=== PATIENT | female | born 1955 | race Caucasian/White ===

== ENCOUNTER 2020-07-07 02:45 | Inpatient (IN) | payer OTHER ==
--- OUTSIDE RECORDS SUMMARY | 2020-07-07 02:46 | XMS REPORT | Continuity of Care Document ---
:[address] [facility] t Address [address] [place] [address] Care Team Providers Name Role Phone Laly Ordaz PTA Attending Clinician Unavailable Problems This patient has no known problems. Allergies, Adverse Reactions, Alerts This patient has no known allergies or adverse reactions. Medications This patient has no known medications. Procedures This patient has no known procedures. Encounters Start End Encounter Admission Attending Care Care Encounter Source Date/Time Date/Time Type Type Clinicians Facility Department ID 2019-09-15 2019-09-25 Ancillary Orlin [facility] [id number] 08:39:47 09:11:43 Visit Sindhu Garay [id number] Leidy [id number] Nahid [id number] [facility] [address] Results This patient has no known results.
[2020-07-07 04:06] LABS: Absolute Lymphocytes (CBC) 1.4 K/uL (0.7-4.9); Basophils % 1.1 % (0-1.3); Hematocrit 30.2 % (36.0-45.0); Lymphocytes % 26.6 % (15.3-44.8); MPV 7.3 fL (7.6-11.3)
[2020-07-07 04:11] LABS: Protime INR 1.14
[2020-07-07 04:29] LABS: ALT/SGPT 12 U/L (12-78); AST/SGOT 15 U/L (15-37); Albumin 3.3 g/dL (3.4-5.0); Alkaline Phosphatase 111 U/L (45-117); BUN Blood Urea Nitrogen 23 mg/dL (7-18); Bicarbonate 28 mmol/L (21-32); Bilirubin Direct < 0.1 mg/dL (0-0.2); Bilirubin Total 0.3 mg/dL (0.2-1.0); Glucose Level 85 mg/dL (74-106); Lipase 197 U/L (73-393); Magnesium 1.5 mg/dL (1.8-2.4); NT PRO-BNP 185 pg/mL (<125); Potassium 3.7 mmol/L (3.5-5.1); Protein, Total 7.5 g/dL (6.4-8.2); Sodium Level 138 mmol/L (136-145); Troponin (Emerg Dept Use Only) < 0.02 ng/mL (0.0-0.045)
[2020-07-07] MEDS ORDERED: MAGNESIUM SULFATE 1 gm IVPB 1 GM/100 ML BAG IV ONE (05:16)
[2020-07-07] MEDS ORDERED: NA CHLORIDE 0.9% 1,000 ML ONE (05:16)
--- NOTE | 2020-07-07 05:30 | EDPHYS ---
Physician Documentation [facility] Name: Nilam Rivero Age: 65 yrs Sex: Female : 1955 Arrival Date: 07/07/2020 Time: 02:47 Bed 28 Private MD: KENDALL Physician Weston Rick HPI: 07/07 03:10 This 65 yrs old Female presents to ER via EMS with complaints of General luis Weakness. 03:10 The patient's rash thought to be caused by Dermatitis. luis 03:11 The rash is located on the buttocks. The rash can be described as erythematous, stage 3 luis left buttock, 3x 3 cm. Onset: The symptoms/episode began/occurred 2 week(s) ago. Associated signs and symptoms: Pertinent positives: burning sensation. Severity of symptoms: At their worst the symptoms were mild moderate in the emergency department the symptoms are unchanged. Treatment given at home: home health. The patient has experienced similar episodes in the past, several times. Historical: - Allergies: 03:03 PENICILLINS; rr5 - Home Meds: 03:03 levothyroxine oral [Active]; rr5 - PMHx: 03:03 Hypertension; lymph edema bilateral legs; Hypothyroidism; GERD; rr5 - PSHx: 03:03 None; rr5 - Immunization history:: Adult Immunizations up to date. - Social history:: Smoking status: unknown Patient/guardian denies using alcohol, street drugs. - Family history:: not pertinent. ROS: 03:11 Constitutional: Negative for fever, chills, and weight loss, Eyes: Negative for injury, luis pain, redness, and discharge, ENT: Negative for injury, pain, and discharge, Neck: Negative for injury, pain, and swelling, Cardiovascular: Negative for chest pain, palpitations, and edema, Respiratory: Negative for shortness of breath, cough, wheezing, and pleuritic chest pain, Abdomen/GI: Negative for abdominal pain, nausea, vomiting, diarrhea, and constipation, Back: Negative for injury and pain, : Negative for injury, bleeding, discharge, and swelling, Neuro: Negative for headache, weakness, numbness, tingling, and seizure, Psych: Negative for depression, anxiety, suicide ideation, homicidal ideation, and hallucinations, Allergy/Immunology: Negative for hives, rash, and allergies, Endocrine: Negative for neck swelling, polydipsia, polyuria, polyphagia, and marked weight changes, Hematologic/Lymphatic: Negative for swollen nodes, abnormal bleeding, and unusual bruising. 03:11 MS/extremity: Positive for pain, swelling, tenderness, of the buttocks. 03:11 Skin: Positive for left buttock breakdown, dressed. Exam: 03:11 Constitutional: This is a well developed, well nourished patient who is awake, alert, luis and in no acute distress. Head/Face: Normocephalic, atraumatic. Eyes: Pupils equal round and reactive to light, extra-ocular motions intact. Lids and lashes normal. Conjunctiva and sclera are non-icteric and not injected. Cornea within normal limits. Periorbital areas with no swelling, redness, or edema. ENT: Nares patent. No nasal discharge, no septal abnormalities noted. Tympanic membranes are normal and external auditory canals are clear. Oropharynx with no redness, swelling, or masses, exudates, or evidence of obstruction, uvula midline. Mucous membranes moist. Neck: Trachea midline, no thyromegaly or masses palpated, and no cervical lymphadenopathy. Supple, full range of motion without nuchal rigidity, or vertebral point tenderness. No Meningismus. Chest/axilla: Normal chest wall appearance and motion. Nontender with no deformity. No lesions are appreciated. Cardiovascular: Regular rate and rhythm with a normal S1 and S2. No gallops, murmurs, or rubs. Normal PMI, no JVD. No pulse deficits. Respiratory: Lungs have equal breath sounds bilaterally, clear to auscultation and percussion. No rales, rhonchi or wheezes noted. No increased work of breathing, no retractions or nasal flaring. Abdomen/GI: Soft, non-tender, with normal bowel sounds. No distension or tympany. No guarding or rebound. No evidence of tenderness throughout. Back: No spinal tenderness. No costovertebral tenderness. Full range of motion. Female : Normal external genitalia. Neuro: Awake and alert, GCS 15, oriented to person, place, time, and situation. Cranial nerves II-XII grossly intact. Motor strength 5/5 in all extremities. Sensory grossly intact. Cerebellar exam normal. Normal gait. Psych: Awake, alert, with orientation to person, place and time. Behavior, mood, and affect are within normal limits. 03:11 Skin: cellulitis, that is mild, confluent, induration, that is mild is noted, located on the right leg and left leg, Other bilateral lymphedema. 04:22 ECG was reviewed by the Attending Physician. [facility] Vital Signs: 02:55 BP 114 / 49; Pulse 79; Resp 19; Temp 98.2; Pulse Ox 100% ; Weight 82.55 kg; Height 5 rr5 ft. 2 in. (157.48 cm); Pain 5/10; 04:07 BP 120 / 63; Pulse 98; Resp 16; Pulse Ox 93% on R/A; jb4 05:00 BP 103 / 57; Pulse 71; Resp 16; Pulse Ox 97% on R/A; jb4 06:30 BP 111 / 48; Pulse 72; Resp 16; Pulse Ox 100% on R/A; jb4 02:55 Body Mass Index 33.29 (82.55 kg, 157.48 cm) rr5 MDM: 02:55 Patient medically screened. [facility] 03:14 Differential diagnosis: impetigo. Data reviewed: vital signs, nurses notes, lab test [facility] result(s), EKG, radiologic studies, plain films. Data interpreted: archery instructor: rate is 79 beats/min, rhythm is regular, Pulse oximetry: on room air is 100 %. Test interpretation: by ED physician or midlevel provider: ECG, plain radiologic studies. Counseling: I had a detailed discussion with the patient and/or guardian regarding: the historical points, exam findings, and any diagnostic results supporting the discharge/admit diagnosis, lab results, radiology results, the need for further work-up and treatment in the hospital. 07/07 02:59 Order name: Basic Metabolic Panel; Complete Time: 04:50 [facility] 07/07 02:59 Order name: CBC with Diff; Complete Time: 04:50 [facility] 07/07 02:59 Order name: LFT's; Complete Time: 04:50 [facility] 07/07 02:59 Order name: Magnesium; Complete Time: 04:50 [facility] 07/07 02:59 Order name: NT PRO-BNP; Complete Time: 04:50 [facility] 07/07 02:59 Order name: PT-INR; Complete Time: 04:20 [facility] 07/07 02:59 Order name: Troponin (emerg Dept Use Only); Complete Time: 04:50 [facility] 07/07 02:59 Order name: Urine Culture [facility] 07/07 02:59 Order name: Blood Culture Adult (2) [facility] 07/07 02:59 Order name: Lactate; Complete Time: 04:50 [facility] 07/07 03:58 Order name: Lipase; Complete Time: 04:50 [facility] 07/07 03:59 Order name: Sedimentation Rate, [place]; Complete Time: 04:50 [facility] 07/07 02:59 Order name: XRAY Chest (1 view) [facility] 07/07 05:06 Order name: Urine Dipstick--Ancillary (enter results); Complete Time: 05:51 k[facility] 07/07 06:54 Order name: CBC with Automated Diff [facility] 07/07 06:54 Order name: CBC with Automated Diff [facility] 07/07 06:54 Order name: Comprehensive Metabolic Panel [facility] 07/07 06:54 Order name: Comprehensive Metabolic Panel [facility] 07/07 06:54 Order name: Creatine Phosphokinase [facility] 07/07 06:54 Order name: Creatine Phosphokinase [facility] 07/07 06:54 Order name: Creatine Phosphokinase [facility] 07/07 06:54 Order name: Creatine Phosphokinase [facility] 07/07 06:54 Order name: Lipid Profile [facility] 07/07 06:54 Order name: Lipid Profile [facility] 07/07 06:54 Order name: Troponin I [facility] 07/07 06:54 Order name: Troponin I [facility] 07/07 02:59 Order name: EKG; Complete Time: 03:01 [facility] 07/07 02:59 Order name: Cardiac monitoring; Complete Time: 03:51 [facility] 07/07 02:59 Order name: EKG - Nurse/Tech; Complete Time: 03:51 [facility] 07/07 02:59 Order name: IV Saline Lock; Complete Time: 03:51 [facility] 07/07 02:59 Order name: Labs collected and sent; Complete Time: 03:51 [facility] 07/07 02:59 Order name: O2 Per Protocol; Complete Time: 03:51 [facility] 07/07 02:59 Order name: O2 Sat Monitoring; Complete Time: 03:51 [facility] 07/07 02:59 Order name: Urine Dipstick-Ancillary (obtain specimen); Complete Time: 05:17 [facility] 07/07 06:54 Order name: CONS Pharmacy Consult [facility] 07/07 06:54 Order name: Social Service Consult [facility] 07/07 06:54 Order name: NPO EDMS 07/07 06:54 Order name: Regular EDMS EC:22 Rate is 77 beats/min. Rhythm is regular. QRS [place] is Normal. CA interval is normal. QRS luis interval is normal. QT interval is normal. No Q waves. T waves are Normal. No ST changes noted. Clinical impression: NSR w/ Non-specific ST/T Changes and No evidence of ischemia. Interpreted by me. Reviewed by me. Administered Medications: 05:13 Drug: NS 0.9% 1000 ml Route: IV; Rate: 125 ml/hr; Site: left antecubital; 4 06:51 Follow up: Response: No adverse reaction; IV Status: Infusion continued upon admission; [facility] IV Intake: 200ml 05:13 Drug: Magnesium Sulfate 1 grams Route: IVPB; Infused Over: 1 hrs; Site: left [facility] antecubital; 06:13 Follow up: Response: No adverse reaction; IV Status: Completed infusion; IV Intake: jb4 100ml 06:39 Drug: Rocephin 1 grams Route: IV; Rate: per protocol; Site: left antecubital; [facility] 06:42 Follow up: Response: No adverse reaction; IV Status: Completed infusion; IV Intake: [id number] Disposition: 07/07/20 05:56 Hospitalization ordered by Radha Stark for Inpatient Admission. Preliminary diagnosis are Weakness, Lymphedema, not elsewhere classified, Urinary tract infection, site not specified, Anemia, unspecified. - Bed requested for Telemetry/MedSurg (Inpatient). - Status is Inpatient Admission. aj1 - Condition is Stable. - Problem is new. - Symptoms have improved. Signatures: Dispatcher [employer] EDMS Olga Horne Angela RN RN aj1 Weston Rick MD MD cha Williams, Irene, RN RN William Cantrell, MEDICAL ACCOUNTS RECEIVABLE SPECIALIST-C MEDICAL ACCOUNTS RECEIVABLE SPECIALIST-Brenda1 Alex Stovall RN RN jb4 Irvin Campos RN RN ja1 Steve Tejada, RN RN rr5 Corrections: (The following items were deleted from the chart) 03:58 03:01 LIPASE+C.LAB.BRZ ordered. EDMS EDMS 03:58 03:01 WESTERGREN SEDRATE+H.LAB.BRZ ordered. EDMS EDMS 05:18 03:16 Melgar ordered. luis jb4 05:46 05:29 Hospitalization Ordered by Radha Stark MD for Inpatient Admission. Preliminary luis diagnosis is Weakness; Pressure ulcer of buttock; Urinary tract infection, site not specified; Obesity, unspecified; Lymphedema, not elsewhere classified. Bed requested for Telemetry/MedSurg (Inpatient). Status is Inpatient Admission. Condition is Stable. Problem is new. Symptoms have improved. luis 06:00 05:56 Hospitalization Ordered by Radha Stark MD for Inpatient Admission. Preliminary luis diagnosis is Weakness; Lymphedema, not elsewhere classified; Urinary tract infection, site not specified. Bed requested for Telemetry/MedSurg (Inpatient). Status is Inpatient Admission. Condition is Stable. Problem is new. Symptoms have improved. luis 08:14 06:00 07/07/2020 05:56 Hospitalization Ordered by Radha Stark MD for Inpatient iw Admission. Preliminary diagnosis is Weakness; Lymphedema, not elsewhere classified; Urinary tract infection, site not specified; Anemia, unspecified. Bed requested for Telemetry/MedSurg (Inpatient). Status is Inpatient Admission. Condition is Stable. Problem is new. Symptoms have improved. luis 11:35 08:14 07/07/2020 05:56 Hospitalization Ordered by Radha Stark MD for Inpatient bd Admission. Preliminary diagnosis is Weakness; Lymphedema, not elsewhere classified; Urinary tract infection, site not specified; Anemia, unspecified. Bed requested for [facility] ER HOLD. Status is Inpatient Admission. Condition is Stable. Problem is new. Symptoms have improved. iw 12:50 11:35 07/07/2020 05:56 Hospitalization Ordered by Radha Stark MD for Inpatient bd Admission. Preliminary diagnosis is Weakness; Lymphedema, not elsewhere classified; Urinary tract infection, site not specified; Anemia, unspecified. Bed requested for Telemetry/MedSurg (Inpatient). Status is Inpatient Admission. Condition is Stable. Problem is new. Symptoms have improved. bd 13:43 12:50 07/07/2020 05:56 Hospitalization Ordered by Radha Stark MD for Inpatient ja1 Admission. Preliminary diagnosis is Weakness; Lymphedema, not elsewhere classified; Urinary tract infection, site not specified; Anemia, unspecified. Bed requested for [facility] ER HOLD. Status is Inpatient Admission. Condition is Stable. Problem is new. Symptoms have improved. bd 14:28 13:43 07/07/2020 05:56 Hospitalization Ordered by Radha Stark MD for Inpatient aj1 Admission. Preliminary diagnosis is Weakness; Lymphedema, not elsewhere classified; Urinary tract infection, site not specified; Anemia, unspecified. Bed requested for Telemetry/MedSurg (Inpatient). Status is Inpatient Admission. Condition is Stable. Problem is new. Symptoms have improved. ja1
--- NOTE | 2020-07-07 05:30 | ER ---
Nurse's Notes [facility] Name: Nilam Rivero Age: 65 yrs Sex: Female : 1955 Arrival Date: 07/07/2020 Time: 02:47 Bed 28 Private MD: Diagnosis: Weakness;Lymphedema, not elsewhere classified;Urinary tract infection, site not specified;Anemia, unspecified Presentation: 07/07 02:55 Chief complaint: EMS states: patient complaint that her her lymph edema and wound rr5 (pressure sore) on her back is getting worst. 02:55 Coronavirus screen: Client denies travel out of the [place] in the last 14 days. At this rr5 time, the client does not indicate any symptoms associated with coronavirus-19. Ebola Screen: Patient negative for fever greater than or equal to 101.5 degrees Fahrenheit, and additional compatible Ebola Virus Disease symptoms Patient denies exposure to infectious person. Patient denies travel to an Ebola-affected area in the 21 days before illness onset. Initial Sepsis Screen: Does the patient meet any 2 criteria? No. Patient's initial sepsis screen is negative. Does the patient have a suspected source of infection? No. Patient's initial sepsis screen is negative. Risk Assessment: Do you want to hurt yourself or someone else? Patient reports no desire to harm self or others. Note EMS stated orthostatic hypotension positive, patient leaving on her own for the past couple of weeks she called us 75x for the past 60 days asking for assistance. Onset of symptoms was July 07, 2020. 02:55 Method Of Arrival: EMS: [facility] rr5 02:55 Acuity: ESME 3 rr5 Triage Assessment: 03:00 General: Appears in no apparent distress. uncomfortable, Behavior is calm, cooperative, rr5 appropriate for age. 03:00 Pain: Complains of pain in buttocks Pain currently is 5 out of 10 on a pain scale. rr5 Quality of pain is described as aching. Neuro: Level of Consciousness is awake, alert, obeys commands, Oriented to person, place, time. Cardiovascular: Capillary refill < 3 seconds Patient's skin is warm and dry. Edema pitting to bilateral legs. Respiratory: Airway is patent Respiratory effort is even, unlabored, Respiratory pattern is regular, symmetrical. Derm: Skin is pink, warm \T\ dry. Decubitus located on bilateral sacrum hip(s) left trochanteric area, sacral and bilateral buttocks. Musculoskeletal:. Historical: - Allergies: 03:03 PENICILLINS; rr5 - Home Meds: 03:03 levothyroxine oral [Active]; rr5 - PMHx: 03:03 Hypertension; lymph edema bilateral legs; Hypothyroidism; GERD; rr5 - PSHx: 03:03 None; rr5 - Immunization history:: Adult Immunizations up to date. - Social history:: Smoking status: unknown Patient/guardian denies using alcohol, street drugs. - Family history:: not pertinent. Screenin:00 Abuse screen: Denies threats or abuse. Nutritional screening: No deficits noted. jb4 Tuberculosis screening: No symptoms or risk factors identified. Fall Risk Fall in past 12 months (25 points). IV access (20 points). Ambulatory Aid- Crutches/Cane/Walker (15 pts). Gait- Impaired (20 pts.). Total Smith Fall Scale indicates High Risk Score (45 or more points). Fall prevention measures have been instituted. Side Rails Up X 2 Placed Close to Nursing Station Frequent Obs/Assessments Occuring Family Present and informed to notify staff if the need to leave the bedside As available patient and family educated on Fall Prevention Program and Strategies. Assessment: 03:00 General: Appears in no apparent distress. comfortable, Behavior is calm, cooperative, jb4 appropriate for age. Pain: Denies pain. Neuro: Level of Consciousness is awake, alert, Oriented to person, place, time, situation. Cardiovascular: Patient's skin is warm and dry. Respiratory: Airway is patent Respiratory effort is even, unlabored, Respiratory pattern is regular, symmetrical. GI: No signs and/or symptoms were reported involving the gastrointestinal system. : No signs and/or symptoms were reported regarding the genitourinary system. EENT: No signs and/or symptoms were reported regarding the EENT system. Derm: Skin is pink, warm \T\ dry. Decubitus located on Pt has multiple stage 2 bed sores to the buttocks and left posterior thigh. Musculoskeletal: Circulation, motion, and sensation intact. Range of motion: intact in all extremities. 03:16 Reassessment: a case has been started, confirmation number [id number]. 04:00 Reassessment: Patient appears in no apparent distress at this time. Patient and/or jb4 family updated on plan of care and expected duration. Pain level reassessed. Patient is alert, oriented x 3, equal unlabored respirations, skin warm/dry/pink. 04:40 Reassessment: PT assisted to standing positions , used the walker to ambulate to the [facility] restroom and back to bed. Pt ambulated with an unsteady shuffling gate. Is unable to fully lift her feet., is unable to fully sit on the toilet, is unable to clean herself, unable to fully redress herself without assistance. 05:00 Reassessment: Patient appears in no apparent distress at this time. Patient and/or jb4 family updated on plan of care and expected duration. Pain level reassessed. Patient is alert, oriented x 3, equal unlabored respirations, skin warm/dry/pink. 05:30 Reassessment: per William WEIGHT REDUCING TECHNICIAN, pt refusing an admission for social work administrator consult. pt sg states that she has home health that comes 4 times a week, physical therapy is also visiting for treatment, pt states she has resources that she is utilizing, she just requires assistance at night for help into bed and changing her brief. 05:43 Reassessment: Patient appears in no apparent distress at this time. Patient and/or jb4 family updated on plan of care and expected duration. Pain level reassessed. Patient is alert, oriented x 3, equal unlabored respirations, skin warm/dry/pink. ER physician at the bedside. 06:45 Reassessment: Patient appears in no apparent distress at this time. Patient and/or jb4 family updated on plan of care and expected duration. Pain level reassessed. Patient is alert, oriented x 3, equal unlabored respirations, skin warm/dry/pink. Dr. Warner at the bedside. Vital Signs: 02:55 BP 114 / 49; Pulse 79; Resp 19; Temp 98.2; Pulse Ox 100% ; Weight 82.55 kg; Height 5 rr5 ft. 2 in. (157.48 cm); Pain 5/10; 04:07 BP 120 / 63; Pulse 98; Resp 16; Pulse Ox 93% on R/A; jb4 05:00 BP 103 / 57; Pulse 71; Resp 16; Pulse Ox 97% on R/A; jb4 06:30 BP 111 / 48; Pulse 72; Resp 16; Pulse Ox 100% on R/A; jb4 02:55 Body Mass Index 33.29 (82.55 kg, 157.48 cm) rr5 ED Course: 02:47 Patient arrived in ED. cl3 02:55 Weston Rick MD is Attending Physician. luis 03:02 Triage completed. rr5 03:03 Arm band placed on right wrist. rr5 03:26 Alex Stovall, RN is Primary Nurse. jb4 03:27 XRAY Chest (1 view) In Process Unspecified. EDMS 03:45 Inserted saline lock: 24 gauge in left antecubital area, using aseptic technique. Blood ds4 collected. 05:27 Radha Stark MD is Hospitalizing Provider. luis 05:54 Radha Stark MD is Hospitalizing Provider. luis Administered Medications: 05:13 Drug: NS 0.9% 1000 ml Route: IV; Rate: 125 ml/hr; Site: left antecubital; jb4 06:51 Follow up: Response: No adverse reaction; IV Status: Infusion continued upon admission; jb4 IV Intake: 200ml 05:13 Drug: Magnesium Sulfate 1 grams Route: IVPB; Infused Over: 1 hrs; Site: left jb4 antecubital; 06:13 Follow up: Response: No adverse reaction; IV Status: Completed infusion; IV Intake: jb4 100ml 06:39 Drug: Rocephin 1 grams Route: IV; Rate: per protocol; Site: left antecubital; jb4 06:42 Follow up: Response: No adverse reaction; IV Status: Completed infusion; IV Intake: [id number] Intake: 06:13 IV: 100ml; Total: 100ml. jb4 06:42 IV: 10ml; Total: 110ml. jb4 06:51 IV: 200ml; Total: 310ml. jb4 Outcome: 05:29 Decision to Hospitalize by Provider. luis 05:56 Decision to Hospitalize by Provider. luis 14:28 Patient left the ED. aj1 Signatures: Dispatcher [employer] EDHI Puja Beltran RN RN aj1 Frantz Duque RN RN sg Anderson, Corey, MD MD luis Adams Sosa ds4 Alex Stovall RN RN jb4 Steve Tejada RN RN rr5 Amy Holcomb cl3 Corrections: (The following items were deleted from the chart) 07:15 03:00 Derm: Skin is intact, Skin is pink, warm \T\ dry. jb4 jb4
[2020-07-07 05:48] LABS: Urine Blood NEGATIVE (NEG); Urine Glucose NEGATIVE (NEG); Urine Protein NEGATIVE (NEG); Urine Specific Gravity 1.015 (1.005-1.030); Urine pH 7.5 (5.0-7.0)
[2020-07-07] MEDS ORDERED: CEFTRIAXONE/SWI 1gm 1 GM/10 ML SYR ONE (06:43)
[2020-07-07] MEDS ORDERED: ONDANSETRON 4 MG/2 ML VIAL IV PRN (06:49)
--- NOTE | 2020-07-07 07:13 | RAD REPORT ---
EXAM DESCRIPTION: RAD - Chest Single View - 07/07/2020 3:27 am CLINICAL HISTORY: COUGH COMPARISON: None TECHNIQUE: AP portable chest image was obtained 07/07/2020 3:27 am . FINDINGS: Lung volumes are low but clear of focal mass or consolidation. Skin fold artifacts are pre sent on the left side of the chest. Interstitial pattern is not outside of range normal. Heart and va sculature are normal. No measurable pleural effusion and no pneumothorax. Advanced bilateral shoulder joint degenerative change present. No acute bone finding. No acute aortic findings suspected. IMPRESSION: No acute cardiopulmonary process.
[2020-07-07 08:10] LABS: Creatine Phosphokinase 88 U/L (26-192); Troponin I < 0.02 ng/mL (0.0-0.045)
[2020-07-07] MEDS: MEDIHONEY 44 ML TOPICAL TUBE TOP SCH (20:15)
[2020-07-07] MEDS ORDERED: MEDIHONEY 44 ML TOPICAL TUBE TOP SCH (20:15)
[2020-07-08] MEDS: NA CHLORIDE 0.9% 1,000 ML IV SCH ×2 (00:40→13:28)
[2020-07-08 04:05] LABS: Absolute Lymphocytes (CBC) 1.8 K/uL (0.7-4.9); Basophils % 1.1 % (0-1.3); Hematocrit 24.6 % (36.0-45.0); Lymphocytes % 38.6 % (15.3-44.8); MPV 7.4 fL (7.6-11.3)
[2020-07-08 04:25] LABS: Albumin 2.4 g/dL (3.4-5.0); Bilirubin Total 0.3 mg/dL (0.2-1.0); Potassium 3.9 mmol/L (3.5-5.1); Protein, Total 5.9 g/dL (6.4-8.2)
--- NOTE | 2020-07-08 06:07 | EKG ---
Test Date: 2020-07-07 Test Time: 03:40:45 Motion Picture Critic: AUNG MEASUREMENT RESULTS: Intervals: Rate: 77 VT: 126 QRSD: 86 QT: 420 QTc: 475 Hume: P: 61 VT: 126 QRS: 5 T: 12 INTERPRETIVE STATEMENTS: Normal sinus rhythm Nonspecific ST abnormality Abnormal ECG No previous ECG available for comparison Electronically Signed On 07-08-20 06:03:20 COMPOUNDING SCALER by Anthony Rios
--- NOTE | 2020-07-08 06:55 | P.HP ---
Certification for Inpatient Patient admitted to: Observation With expected LOS: <2 Midnights Patient will require the following post-hospital care: None Practitioner: I am a practitioner with admitting privileges, knowledge of patient current condition, hospital course, and medical plan of care. Services: Services provided to patient in accordance with Admission requirements found in Title 42 Section 412.3 of the Code of Federal Regulations Patient History Date of Service: 07/07/20 Reason for admission: Generalized weakness & difficulty mobilizing w/sacral pressure ulcers History of Present Illness: Patient is a 65-year-old female came to the hospital with generalized weakness. She had been laying in bed for quite a while and she is called the EMS 70 times over the last 60 days. They went over to her house and apparently the house is filthy, and she is really not able to care for herself. She does have caregivers assigned to her but they are not with her 12/03. She has a hard time even lifting her leg know when it falls off the bed. Once of the like this happen she calls EMS to help her. She is unable really care for herself at home . She is a danger to herself only she has 247 care. She also has developed sacral decubitus ulcers. These are stage II. Will get wound healing to see the patient as well. Patient has significant lymphedema and this is being treated. But I believe that is 1 of the reason she is unable to lift her leg because of the significant swelling and weight. She does appear very deconditioned. She will be admitted to the hospital for observation and social media project manager consultation Allergies Penicillins Allergy (Verified 07/07/20 07:56) Rash Home Medications: Cholecalciferol (Vitamin D3) [Vitamin D 1000 Iu Tab] 2,000 unit PO DAILY 07/07/20 Irbesartan 300 mg PO DAILY 07/07/20 Levothyroxine [Synthroid] 88 mcg PO [id number] 07/07/20 Pantoprazole [Protonix Tab] 40 mg PO DAILY 07/07/20 Pravastatin Sodium [Pravachol] 40 mg PO DAILY 07/07/20 hydroCHLOROthiazide [Hydrochlorothiazide] 25 mg PO DAILY 07/07/20 - Past Medical/Surgical History Has patient received pneumonia vaccine in the past: Yes Diabetic: No -: hypothyroid -: cholesterol -: lymphemdema -: htn -: hx lumbar fracture Past Surgical History: Patient denies surgical history - Family History Father Family History: Reviewed- Non-Contributory - Social History Smoking Status: Unknown if ever smoked Alcohol use: No CD- Drugs: No Review of Systems 10-point ROS is otherwise unremarkable Physical Examination - Vital Signs Temperature: 99.3 F Blood Pressure: 115/55 Pulse: 72 Respirations: 18 Pulse Ox (%): 99 - Physical Exam General: Alert, In no apparent distress, Oriented x3 HEENT: Atraumatic, PERRLA, Mucous membr. moist/pink, EOMI, Sclerae nonicteric Neck: Supple, 2+ carotid pulse no bruit, No LAD, Without JVD or thyroid abnormality Respiratory: Clear to auscultation bilaterally, Normal air movement Cardiovascular: Regular rate/rhythm, Normal S1 S2, No murmurs Gastrointestinal: Normal bowel sounds, Soft and benign, Non-distended, No tenderness Musculoskeletal: No clubbing, No tenderness, Swelling Integumentary: Pressure ulcer (4D from pressure ulcers from the sacrum to the left flank/buttock region) Neurological: Normal speech, Sensation intact, Cranial nerves 3-12 intact, N ormal affect, Abnormal gait, Abnormal strength, Abnormal tone Lymphatics: No axilla or inguinal lymphadenopathy Assessment & Plan - Problems (Diagnosis) (1) Generalized weakness Current Visit: Yes Status: Acute (2) Debility Current Visit: Yes Status: Acute (3) Pressure injury of sacral region, stage 2 Current Visit: Yes Status: Acute (4) Lymphedema Current Visit: Yes Status: Acute (5) Unsatisfactory living conditions Current Visit: Yes Status: Acute (6) Hypertension Current Visit: Yes Status: Acute Qualifiers: Hypertension type: essential hypertension Qualified Code(s): I10 - Essential (primary) hypertension - Plan 1. Continue with IV antibiotic 2. Continue with local wound care 3. Wound care consultation 4. Gentle IV hydration 5. Monitor CBC 6. Strict blood sugar monitoring 7. Pain control 8. Physical therapy evaluation 9. GI and DVT prophylaxis Discharge Plan: Intermediate Plan to discharge in: 24 Hours - Advance Directives Does patient have a Living Will: No Does patient have a Durable POA for Healthcare: No - Code Status/Comfort Care Code Status Assessed: Yes Code Status: Full Code Critical Care: No Time Spent Managing PTS Care (In Minutes): 45
[2020-07-08] MEDS: PANTOPRAZOLE 40MG TABLET PO SCH (08:36)
[2020-07-08] MEDS: ATORVASTATIN 10 MG TAB PO SCH (08:36)
[2020-07-08] MEDS: VITAMIN D 1000 UNIT TAB PO SCH (08:37)
[2020-07-08] MEDS: IRBESARTAN 150 MG TAB PO SCH (08:37)
[2020-07-08] MEDS: hydroCHLOROthiazide 25 MG TAB PO SCH (08:37)
[2020-07-08] MEDS: MEDIHONEY 44 ML TOPICAL TUBE TOP SCH (11:08)
[2020-07-08] MEDS: ACETAMINOPHEN 500 MG TAB PO PRN (15:20)
[2020-07-08] MEDS: JUVEN PACKET PO SCH (19:47)
[2020-07-09] MEDS: CEFTRIAXONE/SWI 1gm 1 GM/10 ML SYR IV SCH ×3 (03:54→20:03)
[2020-07-09] MEDS: LEVOTHYROXINE SOD 0.088 MG TAB PO SCH (05:33)
[2020-07-09] MEDS: IRBESARTAN 150 MG TAB PO SCH (08:50)
[2020-07-09] MEDS: VITAMIN D 1000 UNIT TAB PO SCH (08:50)
[2020-07-09] MEDS: PANTOPRAZOLE 40MG TABLET PO SCH (08:51)
[2020-07-09] MEDS: ATORVASTATIN 10 MG TAB PO SCH (08:51)
[2020-07-09] MEDS: JUVEN PACKET PO SCH ×2 (08:51→20:04)
[2020-07-09] MEDS: hydroCHLOROthiazide 25 MG TAB PO SCH (08:51)
[2020-07-09] MEDS ORDERED: CEFTRIAXONE 1 GM/NS 50 ML 1 GM/50 ML BAG IV SCH (09:00)
[2020-07-09] MEDS: MEDIHONEY 44 ML TOPICAL TUBE TOP SCH (10:00)
[2020-07-09] MEDS: ACETAMINOPHEN 500 MG TAB PO PRN (10:42)
--- NOTE | 2020-07-09 15:04 | P.PN ---
Subjective Date of Service: 07/09/20 Patient continues to do well with no new complaints. She has the sacral wounds which are improving. She did have a positive urinary tract infection although the urine analysis was not overly impressive. Hopefully, she will be able to get to senior care so she can do therapy & build her strength up to where she can lift her legs up on her own at home and where she is able to become more mobile to where she does not develop pressure ulcers. Review of Systems 10-point ROS is otherwise unremarkable Physical Examination - Vital Signs Temperature: 99.1 F Blood Pressure: 123/56 Pulse: 64 Respirations: 16 Pulse Ox (%): 99 - Physical Exam General: Alert, In no apparent distress, Oriented x3 Respiratory: Diminished Cardiovascular: Regular rate/rhythm, Normal S1 S2, Systolic murmur Gastrointestinal: Normal bowel sounds, Soft and benign, Non-distended, No tenderness Musculoskeletal: No clubbing, No swelling, No tenderness Neurological: Sensation intact, Cranial nerves 3-12 intact, Abnormal gait, Abnormal strength Lymphatics: No axilla or inguinal lymphadenopathy - Studies Medications List Reviewed: Yes Assessment & Plan - Problems (Diagnosis) (1) Generalized weakness Current Visit: Yes Status: Acute (2) Debility Current Visit: Yes Status: Acute (3) Pressure injury of sacral region, stage 2 Current Visit: Yes Status: Acute (4) Lymphedema Current Visit: Yes Status: Acute (5) Unsatisfactory living conditions Current Visit: Yes Status: Acute (6) Hypertension Current Visit: Yes Status: Acute Qualifiers: Hypertension type: essential hypertension Qualified Code(s): I10 - Essential (primary) hypertension - Plan 1. Continue with IV antibiotic for urinary tract infection 2. Continue with local wound care 3. Wound care consultation appreciated 4. Hep-Lock IV 5. Labs remained stable 6. Strict blood sugar monitoring 7. Pain control 8. Physical therapy evaluation appreciated 9. Patient is unable to care for herself at home. She has called the EMS greater than 70 times over the last 60 days. She needs assistance with the most minimal things including lifting her leg up. She is not safe to go home and care for herself any longer. She will need to either get significantly strong her or to have family at home which she does not have the ability to do at this time. Anticipate transfer to a senior care facility placement when accepted. Discharge Plan: [facility] Plan to discharge in: 24 Hours - Advance Directives Does patient have a Living Will: No Does patient have a Durable POA for Healthcare: No - Code Status/Comfort Care Code Status: Full Code Critical Care: No Time Spent Managing PTS Care (In Minutes): 35
--- NOTE | 2020-07-09 15:06 | P.PN ---
Subjective Date of Service: 07/08/20 Patient continues to do well with no new complaints. She is improving. Review of Systems 10-point ROS is otherwise unremarkable Physical Examination - Vital Signs Temperature: 99.1 F Blood Pressure: 123/56 Pulse: 64 Respirations: 16 Pulse Ox (%): 99 - Physical Exam General: Alert, In no apparent distress, Oriented x3 Respiratory: Clear to auscultation bilaterally, Normal air movement Cardiovascular: Regular rate/rhythm, Normal S1 S2, No murmurs Gastrointestinal: Normal bowel sounds, Soft and benign, Non-distended, No tenderness Musculoskeletal: No clubbing, No swelling, No tenderness Neurological: Sensation intact, Cranial nerves 3-12 intact - Studies Medications List Reviewed: Yes Assessment & Plan - Problems (Diagnosis) (1) Generalized weakness Current Visit: Yes Status: Acute (2) Debility Current Visit: Yes Status: Acute (3) Pressure injury of sacral region, stage 2 Current Visit: Yes Status: Acute (4) Lymphedema Current Visit: Yes Status: Acute (5) Unsatisfactory living conditions Current Visit: Yes Status: Acute (6) Hypertension Current Visit: Yes Status: Acute Qualifiers: Hypertension type: essential hypertension Qualified Code(s): I10 - Essential (primary) hypertension - Plan 1. Continue antibiotics at this time 2. Continue with local wound care 3. Wound care consultation appreciated 4. Continue gentle hydration 5. Labs remained stable 6. Strict blood sugar monitoring 7. Pain control as needed 8. Physical therapy consultation pending 9. Patient is unable to care for herself at home. She has called the EMS greater than 70 times over the last 60 days. She needs assistance with the most minimal things including lifting her leg up. She is not safe to go home and care for herself any longer. She will need to either get significantly stronger or to have family at home which she does not have the ability to do at this time. Anticipate transfer to a alf facility placement when accepted. Discharge Plan: [facility] Plan to discharge in: 48 Hours - Advance Directives Does patient have a Living Will: No Does patient have a Durable POA for Healthcare: No - Code Status/Comfort Care Code Status: Full Code Critical Care: No Time Spent Managing PTS Care (In Minutes): 35
[2020-07-09] MEDS: SMZ./TMP. 800/160 MG TABLET PO SCH (20:03)
[2020-07-10] MEDS: LEVOTHYROXINE SOD 0.088 MG TAB PO SCH (05:41)
[2020-07-10] MEDS: ACETAMINOPHEN 500 MG TAB PO PRN ×3 (08:29→22:04)
[2020-07-10] MEDS: SMZ./TMP. 800/160 MG TABLET PO SCH ×2 (08:30→22:04)
[2020-07-10] MEDS: CEFTRIAXONE/SWI 1gm 1 GM/10 ML SYR IV SCH ×2 (08:30→22:05)
[2020-07-10] MEDS: IRBESARTAN 150 MG TAB PO SCH (08:30)
[2020-07-10] MEDS: PANTOPRAZOLE 40MG TABLET PO SCH (08:31)
[2020-07-10] MEDS: ATORVASTATIN 10 MG TAB PO SCH (08:31)
[2020-07-10] MEDS: hydroCHLOROthiazide 25 MG TAB PO SCH (08:31)
[2020-07-10] MEDS: VITAMIN D 1000 UNIT TAB PO SCH (08:32)
[2020-07-10] MEDS: JUVEN PACKET PO SCH ×2 (08:32→22:03)
[2020-07-10] MEDS: MEDIHONEY 44 ML TOPICAL TUBE TOP SCH (08:33)
[2020-07-10 12:41] LABS: Absolute Lymphocytes (CBC) 0.2 K/uL (0.7-4.9); Basophils % 0.4 % (0-1.3); Hematocrit 26.6 % (36.0-45.0); Lymphocytes % 4.8 % (15.3-44.8); MPV 7.7 fL (7.6-11.3); RBC Red Blood Cell Count 3.23 M/uL (3.86-4.86)
[2020-07-10] MEDS: CETIRIZINE HCL 5 MG TABLET PO SCH (12:41)
[2020-07-10 13:02] LABS: Albumin 2.5 g/dL (3.4-5.0); Bilirubin Total 0.3 mg/dL (0.2-1.0); Magnesium 1.5 mg/dL (1.8-2.4); Phosphorus 3.7 mg/dL (2.5-4.9); Potassium 3.8 mmol/L (3.5-5.1); Protein, Total 6.2 g/dL (6.4-8.2)
[2020-07-10] MEDS: SIMETHICONE 125 MG TAB PO SCH ×2 (13:03→17:06)
[2020-07-11] MEDS: ACETAMINOPHEN 500 MG TAB PO PRN ×3 (05:24→23:39)
[2020-07-11] MEDS: LEVOTHYROXINE SOD 0.088 MG TAB PO SCH (05:24)
[2020-07-11] MEDS: SIMETHICONE 125 MG TAB PO SCH ×2 (05:24)
[2020-07-11 08:51] VITALS: BMI 33.3
[2020-07-11] MEDS: ATORVASTATIN 10 MG TAB PO SCH (08:51)
[2020-07-11] MEDS: hydroCHLOROthiazide 25 MG TAB PO SCH (08:52)
[2020-07-11] MEDS: PANTOPRAZOLE 40MG TABLET PO SCH (08:52)
[2020-07-11] MEDS: VITAMIN D 1000 UNIT TAB PO SCH (08:52)
[2020-07-11] MEDS: CETIRIZINE HCL 5 MG TABLET PO SCH (08:52)
[2020-07-11] MEDS: IRBESARTAN 150 MG TAB PO SCH (08:52)
[2020-07-11] MEDS: SMZ./TMP. 800/160 MG TABLET PO SCH (08:52)
[2020-07-11] MEDS: JUVEN PACKET PO SCH ×2 (08:53→21:00)
[2020-07-11] MEDS: CEFTRIAXONE/SWI 1gm 1 GM/10 ML SYR IV SCH ×2 (08:53→21:05)
[2020-07-11] MEDS: MEDIHONEY 44 ML TOPICAL TUBE TOP SCH (09:09)
--- NOTE | 2020-07-11 10:36 | P.PN ---
Subjective Date of Service: 07/10/20 Patient had a fever of 101 today. She is feeling weaker today. Blood pressure is on the lower side as well. Will review her culture results and possibly need to broaden her antibiotic coverage as she remains having fevers on ceftriaxone. May need to have cultures of wound on the sacral region as well. May need to look for other sources of fever. Patient will probably meet inpatient requirements. Review of Systems 10-point ROS is otherwise unremarkable Physical Examination - Vital Signs Temperature: 100.0 F Blood Pressure: 107/48 Pulse: 88 Respirations: 16 Pulse Ox (%): 97 - Physical Exam General: Alert, In no apparent distress, Oriented x3 Respiratory: Clear to auscultation bilaterally, Normal air movement Cardiovascular: Regular rate/rhythm, Normal S1 S2, No murmurs Gastrointestinal: Normal bowel sounds, Soft and benign, Non-distended, No tenderness Musculoskeletal: No clubbing, No swelling, No tenderness Neurological: Normal strength at 5/5 x4 extr, Sensation intact, Cranial nerves 3-12 intact - Studies Microbiology Data (last 24 hrs): 07/07/20 05:05 Clean Catch Urine [place] Count - Final >100,000 CFU/ML. 07/07/20 05:05 Clean Catch Urine - Final Escherichia Coli Enterococcus Faecalis Medications List Reviewed: Yes Assessment & Plan - Problems (Diagnosis) (1) UTI (urinary tract infection) Current Visit: Yes Status: Acute (2) Fever Current Visit: Yes Status: Acute (3) Generalized weakness Current Visit: Yes Status: Acute (4) Debility Current Visit: Yes Status: Acute (5) Pressure injury of sacral region, stage 2 Current Visit: Yes Status: Acute (6) Lymphedema Current Visit: Yes Status: Acute (7) Unsatisfactory living conditions Current Visit: Yes Status: Acute (8) Hypertension Current Visit: Yes Status: Acute Qualifiers: Hypertension type: essential hypertension Qualified Code(s): I10 - Essential (primary) hypertension - Plan 1. Continue antibiotics at this time; patient on Rocephin and may need to change the antibiotic coverage if she continues to have fever 2. Continue with local wound care; wound cultures as well; blood cultures negative at this time 3. Wound care consultation appreciated 4. Continue gentle hydration 5. Labs remained stable; repeat labs in a.m. 6. Strict blood sugar monitoring 7. Pain control as needed 8. Physical therapy consultation pending 9. [facility] awaiting placement. Patient is unable to care for herself at home. She has called the EMS greater than 70 times over the last 60 days. She needs assistance with the most minimal things including lifting her leg up. She is not safe to go home and care for herself any longer. She will need to either get significantly stronger or to have family at home which she does not have the ability to do at this time. Anticipate transfer to a care home facility placement when accepted. Discharge Plan: [facility] Plan to discharge in: 48 Hours - Advance Directives Does patient have a Living Will: No Does patient have a Durable POA for Healthcare: No - Code Status/Comfort Care Code Status: Full Code Critical Care: No Time Spent Managing PTS Care (In Minutes): 35
[2020-07-11] MEDS: SIMETHICONE 125 MG TAB PO PRN ×2 (11:03→18:05)
[2020-07-11 11:38] LABS: Absolute Lymphocytes (CBC) 0.2 K/uL (0.7-4.9); Basophils % 0.2 % (0-1.3); Hematocrit 29.1 % (36.0-45.0); Lymphocytes % 2.6 % (15.3-44.8); MPV 7.7 fL (7.6-11.3); RBC Red Blood Cell Count 3.56 M/uL (3.86-4.86)
[2020-07-11] MEDS: NA CHLORIDE 0.9% 1,000 ML IV SCH ×2 (11:43→23:18)
[2020-07-11 12:21] LABS: Albumin 2.6 g/dL (3.4-5.0); Bilirubin Total 0.2 mg/dL (0.2-1.0); Folic Acid, (Folate) 14.6 ng/mL (3.1-17.5); Potassium 4.1 mmol/L (3.5-5.1); Protein, Total 6.6 g/dL (6.4-8.2)
[2020-07-11] MEDS ORDERED: ACETAMINOPHEN 500 MG TAB PO ONE (16:07)
[2020-07-11] MEDS ORDERED: CYANOCOBALAMIN 1000MCG/ML INJ IM ONE (16:12)
--- NOTE | 2020-07-11 16:20 | P.PN ---
Subjective Date of Service: 07/11/20 Patient continues to have a fever of 102. Patient denies any new complaint. She continues to have weakness. Review of Systems 10-point ROS is otherwise unremarkable Physical Examination - Vital Signs Temperature: 100.0 F Blood Pressure: 107/48 Pulse: 88 Respirations: 16 Pulse Ox (%): 97 - Physical Exam General: Alert, In no apparent distress, Oriented x3 Respiratory: Clear to auscultation bilaterally, Normal air movement Cardiovascular: Regular rate/rhythm, Normal S1 S2, No murmurs Gastrointestinal: Normal bowel sounds, Soft and benign, Non-distended, No tenderness Musculoskeletal: No clubbing, No swelling, No tenderness Neurological: Sensation intact, Cranial nerves 3-12 intact - Studies Microbiology Data (last 24 hrs): 07/07/20 05:05 Clean Catch Urine [place] Count - Final >100,000 CFU/ML. 07/07/20 05:05 Clean Catch Urine - Final Escherichia Coli Enterococcus Faecalis Medications List Reviewed: Yes Assessment & Plan - Problems (Diagnosis) (1) UTI (urinary tract infection) Current Visit: Yes Status: Acute (2) Fever Current Visit: Yes Status: Acute (3) Generalized weakness Current Visit: Yes Status: Acute (4) Debility Current Visit: Yes Status: Acute (5) Pressure injury of sacral region, stage 2 Current Visit: Yes Status: Acute (6) Lymphedema Current Visit: Yes Status: Acute (7) Unsatisfactory living conditions Current Visit: Yes Status: Acute (8) Hypertension Current Visit: Yes Status: Acute Qualifiers: Hypertension type: essential hypertension Qualified Code(s): I10 - Essential (primary) hypertension - Plan 1. Add vancomycin to regimen. Blood cultures repeated with a temperature of a 103 2. Continue with local wound care; wound cultures and blood cultures pending; Infectious Disease Consult 3. Wound care consultation appreciated 4. Continue gentle hydration 5. Iron level & B12 levels are low and we will supplement 6. Strict blood sugar monitoring 7. Pain control as needed 8. Physical therapy consultation appreciated 9. [facility] [employer] [facility] awaiting placement. Patient is unable to care for herself at home. She has called the EMS greater than 70 times over the last 60 days. She needs assistance with the most minimal things including lifting her leg up. She is not safe to go home and care for herself any longer. She will need to either get significantly stronger or to have family at home which she does not have the ability to do at this time. Anticipate transfer to a intermediate facility placement when accepted. Discharge Plan: Home Plan to discharge in: Greater than 2 days - Advance Directives Does patient have a Living Will: No Does patient have a Durable POA for Healthcare: No - Code Status/Comfort Care Code Status: Full Code Critical Care: No Time Spent Managing PTS Care (In Minutes): 35
[2020-07-11] MEDS: ENSURE HIGH PROTEIN 237 ML CAN PO SCH (16:28)
[2020-07-11] MEDS ORDERED: VANCOMYCIN 1.25 GM in NA CHLORIDE 0.9% 250 ML IVPB SCH (17:00)
[2020-07-11] MEDS ORDERED: VANCOMYCIN/NS 1 gm 1 GM/250 ML BAG IVPB ONE (17:30)
[2020-07-11] MEDS ORDERED: VANCOMYCIN 1 GM/VIAL ONE (17:41)
[2020-07-11] MEDS ORDERED: NA CHLORIDE 0.9% 250 ML ONE (17:42)
[2020-07-12] MEDS: LEVOTHYROXINE SOD 0.088 MG TAB PO SCH (05:39)
[2020-07-12] MEDS: SIMETHICONE 125 MG TAB PO PRN ×3 (05:41→18:07)
[2020-07-12 06:16] LABS: Absolute Lymphocytes (CBC) 0.3 K/uL (0.7-4.9); Basophils % 0.3 % (0-1.3); Hematocrit 26.7 % (36.0-45.0); Lymphocytes % 4.3 % (15.3-44.8); MPV 8.2 fL (7.6-11.3); RBC Red Blood Cell Count 3.25 M/uL (3.86-4.86)
[2020-07-12 06:31] LABS: Magnesium 1.5 mg/dL (1.8-2.4); Phosphorus 3.7 mg/dL (2.5-4.9); Potassium 3.8 mmol/L (3.5-5.1)
[2020-07-12] MEDS: ENSURE HIGH PROTEIN 237 ML CAN PO SCH ×3 (07:30→16:07)
[2020-07-12] MEDS: MEDIHONEY 44 ML TOPICAL TUBE TOP SCH (09:00)
[2020-07-12] MEDS ORDERED: levoFLOXacin 500 MG TAB PO SCH (09:00)
[2020-07-12] MEDS: VITAMIN D 1000 UNIT TAB PO SCH (09:58)
[2020-07-12] MEDS: IRBESARTAN 150 MG TAB PO SCH (09:58)
[2020-07-12] MEDS: ALPRAZOLAM 0.25 MG TABLET PO PRN (09:58)
[2020-07-12] MEDS: CETIRIZINE HCL 5 MG TABLET PO SCH (09:58)
[2020-07-12] MEDS: JUVEN PACKET PO SCH ×2 (09:59→21:31)
[2020-07-12] MEDS: PANTOPRAZOLE 40MG TABLET PO SCH (09:59)
[2020-07-12] MEDS: SOD FERRIC GLUC COMPLX/SUCROSE 125 MG in NA CHLORIDE 0.9% 100 ML IV SCH (09:59)
[2020-07-12] MEDS: ATORVASTATIN 10 MG TAB PO SCH (09:59)
[2020-07-12] MEDS: levoFLOXacin 250 MG TAB PO SCH (09:59)
[2020-07-12] MEDS: NA CHLORIDE 0.9% 1,000 ML IV SCH ×3 (10:00→21:58)
--- NOTE | 2020-07-12 13:16 | P.PN ---
Subjective Date of Service: 07/12/20 Chief Complaint: Generalized weakness & difficulty mobilizing w/sacral pressure ulcers Subjective: Other (Patient still feeling weak. But improved. No nausea vomiting.) Physical Examination - Vital Signs Temperature: 98.8 F Blood Pressure: 102/48 Pulse: 79 Respirations: 15 Pulse Ox (%): 95 - Physical Exam General: Alert, In no apparent distress, Oriented x3, Cooperative HEENT: Atraumatic Neck: Supple Respiratory: Clear to auscultation bilaterally, Normal air movement Cardiovascular: Normal pulses, Regular rate/rhythm Gastrointestinal: Normal bowel sounds, No tenderness, No masses, No rebound, No guarding Integumentary: No erythema, No warmth, No cyanosis Neurological: Normal speech, Normal tone, Normal affect - Studies Microbiology Data (last 24 hrs): 07/07/20 03:30 Blood - Blood Aerobic Blood Culture - Final No growth in 5 days. 07/07/20 03:30 Blood - Blood Anaerobic Blood Culture - Final No growth in 5 days. 07/07/20 03:45 Blood - Blood Aerobic Blood Culture - Final No growth in 5 days. 07/07/20 03:45 Blood - Blood Anaerobic Blood Culture - Final No growth in 5 days. Medications List Reviewed: Yes Assessment & Plan Discharge Plan: Home (with Home health) Plan to discharge in: 48 Hours Physician Review Additional Text: Impression: Generalized weakness with debility secondary to UTI, urine culture positive for E coli and Enterococcus Acute on chronic renal disease stage III Hypertension Stage II pressure ulcer to the sacrum B12 deficiency Bilateral advanced shoulder joint degeneration Plan: Generalized weakness with debility secondary to UTI, urine culture positive for E coli and Enterococcus: IV antibiotics adjusted. Discontinue vancomycin due to renal function at this time. Blood cultures negative. Will change IV antibiotic therapy to Levaquin to cover for bacteria. Will consult infectious disease for further recommendation. 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 Patient not able to get skilled placement. Only option would be home with home health and provider services. Continue physical therapy. Continue IV fluids at this time. Discontinue Avapro due to renal function. Will consult nephrology for further recommendation. Check renal ultrasound. Anticipate improvement over the next several days. Acute on chronic renal disease stage III: Etiology unknown. May be related to vancomycin. This has been discontinued. Will also recommend to discontinue Avapro. Will check renal ultrasound. Will consult nephrology for further recommendation. Hypertension: Blood pressure low at this time. Discontinue Avapro. Will monitor this closely. Continue IV fluids. Stage II pressure ulcer to the sacrum: Continue wound care. Infectious disease consulted. B12 deficiency: Continue with supplementation. Bilateral advanced shoulder joint degeneration: Will provide medication, physical therapy to assess and evaluate. Time Spent Managing Pts Care (In Minutes): 55
--- NOTE | 2020-07-12 13:39 | CON ---
History Of Present Illness: This is a 65-year-old female, coming in for generalized weakness. The p atient has been lying in bed for the last couple of months. Denies any headache, nausea, vomiting, c hest pain, abdominal pain, constipation, or diarrhea. The patient has stage III sacral coccyx wounds , also has lymphedema to both lower extremities with right leg with venous stasis ulcer. The patient denies any other problems at this time. Past Medical History: Includes hypothyroidism, hypercholesterolemia, sacral coccyx wound, congestive heart failure. As per HPI. Social History: Nonsmoker, nondrinker. Lives at home. Family History: Noncontributory. Medications: Vitamin D, levothyroxine, Protonix, atorvastatin, hydrochlorothiazide, Pravachol. Allergies: PENICILLIN CAUSES A RASH. Review of Systems: A 10-point review was performed. Physical Examination: General: This is a 65-year-old female, lying in bed, not in any acute cardiopulmonary distress. Vital Signs: Temperature 98.8, pulse 79, respirations 15, blood pressure 102/48. HEENT: Unremarkable. Neck: Supple. Lungs: Clear to auscultation. Heart: S1, S2. Regular. Abdomen: Soft, nontender. Bowel sounds present. Extremities: 2+ edema. Legs wrapped in [place]ich[place] wrap pressure dressing. Sacral coccyx area with 5 x 14 x 0.4 cm, has 80% granulation and 20% slough to the wound site. Main wound is located in the coccyx area and then has multiple satellite wounds to the buttocks because of the patient's habit of lying i n bed. Laboratory Data: Shows WBC of 6.3, hemoglobin 8.8, platelets are 134. Chemistry shows sodium 140, p otassium 3.8, chloride 110, bicarb 23, creatinine 1.5, glucose is 77, albumin is 2.6. Chest x-ray sh ows lung volumes are low, but clear of any consolidation. Assessment And Plan: A 65-year-old female coming in with generalized weakness, has multiple wounds b ecause of lying in her bed for more than 2 months. The largest wound is in the sacral coccyx region and there are multiple satellite wounds on both buttocks making the measurement 5 x 14 x 0.4 with 20% necrotic tissue and slough was also present. We will recommend to apply Medihoney, offload the woun ds by wedge pillow. Lower extremity lymphedema and right leg with venous stasis ulcer to keep leg wr apped with Jericho wrap and keep them elevated. Continue current antibiotic treatment with Levaquin, tot al course of 10 days. Continue to monitor for signs of infection. The patient has Escherichia coli in her urine, more than 100,000, sensitive to Levaquin. Also, has moderate-protein calorie malnouris hment. We will follow the patient closely. Thank you Dr. Connolly for consult. NF/MODL Voice ID: [id number] Report ID: [id number]
[2020-07-12] MEDS: ENOXAPARIN 30 MG/0.3 ML SQ SCH (16:06)
[2020-07-12] MEDS ORDERED: SOD FERRIC GLUC COMPLX/SUCROSE 250 MG in NA CHLORIDE 0.9% 250 ML IV ONE (16:13)
--- NOTE | 2020-07-12 16:29 | P.CNS ---
Date of Consult: 07/12/20 Reason for Consult: MAGNUS Requesting Physician: Jose Connolly Chief Complaint: Generalized weakness & difficulty mobilizing w/sacral pressure ulcers History of Present Illness: 65 y o female pt with hx of lymphedema, HTN, admitted for management of fever and deemed septic. She was worked up and found to have UTI and infected decubitus ulcers. She was started on empiric antibiotics which include vancomycin. Her kidney function worsened over the last 2 days warranting nephrology consultation. she denied any issues with previous kidney issues or use of NSAIDs on chronic basis. No family hx of kidney disease reported. Presently, she does not have any issues with burning micturition, reduced urine output of n/v, chills, rigor, abd pain. She did report back discomfort. Allergies Penicillins Allergy (Verified 07/07/20 07:56) Rash Home medications list reviewed: Yes Home Medications: Cholecalciferol (Vitamin D3) [Vitamin D 1000 Iu Tab] 2,000 unit PO DAILY 07/07/20 Irbesartan 300 mg PO DAILY 07/07/20 Levothyroxine [Synthroid] 88 mcg PO [id number] 07/07/20 Pantoprazole [Protonix Tab] 40 mg PO DAILY 07/07/20 Pravastatin Sodium [Pravachol] 40 mg PO DAILY 07/07/20 hydroCHLOROthiazide [Hydrochlorothiazide] 25 mg PO DAILY 07/07/20 - Past Medical/Surgical History Diabetic: No -: hypothyroid -: cholesterol -: lymphemdema -: htn -: hx lumbar fracture - Family History Father Family History: Reviewed- Non-Contributory - Social History Smoking Status: Never smoker Alcohol use: No CD- Drugs: No Review of Systems General: Weakness Musculoskeletal: Back Pain Physical Examination Temp Pulse Resp BP Pulse Ox 98.7 F 75 16 78/42 L 99 07/12/20 16:00 07/12/20 16:00 07/12/20 16:00 07/12/20 16:00 07/12/20 16:00 General: Alert, Oriented x3 HEENT: Atraumatic, Normocephalic, PERRLA Neck: Supple Respiratory: Clear to auscultation bilaterally Cardiovascular: Regular rate/rhythm, Normal S1 S2 Gastrointestinal: Normal bowel sounds, No tenderness Musculoskeletal: Other (leg wraps in place.) Neurological: Cranial nerves 3-12 intact Rectal: Normal Conclusions/Impression: MAGNUS-Presently her creatinine marliynn to 1.5 from 1.0 making her meet criteria for MAGNUS. Etiology of MAGNUS can be deemed multifactorial. She did have low blood pressure episode and there is concerns for hypotension causing ischemic ATN. She also has UTI and is deemed septic. with exposure to vancomycin, we think there is a component of toxic tubular injury from vanc exposure. we have stopped vancomycin and have started IV hydration. we will monitor kidney function trend and avoid nephrotoxins. we will dose meds for eGFR for now. UTI-On empiric antibiotics. we will review labs for adjustments as needed. On Levaquin for now. Sepsis-Deemed due to decubitus ulcers and UTI. Management as above. IV hydration on board. Hx of Hypertension-Now hypotensive. we will monitor vitals closely. Antihypertensive meds discontinued. Decubitus ulcers. We will continue present management. Critical Care: No
[2020-07-12] MEDS: ACETAMINOPHEN 500 MG TAB PO PRN ×2 (18:06→22:07)
--- NOTE | 2020-07-12 19:17 | RAD REPORT ---
EXAM DESCRIPTION: US - Renal Ultrasound-Complete - 07/12/2020 6:52 pm CLINICAL HISTORY: MAGNUS COMPARISON: No comparisons FINDINGS: The right kidney measures approximately 10.7 x 4.93.7 cm. The left kidney measures approx imately 9.7 x 4.2 x 3.9 cm. Renal cortical thickness and echogenicity are normal. No hydronephrosis o r suspicious renal mass. No bladder wall thickening or mass. No intraluminal stone or mass. IMPRESSION: No hydronephrosis or suspicious renal mass. No other significant findings.
[2020-07-13] MEDS: NA CHLORIDE 0.9% 1,000 ML IV SCH ×3 (04:00→18:44)
[2020-07-13] MEDS: LEVOTHYROXINE SOD 0.088 MG TAB PO SCH (05:43)
[2020-07-13 05:59] LABS: Absolute Lymphocytes (CBC) 0.8 K/uL (0.7-4.9); Basophils % 0.4 % (0-1.3); Hematocrit 24.2 % (36.0-45.0); Lymphocytes % 16.1 % (15.3-44.8); MPV 8.6 fL (7.6-11.3); RBC Red Blood Cell Count 2.95 M/uL (3.86-4.86)
[2020-07-13 06:08] LABS: Magnesium 1.5 mg/dL (1.8-2.4); Potassium 3.7 mmol/L (3.5-5.1); Thyroid Stimulating Hormone 2.11 uIU/mL (0.360-3.740)
[2020-07-13] MEDS ORDERED: Magnesium Sulfate 2gm IVPB 2 G/50 ML BAG IV ONE (06:17)
--- NOTE | 2020-07-13 08:27 | P.PN ---
Subjective Date of Service: 07/13/20 Chief Complaint: Generalized weakness & difficulty mobilizing w/sacral pressure ulcers Subjective: No new changes, Improving Physical Examination - Vital Signs Temperature: 98.2 F Blood Pressure: 116/50 Pulse: 63 Respirations: 18 Pulse Ox (%): 99 - Physical Exam General: Alert, Oriented x3 HEENT: Atraumatic, Normocephalic, PERRLA Respiratory: Clear to auscultation bilaterally Cardiovascular: Regular rate/rhythm, Normal S1 S2 Gastrointestinal: Normal bowel sounds Neurological: Normal speech, Cranial nerves 3-12 intact - Studies Microbiology Data (last 24 hrs): 07/07/20 03:30 Blood - Blood Aerobic Blood Culture - Final No growth in 5 days. 07/07/20 03:30 Blood - Blood Anaerobic Blood Culture - Final No growth in 5 days. 07/07/20 03:45 Blood - Blood Aerobic Blood Culture - Final No growth in 5 days. 07/07/20 03:45 Blood - Blood Anaerobic Blood Culture - Final No growth in 5 days. Medications List Reviewed: Yes Assessment And Plan - Plan MAGNUS-resolving. creatinine is now 1.12. we will continue routine care and monitoring. renal US is normal as per echogenicity and size. Nephrotoxins to be avoided. Hypomagnesemia- magnesium is low at 1.5. Had recieved 2g IV dose this am. we will monitor. Sepsis-resolving. we will continue to monitor parameters. Decubitus ulcer-we will continue routine care. UTI-Urine culture grew E coli and enterococcus. we will continue present antibiotic regimen as per antibiogram. Hypotension-Improved with IV fluid administration. we will continue to monitor. Antihypertensive meds to be discontinued for now. Hypothyroidism-On levothyroxine. Physician Review Additional Text: Impression: Generalized weakness with debility secondary to UTI, urine culture positive for E coli and Enterococcus Acute on chronic renal disease stage III Hypertension Stage II pressure ulcer to the sacrum B12 deficiency Bilateral advanced shoulder joint degeneration Plan: Generalized weakness with debility secondary to UTI, urine culture positive for E coli and Enterococcus: IV antibiotics adjusted. Discontinue vancomycin due to renal function at this time. Blood cultures negative. Will change IV antibiotic therapy to Levaquin to cover for bacteria. Will consult infectious disease for further recommendation. Spoke with social sciences department chair. Patient not able to get skilled placement. Only option would be home with home health and provider services. Continue physical therapy. Continue IV fluids at this time. Discontinue Avapro due to renal function. Will consult nephrology for further recommendation. Check renal ultrasound. Anticipate improvement over the next several days. Acute on chronic renal disease stage III: Etiology unknown. May be related to vancomycin. This has been discontinued. Will also recommend to discontinue Avapro. Will check renal ultrasound. Will consult nephrology for further recommendation. Hypertension: Blood pressure low at this time. Discontinue Avapro. Will monitor this closely. Continue IV fluids. Stage II pressure ulcer to the sacrum: Continue wound care. Infectious disease consulted. B12 deficiency: Continue with supplementation. Bilateral advanced shoulder joint degeneration: Will provide medication, physical therapy to assess and evaluate.
[2020-07-13] MEDS: PANTOPRAZOLE 40MG TABLET PO SCH (08:32)
[2020-07-13] MEDS: ATORVASTATIN 10 MG TAB PO SCH (08:33)
[2020-07-13] MEDS: levoFLOXacin 250 MG TAB PO SCH (08:33)
[2020-07-13] MEDS: CETIRIZINE HCL 5 MG TABLET PO SCH (08:33)
[2020-07-13] MEDS: VITAMIN D 1000 UNIT TAB PO SCH (08:33)
[2020-07-13] MEDS: CYANOCOBALAMIN 1,000 MCG TAB PO SCH (08:33)
[2020-07-13] MEDS: ENSURE HIGH PROTEIN 237 ML CAN PO SCH ×3 (08:34→16:30)
[2020-07-13] MEDS: JUVEN PACKET PO SCH ×2 (08:35→22:03)
[2020-07-13 10:00] VITALS: O2SAT 100
[2020-07-13 10:05] LABS: Blood Morphology Comment NOT SEEN (NOT SEEN); Platelet Estimate ADEQ; White Blood Cell Scan OK (OK)
[2020-07-13] MEDS: SOD FERRIC GLUC COMPLX/SUCROSE 125 MG in NA CHLORIDE 0.9% 100 ML IV SCH (10:07)
[2020-07-13] MEDS: SIMETHICONE 125 MG TAB PO PRN ×2 (10:07→18:46)
[2020-07-13] MEDS: ALPRAZOLAM 0.25 MG TABLET PO PRN (10:07)
[2020-07-13] MEDS: MEDIHONEY 44 ML TOPICAL TUBE TOP SCH (11:25)
--- NOTE | 2020-07-13 13:32 | P.PN ---
Subjective Date of Service: 07/13/20 Chief Complaint: Generalized weakness & difficulty mobilizing w/sacral pressure ulcers Subjective: Improving Physical Examination - Vital Signs Temperature: 98.3 F Blood Pressure: 106/48 Pulse: 60 Respirations: 18 Pulse Ox (%): 100 - Physical Exam General: Alert, In no apparent distress, Oriented x3, Cooperative HEENT: Atraumatic Neck: Supple Respiratory: Clear to auscultation bilaterally, Normal air movement Cardiovascular: Normal pulses, Regular rate/rhythm Gastrointestinal: Normal bowel sounds, Soft and benign, Non-distended, No masses, No guarding Musculoskeletal: Other (Patient still reports some weakness.) Neurological: Normal speech, Normal strength at 5/5 x4 extr, Normal tone, Normal affect - Studies Medications List Reviewed: Yes Assessment & Plan Discharge Plan: Home Plan to discharge in: 48 Hours Physician Review Additional Text: Impression: Generalized weakness with debility secondary to UTI, urine culture positive for E coli and Enterococcus Acute on chronic renal disease stage III Hypertension Stage II pressure ulcer to the sacrum B12 deficiency Bilateral advanced shoulder joint degeneration Hypothyroidism Plan: Generalized weakness with debility secondary to UTI, urine culture positive for E coli and Enterococcus: IV antibiotics adjusted. Will continue with Infectious Disease recommendations of Levaquin for total of 10 days. Wound care to continue with applying Medi Honey, offload wounds by wedge pillow. Physical therapy to continue to work with patient. Once patient is ambulating well then will consider going home. Options include home health at discharge. Medications adjusted. Anticipate improvement over the next 24-48 hr. . Acute on chronic renal disease stage III: This has improved. Off vancomycin and Avapro. Continue with IV fluids.. Hypertension: Discontinue Avapro. Will monitor this closely. Continue IV fluids. Stage II pressure ulcer to the sacrum: Continue wound care. Continue with Infectious Disease recommendations B12 deficiency: Continue with supplementation. Bilateral advanced shoulder joint degeneration: Will provide medication, physical therapy to assess and evaluate. Hypothyroidism: Continue with medication Time Spent Managing Pts Care (In Minutes): 55
[2020-07-13] MEDS: ENOXAPARIN 30 MG/0.3 ML SQ SCH (17:04)
--- NOTE | 2020-07-13 18:07 | PN ---
Subjective: The patient is lying in bed. Denies any headache, nausea, vomiting, chest pain, abdomin al pain, constipation, or diarrhea. Objective: Vital Signs: Temperature 98.3, pulse 60, respirations 18, blood pressure 106/68. Lungs: Basal crackles. Heart: S1, S2. Regular. Abdomen: Soft, nontender. Bowel sounds present. Extremities: Trace edema. Laboratory Data: Shows WBC 5000, hemoglobin 8, platelets are 147. Chemistry shows sodium 142, potas sium 3.7, chloride 114, bicarb 21, BUN 27, creatinine 1.1, glucose is 81, albumin is 2.6. Urine show ed the patient has E coli and Enterococcus faecalis. Assessment And Plan: Sacral stage IV wound, urinary tract infection. Continue empiric antibiotic an d [facility] Offloading of the wound and low air loss mattress will be recommended. NF/MODL Voice ID: [id number] Report ID: [id number]
[2020-07-14] MEDS: NA CHLORIDE 0.9% 1,000 ML IV SCH ×2 (04:59)
[2020-07-14 06:03] LABS: Basophils % 0.8 % (0-1.3); Hematocrit 25.7 % (36.0-45.0); Lymphocytes % 25.4 % (15.3-44.8); MPV 8.9 fL (7.6-11.3); RBC Red Blood Cell Count 3.15 M/uL (3.86-4.86)
[2020-07-14 06:18] LABS: Magnesium 1.8 mg/dL (1.8-2.4)
[2020-07-14] MEDS: LEVOTHYROXINE SOD 0.088 MG TAB PO SCH (06:26)
[2020-07-14] MEDS: SIMETHICONE 125 MG TAB PO PRN ×2 (06:28→17:27)
[2020-07-14] MEDS ORDERED: MAGNESIUM SULFATE 1 gm IVPB 1 GM/100 ML BAG IV ONE (06:32)
[2020-07-14 07:12] LABS: Blood Morphology Comment NOT SEEN (NOT SEEN); Platelet Estimate ADEQ; Platelets, Giant FEW; White Blood Cell Scan OK (OK)
[2020-07-14] MEDS: ENSURE HIGH PROTEIN 237 ML CAN PO SCH ×3 (07:30→16:30)
--- NOTE | 2020-07-14 08:14 | P.PN ---
Subjective Date of Service: 07/14/20 Chief Complaint: Generalized weakness & difficulty mobilizing w/sacral pressure ulcers Subjective: No new changes, Improving Review of Systems 10-point ROS is otherwise unremarkable Physical Examination - Vital Signs Temperature: 98.2 F Blood Pressure: 116/56 Pulse: 73 Respirations: 16 Pulse Ox (%): 100 - Physical Exam General: Alert, Oriented x3 HEENT: Atraumatic, Normocephalic, PERRLA Neck: Supple Respiratory: Clear to auscultation bilaterally Cardiovascular: Regular rate/rhythm, Normal S1 S2 Gastrointestinal: Normal bowel sounds Musculoskeletal: No tenderness Neurological: Normal speech, Cranial nerves 3-12 intact - Studies Medications List Reviewed: Yes Assessment And Plan - Plan [id number]. creatinine is now much improved at 0.89. we will continue routine care and monitoring. Nephrotoxins to be avoided. we will dose meds for eGFR. Hypomagnesemia- magnesium is now much improved at 2.3 after repletion. we will monitor. Sepsis-resolving. we will continue to monitor parameters. Decubitus ulcer-we will continue routine care. UTI-Urine culture grew E coli and enterococcus. we will continue present antibiotic regimen as per antibiogram. Hypotension-Improved BP reads. we will continue to monitor. Hypothyroidism-On levothyroxine.
--- NOTE | 2020-07-14 08:55 | ECHO ---
HEIGHT: 5 ft 0 in WEIGHT: 170 lb 12.8 oz DATE OF STUDY: 07/13/[address]: Jose Connolly DO 2-DIMENSIONAL: YES M.MODE: YES DOPPLER: YES COLOR FLOW: YES TDS: PORTABLE: DEFINITY: BUBBLE STUDY: DIAGNOSIS: FEVER CARDIAC HISTORY: CATHERIZATION: NO SURGERY: NO PROSTHETIC VALVE: NO PACEMAKER: NO MEASUREMENTS (cm) DIASTOLIC (NORMALS) SYSTOLIC (NORMALS) IVSd 1.0 (0.6-1.2) LA Diam 2.8 (1.9-4.0) LVEF 57% LVIDd 3.5 (3.5-5.7) LVIDs 2.5 (2.0-3.5) %FS 29% LVPWd 0.9 (0.6-1.2) Ao Diam 2.6 (2.0-3.7) 2 DIMENSIONAL ASSESSMENT: RIGHT ATRIUM: NORMAL LEFT ATRIUM: NORMAL RIGHT VENTRICLE: NORMAL LEFT VENTRICLE: NORMAL TRICUSPID VALVE: NORMAL MITRAL VALVE: NORMAL PULMONIC VALVE: NORMAL AORTIC VALVE: NORMAL PERICARDIAL EFFUSION: NONE AORTIC ROOT: NORMAL LEFT VENTRICULAR WALL MOTION: NORMAL DOPPLER/COLOR FLOW: MILD TRICUSPID REGURGITATION. COMMENTS: NORMAL LEFT VENTRICULAR SIZE AND FUCNTION. MILD TRICUSPID REGURGITATION. NO VEGETATION. NO EFFUSION. TECHNOLOGIST: LATASHA WATT
[2020-07-14] MEDS: JUVEN PACKET PO SCH ×2 (09:00→21:00)
[2020-07-14] MEDS: MEDIHONEY 44 ML TOPICAL TUBE TOP SCH (09:00)
--- NOTE | 2020-07-14 09:07 | P.PN ---
Subjective Date of Service: 07/14/20 Chief Complaint: Generalized weakness & difficulty mobilizing w/sacral pressure ulcers Subjective: Other (Patient improved. Patient still working with physical therapy.) Physical Examination - Vital Signs Temperature: 98.2 F Blood Pressure: 116/56 Pulse: 73 Respirations: 16 Pulse Ox (%): 100 - Physical Exam General: Alert, In no apparent distress, Oriented x3, Cooperative HEENT: Atraumatic Neck: Supple Respiratory: Clear to auscultation bilaterally, Normal air movement Cardiovascular: Normal pulses, Regular rate/rhythm Gastrointestinal: Normal bowel sounds, No tenderness, No masses, No rebound, No guarding Neurological: Normal speech, Normal strength at 5/5 x4 extr, Normal tone, Normal affect, Other (Patient very sensitive to the lower extremities with movement. No significant edema noted.) - Studies Medications List Reviewed: Yes Assessment & Plan Discharge Plan: Home Plan to discharge in: 24 Hours Physician Review Additional Text: Impression: Generalized weakness with debility secondary to UTI, urine culture positive for E coli and Enterococcus Acute on chronic renal disease stage III Hypertension Stage II pressure ulcer to the sacrum B12 deficiency Bilateral advanced shoulder joint degeneration Hypothyroidism Plan: Generalized weakness with debility secondary to UTI, urine culture positive for E coli and Enterococcus: Patient now on Levaquin oral. Patient will continue with a total of 10 days as recommended by infectious disease. Continue with current wound care-Medi Honey, offload wounds by wedge pillow. Patient to continue to work with physical therapy. Patient desires hospital bed. Will discuss with social work coordinator. Insurance is not able to provide skilled placemen t. Only option is home health with therapy. We will make this arrangement. Will discontinue IV fluids. Encourage oral intake. Anticipate improvement over the next 24-48 hr once patient is safe to go home. Will discuss further with physical therapy to help with this process. Acute on chronic renal disease stage III: This has improved. Off vancomycin and Avapro. Encourage oral intake. Discontinue IV fluids. Hypertension: Blood pressure stable off medication. Will monitor this closely. Will consider adding medication if blood pressure elevated. Stage II pressure ulcer to the sacrum: Continue wound care. Continue with Infectious Disease recommendations B12 deficiency: Continue with supplementation. Bilateral advanced shoulder joint degeneration: Will provide medication, physical therapy to assess and evaluate. Hypothyroidism: Continue with medication Time Spent Managing Pts Care (In Minutes): 55
[2020-07-14] MEDS: CETIRIZINE HCL 5 MG TABLET PO SCH (09:30)
[2020-07-14] MEDS: VITAMIN D 1000 UNIT TAB PO SCH (09:30)
[2020-07-14] MEDS: PANTOPRAZOLE 40MG TABLET PO SCH (09:31)
[2020-07-14] MEDS: CYANOCOBALAMIN 1,000 MCG TAB PO SCH (09:31)
[2020-07-14] MEDS: ATORVASTATIN 10 MG TAB PO SCH (09:31)
[2020-07-14] MEDS: levoFLOXacin 250 MG TAB PO SCH (09:31)
[2020-07-14] MEDS: SOD FERRIC GLUC COMPLX/SUCROSE 125 MG in NA CHLORIDE 0.9% 100 ML IV SCH (09:37)
--- NOTE | 2020-07-14 13:22 | PN ---
Subjective: The patient is lying in bed. No new complaints. Objective: Vital Signs: Temperature 98, pulse 73, respirations 16, blood pressure 116/56. Lungs: Basal crackles. Heart: S1, S2. Regular. Abdomen: Soft, nontender. Bowel sounds present. Extremities: Trace edema. Laboratory Data: WBC 7.9, hemoglobin 8.4, platelets are 140. Chemistry shows sodium 145, potassium 4, chloride 117, bicarb 20, BUN 23, creatinine 0.8, glucose is 77. Urine culture; E coli and Enteroc occus faecalis. Assessment And Plan: 1.Sacral wound stage IV and it was stage III, healing with Medihoney. Continue current treatment. 2.Escherichia coli urine tract infection. The patient to continue current treatment with Levaquin. We will follow the patient as needed. NF/MODL Voice ID: [id number] Report ID: [id number]
[2020-07-14] MEDS: ENOXAPARIN 30 MG/0.3 ML SQ SCH (17:24)
[2020-07-15] MEDS: LEVOTHYROXINE SOD 0.088 MG TAB PO SCH (05:33)
[2020-07-15 05:35] LABS: Absolute Lymphocytes (CBC) 2.7 K/uL (0.7-4.9); Basophils % 0.4 % (0-1.3); Hematocrit 25.2 % (36.0-45.0); Lymphocytes % 48.2 % (15.3-44.8); MPV 8.5 fL (7.6-11.3); RBC Red Blood Cell Count 3.11 M/uL (3.86-4.86)
[2020-07-15 05:40] LABS: Magnesium 1.7 mg/dL (1.8-2.4); Potassium 4.1 mmol/L (3.5-5.1)
[2020-07-15] MEDS ORDERED: Magnesium Sulfate 2gm IVPB 2 G/50 ML BAG IV ONE (06:43)
[2020-07-15] MEDS: ENSURE HIGH PROTEIN 237 ML CAN PO SCH ×2 (07:30→11:30)
--- NOTE | 2020-07-15 07:55 | P.DS ---
Admission Date: 07/11/20 Discharge Date: 07/15/20 Primary Care Provider: YONG Law Disposition: [place] [facility]/HOME HEALTH CARE Discharge Condition: GOOD Reason for Admission: Generalized weakness & difficulty mobilizing w/sacral pressure ulcers Consultations: Nephrology-Dr. Gillis Infectious disease-Dr. Rolon Procedures: Renal US: FINDINGS: The right kidney measures approximately 10.7 x 4.93.7 cm. The left kidney measures approximately 9.7 x 4.2 x 3.9 cm. Renal cortical thickness and echogenicity are normal. No hydronephrosis or suspicious renal mass. No bladder wall thickening or mass. No intraluminal stone or mass. IMPRESSION: No hydronephrosis or suspicious renal mass. No other significant findings. ECHO: EF 57% LEFT VENTRICULAR WALL MOTION: NORMAL DOPPLER/COLOR FLOW: MILD TRICUSPID REGURGITATION. COMMENTS: NORMAL LEFT VENTRICULAR SIZE AND FUNCTION. MILD TRICUSPID REGURGITATION. NO VEGETATION. NO EFFUSION. Medical Problem List: Generalized weakness with debility secondary to UTI, urine culture positive for E coli and Enterococcus Acute on chronic renal disease stage III Hypertension Stage II pressure ulcer to the sacrum Iron and B12 B12 deficiency anemia Bilateral advanced shoulder joint degeneration Hypothyroidism Hypomagnesia GERD Arthritis to the lower extremities Brief History of Present Illness: 65-year-old female with history of hypertension, hypothyroidism, and severe arthritis. Patient presented with generalized weakness. Patient had been blaming bed for quite some time without difficulty moving. EMS was called. Patient was not able to take care of herself. Patient however has some caregivers and home health. The patient was found to have sacral decubitus ulcers an UTI. Acute renal injury also noted. Patient was admitted for further evaluation and treatment. Hospital Course: Patient presented with generalized weakness with debility secondary to UTI, stage 3 sacral ulcer, and acute renal injury. Patient was evaluated for sep sis. Sepsis ruled out. Blood cultures negative. Wound cultures obtained showing Pseudomonas. Urine culture identified showed E coli and Enterococcus. The patient received IV fluids. Infectious disease and nephrology were consulted. Medications were adjusted during the course of her stay. Patient was taken off vancomycin, Avapro, and hydrochlorothiazide. Renal function now back to baseline. Renal ultrasound unremarkable. Blood pressure stable off medication at this time. No need for medication. Patient did not have any benefit to go to a skilled facility. Other consideration would be for the patient to go to long-term care. The patient did not desire this. Patient has home health, physical therapy and caregiver services. At discharge, patient will continue with Levaquin 500 mg daily for 7 days to cover for UTI and sacral wound. Patient will also continue with Barak 1 packet twice daily and Ensure one can twice daily for nutrition. The patient will need to continue with wound care applying Medihoney. This will be done with the help of her caregiver and home health. Prior to discharge home health and physical therapy to be continued. Social work also help to see if the patient can get increase hr for caregiver services. Patient also desired hospital bed. Order placed. This will need to be followed up by her PCP to help get this. Recommend follow up with PCP within 1 week to follow up her care. Recommend to recheck urine culture after that time to monitor resolution. PCP will need to follow up on the wound. Recommend frequent moving in the bed to prevent further sacral wound erosion. As mentioned above patient presented with acute renal injury. Medications were adjusted and discontinued. During the course of her stay patient did not require any vancomycin. This was discontinued. Renal ultrasound unremarkable. Nephrology was consulted to further evaluate. Patient received IV fluids with improvement. Her blood pressure medication-Avapro and hydrochlorothiazide were discontinued. At discharge blood pressure stable without need for blood pressure medication. At discharge renal function back to baseline. Recommend to recheck lab-BMP in 1-2 weeks to monitor her progress. Recommend no further use of nonsteroidal anti-inflammatories future medications may need to be renally dose. Patient may follow up with Nephrology in 2-4 weeks to monitor her progress. As mentioned above patient with history of hypertension. Blood pressure medications-Avapro and hydrochlorothiazide were discontinued due to acute renal injury. Blood pressure stable off medication at this time. Recommend to monitor blood pressure daily. Recommend to maintain blood pressure less than 130/80. If her blood pressure increases and remains elevated greater than 140/90 then consideration of starting new medication may be required. Patient may need to be started on low-dose lisinopril if this is required. This can be further addressed by her PCP. Patient found to have iron and B12 deficiency. Patient received IV iron along with B12 supplementation. At discharge she will continue with iron 325 mg 1 pill twice daily and vitamin B12 supplementation daily. Recommend to recheck CBC, B12 and iron level within 2-4 weeks to monitor progress. Patient with hypothyroidism. At discharge she will continue with her medication-levothyroxine 88 mcg daily. Patient with history of GERD. At discharge she may continue with Protonix 40 mg daily. Patient with history of hyperlipidemia. She may continue with her current medication pravastatin 40 mg daily. Patient had low magnesium level. Patient may continue with magnesium oxide 400 mg daily. Recommend to recheck magnesium level in the next 1-2 weeks to monitor progress. This can be discontinued over time. Patient with bilateral advanced shoulder joint degenerative changes. Patient also has arthritis to the lower extremities. Fall precautions in place. Patient would benefit to continue with home health and physical therapy at discharge. Patient with also with caregiver services. As mentioned above patient in process of getting a hospital bed this will need to followed up by her PCP and insurance. Vital Signs/Physical Exam: Temp Pulse Resp BP Pulse Ox 97.6 F 58 16 126/57 L 98 07/15/20 04:00 07/15/20 04:00 07/15/20 04:00 07/15/20 04:00 07/15/20 04:00 General: Alert, In no apparent distress, Oriented x3, Cooperative HEENT: Atraumatic Neck: Supple Respiratory: Clear to auscultation bilaterally, Normal air movement Cardiovascular: Normal pulses, Regular rate/rhythm Gastrointestinal: Normal bowel sounds, No tenderness, No masses, No rebound, No guarding Integumentary: Other (Not able to visualize sacral wound.) Neurological: Normal speech, Normal strength at 5/5 x4 extr, Normal tone, Normal affect Laboratory Data at Discharge: WBC 5.5 K/uL (4.3-10.9) D 07/15/20 05:11 Hgb 8.5 g/dL (12.0-15.0) L 07/15/20 05:11 Hct 25.2 % (36.0-45.0) L 07/15/20 05:11 Plt Count 192 K/uL (152-406) D 07/15/20 05:11 PT 13.4 SECONDS (9.5-12.5) H 07/07/20 03:45 INR 1.14 07/07/20 03:45 Sodium 144 mmol/L (136-145) 07/15/20 05:11 Potassium 4.1 mmol/L (3.5-5.1) 07/15/20 05:11 BUN 18 mg/dL (7-18) 07/15/20 05:11 Creatinine 0.70 mg/dL (0.55-1.3) 07/15/20 05:11 Glucose 75 mg/dL (74-106) 07/15/20 05:11 Phosphorus 3.7 mg/dL (2.5-4.9) 07/12/20 06:00 Magnesium 1.7 mg/dL (1.8-2.4) L 07/15/20 05:11 Total Bilirubin 0.2 mg/dL (0.2-1.0) 07/11/20 11:24 AST 12 U/L (15-37) L 07/11/20 11:24 ALT 9 U/L (12-78) L 07/11/20 11:24 Alkaline Phosphatase 95 U/L (45-117) 07/11/20 11:24 Troponin I < 0.02 ng/mL (0.0-0.045) 07/07/20 07:42 Triglycerides 63 mg/dL (<150) 07/08/20 03:47 Cholesterol 128 mg/dL (<200) 07/08/20 03:47 HDL Cholesterol 46 mg/dL (40-60) 07/08/20 03:47 Cholesterol/HDL Ratio 2.78 07/08/20 03:47 Lipase 197 U/L (73-393) 07/07/20 03:45 Home Medications: Cholecalciferol (Vitamin D3) [Vitamin D 1000 Iu Tab*] 2,000 unit PO DAILY 07/07/20 Levothyroxine [Synthroid*] 88 mcg PO [id number] 07/07/20 Pantoprazole [Protonix Tab*] 40 mg PO DAILY 07/07/20 Pravastatin Sodium [Pravachol] 40 mg PO DAILY 07/07/20 Cyanocobalamin [Vitamin B-12*] 1,000 mcg PO DAILY #90 tab 07/15/20 Ensure High Protein 237 ml PO BID #60 can 07/15/20 Ferrous Sulfate [Iron] 325 mg PO BID #60 tablet 07/15/20 Barak [Barak*] 1 pkt PO BID #60 powd.pack 07/15/20 Levofloxacin [Levaquin] 500 mg PO DAILY #7 tablet 07/15/20 Magnesium Oxide [Mag 0X Tab] 400 mg PO DAILY #30 tab 07/15/20 Medihoney [Medihoney Woundcare Gel*] 1 appl TOP DAILY #1 tube 07/15/20 New Medications: Ensure High Protein 237 ml PO BID #60 can Ferrous Sulfate [Iron] 325 mg PO BID #60 tablet Barak [Barak*] 1 pkt PO BID #60 powd.pack Levofloxacin [Levaquin] 500 mg PO DAILY #7 tablet Magnesium Oxide [Mag 0X Tab] 400 mg PO DAILY #30 tab Medihoney [Medihoney Woundcare Gel*] 1 appl TOP DAILY #1 tube Cyanocobalamin [Vitamin B-12*] 1,000 mcg PO DAILY #90 tab Patient Discharge Instructions: 1. Recommend follow up with PCP in 1 week to follow up this hospitalization. 2. Patient presented with generalized weakness with debility secondary to UTI, stage 3 sacral ulcer, and acute renal injury. Patient was evaluated for sepsis. Sepsis ruled out. Blood cultures negative. Wound cultures obtained showing Pseudomonas. Urine culture identified showed E coli and Enterococcus. The patient received IV fluids. Infectious disease and nephrology were consulted. Medications were adjusted during the course of her stay. Patient was taken off vancomycin, Avapro, and hydrochlorothiazide. Renal function now back to baseline. Renal ultrasound unremarkable. Blood pressure stable off medication at this time. No need for medication. Patient did not have any benefit to go to a skilled facility. Other consideration would be for the patient to go to long-term care. The patient did not desire this. Patient has home health, physical therapy and caregiver services. At discharge, patient will continue with Levaquin 500 mg daily for 7 days to cover for UTI and sacral wound. Patient will also continue with Barak 1 packet twice daily and Ensure one can twice daily for nutrition. The patient will need to continue with wound care applying Medihoney. This will be done with the help of her caregiver and home health. Prior to discharge home health and physical therapy to be continued. Social work also help to see if the patient can get increase hr for caregiver services. Patient also desired hospital bed. Order placed. This will need to be followed up by her PCP to help get this. Recommend follow up with PCP within 1 week to follow up her care. Recommend to recheck urine culture after that time to monitor resolution. PCP will need to follow up on the wound. Recommend frequent moving in the bed to prevent further sacral wound erosion. 3. As mentioned above patient presented with acute renal injury. Medications were adjusted and discontinued. During the course of her stay patient did not require any vancomycin. This was discontinued. Renal ultrasound unremarkable. Nephrology was consulted to further evaluate. Patient received IV fluids with improvement. Her blood pressure medication-Avapro and hydrochlorothiazide were discontinued. At discharge blood pressure stable without need for blood pressure medication. At discharge renal function back to baseline. Recommend to recheck lab-BMP in 1-2 weeks to monitor her progress. Recommend no further use of nonsteroidal anti-inflammatories future medications may need to be renally dose. Patient may follow up with Nephrology in 2-4 weeks to monitor her progress. 4. As mentioned above patient with history of hypertension. Blood pressure medications-Avapro and hydrochlorothiazide were discontinued due to acute renal injury. Blood pressure stable off medication at this time. Recommend to monitor blood pressure daily. Recommend to maintain blood pressure less than 130/80. If her blood pressure increases and remains elevated greater than 140/90 then consideration of starting new medication may be required. Patient may need to be started on low-dose lisinopril if this is required. This can be further addressed by her PCP. 5. Patient found to have iron and B12 deficiency. Patient received IV iron along with B12 supplementation. At discharge she will continue with iron 325 mg 1 pill twice daily and vitamin B12 supplementation daily. Recommend to recheck CBC, B12 and iron level within 2-4 weeks to monitor progress. 6. Patient with hypothyroidism. At discharge she will continue with her medication- levothyroxine 88 mcg daily. 7. Patient with history of GERD. At discharge she may continue with Protonix 40 mg daily. 8. Patient with history of hyperlipidemia. She may continue with her current medication pravastatin 40 mg daily. 9. Patient had low magnesium level. Patient may continue with magnesium oxide 400 mg daily. Recommend to recheck magnesium level in the next 1-2 weeks to monitor progress. This can be discontinued over time. 10. Patient with bilateral advanced shoulder joint degenerative changes. Patient also has arthritis to the lower extremities. Fall precautions in place. Patient would benefit to continue with home health and physical therapy at discharge. Patient with also with caregiver services. As mentioned above patient in process of getting a hospital bed this will need to followed up by her PCP and insurance. Diet: AHA Activity: Fall precautions Followup: NONE,NONE [Primary Care Provider] - Time spent managing pt's care (in minutes): 55
[2020-07-15 08:37] VITALS: BP 113/54
[2020-07-15] MEDS: MEDIHONEY 44 ML TOPICAL TUBE TOP SCH (09:00)
[2020-07-15] MEDS ORDERED: levoFLOXacin 500 MG TAB PO SCH (09:00)
[2020-07-15] MEDS: PANTOPRAZOLE 40MG TABLET PO SCH (09:00)
[2020-07-15] MEDS: SOD FERRIC GLUC COMPLX/SUCROSE 125 MG in NA CHLORIDE 0.9% 100 ML IV SCH (09:00)
[2020-07-15] MEDS: JUVEN PACKET PO SCH (09:00)
[2020-07-15] MEDS: VITAMIN D 1000 UNIT TAB PO SCH (09:22)
[2020-07-15] MEDS: ALPRAZOLAM 0.25 MG TABLET PO PRN (09:23)
[2020-07-15] MEDS: ATORVASTATIN 10 MG TAB PO SCH (09:23)
[2020-07-15] MEDS: CETIRIZINE HCL 5 MG TABLET PO SCH (09:23)
[2020-07-15] MEDS: CYANOCOBALAMIN 1,000 MCG TAB PO SCH (09:23)
[2020-07-15 12:06] VITALS: TEMP 97.4
--- NOTE | 2020-07-15 15:33 | P.PN ---
Subjective Date of Service: 07/15/20 Primary Care Provider: YONG Law Chief Complaint: Generalized weakness & difficulty mobilizing w/sacral pressure ulcers Subjective: No C/O voiced Physical Examination - Vital Signs Temperature: 97.4 F Blood Pressure: 113/54 Pulse: 58 Respirations: 16 Pulse Ox (%): 100 - Physical Exam General: Alert, In no apparent distress, Oriented x3 HEENT: Atraumatic, Normocephalic, PERRLA Neck: Supple, 2+ carotid pulse no bruit Respiratory: Clear to auscultation bilaterally, Normal air movement Cardiovascular: No edema, Normal pulses, Regular rate/rhythm Gastrointestinal: Normal bowel sounds, Soft and benign, Non-distended Musculoskeletal: Clubbing, Swelling (dsg over b/l LE) Neurological: Normal speech, Normal strength at 5/5 x4 extr - Studies Laboratory Last Values WBC 4.7 K/uL (4.3-10.9) 07/10/20 11:43 RBC 3.23 M/uL (3.86-4.86) L 07/10/20 11:43 Hgb 8.7 g/dL (12.0-15.0) L 07/10/20 11:43 Hct 26.6 % (36.0-45.0) L 07/10/20 11:43 MCV 82.2 fL (80-100) 07/10/20 11:43 MCH 27.0 pg (27.0-35.0) 07/10/20 11:43 MCHC 32.9 g/dL (32.0-36.0) 07/10/20 11:43 RDW 14.2 % (12.1-15.2) 07/10/20 11:43 Plt Count 241 K/uL (152-406) 07/10/20 11:43 MPV 7.7 fL (7.6-11.3) 07/10/20 11:43 Neutrophils % 82.0 % (41.7-73.7) H 07/10/20 11:43 Lymphocytes % 4.8 % (15.3-44.8) L 07/10/20 11:43 Monocytes % 4.2 % (3.3-12.3) 07/10/20 11:43 Eosinophils % 8.6 % (0-4.4) H 07/10/20 11:43 Basophils % 0.4 % (0-1.3) 07/10/20 11:43 Absolute Neutrophils 3.8 K/uL (1.8-8.0) 07/10/20 11:43 Absolute Lymphocytes 0.2 K/uL (0.7-4.9) L 07/10/20 11:43 Absolute Monocytes 0.2 K/uL (0.1-1.3) 07/10/20 11:43 Absolute Eosinophils 0.4 K/uL (0-0.5) 07/10/20 11:43 Absolute Basophils 0.0 K/uL (0-0.5) 07/10/20 11:43 ESR Westergren 50 mm/HR (0-30) H 07/07/20 03:45 PT 13.4 SECONDS (9.5-12.5) H 07/07/20 03:45 INR 1.14 07/07/20 03:45 Sodium 141 mmol/L (136-145) 07/10/20 11:43 Potassium 3.8 mmol/L (3.5-5.1) 07/10/20 11:43 Chloride 110 mmol/L (98-107) H 07/10/20 11:43 Carbon Dioxide 25 mmol/L (21-32) 07/10/20 11:43 BUN 12 mg/dL (7-18) 07/10/20 11:43 Creatinine 0.89 mg/dL (0.55-1.3) 07/10/20 11:43 Estimated GFR 63 mL/min (=/>90) L 07/10/20 11:43 Glucose 80 mg/dL (74-106) 07/10/20 11:43 Lactic Acid 0.9 mmol/L (0.4-2.0) 07/11/20 06:11 Calcium 8.3 mg/dL (8.5-10.1) L 07/10/20 11:43 Phosphorus 3.7 mg/dL (2.5-4.9) 07/10/20 11:43 Magnesium 1.5 mg/dL (1.8-2.4) L 07/10/20 11:43 Total Bilirubin 0.3 mg/dL (0.2-1.0) 07/10/20 11:43 Direct Bilirubin < 0.1 mg/dL (0-0.2) 07/07/20 03:45 AST 9 U/L (15-37) L 07/10/20 11:43 ALT 7 U/L (12-78) L 07/10/20 11:43 Alkaline Phosphatase 88 U/L (45-117) 07/10/20 11:43 Creatine Kinase 60 U/L (26-192) 07/08/20 03:47 Rapid Troponin I < 0.02 ng/mL (0.0-0.045) 07/07/20 03:45 Troponin I < 0.02 ng/mL (0.0-0.045) 07/07/20 07:42 NT-Pro-B Natriuret Pep 185 pg/mL (<125) H 07/07/20 03:45 Serum Total Protein 6.2 g/dL (6.4-8.2) L 07/10/20 11:43 Albumin 2.5 g/dL (3.4-5.0) L 07/10/20 11:43 Globulin 3.7 g/dL (2.3-3.5) H 07/10/20 11:43 Albumin/Globulin Ratio 0.7 (1.1-1.8) L 07/10/20 11:43 Triglycerides 63 mg/dL (<150) 07/08/20 03:47 Cholesterol 128 mg/dL (<200) 07/08/20 03:47 LDL Cholesterol, Calc 69 (<130) 07/08/20 03:47 HDL Cholesterol 46 mg/dL (40-60) 07/08/20 03:47 Cholesterol/HDL Ratio 2.78 07/08/20 03:47 Lipase 197 U/L (73-393) 07/07/20 03:45 Procalcitonin 0.15 ng/mL (<0.50) 07/11/20 06:11 Urine pH 7.5 (5.0-7.0) H 07/07/20 05:06 Ur Specific Henderson 1.015 (1.005-1.030) 07/07/20 05:06 Glucose (UA)(Auto) Negative (NEG) 07/07/20 05:06 Urine Ketones Negative (NEG) 07/07/20 05:06 Urine Blood Negative (NEG) 07/07/20 05:06 Urine Nitrite Negative (NEG) 07/07/20 05:06 Ur Leukocyte Esterase 1+ (NEG) H 07/07/20 05:06 Urine Total Protein Negative (NEG) 07/07/20 05:06 Medications List Reviewed: Yes Assessment And Plan Physician Review Additional Text: Impression: Generalized weakness with debility secondary to UTI, urine culture positive for E coli and Enterococcus Acute on chronic renal disease stage III Hypertension Stage II pressure ulcer to the sacrum B12 deficiency Bilateral advanced shoulder joint degeneration Hypothyroidism Plan: # ARF -creatinine improved - still fluid overload - need to reduce fluid intake advised - may need restart diuretics - follow dc planning -will arrnage for tele -follow up with Dr Gillis next week Generalized weakness with debility secondary to UTI, urine culture positive for E coli and Enterococcus: Patient now on Levaquin oral. Patient will continue with a total of 10 days as recommended by infectious disease. Continue with current wound care-Medi Honey, offload wounds by wedge pillow. Patient to continue to work with physical therapy. Patient desires hospital bed. Will discuss with social service liaison. Insurance is not able to provide skilled placement. Only option is home health with therapy. We will make this arrangement. Will discontinue IV fluids. Encourage oral intake. Anticipate i mprovement over the next 24-48 hr once patient is safe to go home. Will discuss further with physical therapy to help with this process. Acute on chronic renal disease stage III: This has improved. Off vancomycin and Avapro. Encourage oral intake. Discontinue IV fluids. Hypertension: Blood pressure stable off medication. Will monitor this closely. Will consider adding medication if blood pressure elevated. Stage II pressure ulcer to the sacrum: Continue wound care. Continue with Infectious Disease recommendations B12 deficiency: Continue with supplementation. Bilateral advanced shoulder joint degeneration: Will provide medication, physical therapy to assess and evaluate. Hypothyroidism: Continue with medication
== END 2020-07-15 15:57 | disposition home health service (06) | DRG 592 ==
LOC: ER 02:45 → INTOOBSV 06:49 → ERHOLD 06:49 → OBSVTOIN 06:49 → 4TH 14:32 → OBSVTOIN 07-11 10:36 → 2ND 07-12 09:40
PROVIDERS: ADMIT Hospitalist; ATTEND Family Medicine
DX: L89.153 Pressure ulcer of sacral region, stage 3 (principal); N17.0 Acute kidney failure with tubular necrosis; N39.0 Urinary tract infection, site not specified; L97.819 Non-pressure chronic ulcer of other part of right lower leg with unspecified severity; E44.0 Moderate protein-calorie malnutrition; I12.9 Hypertensive chronic kidney disease with stage 1 through stage 4 chronic kidney disease, or unspecified chronic kidney disease; N18.30 Chronic kidney disease, stage 3 unspecified; K21.9 Gastro-esophageal reflux disease without esophagitis; E86.0 Dehydration; E03.9 Hypothyroidism, unspecified; E83.42 Hypomagnesemia; I89.0 Lymphedema, not elsewhere classified; N28.9 Disorder of kidney and ureter, unspecified; D51.9 Vitamin B12 deficiency anemia, unspecified; M19.09 Primary osteoarthritis, other specified site; D50.9 Iron deficiency anemia, unspecified; B96.20 Unspecified Escherichia coli [E. coli] as the cause of diseases classified elsewhere; B95.2 Enterococcus as the cause of diseases classified elsewhere; B96.5 Pseudomonas (aeruginosa) (mallei) (pseudomallei) as the cause of diseases classified elsewhere; M19.012 Primary osteoarthritis, left shoulder; M19.011 Primary osteoarthritis, right shoulder; I83.018 Varicose veins of right lower extremity with ulcer other part of lower leg; Z79.899 Other long term (current) drug therapy; Z68.33 Body mass index [BMI] 33.0-33.9, adult; Z79.890 Hormone replacement therapy; Z88.0 Allergy status to penicillin; Z20.828 Contact with and (suspected) exposure to other viral communicable diseases
CPT/HCPCS: 36415; 71045; 76770; 80048; 80053; 80061; 80076; 81003; 82550; 82607; 82746; 83540; 83605; 83690; 83735; 83880; 84100; 84145; 84439; 84443; 84484; 85025; 85044; 85610; 85652; 87040; 87070; 87075; 87077; 87086; 87088; 87186; 87205; 93005; 93306; 96361; 96365; 96375; 97110; 97116; 97161; 97530; 99251; 99284; G0378; J0696; J1650; J2916; J3370; J3420; J3475; J7030; J7050; U0002

== ENCOUNTER 2020-07-17 01:27 | Observation (INO) | payer OTHER ==
--- OUTSIDE RECORDS SUMMARY | 2020-07-17 01:30 | XMS REPORT | Continuity of Care Document ---
:1955 Author Organization Formerly [facility] t Address [address] [place] [address] Care Team Providers Name Role Phone Laly [...] Clinicians Facility Department ID 2019-09-15 2019-09-25 Ancillary ROSS Ordaz [id number] 08:39:47 09:11:43 Visit Sindhu Garay [id number] Leidy [id number] Nahid [phone] nal [address] Building Results This patient has no known results.
[2020-07-17 02:10] LABS: Basophils % 0.7 % (0-1.3); Hematocrit 27.5 % (36.0-45.0); Lymphocytes % 20.3 % (15.3-44.8); MPV 8.4 fL (7.6-11.3); RBC Red Blood Cell Count 3.34 M/uL (3.86-4.86)
[2020-07-17] MEDS ORDERED: NA CHLORIDE 0.9% 500 ML ONE (02:11)
[2020-07-17] MEDS ORDERED: NA CHLORIDE 0.9% 1,000 ML ONE (02:11)
[2020-07-17] MEDS ORDERED: FAMOTIDINE 20 MG/2 ML VIAL IV ONE (02:11)
[2020-07-17 02:14] LABS: Protime INR 1.45
[2020-07-17 02:32] LABS: ALT/SGPT 22 U/L (12-78); AST/SGOT 18 U/L (15-37); Albumin 2.9 g/dL (3.4-5.0); Alkaline Phosphatase 101 U/L (45-117); BUN Blood Urea Nitrogen 24 mg/dL (7-18); Bicarbonate 21 mmol/L (21-32); Bilirubin Direct 0.1 mg/dL (0-0.2); Bilirubin Total 0.4 mg/dL (0.2-1.0); Glucose Level 86 mg/dL (74-106); Lipase 112 U/L (73-393); Magnesium 1.6 mg/dL (1.8-2.4); NT PRO-BNP 491 pg/mL (<125); Protein, Total 6.8 g/dL (6.4-8.2); Sodium Level 139 mmol/L (136-145); Troponin (Emerg Dept Use Only) < 0.02 ng/mL (0.0-0.045)
--- NOTE | 2020-07-17 02:32 | EDPHYS ---
Physician Documentation [facility] Name: Nilam Rivero Age: 65 yrs Sex: Female : 1955 Arrival Date: 07/17/2020 Time: : Bed CT Private MD: [place] HPI: 07/17 01:42 This 65 yrs old Female presents to ER via Unassigned with complaints of near luis syncope, falling . Historical: - Allergies: 01:51 PENICILLINS; ll2 - Home Meds: 01:51 levothyroxine oral [Active]; ll2 - PMHx: 01:51 GERD; Hypothyroidism; Hypertension; lymph edema bilateral legs; ll2 - Immunization history:: Adult Immunizations up to date. - Family history:: not pertinent. - Social history:: Smoking status: unknown. ROS: 01:43 Constitutional: Negative for fever, chills, and weight loss, Eyes: Negative for injury, luis pain, redness, and discharge, ENT: Negative for injury, pain, and discharge, Neck: Negative for injury, pain, and swelling, Cardiovascular: Negative for chest pain, palpitations, and edema, Abdomen/GI: Negative for abdominal pain, nausea, vomiting, diarrhea, and constipation, Back: Negative for injury and pain, : Negative for injury, bleeding, discharge, and swelling, Skin: Negative for injury, rash, and discoloration, Psych: Negative for depression, anxiety, suicide ideation, homicidal ideation, and hallucinations, Allergy/Immunology: Negative for hives, rash, and allergies, Endocrine: Negative for neck swelling, polydipsia, polyuria, polyphagia, and marked weight changes, Hematologic/Lymphatic: Negative for swollen nodes, abnormal bleeding, and unusual bruising. 01:43 Respiratory: Positive for shortness of breath. 01:43 MS/extremity: Positive for decreased range of motion, pain, swelling, of the right leg and left leg. 01:43 Skin: Positive for ulceration, of the buttocks. Exam: 01:43 Constitutional: This is a well developed, well nourished patient who is awake, alert, luis and in no acute distress. Head/Face: Normocephalic, atraumatic. Eyes: Pupils equal round and reactive to light, extra-ocular motions intact. Lids and lashes normal. Conjunctiva and sclera are non-icteric and not injected. Cornea within normal limits. Periorbital areas with no swelling, redness, or edema. ENT: Nares patent. No nasal discharge, no septal abnormalities noted. Tympanic membranes are normal and external auditory canals are clear. Oropharynx with no redness, swelling, or masses, exudates, or evidence of obstruction, uvula midline. Mucous membranes moist. Neck: Trachea midline, no thyromegaly or masses palpated, and no cervical lymphadenopathy. Supple, full range of motion without nuchal rigidity, or vertebral point tenderness. No Meningismus. Chest/axilla: Normal chest wall appearance and motion. Nontender with no deformity. No lesions are appreciated. Cardiovascular: Regular rate and rhythm with a normal S1 and S2. No gallops, murmurs, or rubs. Normal PMI, no JVD. No pulse deficits. Respiratory: Lungs have equal breath sounds bilaterally, clear to auscultation and percussion. No rales, rhonchi or wheezes noted. No increased work of breathing, no retractions or nasal flaring. Abdomen/GI: Soft, non-tender, with normal bowel sounds. No distension or tympany. No guarding or rebound. No evidence of tenderness throughout. Back: No spinal tenderness. No costovertebral tenderness. Full range of motion. Female : Normal external genitalia. Skin: Warm, dry with normal turgor. Normal color with no rashes, no lesions, and no evidence of cellulitis. Neuro: Awake and alert, GCS 15, oriented to person, place, time, and situation. Cranial nerves II-XII grossly intact. Motor strength 5/5 in all extremities. Sensory grossly intact. Cerebellar exam normal. Normal gait. Psych: Awake, alert, with orientation to person, place and time. Behavior, mood, and affect are within normal limits. 01:43 Musculoskeletal/extremity: Extremities: noted in the right leg and left leg: decreased ROM, swelling, ROM: limited active range of motion, limited passive range of motion, Circulation is intact in all extremities. Sensation intact. Compartment Syndrome exam of affected extremity: is normal. DVT Exam: no pain, no tenderness, negative Homans' sign noted on exam, no appreciated bluish discoloration, no erythema, no increased warmth, swelling. Vital Signs: 01:37 Pulse 85; Resp 16; Pulse Ox 100% on R/A; ll2 02:37 BP 113 / 76; Pulse 77; Resp 18; Temp 98; Pulse Ox 100% on R/A; ll2 03:03 Weight 82.55 kg; sg MDM: 01:31 Patient medically screened. [facility] 01:46 Differential Diagnosis sepsis. Differential Diagnosis: cardiac arrhythmia, GI bleed, luis sepsis, vasovagal episode, cardiac arrhythmia, CVA, generalized weakness, GI bleed, hypovolemia, idiopathic dizziness, near-syncope, sepsis, syncope, vertigo. Data reviewed: vital signs, nurses notes, lab test result(s), EKG, radiologic studies, CT scan, plain films. Data interpreted: telemetry monitor: rate is 80 beats/min, rhythm is regular, Pulse oximetry: on room air is 96 %. Test interpretation: by ED physician or midlevel provider: ECG, plain radiologic studies. Counseling: I had a detailed discussion with the patient and/or guardian regarding: the historical points, exam findings, and any diagnostic results supporting the discharge/admit diagnosis, lab results, radiology results, the need for further work-up and treatment in the hospital. 07/17 01:39 Order name: Basic Metabolic Panel; Complete Time: 03:01 [facility] 07/17 01:39 Order name: CBC with Diff; Complete Time: 02:26 [facility] 07/17 01:39 Order name: LFT's; Complete Time: 03:01 [facility] 07/17 01:39 Order name: Magnesium; Complete Time: 03:01 [facility] 07/17 01:39 Order name: NT PRO-BNP; Complete Time: 03:01 [facility] 07/17 01:39 Order name: PT-INR; Complete Time: 02:26 [facility] 07/17 01:39 Order name: Troponin (emerg Dept Use Only); Complete Time: 03:01 [facility] 07/17 01:39 Order name: XRAY Chest (1 view) [facility] 07/17 01:39 Order name: Lipase; Complete Time: 03:01 [facility] 07/17 01:41 Order name: Urine Culture [facility] 07/17 01:43 Order name: CT Head Brain wo Cont [facility] 07/17 01:43 Order name: D-Dimer; Complete Time: 02:47 [facility] 07/17 01:48 Order name: Type And Screen [facility] 07/17 01:48 Order name: Lactate; Complete Time: 03:06 [facility] 07/17 01:39 Order name: EKG; Complete Time: 01:39 [facility] 07/17 01:39 Order name: Cardiac monitoring; Complete Time: 04:20 [facility] 07/17 01:39 Order name: EKG - Nurse/Tech; Complete Time: 04:20 [facility] 07/17 01:39 Order name: IV Saline Lock; Complete Time: 04:20 [facility] 07/17 01:39 Order name: Labs collected and sent; Complete Time: 04: [facility] 07/17 01:39 Order name: O2 Per Protocol; Complete Time: 04: [facility] 07/17 01:39 Order name: O2 Sat Monitoring; Complete Time: 04:20 [facility] 07/17 03:03 Order name: CT Chest For PE Angio luis Administered Medications: 01:39 CANCELLED (Duplicate Order): NS 0.45 % 1000 ml IV at 125 ml/hr continuous luis 02:34 Drug: Pepcid 20 mg Route: IVP; Site: left antecubital; ll2 02:34 Drug: NS 0.9% 500 ml Route: IV; Rate: bolus; Site: left antecubital; ll2 03:10 Drug: NS 0.9% 1000 ml Route: IV; Rate: 125 ml/hr; Site: left antecubital; ll2 03:34 Drug: Lovenox 1 mg/kg Route: Sub-Q; Site: abdomen; ll2 04:17 Follow up: Response: No adverse reaction ll2 03:35 Drug: Magnesium Sulfate 1 grams Route: IVPB; Infused Over: 1 hrs; Site: left ll2 antecubital; 03:36 Drug: fentaNYL (PF) 50 mcg Route: IVP; Site: left antecubital; ll2 04:17 Follow up: Response: No adverse reaction; Pain is decreased; RASS: Alert and Calm (0) ll2 Disposition: 07/17/20 02:47 Hospitalization ordered by Steve Lomas for Inpatient Admission. Preliminary diagnosis are Weakness, Hypotension, Anemia, unspecified, Lymphedema, not elsewhere classified, Repeated falls, Hypomagnesemia. - Bed requested for Telemetry/MedSurg (Inpatient). - Status is Inpatient Admission. ll2 - Condition is Fair. - Problem is new. - Symptoms have improved. Signatures: Dispatcher [employer] EDMichelle Corral RN RN mw Anderson, Corey, MD MD cha Linscombe, Mar, RN RN ll2 Corrections: (The following items were deleted from the chart) 01:39 01:39 NS 0.45 % 1000 ml IV at 125 ml/hr continuous ordered. [facility] 02:46 02:31 07/17/2020 02:31 Discharged to Home. Impression: Weakness; Repeated falls; luis Lymphedema, not elsewhere classified; Pressure ulcer of buttock - stage 3; Anemia, unspecified. Condition is Fair. Forms are Medication Reconciliation Form, Thank You Letter, Antibiotic Education, Prescription Opioid Use. Follow up: Steve Lomas; When: 2 - 3 days; Reason: Recheck today's complaints, Continuance of care, Re-evaluation by your physician. Problem is new. Symptoms have improved. [facility] 03:03 02:47 Hospitalization Ordered by Steve Lomas MD for Inpatient Admission. Preliminary [facility] diagnosis is Weakness; Hypotension; Anemia, unspecified; Lymphedema, not elsewhere classified; Repeated falls. Bed requested for Telemetry/MedSurg (Inpatient). Status is Inpatient Admission. Condition is Fair. Problem is new. Symptoms have improved. [facility] 04:37 03:03 07/17/2020 02:47 Hospitalization Ordered by Steve Lomas MD for Inpatient mw Admission. Preliminary diagnosis is Weakness; Hypotension; Anemia, unspecified; Lymphedema, not elsewhere classified; Repeated falls; Hypomagnesemia. Bed requested for Telemetry/MedSurg (Inpatient). Status is Inpatient Admission. Condition is Fair. Problem is new. Symptoms have improved. [facility] 05:21 04:37 07/17/2020 02:47 Hospitalization Ordered by Steve Lomas MD for Inpatient ll2 Admission. Preliminary diagnosis is Weakness; Hypotension; Anemia, unspecified; Lymphedema, not elsewhere classified; Repeated falls; Hypomagnesemia. Bed requested for Telemetry/MedSurg (Inpatient). Status is Inpatient Admission. Condition is Fair. Problem is new. Symptoms have improved.
--- NOTE | 2020-07-17 02:32 | ER ---
Nurse's Notes [facility] Name: Nilam Rivero Age: 65 yrs Sex: Female : 1955 Arrival Date: 07/17/2020 Time: : Bed CT Private MD: Diagnosis: Weakness;Hypotension;Anemia, unspecified;Lymphedema, not elsewhere classified;Repeated falls;Hypomagnesemia Presentation: 07/17 01:37 Chief complaint: EMS states: 65 yr old female toned out for dizziness on standing, was ll2 released yesterday, ulcer to sacral area observed, and lymphedema to legs bilaterally. 20 g to rt hand, 22 to lt forearm, ems states hr got to the 150's upon positional changes. Coronavirus screen: Client denies travel out of the [place] in the last 14 days. At this time, the client does not indicate any symptoms associated with coronavirus-19. Ebola Screen: Patient negative for fever greater than or equal to 101.5 degrees Fahrenheit, and additional compatible Ebola Virus Disease symptoms. Initial Sepsis Screen: Does the patient meet any 2 criteria? No. Patient's initial sepsis screen is negative. Does the patient have a suspected source of infection? No. Patient's initial sepsis screen is negative. Risk Assessment: Do you want to hurt yourself or someone else? Patient reports no desire to harm self or others. Onset of symptoms is unknown. 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 Triage Assessment: 05:21 Pain: Complains of pain in buttocks and left leg and right leg. ll2 Historical: - Allergies: 01:51 PENICILLINS; ll2 - Home Meds: 01:51 levothyroxine oral [Active]; ll2 - PMHx: 01:51 GERD; Hypothyroidism; Hypertension; lymph edema bilateral legs; ll2 - Immunization history:: Adult Immunizations up to date. - Family history:: not pertinent. - Social history:: Smoking status: unknown. Screenin:50 Abuse screen: Denies threats or abuse. Nutritional screening: No deficits noted. ll2 Tuberculosis screening: No symptoms or risk factors identified. 05:21 Fall Risk IV access (20 points). ll2 Assessment: 01:48 General: Appears in no apparent distress. Behavior is calm, cooperative, appropriate ll2 for age. Neuro: Level of Consciousness is awake, alert, obeys commands, Oriented to person, place, time, situation. Cardiovascular: Patient's skin is warm and dry. Respiratory: Airway is patent Respiratory effort is even, unlabored, Respiratory pattern is regular, symmetrical. GI: No signs and/or symptoms were reported involving the gastrointestinal system. : No signs and/or symptoms were reported regarding the genitourinary system. EENT: No signs and/or symptoms were reported regarding the EENT system. Derm: Wound noted buttocks and left leg and right leg. 02:35 Reassessment: Patient and/or family updated on plan of care and expected duration. Pain ll2 level reassessed. Patient is alert, oriented x 3, equal unlabored respirations, skin warm/dry/pink. 03:11 Reassessment: Patient and/or family updated on plan of care and expected duration. Pain ll2 level reassessed. Patient is alert, oriented x 3, equal unlabored respirations, skin warm/dry/pink. HOSPITALIST TO BEDSIDE DISCUSSING ADMISSION. 04:14 Reassessment: Patient and/or family updated on plan of care and expected duration. Pain ll2 level reassessed. Patient is alert, oriented x 3, equal unlabored respirations, skin warm/dry/pink. pt back from ct scan and reconnected to IV pump. lights dimmed and attempting to rest. 05:19 Reassessment: Patient and/or family updated on plan of care and expected duration. Pain ll2 level reassessed. Patient is alert, oriented x 3, equal unlabored respirations, skin warm/dry/pink. IV to LT forearm infiltrated, unable to collect remaining labs. report called to DEXTER freitas. Vital Signs: 01:37 Pulse 85; Resp 16; Pulse Ox 100% on R/A; ll2 02:37 BP 113 / 76; Pulse 77; Resp 18; Temp 98; Pulse Ox 100% on R/A; ll2 03:03 Weight 82.55 kg; sg ED Course: 01:28 Patient arrived in ED. sg 01:31 Weston Rick MD is Attending Physician. luis 01:37 Mar Quintero RN is Primary Nurse. ll2 01:48 Triage completed. ll2 01:52 Patient has correct armband on for positive identification. monitor worker on. Pulse ll2 ox on. NIBP on. 01:52 Arm band placed on right wrist. ll2 01:59 XRAY Chest (1 view) In Process Unspecified. EDMS 02:26 CT Head Brain wo Cont In Process Unspecified. EDMS 02:28 Steve Lomas MD is Referral Physician. luis 02:46 Steve Lomas MD is Hospitalizing Provider. luis 03:36 No provider procedures requiring assistance completed. ll2 05:20 Report given to DEXTER Freitas. ll2 05:21 Patient admitted, IV remains in place. ll2 Administered Medications: 01:39 CANCELLED (Duplicate Order): NS 0.45 % 1000 ml IV at 125 ml/hr continuous luis 02:34 Drug: Pepcid 20 mg Route: IVP; Site: left antecubital; ll2 02:34 Drug: NS 0.9% 500 ml Route: IV; Rate: bolus; Site: left antecubital; ll2 03:10 Drug: NS 0.9% 1000 ml Route: IV; Rate: 125 ml/hr; Site: left antecubital; ll2 03:34 Drug: Lovenox 1 mg/kg Route: Sub-Q; Site: abdomen; ll2 04:17 Follow up: Response: No adverse reaction ll2 03:35 Drug: Magnesium Sulfate 1 grams Route: IVPB; Infused Over: 1 hrs; Site: left ll2 antecubital; 03:36 Drug: fentaNYL (PF) 50 mcg Route: IVP; Site: left antecubital; ll2 04:17 Follow up: Response: No adverse reaction; Pain is decreased; RASS: Alert and Calm (0) ll2 Outcome: 02:31 Discharge ordered by . luis 02:47 Decision to Hospitalize by Provider. luis 05:20 Admitted to Med/surg accompanied by tech, via stretcher, Report called to DEXTER Freitas ll2 05:20 Condition: stable 05:20 Instructed on the need for admit. 05:21 Patient left the ED. ll2 Signatures: Dispatcher [employer] EDMS Duque, Frantz, RN Weston Mercado MD MD cha Linscombe, Lacie, DEXTER RN ll2
[2020-07-17] MEDS ORDERED: ENOXAPARIN 80 MG/0.8 ML SQ ONE (03:30)
[2020-07-17] MEDS ORDERED: MAGNESIUM SULFATE 1 gm IVPB 1 GM/100 ML BAG IV ONE (03:35)
[2020-07-17] MEDS ORDERED: FENTANYL CITR 100 MCG/2 ML ONE (03:39)
--- NOTE | 2020-07-17 04:09 | P.HP ---
Certification for Inpatient Patient admitted to: Observation With expected LOS: <2 Midnights <Kendall Diaz - Last Filed: 07/17/20 03:58> Patient History Date of Service: 07/17/20 Reason for admission: Hypotension, weakness History of Present Illness: This is a 65 y/o F that was recently discharged from hospital with sacral ulcers and urinary tract infection. Stated that she started to become more imbalanced over the past 24 hours. Finally called EMS today when she felt like she was going to pass out. Patient stated that she normally cannot get around well regardless due to muscle atrophy, weakness, lymphedema. EMS on scene found patient to by hypotensive in the 80s systolic with orthostatic changes. Stated that her heart rate had elevated upon standing from the 80s to the 140s. Patient brought to ED at that time for further evaluation. Patient found to have BUN of 24, Hemoglobin of 9.0, and magnesium of 1.6. Patient hydrated in ED which normalized BP. Patient feeling better at this time. No other acute findings found on labs, ekg, or imaging. Medicine consulted for admission at that point. Home medications list reviewed: Yes - Past Medical/Surgical History Diabetic: No -: hypothyroid -: cholesterol -: lymphemdema -: htn -: hx lumbar fracture - Family History Family History: Reviewed- Non-Contributory - Social History Smoking Status: Never smoker Smoking therapy provided: No Alcohol use: No CD- Drugs: No Place of Residence: Home <Kendall Diaz - Last Filed: 07/17/20 03:58> Date of Service: 07/17/20 - Past Medical/Surgical History Past Surgical History: Unable to obtain - Family History Father -: Other (see notes) Notes: Glaucoma Mother -: Heart disease <Steve Lomas - Last Filed: 07/17/20 15:55> Allergies Penicillins Allergy (Verified 07/07/20 07:56) Rash Home Medications: Cholecalciferol (Vitamin D3) [Vitamin D 1000 Iu Tab*] 2,000 unit PO DAILY 07/07/20 Levothyroxine [Synthroid*] 88 mcg PO [id number] 07/07/20 Pantoprazole [Protonix Tab*] 40 mg PO DAILY 07/07/20 Pravastatin Sodium [Pravachol] 40 mg PO DAILY 07/07/20 Cyanocobalamin [Vitamin B-12*] 1,000 mcg PO DAILY #90 tab 07/15/20 Ensure High Protein 237 ml PO BID #60 can 07/15/20 Ferrous Sulfate [Iron] 325 mg PO BID #60 tablet 07/15/20 Barak [Barak*] 1 pkt PO BID #60 powd.pack 07/15/20 Levofloxacin [Levaquin] 500 mg PO DAILY #7 tablet 07/15/20 Magnesium Oxide [Mag 0X Tab] 400 mg PO DAILY #30 tab 07/15/20 Medihoney [Medihoney Woundcare Gel*] 1 appl TOP DAILY #1 tube 07/15/20 Review of Systems General: Weakness Eyes: Unremarkable ENT: Unremarkable Respiratory: Unremarkable Cardiovascular: Unremarkable Gastrointestinal: Unremarkable Genitourinary: Unremarkable Musculoskeletal: As per HPI Integumentary: Unremarkable Neurological: As per HPI <Kendall Diaz - Last Filed: 07/17/20 03:58> Physical Examination - Vital Signs Temperature: 98 F Blood Pressure: 113/76 Pulse: 85 Respirations: 16 Pulse Ox (%): 100 (RA) - Physical Exam General: Alert, In no apparent distress, Oriented x3, Cooperative HEENT: PERRLA, Other (mucous membrane dry ), EOMI Neck: Supple, JVD not distended, No Thyromegaly Respiratory: Clear to auscultation bilaterally, Normal air movement Cardiovascular: Normal pulses, Regular rate/rhythm, Normal S1 S2, No gallops, No rubs, No murmurs, Edema Capillary refill: <2 Seconds Gastrointestinal: Normal bowel sounds, Soft and benign, Non-distended, No ascites, No tenderness, No masses, No rebound, No guarding Musculoskeletal: No clubbing, No contractures, No erythema, No tenderness, No warmth Integumentary: Pressure ulcer (right buttock ) Neurological: Normal speech, Sensation intact, Cranial nerves 3-12 intact, Normal affect, Abnormal strength (4/5 lower extremities bilaterally) Lymphatics: No axilla or inguinal lymphadenopathy - Studies Laboratory Data (last 24 hrs) 07/17/20 01:45: PT 17.0 H, INR 1.45 07/17/20 01:45: WBC 9.6 D, Hgb 9.0 L, Hct 27.5 L, Plt Count 312 D 07/17/20 01:45: Sodium 139, Potassium 4.0, BUN 24 H, Creatinine 1.18, Glucose 86, Magnesium 1.6 L D, Total Bilirubin 0.4, AST 18, ALT 22, Alkaline Phosphatase 101, Lipase 112 <Kendall Diaz - Last Filed: 07/17/20 03:58> - Studies Laboratory Data (last 24 hrs) 07/17/20 01:45: PT 17.0 H, INR 1.45 07/17/20 01:45: WBC 9.6 D, Hgb 9.0 L, Hct 27.5 L, Plt Count 312 D 07/17/20 01:45: Sodium 139, Potassium 4.0, BUN 24 H, Creatinine 1.18, Glucose 86, Magnesium 1.6 L D, Total Bilirubin 0.4, AST 18, ALT 22, Alkaline Phosphatase 101, Lipase 112 <Steve Lomas - Last Filed: 07/17/20 15:55> Assessment and Plan - Problems (Diagnosis) (1) Hypotension Current Visit: Yes Status: Acute Qualifiers: Hypotension type: orthostatic hypotension Qualified Code(s): I95.1 - Orthostatic hypotension (2) Generalized weakness Current Visit: No Status: Acute (3) Lymphedema Current Visit: No Status: Chronic (4) Unsatisfactory living conditions Current Visit: No Status: Chronic - Plan 1. Will continue to hydrate patient while in hospital 2. Monitor BP for improvement of hypotension 3. Journalism Instructor Consult for poor living conditions and increased imobility. Unable to do ADL's 4. Labs daily for assessment of renal function and electrolytes 5. Replace magnesium as necessary Discharge Plan: Home Plan to discharge in: 24 Hours - Advance Directives Does patient have a Living Will: No Does patient have a Durable POA for Healthcare: No - Code Status/Comfort Care Code Status Assessed: No Critical Care: No Time Spent Managing Pts Care (In Minutes): 70 <Kendall Diaz - Last Filed: 07/17/20 03:58> - Plan Plan of care discussed with Kendall Diaz, and I agree with the management plan as noted above. <Steve Lomas - Last Filed: 07/17/20 15:55>
[2020-07-17] MEDS ORDERED: ONDANSETRON 4 MG/2 ML VIAL IV PRN (05:48)
[2020-07-17] MEDS ORDERED: MORPHINE 2 MG/ML SYR IV PRN (05:48)
[2020-07-17] MEDS ORDERED: ACETAMINOPHEN 500 MG TAB PO PRN (05:48)
[2020-07-17] MEDS: NA CHLORIDE 0.9% 1,000 ML IV SCH ×2 (06:34→17:08)
[2020-07-17 06:36] VITALS: BMI 33.2
[2020-07-17] MEDS: Levofloxacin 750mg IV 750 MG/150 ML BAG IV SCH (07:28)
--- NOTE | 2020-07-17 12:27 | RAD REPORT ---
EXAM DESCRIPTION: RAD - Chest Single View - 07/17/2020 1:59 am CLINICAL HISTORY: COUGH Chest pain. COMPARISON: Chest Single View dated 07/07/2020; Chest For Pe Angio dated 07/17/2020 FINDINGS: Portable technique limits examination quality. Mild interstitial prominence bilaterally with a small right pleural effusion. Findings may be related to interstitial edema or infection. The heart is upper limit of normal in size. Prominent degenerati ve changes in both shoulders.
--- NOTE | 2020-07-17 16:01 | P.PN ---
Subjective Date of Service: 07/17/20 Chief Complaint: Hypotension, weakness Subjective: No new changes (Patient reports feeling okay, no pain, no dizziness, no lightheadedness. She denies any fevers/chills. Overall without complaints) Review of Systems 10-point ROS is otherwise unremarkable Physical Examination - Vital Signs Temperature: 97.5 F Blood Pressure: 122/59 Pulse: 79 Respirations: 20 Pulse Ox (%): 96 - Physical Exam General: Alert, In no apparent distress HEENT: Sclerae nonicteric Respiratory: Clear to auscultation bilaterally Cardiovascular: Edema (Bilateral lower extremity lymphedema, wrapped with [place] bandages) Gastrointestinal: Soft and benign, No tenderness Integumentary: Pressure ulcer (Stage II, bilateral sacral, and just above the gluteal cleft) Neurological: Normal speech, Normal affect - Studies Laboratory Data (last 24 hrs) 07/17/20 01:45: PT 17.0 H, INR 1.45 07/17/20 01:45: WBC 9.6 D, Hgb 9.0 L, Hct 27.5 L, Plt Count 312 D 07/17/20 01:45: Sodium 139, Potassium 4.0, BUN 24 H, Creatinine 1.18, Glucose 86, Magnesium 1.6 L D, Total Bilirubin 0.4, AST 18, ALT 22, Alkaline Phosphatase 101, Lipase 112 Assessment & Plan Physician Review Additional Text: Hyportension Generalized weakness with debility Currently undergoing treatment for recent UTI, urine culture positive for E coli and Enterococcus Acute on chronic renal disease stage III Hypertension Stage II pressure ulcers to the sacrum B12 deficiency Hypothyroidism Plan: Hypotension Generalized weakness with debility Recent UTI, urine culture positive for E coli and Enterococcus: -continue IV Levaquin, was recently discharged with 1 week remaining. She does report getting her antibiotic and taking at home -unable to obtain straight cath UA, patient unable to open hips -patient does not appear septic -will need to discuss disposition with transition social worker, review EMR shows there is difficulty during last hospitalization. Notes state that insurance is not able to provide skilled placement. -PT/OT consulted Acute on chronic renal disease stage III: Seems to be at baseline, Hypertension: With hypotension, monitor closely Stage II pressure ulcers to the sacrum: Continue wound care. Was evaluated by infectious disease during recent hospitalization last week B12 deficiency: Continue with supplementation. Hypothyroidism: Continue with home medication Dipso: patient may not be safe to go home alone, even with home health, she may require more supervision / assistance she states she will discuss with her daughter, open to idea of SNF, would not want LTAC at this time since it is "too far away" Time Spent Managing Pts Care (In Minutes): 45
[2020-07-17] MEDS: JUVEN PACKET PO SCH (20:04)
[2020-07-17] MEDS: ENSURE HIGH PROTEIN 237 ML CAN PO SCH (20:04)
[2020-07-17] MEDS: FERROUS SULFATE 325 MG TAB PO SCH (20:04)
[2020-07-18] MEDS: LEVOTHYROXINE SOD 0.088 MG TAB PO SCH (06:19)
[2020-07-18] MEDS: PANTOPRAZOLE 40MG TABLET PO SCH (06:19)
[2020-07-18] MEDS: NA CHLORIDE 0.9% 1,000 ML IV SCH (06:22)
[2020-07-18 06:27] LABS: Absolute Lymphocytes (CBC) 2.1 K/uL (0.7-4.9); Basophils % 0.9 % (0-1.3); Hematocrit 24.5 % (36.0-45.0); Lymphocytes % 29.3 % (15.3-44.8); MPV 8.2 fL (7.6-11.3); RBC Red Blood Cell Count 2.99 M/uL (3.86-4.86)
[2020-07-18 06:39] LABS: Magnesium 1.8 mg/dL (1.8-2.4); Potassium 3.8 mmol/L (3.5-5.1)
[2020-07-18] MEDS: MAGNESIUM OXIDE 400 MG TAB PO SCH (09:00)
[2020-07-18] MEDS ORDERED: MAGNESIUM SULFATE 1 gm IVPB 1 GM/100 ML BAG IV ONE (09:00)
[2020-07-18] MEDS: Levofloxacin 750mg IV 750 MG/150 ML BAG IV SCH (09:43)
[2020-07-18] MEDS: ENSURE HIGH PROTEIN 237 ML CAN PO SCH ×2 (09:47→21:31)
[2020-07-18] MEDS: JUVEN PACKET PO SCH ×2 (09:50→21:31)
[2020-07-18] MEDS: FERROUS SULFATE 325 MG TAB PO SCH ×2 (09:52→21:31)
[2020-07-18] MEDS: VITAMIN D 1000 UNIT TAB PO SCH (09:53)
[2020-07-18] MEDS: ATORVASTATIN 10 MG TAB PO SCH (09:53)
[2020-07-18] MEDS: CYANOCOBALAMIN 1,000 MCG TAB PO SCH (09:54)
[2020-07-18] MEDS: MEDIHONEY 44 ML TOPICAL TUBE TOP SCH (09:54)
--- NOTE | 2020-07-18 11:31 | P.PN ---
Subjective Date of Service: 07/18/20 Chief Complaint: Hypotension, weakness Subjective: Improving (Patient reports feeling better, but does report feeling tired today. Denies any bleeding, or any history of bleeding. Overnight patient was asymptomatic sinus bradycardia in the 40s.) Review of Systems 10-point ROS is otherwise unremarkable Physical Examination - Vital Signs Temperature: 98.2 F Blood Pressure: 122/56 Pulse: 64 Respirations: 18 Pulse Ox (%): 98 - Physical Exam General: Alert, In no apparent distress, Oriented x3 HEENT: Sclerae nonicteric Respiratory: Clear to auscultation bilaterally Cardiovascular: Regular rate/rhythm (HR:55-60s) Gastrointestinal: Soft and benign, No tenderness Integumentary: Pressure ulcer (3 stage II sacral ulcers), Other (b/l chronic lymphedema, wrapped in NENA bandages) Neurological: Normal speech, Normal affect Assessment & Plan Physician Review Additional Text: Hyportension Generalized weakness with debility Currently undergoing treatment for recent UTI, urine culture positive for E coli and Enterococcus Sinus bradycardia Acute on chronic renal disease stage III Anemia of chronic disease Hypertension Stage II pressure ulcers to the sacrum B12 deficiency Hypothyroidism Plan: Hypotension Generalized weakness with debility Recent UTI, urine culture positive for E coli and Enterococcus: -blood pressure better, discontinued IV fluids this morning, switch IV Levaquin to p.o. -unable to obtain straight cath UA, patient unable to open hips -patient does not appear septic -discussed with case management regarding disposition. Review EMR shows there is difficulty during last hospitalization. Notes state that insurance is not able to provide skilled placement. -PT/OT consulted -patient reports she may be amenable to going to SNF if nearby, but noncommittal at this time, states she needs to speak with manager social and her daughter. Sinus bradycardia -asymptomatic, while sleeping to her 40s. While she is awake she is in mid 50s to 60s -levaquin could be contributing, however review of EMR reveals patient is typically in 50-60s - similar during prior hospitalization last week Anemia of chronic disease -baseline seems to be 8-9 per EMR review -hgb down to 7.9 this morning, likely dilutional from amount of fluids patient received for her hypotension -no evidence of bleeding, no dark or bright red bloody stools -IVF dc'd, will recheck later today to ensure stability Acute on chronic renal disease stage III: Seems to be at baseline Hypertension: With hypotension, improving Stage II pressure ulcers to the sacrum: Continue wound care. Was evaluated by infectious disease during recent hospitalization last week B12 deficiency: Continue with supplementation. Hypothyroidism: Continue with home medication Dipso: patient may not be safe to go home alone, even with home health, she may require more supervision / assistance; essentially failed trial of discharge to home she states she needs to discuss with SW & daughter still. open to the idea of SNF, if nearby Time Spent Managing Pts Care (In Minutes): 30
[2020-07-18 12:33] LABS: Hematocrit 25.4 % (36.0-45.0)
[2020-07-19 06:06] LABS: Absolute Lymphocytes (CBC) 2.2 K/uL (0.7-4.9); Basophils % 0.9 % (0-1.3); Hematocrit 23.6 % (36.0-45.0); Lymphocytes % 26.3 % (15.3-44.8); MPV 8.2 fL (7.6-11.3); RBC Red Blood Cell Count 2.88 M/uL (3.86-4.86)
[2020-07-19 06:17] LABS: BUN Blood Urea Nitrogen 15 mg/dL (7-18); Bicarbonate 23 mmol/L (21-32); Glucose Level 79 mg/dL (74-106); Potassium 3.7 mmol/L (3.5-5.1); Sodium Level 146 mmol/L (136-145)
[2020-07-19] MEDS: PANTOPRAZOLE 40MG TABLET PO SCH (06:20)
[2020-07-19] MEDS: LEVOTHYROXINE SOD 0.088 MG TAB PO SCH (06:20)
[2020-07-19] MEDS: ENSURE HIGH PROTEIN 237 ML CAN PO SCH ×2 (08:44→21:59)
[2020-07-19] MEDS: MAGNESIUM OXIDE 400 MG TAB PO SCH (08:45)
[2020-07-19] MEDS: ATORVASTATIN 10 MG TAB PO SCH (08:45)
[2020-07-19] MEDS: JUVEN PACKET PO SCH ×2 (08:45→21:59)
[2020-07-19] MEDS: VITAMIN D 1000 UNIT TAB PO SCH (08:45)
[2020-07-19] MEDS: FERROUS SULFATE 325 MG TAB PO SCH ×2 (08:45→21:57)
[2020-07-19] MEDS: CYANOCOBALAMIN 1,000 MCG TAB PO SCH (08:45)
[2020-07-19] MEDS: levoFLOXacin 750 MG TAB PO SCH (08:45)
[2020-07-19] MEDS: MEDIHONEY 44 ML TOPICAL TUBE TOP SCH (08:46)
--- NOTE | 2020-07-19 11:08 | RAD REPORT ---
EXAM DESCRIPTION: Chest For Pe Angio CLINICAL HISTORY: DYSPNEA COMPARISON: None Available. TECHNIQUE: CTA of the chest obtained following the uncomplicated intravenous administration of iodin ated contrast. 3-D/MIP reformatted images of the chest available for evaluation. Respiratory motion a rtifact. FINDINGS: Chest: Pulmonary arteries: Contrast bolus is adequate.No filling defects identified in the pulmonary arterie s to suggest pulmonary embolus. Suboptimal evaluation of the segmental and subsegmental pulmonary art erial branches due to respiratory motion artifact. Thyroid: No abnormalities of the visualized thyroid. Great Vessels: Great vessels have normal anatomic configuration. Thoracic Aorta: No abnormalities of the thoracic aorta identified. Heart: No cardiomegaly, significant pericardial effusion, or coronary artery atherosclerosis Lymph Nodes: No enlarged mediastinal lymph nodes identified. Esophagus: No abnormalities of the esophagus identified. Other: No additional findings. Lungs: Mild right basilar compressive atelectasis. Pleura: Trace right pleural effusion. Trachea/Airways: No abnormalities of the visualized trachea or airways. Bones: Endplate spondylosis and facet arthropathy of the visualized spine. Upper Abdomen: No acute abnormality identified in the visualized portions of the upper abdomen. IMPRESSION: 1. No pulmonary embolism identified. Suboptimal evaluation of the segmental and subsegme ntal pulmonary arterial branches due to respiratory motion artifact. 2. Trace right pleural effusion with bibasilar compressive atelectasis. This exam was performed according to our departmental dose-optimization program, which includes autom ated exposure control, adjustment of the mA and/or kV according to patient size and/or use of iterati ve reconstruction technique. Electronically signed by: Vipul Horne 07/17/2020 4:43 AM SITE SURVEYOR Due to temporary technical issues with the PACS/Fluency reporting system, reports are being signed by the in house radiologist without review as a courtesy to ensure prompt reporting. The interpreting r adiologist is fully responsible for the content of the report.
--- NOTE | 2020-07-19 11:10 | RAD REPORT ---
EXAM DESCRIPTION: Head Brain Wo Cont CLINICAL HISTORY: 65 years Female DIZZINESS COMPARISON: None Technique: Contiguous axial images of the brain were obtained without the administration of intrave nous contrast.This exam was performed according to our departmental dose-optimization program which i ncludes use of Automated Exposure Control, adjustment of the mA and/or kV according to patient size a nd/or use of iterative reconstruction technique. DLP: 858 mGy*cm FINDINGS: Brain: No acute intracranial hemorrhage. No extra-axial collection. No mass effect or darby iation. Mild prominence of the sulci and cisterns. Confluent periventricular and subcortical white matter hypodensity is noted. Ventricles: Within normal limits in size. Globes and orbits: No acute abnormality. Bones: No acute osseous finding Paranasal sinuses: Paranasal sinuses are clear. Mastoid air cells: Well pneumatized. Soft tissues: Within normal limits IMPRESSION: No acute intracranial hemorrhage, hydrocephalus or herniation. Cerebral volume loss and chronic small vessel ischemic changes. Consider MRI brain for further evalua tion. Electronically signed by: Margarito Casillas DO 07/17/2020 2:37 AM REFRIGERATION SYSTEM INSTALLER Due to temporary technical issues with the PACS/Fluency reporting system, reports are being signed by the in house radiologist without review as a courtesy to ensure prompt reporting. The interpreting r adiologist is fully responsible for the content of the report.
--- NOTE | 2020-07-19 12:13 | P.PN ---
Subjective Date of Service: 07/19/20 Chief Complaint: Hypotension, weakness Subjective: No new changes (feeling ok, still reports some general fatigue, no fevers/chills, no SOB/chest pain, no abdominal pain) Review of Systems 10-point ROS is otherwise unremarkable Physical Examination - Vital Signs Temperature: 99 F Blood Pressure: 119/53 Pulse: 57 Respirations: 15 Pulse Ox (%): 100 - Physical Exam General: Alert, In no apparent distress, Oriented x3 HEENT: Sclerae nonicteric Respiratory: Clear to auscultation bilaterally Cardiovascular: Regular rate/rhythm Gastrointestinal: Soft and benign, No tenderness Integumentary: No erythema, Other (b/l extremity chronic lymphedema, wrapped with NENA bandages) Neurological: Normal speech, Normal affect Assessment & Plan Physician Review Additional Text: Hyportension Generalized weakness with debility Currently undergoing treatment for recent UTI, urine culture positive for E coli and Enterococcus Sinus bradycardia Acute on chronic renal disease stage III Anemia of chronic disease Hypertension Stage II pressure ulcers to the sacrum Iron & B12 deficiency Hypothyroidism Plan: Hypotension Generalized weakness with debility Recent UTI, urine culture positive for E coli and Enterococcus: -blood pressure better, stable off IVF x 24hrs, levaquin switched to PO - 1st PO dose today -unable to obtain straight cath UA, patient unable to open hips -reviewed at [facility] - pt has benefits for longterm half-way care, but no acute SNF benefits -pt still unsure of what she wants to do, wanting to discuss further with SW -will discuss further with SW and daughter, patient is not safe to go home, she has proven that she can not go home safely -PT/OT consulted Sinus bradycardia -asymptomatic, while sleeping to her 40s. While she is awake she is in mid 50s to 60s -levaquin could be contributing, however review of EMR reveals patient is typically in 50-60s - similar during prior hospitalization last week -stable Anemia of chronic disease, iron deficiency -baseline seems to be 8-9 per EMR review -Hgb stable, likely dilutional from IVF given for hypotension -no evidence of bleeding, no dark or bright red bloody stools -iron level low on prior hospitalization last week and started on iron replcaement, continue Stage II pressure ulcers to the sacrum: -wound care consulted; Continue wound care. Was evaluated by infectious disease during recent hospitalization last week Acute on chronic renal disease stage III: Seems to be at baseline h/o Hypertension: With hypotension, improving B12 deficiency: Continue with supplementation. Hypothyroidism: Continue with home medication Dipso: patient is not be safe to go home alone, even with home health, she requires more supervision / assistance; essentially failed trial of discharge to home wants further discussion with SW today Time Spent Managing Pts Care (In Minutes): 40
[2020-07-20 04:35] LABS: Hematocrit 24.3 % (36.0-45.0); RBC Red Blood Cell Count 2.98 M/uL (3.86-4.86)
[2020-07-20] MEDS: LEVOTHYROXINE SOD 0.088 MG TAB PO SCH (05:18)
[2020-07-20] MEDS: PANTOPRAZOLE 40MG TABLET PO SCH (05:18)
[2020-07-20] MEDS: levoFLOXacin 750 MG TAB PO SCH (09:00)
[2020-07-20] MEDS: MAGNESIUM OXIDE 400 MG TAB PO SCH (09:05)
[2020-07-20] MEDS: VITAMIN D 1000 UNIT TAB PO SCH (09:05)
[2020-07-20] MEDS: ATORVASTATIN 10 MG TAB PO SCH (09:05)
[2020-07-20] MEDS: FERROUS SULFATE 325 MG TAB PO SCH ×2 (09:07→20:08)
[2020-07-20] MEDS: CYANOCOBALAMIN 1,000 MCG TAB PO SCH (09:08)
[2020-07-20] MEDS: MEDIHONEY 44 ML TOPICAL TUBE TOP SCH (09:09)
[2020-07-20] MEDS: ENSURE HIGH PROTEIN 237 ML CAN PO SCH ×2 (09:10→20:09)
[2020-07-20] MEDS: JUVEN PACKET PO SCH ×2 (09:10→20:09)
--- NOTE | 2020-07-20 11:25 | P.PN ---
Subjective Date of Service: 07/20/20 Chief Complaint: Hypotension, weakness No major changes from yesterday. Patient is eating well. She is participating in physical therapy. She stated she has not been up and ambulating yet. Physical Examination - Vital Signs Temperature: 98.3 F Blood Pressure: 113/66 Pulse: 55 Respirations: 15 Pulse Ox (%): 98 - Physical Exam General: Alert, In no apparent distress HEENT: Mucous membr. moist/pink Neck: JVD not distended Respiratory: Clear to auscultation bilaterally, Normal air movement Cardiovascular: Regular rate/rhythm, Normal S1 S2 Gastrointestinal: Normal bowel sounds, Soft and benign, No tenderness Musculoskeletal: No tenderness, Other (Bilateral lower extremity lymphedema) Integumentary: No breakdown Neurological: Other (Nonfocal) Assessment And Plan - Current Problems (Diagnosis) (1) Sinus bradycardia Current Visit: Yes Status: Acute (2) Anemia in chronic kidney disease Current Visit: Yes Status: Acute (3) Hypothyroidism Current Visit: Yes Status: Acute (4) Hypotension Current Visit: Yes Status: Acute Qualifiers: Hypotension type: orthostatic hypotension Qualified Code(s): I95.1 - O rthostatic hypotension (5) Debility Current Visit: No Status: Acute (6) Generalized weakness Current Visit: No Status: Acute (7) Pressure injury of sacral region, stage 2 Current Visit: No Status: Acute (8) UTI (urinary tract infection) Current Visit: No Status: Acute (9) Lymphedema Current Visit: No Status: Chronic - Plan Urine culture growing less than 10,000 colonies. Continue oral Levaquin for possible UTI. Continue IV fluid for dehydration. Hypotension has resolved. It is likely secondary to dehydration. Local wound care. Social service assisting with disposition. Patient is planned for long-term care placement. Physician Review Additional Text: Hyportension Generalized weakness with debility Currently undergoing treatment for recent UTI, urine culture positive for E coli and Enterococcus Sinus bradycardia Acute on chronic renal disease stage III Anemia of chronic disease Hypertension Stage II pressure ulcers to the sacrum Iron & B12 deficiency Hypothyroidism Plan: Hypotension Generalized weakness with debility Recent UTI, urine culture positive for E coli and Enterococcus: -blood pressure better, stable off IVF x 24hrs, levaquin switched to PO - 1st PO dose today -unable to obtain straight cath UA, patient unable to open hips -reviewed at [facility] - pt has benefits for [facility] long term care, but no acute SNF benefits -pt still unsure of what she wants to do, wanting to discuss further with SW -will discuss further with SW and daughter, patient is not safe to go home, she has proven that she can not go home safely -PT/OT consulted Sinus bradycardia -asymptomatic, while sleeping to her 40s. While she is awake she is in mid 50s to 60s -levaquin could be contributing, however review of EMR reveals patient is typically in 50-60s - similar during prior hospitalization last week -stable Anemia of chronic disease, iron deficiency -baseline seems to be 8-9 per EMR review -Hgb stable, likely dilutional from IVF given for hypotension -no evidence of bleeding, no dark or bright red bloody stools -iron level low on prior hospitalization last week and started on iron replcaement, continue Stage II pressure ulcers to the sacrum: -wound care consulted; Continue wound care. Was evaluated by infectious disease during recent hospitalization last week Acute on chronic renal disease stage III: Seems to be at baseline h/o Hypertension: With hypotension, improving B12 deficiency: Continue with supplementation. Hypothyroidism: Continue with home medication Dipso: patient is not be safe to go home alone, even with home health, she requires more supervision / assistance; essentially failed trial of discharge to home wants further discussion with SW today
[2020-07-21 04:16] LABS: Hematocrit 25.4 % (36.0-45.0); Lymphocytes % 31.8 % (15.3-44.8); MPV 7.9 fL (7.6-11.3)
[2020-07-21 04:38] LABS: Potassium 3.8 mmol/L (3.5-5.1)
[2020-07-21] MEDS: PANTOPRAZOLE 40MG TABLET PO SCH (05:43)
[2020-07-21] MEDS: LEVOTHYROXINE SOD 0.088 MG TAB PO SCH (05:43)
[2020-07-21] MEDS: FERROUS SULFATE 325 MG TAB PO SCH ×2 (09:09→22:13)
[2020-07-21] MEDS: VITAMIN D 1000 UNIT TAB PO SCH (09:09)
[2020-07-21] MEDS: ATORVASTATIN 10 MG TAB PO SCH (09:10)
[2020-07-21] MEDS: levoFLOXacin 750 MG TAB PO SCH (09:10)
[2020-07-21] MEDS: MAGNESIUM OXIDE 400 MG TAB PO SCH (09:10)
[2020-07-21] MEDS: CYANOCOBALAMIN 1,000 MCG TAB PO SCH (09:10)
[2020-07-21] MEDS: MEDIHONEY 44 ML TOPICAL TUBE TOP SCH (09:12)
[2020-07-21] MEDS: ENSURE HIGH PROTEIN 237 ML CAN PO SCH ×2 (09:12→22:13)
[2020-07-21] MEDS: JUVEN PACKET PO SCH ×2 (09:12→22:13)
--- NOTE | 2020-07-21 11:31 | P.PN ---
Subjective Date of Service: 07/21/20 Chief Complaint: Hypotension, weakness No new complain. Patient is eating well. She is participating in physical therapy. She is waiting for placement in a long-term care. Physical Examination - Vital Signs Temperature: 98.4 F Blood Pressure: 116/56 Pulse: 60 Respirations: 18 Pulse Ox (%): 96 - Physical Exam General: Alert, In no apparent distress Neck: Supple Respiratory: Clear to auscultation bilaterally, Normal air movement Cardiovascular: Regular rate/rhythm, Normal S1 S2 Gastrointestinal: Soft and benign, No tenderness Musculoskeletal: Other (Bilateral lower extremity lymphedema) Neurological: Other (Nonfocal) Assessment And Plan - Current Problems (Diagnosis) (1) Sinus bradycardia Current Visit: Yes Status: Acute (2) Anemia in chronic kidney disease Current Visit: Yes Status: Acute (3) Hypothyroidism Current Visit: Yes Status: Acute (4) Hypotension Current Visit: Yes Status: Acute Qualifiers: Hypotension type: orthostatic hypotension Qualified Code(s): I95.1 - Orthostatic hypotension (5) Debility Current Visit: No Status: Acute (6) Generalized weakness Current Visit: No Status: Acute (7) Pressure injury of sacral region, stage 2 Current Visit: No Status: Acute (8) UTI (urinary tract infection) Current Visit: No Status: Acute (9) Lymphedema Current Visit: No Status: Chronic (10) Anemia Current Visit: Yes Status: Acute - Plan Urine culture growing less than 10,000 colonies-mixed growth. She should complete oral Levaquin treatment for UTI today. Patient is eating well. Off IV fluid. Local wound care. Transfuse p.r.n. for hemoglobin less than 7. Social service assisting with disposition. Patient is planned for long-term care placement. Physician Review Additional Text: Hyportension Generalized weakness with debility
[2020-07-22] MEDS: LEVOTHYROXINE SOD 0.088 MG TAB PO SCH (06:00)
[2020-07-22] MEDS: PANTOPRAZOLE 40MG TABLET PO SCH (06:00)
[2020-07-22] MEDS: MAGNESIUM OXIDE 400 MG TAB PO SCH (09:00)
[2020-07-22] MEDS: VITAMIN D 1000 UNIT TAB PO SCH (11:22)
[2020-07-22] MEDS: FERROUS SULFATE 325 MG TAB PO SCH ×2 (11:23→20:02)
[2020-07-22] MEDS: ATORVASTATIN 10 MG TAB PO SCH (11:23)
[2020-07-22] MEDS: levoFLOXacin 750 MG TAB PO SCH (11:23)
[2020-07-22] MEDS: CYANOCOBALAMIN 1,000 MCG TAB PO SCH (11:23)
[2020-07-22] MEDS: JUVEN PACKET PO SCH ×2 (11:24→20:02)
[2020-07-22] MEDS: ENSURE HIGH PROTEIN 237 ML CAN PO SCH ×2 (11:25→20:02)
[2020-07-22] MEDS: MEDIHONEY 44 ML TOPICAL TUBE TOP SCH (11:25)
--- NOTE | 2020-07-22 16:55 | P.PN ---
Subjective Date of Service: 07/22/20 Chief Complaint: Hypotension, weakness No new complain. She is waiting for placement in a long-term care. Physical Examination - Vital Signs Temperature: 97.8 F Blood Pressure: 110/51 Pulse: 54 Respirations: 18 Pulse Ox (%): 96 - Physical Exam General: Alert, In no apparent distress Respiratory: Clear to auscultation bilaterally, Normal air movement Cardiovascular: Regular rate/rhythm, Normal S1 S2 Gastrointestinal: Soft and benign, No tenderness Integumentary: No rashes Assessment And Plan - Current Problems (Diagnosis) (1) Sinus bradycardia Current Visit: Yes Status: Acute (2) Anemia in chronic kidney disease Current Visit: Yes Status: Acute (3) Hypothyroidism Current Visit: Yes Status: Acute (4) Hypotension Current Visit: Yes Status: Acute Qualifiers: Hypotension type: orthostatic hypotension Qualified Code(s): I95.1 - Orthostatic hypotension (5) Debility Current Visit: No Status: Acute (6) Generalized weakness Current Visit: No Status: Acute (7) Pressure injury of sacral region, stage 2 Current Visit: No Status: Acute (8) UTI (urinary tract infection) Current Visit: No Status: Acute (9) Lymphedema Current Visit: No Status: Chronic (10) Anemia Current Visit: Yes Status: Acute - Plan Urine culture growing less than 10,000 colonies-mixed growth. Patient completed Levaquin therapy for UTI Patient is eating well. Local wound care. Transfuse p.r.n. for hemoglobin less than 7. Patient is planned for long-term care placement. Waiting for insurance approval.
[2020-07-23] MEDS: PANTOPRAZOLE 40MG TABLET PO SCH (05:49)
[2020-07-23] MEDS: LEVOTHYROXINE SOD 0.088 MG TAB PO SCH (05:49)
--- NOTE | 2020-07-23 08:08 | P.DS ---
Admission Date: 07/17/20 Discharge Date: 07/23/20 Disposition: TRANSFER TO [facility] Discharge Condition: FAIR Reason for Admission: Hypotension, weakness - Problems (1) Sinus bradycardia Current Visit: Yes Status: Acute (2) Anemia in chronic kidney disease Current Visit: Yes Status: Acute (3) Hypothyroidism Current Visit: Yes Status: Acute (4) Hypotension Current Visit: Yes Status: Acute Qualifiers: Hypotension type: orthostatic hypotension Qualified Code(s): I95.1 - Orthostatic hypotension (5) Debility Current Visit: No Status: Acute (6) Generalized weakness Current Visit: No Status: Acute (7) Pressure injury of sacral region, stage 2 Current Visit: No Status: Acute (8) UTI (urinary tract infection) Current Visit: No Status: Acute (9) Lymphedema Current Visit: No Status: Chronic (10) Anemia Current Visit: Yes Status: Acute (11) Sacral decubitus ulcer, stage III Current Visit: Yes Status: Acute Brief History of Present Illness: 65-year-old woman with a history of sacral ulcers, debility, impaired mobility was brought to the emergency department with a reported generalized weakness. Patient noted to be hypotensive with tachycardia at home. She was normotensive in the emergency department. Patient is very much decreased mobility. She was hospitalized for further monitoring. Hospital Course: Patient admitted to the medical floor and treated with IV fluids for possible dehydration. Her urine culture grew less than 10,000 colonies, with 1+ yeast reported. Patient was treated with Levaquin for a few days. Yeast is likely colonization. Patient was seen and evaluated by physical therapy. She was able to participate in physical therapy. She has anemia with a hemoglobin around 8. Her vitals have been stable, patient is deemed clinically stable for discharge. She has been accepted to continue rehab at SNF. Vital Signs/Physical Exam: Temp Pulse Resp BP Pulse Ox 99.1 F 67 18 116/55 L 97 07/23/20 04:00 07/23/20 04:00 07/23/20 04:00 07/23/20 04:00 07/23/20 04:00 General: Alert, In no apparent distress Respiratory: Clear to auscultation bilaterally, Normal air movement Cardiovascular: Regular rate/rhythm, Normal S1 S2 Gastrointestinal: Normal bowel sounds, Soft and benign, No tenderness Musculoskeletal: No tenderness, Other (Bilateral lower extremity lymphedema) Integumentary: No rashes Neurological: Other (Nonfocal) Laboratory Data at Discharge: WBC 6.3 K/uL (4.3-10.9) 07/21/20 04:04 Hgb 8.3 g/dL (12.0-15.0) L 07/21/20 04:04 Hct 25.4 % (36.0-45.0) L 07/21/20 04:04 Plt Count 266 K/uL (152-406) 07/21/20 04:04 PT 17.0 SECONDS (9.5-12.5) H 07/17/20 01:45 INR 1.45 07/17/20 01:45 Sodium 145 mmol/L (136-145) 07/21/20 04:04 Potassium 3.8 mmol/L (3.5-5.1) 07/21/20 04:04 BUN 14 mg/dL (7-18) 07/21/20 04:04 Creatinine 0.69 mg/dL (0.55-1.3) 07/21/20 04:04 Glucose 88 mg/dL (74-106) 07/21/20 04:04 Magnesium 2.0 mg/dL (1.8-2.4) 07/19/20 05:32 Total Bilirubin 0.4 mg/dL (0.2-1.0) 07/17/20 01:45 AST 18 U/L (15-37) 07/17/20 01:45 ALT 22 U/L (12-78) 07/17/20 01:45 Alkaline Phosphatase 101 U/L (45-117) 07/17/20 01:45 Lipase 112 U/L (73-393) 07/17/20 01:45 Home Medications: Cholecalciferol (Vitamin D3) [Vitamin D 1000 Iu Tab*] 2,000 unit PO DAILY 07/07/20 Levothyroxine [Synthroid*] 88 mcg PO [id number] 07/07/20 Pantoprazole [Protonix Tab*] 40 mg PO DAILY 07/07/20 Pravastatin Sodium [Pravachol] 40 mg PO DAILY 07/07/20 Cyanocobalamin [Vitamin B-12*] 1,000 mcg PO DAILY #90 tab 07/15/20 Ensure High Protein 237 ml PO BID #60 can 07/15/20 Ferrous Sulfate [Iron] 325 mg PO BID #60 tablet 07/15/20 Barak [Barak*] 1 pkt PO BID #60 powd.pack 07/15/20 Magnesium Oxide [Mag 0X*] 400 mg PO DAILY #30 tab 07/15/20 Medihoney [Medihoney Woundcare Gel*] 1 appl TOP DAILY #1 tube 07/15/20 Diet: Regular Activity: Ad renetta Followup: NONE,NONE [Primary Care Provider] - 1 Week
[2020-07-23] MEDS: levoFLOXacin 750 MG TAB PO SCH (08:48)
[2020-07-23] MEDS: MAGNESIUM OXIDE 400 MG TAB PO SCH (08:48)
[2020-07-23] MEDS: VITAMIN D 1000 UNIT TAB PO SCH (08:48)
[2020-07-23] MEDS: FERROUS SULFATE 325 MG TAB PO SCH (08:48)
[2020-07-23] MEDS: ATORVASTATIN 10 MG TAB PO SCH (08:49)
[2020-07-23] MEDS: JUVEN PACKET PO SCH (08:49)
[2020-07-23] MEDS: ENSURE HIGH PROTEIN 237 ML CAN PO SCH (08:49)
[2020-07-23] MEDS: MEDIHONEY 44 ML TOPICAL TUBE TOP SCH (08:50)
[2020-07-23] MEDS: CYANOCOBALAMIN 1,000 MCG TAB PO SCH (08:50)
[2020-07-23 08:54] VITALS: BP 131/61; TEMP 97.3
[2020-07-23 09:44] VITALS: O2SAT 96
== END 2020-07-23 11:10 ==
LOC: ER 01:27 → ERHOLD 03:45 → 2ND 05:18
PROVIDERS: ADMIT Hospitalist; ATTEND Internal Medicine
DX: R00.1 Bradycardia, unspecified (principal); N17.9 Acute kidney failure, unspecified; I12.9 Hypertensive chronic kidney disease with stage 1 through stage 4 chronic kidney disease, or unspecified chronic kidney disease; N18.30 Chronic kidney disease, stage 3 unspecified; D63.1 Anemia in chronic kidney disease; E03.9 Hypothyroidism, unspecified; I95.1 Orthostatic hypotension; R53.1 Weakness; L89.153 Pressure ulcer of sacral region, stage 3; N39.0 Urinary tract infection, site not specified; I89.0 Lymphedema, not elsewhere classified; E53.8 Deficiency of other specified B group vitamins; B96.20 Unspecified Escherichia coli [E. coli] as the cause of diseases classified elsewhere; B95.2 Enterococcus as the cause of diseases classified elsewhere; D50.9 Iron deficiency anemia, unspecified
CPT/HCPCS: 87088; 85025 ×4; 87086; 80048 ×4; 36415 ×4; 86900; 83735 ×3; 86850; 85610; 86901; 85379; 80076; 83605; 85018; 85014; 85027; 84484; 83690; 83880; 70450; 71275; 71045; 99251; 97110 ×7; 97112; 97161; 96375; 96372; 96374; 99285; Q9967; J3010; J3475 ×2; G0378 ×9; J7040; J7030 ×4

== ENCOUNTER 2021-08-11 08:36 | Inpatient (IN) | payer OTHER ==
[2021-08-11] MEDS ORDERED: ACETAMINOPHEN 500 MG TAB ONE (09:01)
[2021-08-11] MEDS ORDERED: NA CHLORIDE 0.9% 1,000 ML ONE (09:01)
[2021-08-11] MEDS ORDERED: IBUPROFEN 200 MG TAB PO ONE (09:03)
[2021-08-11 09:22] LABS: Absolute Lymphocytes (CBC) 0.3 K/uL (0.7-4.9); Basophils % 0.1 % (0-1.3); Hematocrit 30.2 % (36.0-45.0); Lymphocytes % 2.3 % (15.3-44.8); MPV 6.7 fL (7.6-11.3); RBC Red Blood Cell Count 3.38 M/uL (3.86-4.86)
[2021-08-11 09:32] LABS: Protime INR 1.48
[2021-08-11] MEDS ORDERED: levoFLOXacin 750 MG TAB ONE (09:35)
[2021-08-11 09:47] LABS: ALT/SGPT 38 U/L (12-78); AST/SGOT 27 U/L (15-37); Albumin 2.4 g/dL (3.4-5.0); Alkaline Phosphatase 95 U/L (45-117); Amylase 15 U/L (25-115); BUN Blood Urea Nitrogen 34 mg/dL (7-18); Bicarbonate 24 mmol/L (21-32); Bilirubin Direct 0.1 mg/dL (0-0.2); Bilirubin Total 0.4 mg/dL (0.2-1.0); CKMB Creatine Kinase MB 1.4 ng/mL (1.0-3.6); Creatine Phosphokinase 201 U/L (26-192); Glucose Level 106 mg/dL (74-106); Lipase 45 U/L (73-393); Potassium 4.5 mmol/L (3.5-5.1); Protein, Total 6.6 g/dL (6.4-8.2); Sodium Level 139 mmol/L (136-145); Troponin (Emerg Dept Use Only) < 0.02 ng/mL (0.0-0.045)
--- NOTE | 2021-08-11 09:47 | RAD REPORT ---
EXAM DESCRIPTION: RAD - Chest Single View - 08/11/2021 9:35 am CLINICAL HISTORY: FEVER COMPARISON: Chest Single View dated 07/17/2020; Chest Single View dated 07/07/2020 FINDINGS: Lines: None. Lungs: Low lung volumes, particularly on the right. Opacification present at the right lung base. Pleural: No significant pleural effusions or pneumothorax. Cardiac: The heart size is within normal limits. Bones: No acute fractures. Other: IMPRESSION: Low lung volumes. Increased opacification of the right lung base probably atelectasis bu t underlying pneumonia cannot be excluded.
[2021-08-11] MEDS ORDERED: VANCOMYCIN 1 GM in NA CHLORIDE 0.9% 250 ML IVPB ONE (10:00)
[2021-08-11 10:14] LABS: Blood Morphology Comment NOT SEEN (NOT SEEN); Platelet Estimate ADEQ
--- NOTE | 2021-08-11 10:29 | RAD REPORT ---
EXAM DESCRIPTION: US - Extrem Venous W Compress Elijah - 08/11/2021 10:08 am CLINICAL HISTORY: Apparent cellulitis to the left leg;Pain;Swelling COMPARISON: Extrem Venous W Compress Elijah dated 03/06/2019 FINDINGS: Color, grayscale, and spectral analysis was performed. Incomplete compressibility of the right popliteal vein is noted. The remaining veins within the right lower extremity including the common femoral vein, greater saphenous vein, femoral vein, posterior t ibial vein are patent. IMPRESSION: Positive for deep venous thrombosis in the right popliteal vein.
--- NOTE | 2021-08-11 10:47 | ER ---
Nurse's Notes [facility] Name: Nilam Rivero Age: 66 yrs Sex: Female : 1955 Arrival Date: 08/11/2021 Time: 08:40 Bed 16 Private MD: Diagnosis: Cellulitis of left lower limb;Deep venous thrombosis right popliteal vein Presentation: 08/11 08:44 Chief complaint: EMS states: fever- 105F give tylenol 1g PO at 0730, EMS temp 103, eo2 dx'ed with cellulitis of LLE 1 week ago, on abx. Coronavirus screen: Vaccine status: Patient reports receiving the 2nd dose of the covid vaccine. Client denies travel out of the [place] in the last 14 days. Ebola Screen: Patient denies exposure to infectious person. Patient denies travel to an Ebola-affected area in the 21 days before illness onset. Initial Sepsis Screen: Does the patient meet any 2 criteria? Temp <36.0*C (96.8*F)) or > 38.3*C (100.9*F). HR > 90 bpm. Yes Does the patient have a suspected source of infection? Yes: Other: Cellulitis LLE If YES to both, name of provider notified: Phillip Pollock MD. Risk Assessment: Do you want to hurt yourself or someone else? Patient reports no desire to harm self or others. Onset of symptoms was July 2021. 08:44 Method Of Arrival: EMS: [facility] eo2 08:44 Acuity: ESME 2 eo2 Triage Assessment: 08:49 General: Appears in no apparent distress. obese, Behavior is calm, cooperative. eo2 Historical: - Allergies: 08:49 PENICILLINS; eo2 - Home Meds: 08:49 levothyroxine oral [Active]; eo2 - PMHx: 08:49 GERD; Hypertension; Hypothyroidism; lymph edema bilateral legs; eo2 - Immunization history:: Adult Immunizations up to date, Client reports receiving the 2nd dose of the Covid vaccine. - Social history:: Smoking status: unknown. Screenin:51 Abuse screen: Denies threats or abuse. Nutritional screening: pt reports decreased eo2 appetite. Tuberculosis screening: No symptoms or risk factors identified. Fall Risk None identified. Assessment: 08:51 General: Appears in no apparent distress. comfortable. Pain: Complains of pain in Pt eo2 reports pain to b/l hands. Neuro: Level of Consciousness is awake, alert, obeys commands, Oriented to person, place, time, situation, Denies dizziness, headache. Cardiovascular: Heart tones S1 S2 Patient's skin is warm and dry. Chest pain is denied. Respiratory: Reports Airway is patent Breath sounds are clear bilaterally. Derm: Skin is red, LLE red and hot to touch Skin temperature is hot. Musculoskeletal: Swelling present in b/l LE. Vital Signs: 08:44 BP 138 / 106; Pulse 106; Resp 17; Temp 103.3; Pulse Ox 95% on R/A; Weight 89.81 kg; eo2 Height 5 ft. 0 in. (152.40 cm); Pain 9/10; 08:45 BP 91 / 41; Pulse 104; Resp 19; Pulse Ox 95% ; eo2 09:10 BP 108 / 71; Pulse 101; Resp 17; Pulse Ox 99% ; eo2 09:30 BP 96 / 62; Pulse 96; Resp 18; Pulse Ox 99% ; eo2 09:45 BP 112 / 87; Pulse 92; Resp 16; Pulse Ox 100% ; eo2 10:00 BP 126 / 63; Pulse 97; Resp 14; Pulse Ox 99% ; eo2 10:15 BP 120 / 99; Pulse 94; Resp 17; Pulse Ox 100% ; Pain 8/10; eo2 10:25 Temp 100.6; eo2 10:30 BP 109 / 59; Pulse 96; Resp 17; Temp 100.6; Pulse Ox 99% ; eo2 10:45 BP 95 / 81; Pulse 91; Resp 14; Pulse Ox 95% ; eo2 11:00 BP 91 / 41; Pulse 88; Resp 14; Pulse Ox 98% ; eo2 11:15 BP 105 / 51; Pulse 86; Resp 15; Pulse Ox 98% ; eo2 11:30 BP 95 / 64; Pulse 83; Resp 15; Temp 100.1; Pulse Ox 98% ; Pain 7/10; eo2 12:15 BP 100 / 69; Pulse 76; Resp 14; Pulse Ox 98% ; Pain 7/10; eo2 08:44 Body Mass Index 38.67 (89.81 kg, 152.40 cm) eo2 ED Course: 08:40 Patient arrived in ED. eb 08:40 Phillip Pollock MD is Attending Physician. kdr 08:44 Fariha Gilbert, DEXTER is Primary Nurse. eo2 08:49 Triage completed. eo2 08:51 Patient has correct armband on for positive identification. Bed in low position. Call eo2 light in reach. Side rails up X 1. 08:51 No provider procedures requiring assistance completed. eo2 09:00 Initial lab(s) drawn, by me, sent to lab. Inserted saline lock: 22 gauge in left kj1 antecubital area, using aseptic technique. Blood collected. 09:00 First set of blood cultures drawn. kj1 09:13 COVID-19 SARS RT PCR (Document "Date of Onset" if Symptomatic) Sent. kj1 09:14 Blood Culture Adult (2) Sent. kj1 09:14 Inserted saline lock: 20 gauge in right hand, using aseptic technique. eo2 09:23 IV discontinued, left AC access d/c'ed due to infiltration. eo2 09:27 Inserted saline lock: 20 gauge in right hand, using aseptic technique. kv1 09:30 Missed attempt(s): 20 gauge in left antecubital area. kv1 09:34 Chest Single View XRAY In Process Unspecified. EDMS 10:08 US Extremity Venous W Compression Elijah In Process Unspecified. EDMS 10:10 PT BLOOD SUGAR 97 \\T\\ 1010 RN NOTIFIED. kj1 10:20 Inserted saline lock: 20 gauge in left wrist, using aseptic technique. eo2 10:45 Jose Connolly DO is Hospitalizing Provider. kdr 12:15 Report given to DEXTER Conde. eo2 12:29 Arm band placed on. eo2 12:29 Patient admitted, IV remains in place. eo2 Administered Medications: 09:15 Drug: NS 0.9% (30 ml/kg) 1000 ml {Note: per Dr. Pollock, admin 1000ml NS only at this eo2 time.} Route: IV; Rate: bolus; Site: right hand; 10:15 Follow up: Response: No adverse reaction; IV Status: Completed infusion; IV Intake: eo2 1000ml 09:15 Drug: Motrin (ibuprofen) 800 mg Route: PO; eo2 10:25 Follow up: Temp 100.6 eo2 09:19 Not Given (Physician Discretion; diss): Tylenol 1000 mg PO once eo2 09:38 Drug: LevaQUIN (levofloxacin) 750 mg Route: PO; eo2 10:30 Follow up: Response: No adverse reaction eo2 10:25 Drug: vancoMYCIN 1 grams Route: IVPB; Infused Over: 2 hrs; Site: right hand; eo2 12:00 Follow up: Response: No adverse reaction; IV Status: Completed infusion; IV Intake: eo2 250ml 11:38 Drug: Eliquis 5 mg Route: PO; eo2 12:08 Follow up: Response: No adverse reaction eo2 Intake: 10:15 IV: 1000ml; Total: 1000ml. eo2 12:00 IV: 250ml; Total: 1250ml. eo2 Outcome: 10:47 Decision to Hospitalize by Provider. kdr 12:28 Admitted to Med/surg accompanied by tech, via stretcher, room 204, with chart. eo2 12:28 Condition: stable 12:28 Instructed on the need for admit. 12:30 Patient left the ED. eo2 Signatures: Dispatcher [employer] EDMS Phillip Pollock MD MD kdr Botello, Elizabeth eb Jackson, Kandis kj1 Wero Delgado Eunice, RN RN eo2 Corrections: (The following items were deleted from the chart) 09:25 09:15 NS 0.9% (30 ml/kg) 30 ml/kg IV at bolus in right hand eo2 eo2 09:25 09:15 NS 0.9% (30 ml/kg) 30 ml/kg IV at bolus in right hand eo2 eo2
--- NOTE | 2021-08-11 10:47 | EDPHYS ---
Physician Documentation [facility] Name: Nilam Rivero Age: 66 yrs Sex: Female : 1955 Arrival Date: 08/11/2021 Time: 08:40 Bed 16 Private MD: ED Physician Phillip Pollock HPI: 08/11 09:50 This 66 yrs old Unknown Female presents to ER via EMS with complaints of Left lower kdr extremity swelling and redness. 09:52 EMS was called to [facility] to bring the patient to the ED. For the past week she has kdr been on antibiotics for possible cellulitis to her left lower extremity. Over that period of time the cellulitis seems to worsened. She is now red from her toes to her mid thigh on the left leg. Both lower extremities have lymphedema and are more or less equally swollen and edematous. Patient had a temperature of 105 at the long term was given 1 g of Tylenol at 07 30 this morning EMS noted the temperature to be 103. On arrival in the ED, her temperature is 103.3 rest of her vital signs are normal. She was slightly tachycardic for the EKG but her resting state is a pulse of 96 respirations 18 with 99% saturation on room air patient is nontoxic-appearing and not in any acute distress. She appears mildly fatigued. 09:52 Patient has been treated for cellulitis of the left lower extremity and was febrile kdr today after being on antibiotics for about a week. Onset: The symptoms/episode began/occurred gradually, 1 week(s) ago. Severity of symptoms: At their worst the symptoms were mild moderate in the emergency department the symptoms are unchanged. The patient has not experienced similar symptoms in the past. The patient has not recently seen a physician. Historical: - Allergies: 08:49 PENICILLINS; eo2 - Home Meds: 08:49 levothyroxine oral [Active]; eo2 - PMHx: 08:49 GERD; Hypertension; Hypothyroidism; lymph edema bilateral legs; eo2 - Immunization history:: Adult Immunizations up to date, Client reports receiving the 2nd dose of the Covid vaccine. - Social history:: Smoking status: unknown. ROS: 09:52 Constitutional: Negative for fever, chills, and weight loss, Eyes: Negative for injury, kdr pain, redness, and discharge, Neck: Negative for injury, pain, and swelling, Cardiovascular: Negative for chest pain, palpitations, and edema, Respiratory: Negative for shortness of breath, cough, wheezing, and pleuritic chest pain, Abdomen/GI: Negative for abdominal pain, nausea, vomiting, diarrhea, and constipation, Back: Negative for injury and pain, : Negative for injury, bleeding, discharge, and swelling, MS/Extremity: Negative for injury and deformity, Neuro: Negative for headache, weakness, numbness, tingling, and seizure activity. Psych: Negative for depression, anxiety, suicide ideation, homicidal ideation, and hallucinations, Allergy/Immunology: Negative for hives, rash, and allergies, Endocrine: Negative for neck swelling, polydipsia, polyuria, polyphagia, and marked weight changes, Hematologic/Lymphatic: Negative for swollen nodes, abnormal bleeding, and unusual bruising. 09:52 Skin: Positive for cellulitis, erythema, of the posterior aspect of left knee, medial aspect of left thigh, medial aspect of left knee, medial aspect of left calf, left medial ankle, medial aspect of left foot, left quadriceps, left knee, left kaur, anterior aspect of left ankle and dorsum of left foot, diffusely. Exam: 09:48 ECG was reviewed by the Attending Physician. kdr 09:52 Constitutional: This is a well developed, well nourished patient who is awake, alert, kdr and in no acute distress. Due to the patient's body habitus, she is unable to sit up or roll to any great extent. She does not appear to be toxic though she has general malaise Head/Face: Normocephalic, atraumatic. Eyes: Pupils equal round and reactive to light, extra-ocular motions intact. Lids and lashes normal. Conjunctiva and sclera are non-icteric and not injected. Cornea within normal limits. Periorbital areas with no swelling, redness, or edema. Neck: Trachea midline, no thyromegaly or masses palpated, and no cervical lymphadenopathy. Supple, full range of motion without nuchal rigidity, or vertebral point tenderness. No Meningismus. Chest/axilla: Normal chest wall appearance and motion. Nontender with no deformity. No lesions are appreciated. Cardiovascular: Regular rate and rhythm with a normal S1 and S2. No gallops, murmurs, or rubs. Normal PMI, no JVD. No pulse deficits. Respiratory: Lungs have equal breath sounds bilaterally, clear to auscultation and percussion. No rales, rhonchi or wheezes noted. No increased work of breathing, no retractions or nasal flaring. Abdomen/GI: Soft, non-tender, with normal bowel sounds. No distension or tympany. No guarding or rebound. No evidence of tenderness throughout. Back: No spinal tenderness. No costovertebral tenderness. Full range of motion. MS/ Extremity: Pulses equal, no cyanosis. Neurovascular intact. Full, normal range of motion. Neuro: Awake and alert, GCS 15, oriented to person, place, time, and situation. Cranial nerves II-XII grossly intact. Motor strength 5/5 in all extremities. Sensory grossly intact. Cerebellar exam normal. Normal gait. Psych: Awake, alert, with orientation to person, place and time. Behavior, mood, and affect are within normal limits. 09:52 Skin: Appearance: Color: erythematous, rola, Temperature: warm, Moisture: dry, petechiae, not noted, ecchymosis, not noted, flushing, not noted, diaphoresis is not appreciated, swelling, noted on the left leg. Vital Signs: 08:44 BP 138 / 106; Pulse 106; Resp 17; Temp 103.3; Pulse Ox 95% on R/A; Weight 89.81 kg; eo2 Height 5 ft. 0 in. (152.40 cm); Pain 9/10; 08:45 BP 91 / 41; Pulse 104; Resp 19; Pulse Ox 95% ; eo2 09:10 BP 108 / 71; Pulse 101; Resp 17; Pulse Ox 99% ; eo2 09:30 BP 96 / 62; Pulse 96; Resp 18; Pulse Ox 99% ; eo2 09:45 BP 112 / 87; Pulse 92; Resp 16; Pulse Ox 100% ; eo2 10:00 BP 126 / 63; Pulse 97; Resp 14; Pulse Ox 99% ; eo2 10:15 BP 120 / 99; Pulse 94; Resp 17; Pulse Ox 100% ; Pain 8/10; eo2 10:25 Temp 100.6; eo2 10:30 BP 109 / 59; Pulse 96; Resp 17; Temp 100.6; Pulse Ox 99% ; eo2 10:45 BP 95 / 81; Pulse 91; Resp 14; Pulse Ox 95% ; eo2 11:00 BP 91 / 41; Pulse 88; Resp 14; Pulse Ox 98% ; eo2 11:15 BP 105 / 51; Pulse 86; Resp 15; Pulse Ox 98% ; eo2 11:30 BP 95 / 64; Pulse 83; Resp 15; Temp 100.1; Pulse Ox 98% ; Pain 7/10; eo2 12:15 BP 100 / 69; Pulse 76; Resp 14; Pulse Ox 98% ; Pain 7/10; eo2 08:44 Body Mass Index 38.67 (89.81 kg, 152.40 cm) eo2 MDM: 09:52 Data reviewed: vital signs, nurses notes, lab test result(s), radiologic studies. kdr Counseling: I had a detailed discussion with the patient and/or guardian regarding: the historical points, exam findings, and any diagnostic results supporting the discharge/admit diagnosis, lab results, radiology results, the need for outpatient follow up. 10:45 ED course: Patient responded well to the fluid bolus given. Vital signs have kdr normalized. Patient was not given the full sepsis fluid bolus due to concern for congestive heart failure. 10:47 Patient medically screened. kdr 08/11 08:41 Order name: Amylase, Serum; Complete Time: 10:37 kdr 08/11 08:41 Order name: Basic Metabolic Panel; Complete Time: 10:37 kdr 08/11 08:41 Order name: Blood Culture Adult (2) kdr 08/11 08:41 Order name: CBC with Diff; Complete Time: 10:37 kdr 12 08:41 Order name: CPK; Complete Time: 10:37 kdr 08/11 08:41 Order name: Ckmb; Complete Time: 10:37 kdr 08/11 08:41 Order name: LFT's; Complete Time: 10:37 kdr 08/11 08:41 Order name: Lactate; Complete Time: 10:37 kdr 08/11 08:41 Order name: Lipase; Complete Time: 10:37 kdr 08/11 08:41 Order name: Procalcitonin; Complete Time: 10:37 kdr 08/11 08:41 Order name: Protime (+inr); Complete Time: 10:37 kdr 12 08:41 Order name: Ptt, Activated; Complete Time: 10:37 kdr 08/11 08:41 Order name: Troponin (emerg Dept Use Only); Complete Time: 10:37 kdr 08/11 08:41 Order name: Urine Microscopic Only kdr 08/11 08:41 Order name: Chest Single View XRAY; Complete Time: 10:37 kdr 08/11 08:41 Order name: Accucheck; Complete Time: 10:30 kdr 08/11 08:41 Order name: Cardiac monitoring; Complete Time: 09:13 kdr 08/11 08:41 Order name: EKG - Nurse/Tech; Complete Time: 09:14 kdr 08/11 08:41 Order name: IV Saline Lock - Large Bore; Complete Time: 09:14 kdr 08/11 08:41 Order name: Labs collected and sent; Complete Time: 09:14 kdr 08/11 09:01 Order name: US Extremity Venous W Compression Elijah; Complete Time: 10:37 kdr 08/11 09:10 Order name: COVID-19 SARS RT PCR (Document "Date of Onset" if Symptomatic); Complete eb Time: 10:37 08/11 10:14 Order name: Manual Differential; Complete Time: 10:37 EDMS 08/11 10:30 Order name: Glucose, Ancillary Testing; Complete Time: 10:37 EDMS 08/11 08:41 Order name: O2 Per Protocol; Complete Time: 09:20 kdr 08/11 08:41 Order name: O2 Sat Monitoring; Complete Time: 09:20 kdr 08/11 09:03 Order name: Misc. Order: Begin sepsis bolus with only 1 L and then reevaluate ; kdr Complete Time: 11:43 EC:48 Rate is 105 beats/min. Rhythm is regular, Sinus tachycardia with No ectopy. QRS Umpire is kdr Normal. MA interval is normal. QRS interval is normal. QT interval is normal. Clinical impression: NSR w/ Non-specific ST/T Changes and Sinus tachycardia. Administered Medications: 09:15 Drug: NS 0.9% (30 ml/kg) 1000 ml {Note: per Dr. Pollock, admin 1000ml NS only at this eo2 time.} Route: IV; Rate: bolus; Site: right hand; 10:15 Follow up: Response: No adverse reaction; IV Status: Completed infusion; IV Intake: eo2 1000ml 09:15 Drug: Motrin (ibuprofen) 800 mg Route: PO; eo2 10:25 Follow up: Temp 100.6 eo2 09:19 Not Given (Physician Discretion; diss): Tylenol 1000 mg PO once eo2 09:38 Drug: LevaQUIN (levofloxacin) 750 mg Route: PO; eo2 10:30 Follow up: Response: No adverse reaction eo2 10:25 Drug: vancoMYCIN 1 grams Route: IVPB; Infused Over: 2 hrs; Site: right hand; eo2 12:00 Follow up: Response: No adverse reaction; IV Status: Completed infusion; IV Intake: eo2 250ml 11:38 Drug: Eliquis 5 mg Route: PO; eo2 12:08 Follow up: Response: No adverse reaction eo2 Disposition Summary: 08/11/21 10:47 Hospitalization Ordered Hospitalization Status: Inpatient Admission kdr Provider: Jose Connolly Location: Telemetry/[facility]Sur (Inpatient) kdr Condition: Fair kdr Problem: new kdr Symptoms: have improved kdr Bed/Room Type: Standard kdr Room Assignment: 204(08/11/21 11:51) eb Diagnosis - Cellulitis of left lower limb kdr - Deep venous thrombosis right popliteal vein kdr Forms: - Medication Reconciliation Form kdr - SBAR form kdr Signatures: Dispatcher [employer] EDMS Phillip Pollock MD MD kdr Erika Rosado Eunice, RN RN eo2 Corrections: (The following items were deleted from the chart) 11:51 10:47 kdr eb
[2021-08-11] MEDS ORDERED: APIXABAN 5 MG TABLET ONE (11:33)
--- NOTE | 2021-08-11 12:04 | P.HP ---
Certification for Inpatient Patient admitted to: Inpatient With expected LOS: >2 Midnights Patient will require the following post-hospital care: Other (back to detention) Practitioner: I am a practitioner with admitting privileges, knowledge of patient current condition, hospital course, and medical plan of care. Services: Services provided to patient in accordance with Admission requirements found in Title 42 Section 412.3 of the Code of Federal Regulations Patient History Date of Service: 08/11/21 Primary Care Provider: Dr. Kelly Reason for admission: Failed outpatient treatment for cellulitis History of Present Illness: 66-year-old female with history of chronic renal disease stage III, hypothyroidism, hypertension, depression with anxiety, anemia of chronic disease. Patient presented with worsening lower extremity erythema. Patient had cellulitis to the lower extremity. She was given Bactrim at the detention. Patient continued to have some chills. No improvement noted. She denied any chest pain, shortness of breath, nausea or vomiting. Patient came to the ER for further evaluation. In the ER patient was evaluated. White count 13.7, hemoglobin 10. Platelet count 168. Sodium 139, potassium 4.5. BUN 34, creatinine 3.4 with a GFR of 20. Glucose 106. Procalcitonin elevated at 0.39. Venous Doppler shows right popliteal vein DVT. Chest x-ray unremarkable. Patient was started on IV vancomycin in the ER. Patient admitted for treatment. Allergies Penicillins Allergy (Verified 07/07/20 07:56) Rash Home medications list reviewed: Yes Home Medications: Cholecalciferol (Vitamin D3) [Vitamin D 1000 Iu Tab*] 2,000 unit PO DAILY 07/07/20 Levothyroxine [Synthroid*] 88 mcg PO [id number] 07/07/20 Pantoprazole [Protonix Tab*] 40 mg PO DAILY 07/07/20 Pravastatin Sodium [Pravachol] 40 mg PO DAILY 07/07/20 Cyanocobalamin [Vitamin B-12*] 1,000 mcg PO DAILY #90 tab 07/15/20 Ensure High Protein 237 ml PO BID #60 can 07/15/20 Ferrous Sulfate [Iron] 325 mg PO BID #60 tablet 07/15/20 Barak [Barak*] 1 pkt PO BID #60 powd.pack 07/15/20 Magnesium Oxide [Mag 0X*] 400 mg PO DAILY #30 tab 07/15/20 Medihoney [Medihoney Woundcare Gel*] 1 appl TOP DAILY #1 tube 07/15/20 - Past Medical/Surgical History Diabetic: No -: Hypothyroidism -: Hyperlipidemia -: Chronic lymphedema -: Hypertension -: Anemia chronic disease -: Depression with anxiety -: Obesity Past Surgical History: Reviewed- Non-Contributory Psychosocial/ Personal History: Patient lives at [facility] - Family History Family History: Reviewed- Non-Contributory - Family History Father -: Other (see notes) Notes: Glaucoma Mother -: Heart disease - Social History Smoking Status: Never smoker Alcohol use: No CD- Drugs: No Caffeine use: Yes Place of Residence: Shelter Review of Systems General: As per HPI Eyes: Unremarkable ENT: Unremarkable Respiratory: Unremarkable Cardiovascular: Unremarkable Genitourinary: Unremarkable Musculoskeletal: Pedal edema, As per HPI Integumentary: As per HPI Neurological: Unremarkable Lymphatics: Unremarkable Physical Examination - Studies Laboratory Data (last 24 hrs) 08/11/21 09:03: PT 17.1 H, INR 1.48, APTT 21.9 L 08/11/21 09:03: WBC 13.70 H D, Hgb 10.3 L, Hct 30.2 L, Plt Count 168 08/11/21 09:03: Sodium 139, Potassium 4.5, BUN 34 H, Creatinine 2.46 H, Glucose 106, Total Bilirubin 0.4, AST 27, ALT 38, Alkaline Phosphatase 95, Amylase 15 L, Lipase 45 L Assessment and Plan - Plan COVID: Negative Venous Doppler: COMPARISON: Extrem Venous W Compress Elijah dated 03/06/2019 FINDINGS: Color, grayscale, and spectral analysis was performed. Incomplete compressibility of the right popliteal vein is noted. The remaining veins within the right lower extremity including the common femoral vein, greater saphenous vein, femoral vein, posterior tibial vein are patent. IMPRESSION: Positive for deep venous thrombosis in the right popliteal vein. Chest x-ray: COMPARISON: Chest Single View dated 07/17/2020; Chest Single View dated 07/07/2020 FINDINGS: Lines: None. Lungs: Low lung volumes, particularly on the right. Opacification present at the right lung base. Pleural: No significant pleural effusions or pneumothorax. Cardiac: The heart size is within normal limits. Bones: No acute fractures. IMPRESSION: Low lung volumes. Increased opacification of the right lung base probably atelectasis but underlying pneumonia cannot be excluded. Physical Exam: GENERAL: Patient alert, cooperative. No significant respiratory distress. VITAL SIGNS: Reviewed HEENT: Head is normocephalic and atraumatic. Extraocular muscles are intact. Pupils are equal, round, and reactive to light and accommodation. Nares appeared normal. Mouth is well hydrated and without lesions. Mucous membranes are moist. NECK: Supple. No carotid bruits. No lymphadenopathy or thyromegaly. LUNGS: Clear to auscultation. No crackles or wheezes are heard. HEART: Regular rate and rhythm, no appreciable gallops, rubs, murmurs or extra heart sounds ABDOMEN: Soft, nontender, and nondistended. Positive bowel sounds. No hepatosplenomegaly was noted. Patient morbidly obese. EXTREMITIES: Chronic lymphedema to the lower extremity. NEUROLOGIC: The patient is oriented to person, place and time. Strength and sensation are grossly intact. Face is symmetric. SKIN: Erythema to the lower extremities bilateral up to the mid thigh. Patient appears to have chronic lymphedema as well. Impression: Bilateral lower extremity cellulitis, failed outpatient therapy Acute on chronic renal disease stage IV likely injury related to medicationBactrim New right popliteal vein DVT Hypertension Hypothyroidism GERD Chronic iron deficiency anemia Depression with anxiety Chronic lymphedema Obesity Plan: Bilateral lower extremity cellulitis, failed outpatient therapy: Patient will be admitted for further evaluation and treatment. Patient was receiving Bactrim at the detention. This will be discontinued due to her acute on chronic renal injury. We will continue with IV vancomycin and Levaquin. Pharmacy to monitor and adjust medication. Patient appears dehydrated. Will start low-dose IV fluids. Patient with chronic lymphedema will need to monitor this closely. Patient may require some Lasix. Will consult nephrology to further evaluate. Patient also with new DVT. Will start with Lovenox at 1 mg/kg daily as recommended by pharmacy due to her acute on chronic renal disease. Will transition to oral medication at discharge. Will hold losartan. Discontinue Bactrim. Once the patient is ambulating better will consider physical therapy. Patient will return back to the detention at discharge. Likely discharge in 3 to 5 days. Acute on chronic renal disease stage IV likely injury related to medicationBactrim: Nephrology consulted. Will start IV fluids. Will monitor urine output closely. Discontinue Bactrim. Hold ARB inhibitor. Continue monitor renal function. Will check renal ultrasound. New right popliteal vein DVT: We will start Lovenox at 1 mg/kg subcu daily as recommended by pharmacy due to her chronic renal disease. Will transition to oral medication at discharge. Will check echocardiogram. Hypertension: Blood pressure stable at this time. Discontinue ARB inhibitor at this time. Consider other medication if required. Hypothyroidism: We will check TSH and free T4. Continue levothyroxine 88 mcg d aily. GERD: Continue Protonix 40 mg daily. Chronic iron deficiency anemia: Continue iron supplementation twice daily. Maintain hemoglobin above 7.0. Will monitor hemoglobin while on anticoagulation therapy. Depression with anxiety: Continue with her Depakote ER 250 mg 1 pill twice daily. Patient also takes buspirone 15 mg twice daily. Hyperlipidemia: Continue statin medication Chronic lymphedema: We will monitor patient on IV fluids. Consider diuretic therapy if required. Obesity: Will address lifestyle modification education. Code Status: Full Code DVT prophylaxis: Lovenox Advanced Care Planning-30 minutes: Return back to the detention at discharge Discharge Plan: Shelter Plan to discharge in: Greater than 2 days - Advance Directives Does patient have a Living Will: No Does patient have a Durable POA for Healthcare: No - Code Status/Comfort Care Code Status Assessed: Yes (Patient is full code) Time Spent Managing Pts Care (In Minutes): 55
[2021-08-11] MEDS ORDERED: ONDANSETRON 4 MG/2 ML VIAL IV PRN (12:53)
[2021-08-11] MEDS ORDERED: ACETAMINOPHEN 500 MG TAB PO PRN (12:53)
[2021-08-11] MEDS ORDERED: NACHLORIDE 0.45% 1,000 ML IV SCH (13:00)
[2021-08-11] MEDS: VANCOMYCIN 1.5 GM in NA CHLORIDE 0.9% 500 ML IVPB SCH (15:40)
[2021-08-11] MEDS: NA CHLORIDE 0.9% 1,000 ML IV SCH (15:40)
[2021-08-11] MEDS: ENOXAPARIN 100 MG/ML SYR SQ SCH (15:40)
[2021-08-11 15:53] VITALS: BMI 38.7
--- NOTE | 2021-08-11 17:01 | RAD REPORT ---
EXAM DESCRIPTION: US - Renal Ultrasound-Complete - 08/11/2021 4:11 pm CLINICAL HISTORY: Acute and chronic renal insufficiency COMPARISON: 2019 FINDINGS: The right kidney measures 10 cm with a normal echotexture. The left kidney measures 10 cm with a normal echotexture. Hydronephrosis is not seen. No gross abnormality of bladder IMPRESSION: Unremarkable renal ultrasound.
[2021-08-11] MEDS: DIVALPROEX ER 250 MG TAB PO SCH (21:47)
[2021-08-11] MEDS: ATORVASTATIN 10 MG TAB PO SCH (21:47)
[2021-08-11] MEDS: FERROUS SULFATE 325 MG TAB PO SCH (21:47)
[2021-08-11] MEDS: BUSPIRONE HCL 15 MG TABLET PO SCH (22:14)
[2021-08-11] MEDS: TRAMADOL HCL 50 MG TAB PO PRN (22:14)
--- NOTE | 2021-08-11 22:31 | CON ---
Date of Consultation: 08/11/2021 Reason For Consult: Acute renal failure. History Of Present Illness: Ms. Rivero is a 66-year-old white female with past medical history sign ificant for stage 3 CKD, hypothyroidism, hypertension, depression, anxiety, and anemia of chronic dis ease with chronic lower extremity edema, presented with worsening lower extremity erythema. The amy ent has cellulitis to the lower extremity. She was given Bactrim at the [facility]. She continued to have chills and no improvement was noted. She denied any chest pain, shortness of breath, nausea , or vomiting. She came into the ER for further evaluation and she was found to have a creatinine of 3.4, which is worsening from her previous normal creatinine. She was also noted to have elevated pr ocalcitonin and venous Doppler showed right popliteal vein DVT. She has been started on IV vancomyci n and anticoagulation and admitted for further evaluation. Nephrology is being consulted for further evaluation of acute on chronic kidney disease. Past Medical History: Significant for history of hypothyroidism; hypertension; hyperlipidemia; chron ic lymphedema of lower extremities, has been following up at [facility]; anemia of chronic disease; depress ion; anxiety; and morbid obesity. Past Surgical History: Noncontributory. Social History: She lives at [facility] and has no history of smoking or alcohol use r eported. Family History: Noncontributory. Review of Systems: Positive for some swelling in the lower extremities, but denies any other complaints other than chill s. All other review of systems are negative. Physical Examination: Vital Signs: Showing temperature of 98, pulse rate of 82, respiratory rate of 19, and blood pressure 113/66. General: She is a morbidly obese female, in no acute distress. HEENT: Shows atraumatic head. Lungs: Auscultation of the lungs revealed bilateral equal air entry. Heart: Auscultation of heart revealed regular rate and rhythm. Abdomen: Soft and nontender. Extremities: Bilateral lower extremities with erythema noted all the way up to the thighs, worse on the right lower extremity compared to the left lower extremity with chronic lymphedema noted in bilat eral lower extremities, which is a nonpitting edema. Laboratory Data: Showing creatinine of 2.46, which is significantly worse from her baseline normal c reatinine. BUN of 34. CPK of 201. Procalcitonin was 0.39. CBC showed 13.7 WBC count, hemoglobin o f 10.3, hematocrit of 30.2, and platelet count of 168. Renal ultrasound was essentially unremarkable and the Doppler of the right lower extremity showed a popliteal vein thrombosis on the right side. Medications: Current medications have been reviewed in detail. Impression: 1.Acute on chronic renal insufficiency, currently secondary to possibly from Bactrim use versus acut e tubular necrosis. The patient seems to be having stable volume status, except for some chronic low er extremity lymphedema. We will go ahead and get her started on gentle IV hydration with normal eloise ine at 50 cc an hour and monitor closely. 2.Lower extremity cellulitis. The patient has been started on vancomycin. We will continue the esther e and follow up clinically. 3.Right lower extremity popliteal vein deep vein thrombosis. The patient has been started on antico agulation with Eliquis. 4.History of chronic depression and anxiety. The patient's home medications have been restarted. Plan: Overall, the patient's renal function is much worse than baseline, likely secondary to Bactrim use versus ATN. Avoid further hypotension and nephrotoxins. We will start her on gentle IV hydrati on. Continue treatment with vancomycin for lower extremity cellulitis and monitor blood cultures closely. Avoid hypotension, nephrotoxins, and will follow up elizabeth mcgee. VV/MODL Voice ID: [id number] Report ID: [id number]
--- NOTE | 2021-08-12 05:54 | P.PN ---
Subjective Date of Service: 08/12/21 Primary Care Provider: Dr. Kelly Chief Complaint: Failed outpatient treatment for cellulitis Subjective: Improving, Doing well Physical Examination - Vital Signs Temperature: 98.5 F Blood Pressure: 125/55 Pulse: 80 Respirations: 17 Pulse Ox (%): 95 - Studies Laboratory Data (last 24 hrs) 08/11/21 09:03: PT 17.1 H, INR 1.48, APTT 21.9 L 08/11/21 09:03: WBC 13.70 H D, Hgb 10.3 L, Hct 30.2 L, Plt Count 168 08/11/21 09:03: Sodium 139, Potassium 4.5, BUN 34 H, Creatinine 2.46 H, Glucose 106, Total Bilirubin 0.4, AST 27, ALT 38, Alkaline Phosphatase 95, Amylase 15 L, Lipase 45 L Assessment & Plan Discharge Plan: Home Plan to discharge in: 48 Hours Physician Review Additional Text: COVID: Negative Venous Doppler: COMPARISON: Extrem Venous W Compress Elijah dated 03/06/2019 FINDINGS: Color, grayscale, and spectral analysis was performed. Incomplete compressibility of the right popliteal vein is noted. The remaining veins within the right lower extremity including the common femoral vein, greater saphenous vein, femoral vein, posterior tibial vein are patent. IMPRESSION: Positive for deep venous thrombosis in the right popliteal vein. Chest x-ray: COMPARISON: Chest Single View dated 07/17/2020; Chest Single View dated 07/07/2020 FINDINGS: Lines: None. Lungs: Low lung volumes, particularly on the right. Opacification present at the right lung base. Pleural: No significant pleural effusions or pneumothorax. Cardiac: The heart size is within normal limits. Bones: No acute fractures. IMPRESSION: Low lung volumes. Increased opacification of the right lung base probably atelectasis but underlying pneumonia cannot be excluded. Renal US: COMPARISON: 2019 FINDINGS: The right kidney measures 10 cm with a normal echotexture. The left kidney measures 10 cm with a normal echotexture. Hydronephrosis is not seen. No gross abnormality of bladder IMPRESSION: Unremarkable renal ultrasound. Physical Exam: GENERAL: Patient alert, cooperative. No significant respiratory distress. VITAL SIGNS: Reviewed HEENT: Head is normocephalic and atraumatic. Extraocular muscles are intact. Pupils are equal, round, and reactive to light and accommodation. Nares appeared normal. Mouth is well hydrated and without lesions. Mucous membranes are moist. NECK: Supple. No carotid bruits. No lymphadenopathy or thyromegaly. LUNGS: Clear to auscultation. No crackles or wheezes are heard. HEART: Regular rate and rhythm, no appreciable gallops, rubs, murmurs or extra heart sounds ABDOMEN: Soft, nontender, and nondistended. Positive bowel sounds. No hepatos plenomegaly was noted. Patient morbidly obese. EXTREMITIES: Chronic lymphedema to the lower extremity. NEUROLOGIC: The patient is oriented to person, place and time. Strength and sensation are grossly intact. Face is symmetric. SKIN: Erythema to the lower extremities bilateral up to the mid thigh. Patient appears to have chronic lymphedema as well. Impression: Bilateral lower extremity cellulitis, failed outpatient therapy Acute on chronic renal disease stage IV likely injury related to medicationBactrim New right popliteal vein DVT Hypertension Hypothyroidism GERD Chronic iron deficiency anemia Depression with anxiety Chronic lymphedema Obesity Plan: Bilateral lower extremity cellulitis, failed outpatient therapy: Continues to improve. Erythema improved. Continue with IV vancomycin and Levaquin. Pharmacy to monitor and adjust medication. Continue with IV fluids. Hold IV fluids if with good oral intake. Case discussed with nephrology as well. Continue Lovenox at 1 mg/kg daily as recommended by pharmacy due to her acute on chronic renal disease for the DVT. This can be transitioned to Eliquis at discharge. Continue to hold losartan. Anticipate discharge in the next 48 hours. Acute on chronic renal disease stage IV likely injury related to medicationBactrim: Nephrology consulted. Continue IV fluids. Will monitor urine output closely. Discontinue Bactrim. Hold ARB inhibitor. Continue monitor renal function. Renal ultrasound unremarkable New right popliteal vein DVT: Continue Lovenox at 1 mg/kg subcu daily as recommended by pharmacy due to her chronic renal disease. Will transition to oral medication at discharge. Will check echocardiogram. Hypertension: Blood pressure stable at this time. Discontinue ARB inhibitor at this time. Consider other medication if required. Hypothyroidism: Continue levothyroxine 88 mcg daily. GERD: Continue Protonix 40 mg daily. Chronic iron deficiency anemia: Continue iron supplementation twice daily. Maintain hemoglobin above 7.0. Will monitor hemoglobin while on anticoagulation therapy. Depression with anxiety: Continue with her Depakote ER 250 mg 1 pill twice daily . Patient also takes buspirone 15 mg twice daily. Hyperlipidemia: Continue statin medication Chronic lymphedema: We will monitor patient on IV fluids. Consider diuretic therapy if required. Obesity: Will address lifestyle modification education. Code Status: Full Code DVT prophylaxis: Madelinex Advanced Care Planning-30 minutes: Return back to the [facility] at discharge Time Spent Managing Pts Care (In Minutes): 55
[2021-08-12 06:10] LABS: Absolute Lymphocytes (CBC) 0.4 K/uL (0.7-4.9); Basophils % 0.3 % (0-1.3); Hematocrit 28.9 % (36.0-45.0); Lymphocytes % 4.4 % (15.3-44.8); MPV 6.8 fL (7.6-11.3); RBC Red Blood Cell Count 3.17 M/uL (3.86-4.86)
[2021-08-12 06:11] LABS: Protime INR 1.62
[2021-08-12 06:31] LABS: Magnesium 2.4 mg/dL (1.8-2.4); Potassium 4.9 mmol/L (3.5-5.1); Thyroid Stimulating Hormone 2.08 uIU/mL (0.360-3.740)
[2021-08-12] MEDS: TRAMADOL HCL 50 MG TAB PO PRN ×3 (06:40→20:32)
[2021-08-12] MEDS: LEVOTHYROXINE SOD 0.088 MG TAB PO SCH (06:41)
[2021-08-12] MEDS: PANTOPRAZOLE 40MG TABLET PO SCH (06:41)
[2021-08-12] MEDS: DOCUSATE NA 100 MG CAP PO SCH (09:00)
[2021-08-12] MEDS: NA CHLORIDE 0.9% 1,000 ML IV SCH (09:25)
[2021-08-12] MEDS: CYANOCOBALAMIN 1,000 MCG TAB PO SCH (09:26)
[2021-08-12] MEDS: ENOXAPARIN 100 MG/ML SYR SQ SCH (09:26)
[2021-08-12] MEDS: FERROUS SULFATE 325 MG TAB PO SCH ×2 (09:26→20:32)
[2021-08-12] MEDS: BUSPIRONE HCL 15 MG TABLET PO SCH ×2 (09:26→20:32)
[2021-08-12] MEDS ORDERED: NACHLORIDE 0.45% 1,000 ML IV SCH (12:00)
[2021-08-12] MEDS ORDERED: VANCOMYCIN 1 GM in NA CHLORIDE 0.9% 250 ML IVPB SCH (12:00)
--- NOTE | 2021-08-12 12:25 | PN ---
Date of Progress Note: 08/12/2021 Subjective: The patient was seen and examined at bedside. She is doing much better. She is complai marie of some pain in her arms and unable to make a fist. Her leg swelling and erythema are improving . Objective: Vital Signs: Temperature of 98.5, pulse rate of 80, respiratory rate of 17, and blood pr essure 125/55. General: She is a morbidly obese female, in no acute distress. HEENT: Atraumatic head. Lungs: Clear to auscultation. Abdomen: Soft, nontender, obese. Extremities: Showed lower extremity lymphedema with erythema which is improving bilaterally. Laboratory Data: At this time is showing creatinine improving to 1.99, BUN of 36, sodium of 141, and potassium of 4.9. CBC showing improving WBC count. Hemoglobin, hematocrit, and platelet count are stable. Impression: 1.Acute renal failure, likely related to Bactrim use versus acute tubular necrosis, currently with i mproving renal function. 2.Lower extremity cellulitis. The patient remains on vancomycin for the cellulitis. Continue to mo nitor levels closely. She is also on Levaquin every 48 hours. 3.Hypotension, improving. We will change IV fluids to half NS at 50 cc an hour and monitor closely. 4.Morbid obesity. Monitor. 5.Bilateral lower extremity lymphedema. She can resume wraps when the cellulitis is improving. Plan: Overall, the patient is doing better at this time. Continue IV fluids, but change it to half NS and monitor blood pressures closely. Follow up on labs. Avoid further hypotension, nephrotoxins. Plan was discussed with Dr. Connolly in d etail. VV/MODL Voice ID: [id number] Report ID: [id number]
[2021-08-12] MEDS: DIVALPROEX ER 250 MG TAB PO SCH (20:31)
[2021-08-12] MEDS: ATORVASTATIN 10 MG TAB PO SCH (20:33)
--- NOTE | 2021-08-13 05:45 | P.PN ---
Subjective Date of Service: 08/13/21 Primary Care Provider: Dr. Kelly Chief Complaint: Failed outpatient treatment for cellulitis Subjective: Improving, Other (Lower extremity erythema improved. Patient reports rash to the hands and left arm. Patient received Moderna COVID vaccine to the left arm) Physical Examination - Vital Signs Temperature: 97 F Blood Pressure: 125/61 Pulse: 72 Respirations: 16 Pulse Ox (%): 94 Assessment & Plan Discharge Plan: Home Plan to discharge in: 24 Hours Physician Review Additional Text: COVID: Negative Venous Doppler: COMPARISON: Extrem Venous W Compress Elijah dated 03/06/2019 FINDINGS: Color, grayscale, and spectral analysis was performed. Incomplete compressibility of the right popliteal vein is noted. The remaining v eins within the right lower extremity including the common femoral vein, greater saphenous vein, femoral vein, posterior tibial vein are patent. IMPRESSION: Positive for deep venous thrombosis in the right popliteal vein. Chest x-ray: COMPARISON: Chest Single View dated 07/17/2020; Chest Single View dated 07/07/2020 FINDINGS: Lines: None. Lungs: Low lung volumes, particularly on the right. Opacification present at the right lung base. Pleural: No significant pleural effusions or pneumothorax. Cardiac: The heart size is within normal limits. Bones: No acute fractures. IMPRESSION: Low lung volumes. Increased opacification of the right lung base probably atelectasis but underlying pneumonia cannot be excluded. Renal US: COMPARISON: 2019 FINDINGS: The right kidney measures 10 cm with a normal echotexture. The left kidney measures 10 cm with a normal echotexture. Hydronephrosis is not seen. No gross abnormality of bladder IMPRESSION: Unremarkable renal ultrasound. Physical Exam: GENERAL: Patient alert, cooperative. No significant respiratory distress. VITAL SIGNS: Reviewed HEENT: Head is normocephalic and atraumatic. Extraocular muscles are intact. Pupils are equal, round, and reactive to light and accommodation. Nares appeared normal. Mouth is well hydrated and without lesions. Mucous membranes are moist. NECK: Supple. No carotid bruits. No lymphadenopathy or thyromegaly. LUNGS: Clear to auscultation. No crackles or wheezes are heard. HEART: Regular rate and rhythm, no appreciable gallops, rubs, murmurs or extra heart sounds ABDOMEN: Soft, nontender, and nondistended. Positive bowel sounds. No hepatosplenomegaly was noted. Patient morbidly obese. EXTREMITIES: Chronic lymphedema to the lower extremity. NEUROLOGIC: The patient is oriented to person, place and time. Strength and sensation are grossly intact. Face is symmetric. SKIN: Edema to the lower extremities improved. Mild rash to the hands. Rash noted to the left arm at the site of her recent Covid vaccine. Impression: Bilateral lower extremity cellulitis, failed outpatient therapy Acute on chronic renal disease stage IV likely injury related to medicationBactrim New right popliteal vein DVT Hypertension Hypothyroidism GERD Chronic iron deficiency anemia Depression with anxiety Chronic lymphedema Obesity Plan: Bilateral lower extremity cellulitis, failed outpatient therapy: Continues to improve. Erythema to the lower extremities improved. Continue with IV vancomycin and Levaquin. If taking good oral intake will discontinue IV fluids. Will transition Lovenox to Eliquis at this time. Anticipate likely discharge in the next 1 to 2 days. Acute on chronic renal disease stage IV likely injury related to medicationBactrim: Nephrology consulted. Renal function improved. Continue IV fluids. Discontinue IV fluids if taking good oral intake. Continue to hold ARB inhibitor. Patient recently on Bactrim. This has been discontinued. Continue monitor renal function. Renal ultrasound unremarkable New right popliteal vein DVT: Overall stable. Will discontinue Lovenox and change to Eliquis. Continue Eliquis 10 mg 1 pill twice daily for 7 days then 5 mg twice daily thereafter. Patient will likely need treatment for 3 to 6 months. Will check echocardiogram. Dermatitis likely related to recent Covid vaccine: Will start prednisone 10 mg 1 pill twice daily and taper. Hypertension: Blood pressure stable at this time off medication. Discontinue ARB inhibitor at this time. Consider other medication if required. Hypothyroidism: Continue levothyroxine 88 mcg daily. GERD: Continue Protonix 40 mg daily. Chronic iron deficiency anemia: Continue iron supplementation twice daily. Maintain hemoglobin above 7.0. Will monitor hemoglobin while on anticoagulation therapy. Depression with anxiety: Continue with her Depakote ER 250 mg 1 pill twice daily. Patient also takes buspirone 15 mg twice daily. Hyperlipidemia: Continue statin medication Chronic lymphedema: Discontinue IV fluids once taking good oral intake. Obesity: Will address lifestyle modification education. Code Status: Full Code DVT prophylaxis: Lovenox Advanced Care Planning-30 minutes: Return back to the [facility] at discharge Time Spent Managing Pts Care (In Minutes): 55
[2021-08-13 06:06] LABS: Protime INR 1.29
[2021-08-13 06:14] LABS: Absolute Lymphocytes (CBC) 1.1 K/uL (0.7-4.9); Basophils % 0.2 % (0-1.3); Hematocrit 29.1 % (36.0-45.0); Lymphocytes % 17.5 % (15.3-44.8); MPV 6.5 fL (7.6-11.3)
[2021-08-13 06:17] LABS: Magnesium 2.4 mg/dL (1.8-2.4); Potassium 4.5 mmol/L (3.5-5.1)
[2021-08-13] MEDS: LEVOTHYROXINE SOD 0.088 MG TAB PO SCH (06:24)
[2021-08-13] MEDS: CETIRIZINE HCL 5 MG TABLET PO SCH (07:52)
[2021-08-13] MEDS: APIXABAN 5 MG TABLET PO SCH ×2 (07:53→20:46)
[2021-08-13] MEDS: BUSPIRONE HCL 15 MG TABLET PO SCH ×2 (07:53→20:46)
[2021-08-13] MEDS: PANTOPRAZOLE 40MG TABLET PO SCH (07:53)
[2021-08-13] MEDS: VITAMIN D 1000 UNIT TAB PO SCH (07:53)
[2021-08-13] MEDS: TRAMADOL HCL 50 MG TAB PO PRN (07:53)
[2021-08-13] MEDS: FERROUS SULFATE 325 MG TAB PO SCH ×2 (07:54→20:46)
[2021-08-13] MEDS: DOCUSATE NA 100 MG CAP PO SCH (07:54)
[2021-08-13] MEDS: CYANOCOBALAMIN 1,000 MCG TAB PO SCH (07:54)
[2021-08-13] MEDS: predniSONE 10 MG TAB PO SCH ×2 (07:54→20:47)
[2021-08-13] MEDS ORDERED: Levofloxacin 250mg IV 250 MG/50 ML BAG IV ONE (09:00)
[2021-08-13] MEDS ORDERED: Levofloxacin 250mg IV 250 MG/50 ML BAG IV SCH (09:00)
[2021-08-13 10:04] LABS: Blood Morphology Comment NOT SEEN (NOT SEEN); Platelet Estimate ADEQ
[2021-08-13] MEDS: VANCOMYCIN 1.5 GM in NA CHLORIDE 0.9% 500 ML IVPB SCH (15:07)
[2021-08-13] MEDS: ATORVASTATIN 10 MG TAB PO SCH (20:46)
[2021-08-13] MEDS: DIVALPROEX ER 250 MG TAB PO SCH (20:53)
--- NOTE | 2021-08-14 05:47 | P.PN ---
Subjective Date of Service: 08/14/21 Primary Care Provider: Dr. Kelly Chief Complaint: Failed outpatient treatment for cellulitis Subjective: Doing well Physical Examination - Vital Signs Temperature: 97.1 F Blood Pressure: 168/75 Pulse: 75 Respirations: 16 Pulse Ox (%): 97 Assessment & Plan Discharge Plan: Detention Plan to discharge in: 24 Hours Physician Review Additional Text: COVID: Negative Venous Doppler: COMPARISON: Extrem Venous W Compress Elijah dated 03/06/2019 FINDINGS: Color, grayscale, and spectral analysis was performed. Incomplete compressibility of the right popliteal vein is noted. The remaining veins within the right lower extremity including the common femoral vein, greater saphenous vein, femoral vein, posterior tibial vein are patent. IMPRESSION: Positive for deep venous thrombosis in the right popliteal vein. Chest x-ray: COMPARISON: Chest Single View dated 07/17/2020; Chest Single View dated 06/20 FINDINGS: Lines: None. Lungs: Low lung volumes, particularly on the right. Opacification present at the right lung base. Pleural: No significant pleural effusions or pneumothorax. Cardiac: The heart size is within normal limits. Bones: No acute fractures. IMPRESSION: Low lung volumes. Increased opacification of the right lung base probably atelectasis but underlying pneumonia cannot be excluded. Renal US: COMPARISON: 2019 FINDINGS: The right kidney measures 10 cm with a normal echotexture. The left kidney measures 10 cm with a normal echotexture. Hydronephrosis is not seen. No gross abnormality of bladder IMPRESSION: Unremarkable renal ultrasound. Physical Exam: GENERAL: Patient alert, cooperative. No significant respiratory distress. VITAL SIGNS: Reviewed HEENT: Head is normocephalic and atraumatic. Extraocular muscles are intact. Pupils are equal, round, and reactive to light and accommodation. Nares appeared normal. Mouth is well hydrated and without lesions. Mucous membranes are moist. NECK: Supple. No carotid bruits. No lymphadenopathy or thyromegaly. LUNGS: Clear to auscultation. No crackles or wheezes are heard. HEART: Regular rate and rhythm, no appreciable gallops, rubs, murmurs or extra heart sounds ABDOMEN: Soft, nontender, and nondistended. Positive bowel sounds. No hepatosplenomegaly was noted. Patient morbidly obese. EXTREMITIES: Chronic lymphedema to the lower extremity. NEUROLOGIC: The patient is oriented to person, place and time. Strength and sensation are grossly intact. Face is symmetric. SKIN: No edema noted. Rash to the hands almost resolved. Post Covid vaccine rash to the left arm. No significant erythema to the lower extremity. Impression: Bilateral lower extremity cellulitis, failed outpatient therapy Acute on chronic renal disease stage IV likely injury related to medicationBactrim New right popliteal vein DVT Hypertension Hypothyroidism GERD Chronic iron deficiency anemia Depression with anxiety Chronic lymphedema Obesity Plan: Bilateral lower extremity cellulitis, failed outpatient therapy: Patient has done well. We will plan for discharge back to the long term today. We will continue with Levaquin 500 mg daily for 5 more days. Acute on chronic renal disease stage IV likely injury related to medicationBactrim: Patient doing well. Patient back to baseline. Recommend no further use of nonsteroidal anti-inflammatories. Recommend no further use of Bactrim. Future medications will need to be renally dosed. Renal ultrasound unremarkable New right popliteal vein DVT: Continue Eliquis 10 mg 1 pill twice daily for 6 da ys then 5 mg twice daily thereafter. Patient will likely need treatment for 3 to 6 months. Dermatitis likely related to recent Covid vaccine: Overall improved. Continue prednisone taper. Prednisone 10 mg 1 pill twice daily and taper. Hypertension: Blood pressure elevated. Restart losartan 50 mg daily. Hypothyroidism: Continue levothyroxine 88 mcg daily. GERD: Continue Protonix 40 mg daily. Chronic iron deficiency anemia: Continue iron supplementation twice daily. Maintain hemoglobin above 7.0. Depression with anxiety: Continue with her Depakote ER 250 mg 1 pill twice daily. Patient also takes buspirone 15 mg twice daily. Hyperlipidemia: Continue statin medication Chronic lymphedema: Overall stable. Patient will continue with compression stockings at the long term. Obesity: Will address lifestyle modification education. Code Status: Full Code DVT prophylaxis: Lovenox Advanced Care Planning-30 minutes: Return back to the long term at discharge Time Spent Managing Pts Care (In Minutes): 55
[2021-08-14] MEDS: PANTOPRAZOLE 40MG TABLET PO SCH (05:56)
[2021-08-14] MEDS: LEVOTHYROXINE SOD 0.088 MG TAB PO SCH (05:56)
[2021-08-14 06:14] LABS: Absolute Lymphocytes (CBC) 0.8 K/uL (0.7-4.9); Basophils % 0.6 % (0-1.3); Hematocrit 30.9 % (36.0-45.0); Lymphocytes % 13.2 % (15.3-44.8); MPV 6.2 fL (7.6-11.3); RBC Red Blood Cell Count 3.39 M/uL (3.86-4.86)
[2021-08-14 06:18] LABS: Protime INR 1.58
[2021-08-14 06:32] LABS: Magnesium 2.4 mg/dL (1.8-2.4); Potassium 4.9 mmol/L (3.5-5.1)
--- NOTE | 2021-08-14 07:23 | P.DS ---
Admission Date: 08/11/21 Discharge Date: 08/14/21 Primary Care Provider: Dr. Kelly Disposition: TRANSFER TO CARE HOME Discharge Condition: GOOD Reason for Admission: Failed outpatient treatment for cellulitis Consultations: Nephrology-Dr. Borrero Procedures: COVID: Negative Venous Doppler: COMPARISON: Extrem Venous W Compress Elijah dated 03/06/2019 FINDINGS: Color, grayscale, and spectral analysis was performed. Incomplete compressibility of the right popliteal vein is noted. The remaining veins within the right lower extremity including the common femoral vein, greater saphenous vein, femoral vein, posterior tibial vein are patent. IMPRESSION: Positive for deep venous thrombosis in the right popliteal vein. Chest x-ray: COMPARISON: Chest Single View dated 07/17/2020; Chest Single View dated 07/07/2020 FINDINGS: Lines: None. Lungs: Low lung volumes, particularly on the right. Opacification present at the right lung base. Pleural: No significant pleural effusions or pneumothorax. Cardiac: The heart size is within normal limits. Bones: No acute fractures. IMPRESSION: Low lung volumes. Increased opacification of the right lung base probably atelectasis but underlying pneumonia cannot be excluded. Renal US: COMPARISON: 2019 FINDINGS: The right kidney measures 10 cm with a normal echotexture. The left kidney measures 10 cm with a normal echotexture. Hydronephrosis is not seen. No gross abnormality of bladder IMPRESSION: Unremarkable renal ultrasound. Medical Problem List: Bilateral lower extremity cellulitis, failed outpatient therapy Acute on chronic renal disease stage IV likely injury related to medicationBactrim New right popliteal vein DVT Hypertension Hypothyroidism GERD Chronic iron deficiency anemia Depression with anxiety Chronic lymphedema Obesity Brief History of Present Illness: 66-year-old female with history of chronic renal disease stage III, hypothyroidism, hypertension, depression with anxiety, anemia of chronic disease. Patient presented with worsening lower extremity erythema. Patient had cellulitis to the lower extremity. She was given Bactrim at the shelter. Patient continued to have some chills. No improvement noted. She denied any chest pain, shortness of breath, nausea or vomiting. Patient came to the ER for further evaluation. In the ER patient was evaluated. White count 13.7, hemoglobin 10. Platelet count 168. Sodium 139, potassium 4.5. BUN 34, creatinine 3.4 with a GFR of 20. Glucose 106. Procalcitonin elevated at 0.39. Venous Doppler shows right popliteal vein DVT. Chest x-ray unremarkable. Patient was started on IV vancomycin in the ER. Patient admitted for treatment. Hospital Course: Patient presented with bilateral lower extremity cellulitis. Patient had failed outpatient therapy. Patient previously on Bactrim. Valuation patient had acute on chronic renal disease stage IV likely related to medication and cellulitis. Patient also found to have new right popliteal vein DVT. The patient was admitted and received IV antibiotic therapy with improvement. Patient was also started on anticoagulation therapy. Patient received IV fluids with improvement in renal function. At discharge cellulitis appears resolved. Blood cultures negative. For her cellulitis the patient will continue with Levaquin 500 mg daily for 4 more days. Patient may continue to elevate legs when sitting or lying. Patient may continue with compression stockings at the shelter. Recommend follow-up by shelter physician within 1 week to follow-up her care. As mentioned above patient presented with acute on chronic renal disease stage IV. This was likely related to her cellulitis compromised by recent medicationBactrim. Bactrim was discontinued. Patient received IV fluids with improvement. Patient appears to be at baseline. Nephrology was consulted. Renal ultrasound unremarkable. At discharge recommend to monitor her medications closely. Recommend no further use of nonsteroidal anti- inflammatories. Patient previously also on meloxicam. Will discontinue this medication at discharge. Future medications will need to be renally dosed. Recommend to recheck labBMP in 1 week to monitor progress. Patient may follow- up with nephrology as an outpatient to further monitor. Patient found to have new right popliteal vein DVT as mentioned above. Patient was started on Eliquis. At discharge the patient will continue with Eliquis 10 mg twice daily for 6 days then transition to 5 mg twice daily. Patient will likely require treatment for 3 to 6 months. This can be followed up as an outpatient. Patient also reported dermatitis likely related to recent Covid vaccine. Post Covid vaccine dermatitis noted to the left arm. This improved with prednisone. At discharge patient will continue with prednisone 10 mg 1 pill twice daily for 7 days then 1 pill once daily for 7 days. Patient may also continue with her medication including Zyrtec 10 mg daily and Pepcid 20 mg daily. This can be followed up as an outpatient. Patient with hypertension. Overall stable. At discharge patient will continue with her medication losartan 50 mg daily. Recommend to maintain blood pressure less than 150/80. Further adjustment can be done by her PCP. Patient with hypothyroidism. Overall stable. At discharge patient will continue with levothyroxine 88 mcg daily. Patient with GERD. Medications were adjusted. Patient no longer needs to be on Protonix 40 mg daily as the patient will continue with Pepcid 20 mg daily. Patient with chronic iron deficiency anemia along with B12 deficiency. At discharge she will continue with her medication iron 325 mg 1 pill twice daily and vitamin B12 daily. Patient with depression with anxiety. At discharge the patient will continue with her medication including Depakote ER 250 mg 1 pill twice daily, buspirone 15 mg 1 pill twice daily and lorazepam 0.5 mg 1 pill twice daily as needed for anxiety. Further adjustment can be done by her PCP. Patient with hyperlipidemia. At discharge we will continue with pravastatin 40 mg daily. Patient with chronic lymphedema. As mentioned above patient may continue with compression stockings at the shelter. Continue with the 1500 cc/day fluid restriction. No need for diuretic therapy at discharge. Patient with chronic seasonal allergies. Patient will continue with Zyrtec 10 mg daily. Patient with chronic pain. Medications have been adjusted. Recommend to discontinue meloxicam since she will be on anticoagulation therapy and due to her chronic renal disease. Patient may continue with gabapentin 100 mg 3 times a day. Consider changing this to as needed. Higher doses can cause edema. This can be monitored by her PCP. Patient also takes tramadol 50 mg 1 pill twice daily as needed for pain. Recommend no further use of nonsteroidal anti- inflammatories. Patient will continue with her other medications including vitamin C, magnesium oxide daily, and vitamin D. Vital Signs/Physical Exam: Temp Pulse Resp BP Pulse Ox 97.1 F 75 16 168/75 H 97 08/14/21 07:15 08/14/21 07:15 08/14/21 07:15 08/14/21 07:15 08/14/21 07:15 General: Alert, In no apparent distress, Oriented x3, Cooperative HEENT: Atraumatic Neck: Supple Respiratory: Clear to auscultation bilaterally, Normal air movement Cardiovascular: Normal pulses, Regular rate/rhythm Gastrointestinal: Normal bowel sounds, No ascites Musculoskeletal: No tenderness, No warmth Integumentary: Other (Chronic lymphedema to the lower extremity. Post Covid vaccine rash to the left arm. No significant erythema to the lower extremities. No warmth.) Neurological: Normal speech, Normal strength at 5/5 x4 extr, Normal tone Laboratory Data at Discharge: WBC 6.20 K/uL (4.3-10.9) 08/14/21 05:55 Hgb 10.4 g/dL (12.0-15.0) L 08/14/21 05:55 Hct 30.9 % (36.0-45.0) L 08/14/21 05:55 Plt Count 205 K/uL (152-406) 08/14/21 05:55 PT 18.2 SECONDS (9.5-12.5) H 08/14/21 05:55 INR 1.58 08/14/21 05:55 APTT 21.9 SECONDS (24.3-36.9) L 08/11/21 09:03 Sodium 139 mmol/L (136-145) 08/14/21 05:55 Potassium 4.9 mmol/L (3.5-5.1) 08/14/21 05:55 BUN 24 mg/dL (7-18) H 08/14/21 05:55 Creatinine 1.00 mg/dL (0.55-1.3) 08/14/21 05:55 Glucose 125 mg/dL (74-106) H 08/14/21 05:55 Magnesium 2.4 mg/dL (1.8-2.4) 08/14/21 05:55 Total Bilirubin 0.4 mg/dL (0.2-1.0) 08/11/21 09:03 AST 27 U/L (15-37) 08/11/21 09:03 ALT 38 U/L (12-78) 08/11/21 09:03 Alkaline Phosphatase 95 U/L (45-117) 08/11/21 09:03 Amylase 15 U/L (25-115) L 08/11/21 09:03 Lipase 45 U/L (73-393) L 08/11/21 09:03 Home Medications: Acetaminophen [Acetaminophen Extra Strength] 2 tab PO Q8H PRN 08/11/21 Ascorbic Acid 1 tab PO DAILY 08/11/21 Buspirone HCl 1 tab PO BID 08/11/21 Cetirizine HCl 1 tab PO DAILY 08/11/21 Cholecalciferol (Vitamin D3) [Vitamin D3] 1 cap PO DAILY 08/11/21 Cyanocobalamin [Vitamin B-12*] 1 tab PO DAILY 08/11/21 Divalproex Sodium [Depakote ER] 1 tab PO BID 08/11/21 Famotidine [Pepcid] 1 tab PO DAILY 08/11/21 Ferrous Sulfate 1 tab PO BID 08/11/21 Gabapentin 1 cap PO TID 08/11/21 LORazepam [Lorazepam] 1 tab PO BID PRN 08/11/21 Levothyroxine Sodium 1 tab PO DAILY 08/11/21 Losartan Potassium 1 tab PO DAILY 08/11/21 Mag Hydrox/Al Hydrox/Simeth [Maalox Maximum Strength Susp] 30 ml PO Q6HP PRN 08/11/21 Magnesium Oxide 1 tab PO DAILY 08/11/21 Pravastatin Sodium 1 tab PO BEDTIME 08/11/21 Simethicone 1 cap PO Q8H 08/11/21 traMADol HCL [Ultram*] 1 tab PO Q12HP PRN 08/11/21 Apixaban [Eliquis] 5 mg PO SEECOM #72 tablet 08/14/21 Levofloxacin [Levaquin] 500 mg PO DAILY #4 tablet 08/14/21 predniSONE [Deltasone*] 10 mg PO SEECOM #21 tab 08/14/21 New Medications: predniSONE [Deltasone*] 10 mg PO SEECOM #21 tab Apixaban [Eliquis] 5 mg PO SEECOM #72 tablet Levofloxacin [Levaquin] 500 mg PO DAILY #4 tablet Physician Discharge Instructions: Patient presented with bilateral lower extremity cellulitis. Patient had failed outpatient therapy. Patient previously on Bactrim. Valuation patient had acute on chronic renal disease stage IV likely related to medication and cellulitis. Patient also found to have new right popliteal vein DVT. The patient was admitted and received IV antibiotic therapy with improvement. Patient was also started on anticoagulation therapy. Patient received IV fluids with improvement in renal function. At discharge cellulitis appears resolved. Blood cultures negative. For her cellulitis the patient will continue with Levaquin 500 mg daily for 4 more days. Patient may continue to elevate legs when sitting or lying. Patient may continue with compression stockings at the shelter. Recommend follow-up by shelter physician within 1 week to follow-up her care. As mentioned above patient presented with acute on chronic renal disease stage IV. This was likely related to her cellulitis compromised by recent medicationBactrim. Bactrim was discontinued. Patient received IV fluids with improvement. Patient appears to be at baseline. Nephrology was consulted. Renal ultrasound unremarkable. At discharge recommend to monitor her medications closely. Recommend no further use of nonsteroidal anti- inflammatories. Patient previously also on meloxicam. Will discontinue this m edication at discharge. Future medications will need to be renally dosed. Recommend to recheck labBMP in 1 week to monitor progress. Patient may follow- up with nephrology as an outpatient to further monitor. Patient found to have new right popliteal vein DVT as mentioned above. Patient was started on Eliquis. At discharge the patient will continue with Eliquis 10 mg twice daily for 6 days then transition to 5 mg twice daily. Patient will likely require treatment for 3 to 6 months. This can be followed up as an outpatient. Patient also reported dermatitis likely related to recent Covid vaccine. Post Covid vaccine dermatitis noted to the left arm. This improved with prednisone. At discharge patient will continue with prednisone 10 mg 1 pill twice daily for 7 days then 1 pill once daily for 7 days. Patient may also continue with her medication including Zyrtec 10 mg daily and Pepcid 20 mg daily. This can be followed up as an outpatient. Patient with hypertension. Overall stable. At discharge patient will continue with her medication losartan 50 mg daily. Recommend to maintain blood pressure less than 150/80. Further adjustment can be done by her PCP. Patient with hypothyroidism. Overall stable. At discharge patient will continue with levothyroxine 88 mcg daily. Patient with GERD. Medications were adjusted. Patient no longer needs to be on Protonix 40 mg daily as the patient will continue with Pepcid 20 mg daily. Patient with chronic iron deficiency anemia along with B12 deficiency. At discharge she will continue with her medication iron 325 mg 1 pill twice daily and vitamin B12 daily. Patient with depression with anxiety. At discharge the patient will continue with her medication including Depakote ER 250 mg 1 pill twice daily, buspirone 15 mg 1 pill twice daily and lorazepam 0.5 mg 1 pill twice daily as needed for anxiety. Further adjustment can be done by her PCP. Patient with hyperlipidemia. At discharge we will continue with pravastatin 40 mg daily. Patient with chronic lymphedema. As mentioned above patient may continue with compression stockings at the shelter. Continue with the 1500 cc/day fluid restriction. No need for diuretic therapy at discharge. Patient with chronic seasonal allergies. Patient will continue with Zyrtec 10 mg daily. Patient with chronic pain. Medications have been adjusted. Recommend to discontinue meloxicam since she will be on anticoagulation therapy and due to her chronic renal disease. Patient may continue with gabapentin 100 mg 3 times a day. Consider changing this to as needed. Higher doses can cause edema. This can be monitored by her PCP. Patient also takes tramadol 50 mg 1 pill twice daily as needed for pain. Recommend no further use of nonsteroidal anti-inflammatories. Patient will continue with her other medications including vitamin C, magnesium oxide daily, and vitamin D. Diet: AHA Activity: Fall precautions Followup: Unknown,U [Primary Care Provider] - Time spent managing pt's care (in minutes): 55
[2021-08-14] MEDS ORDERED: LOSARTAN POTASSIUM 50 MG TABLET PO SCH (09:00)
[2021-08-14 09:24] VITALS: O2SAT 98
[2021-08-14] MEDS: predniSONE 10 MG TAB PO SCH (09:55)
[2021-08-14] MEDS: CYANOCOBALAMIN 1,000 MCG TAB PO SCH (09:55)
[2021-08-14] MEDS: DOCUSATE NA 100 MG CAP PO SCH (09:55)
[2021-08-14] MEDS: CETIRIZINE HCL 5 MG TABLET PO SCH (09:55)
[2021-08-14] MEDS: FERROUS SULFATE 325 MG TAB PO SCH (09:55)
[2021-08-14] MEDS: VITAMIN D 1000 UNIT TAB PO SCH (09:55)
[2021-08-14] MEDS: BUSPIRONE HCL 15 MG TABLET PO SCH (09:55)
[2021-08-14] MEDS: APIXABAN 5 MG TABLET PO SCH (09:55)
[2021-08-14 14:42] VITALS: BP 153/64; TEMP 97.5
[2021-08-14] MEDS: TRAMADOL HCL 50 MG TAB PO PRN (15:37)
[2021-08-15] MEDS ORDERED: VANCOMYCIN 1.5 GM in NA CHLORIDE 0.9% 500 ML IVPB SCH (03:00)
--- NOTE | 2021-08-15 08:31 | ECHO ---
HEIGHT: 5 ft 0 in WEIGHT: 198 lb 0 oz DATE OF STUDY: 08/11/[address]: Jose Connolly DO 2-DIMENSIONAL: YES M.MODE: YES DOPPLER: YES COLOR FLOW: YES TDS: NO PORTABLE: NO DEFINITY: NO BUBBLE STUDY: NO DIAGNOSIS: NEW RIGHT DVT CARDIAC HISTORY: CATHERIZATION: NO SURGERY: NO PROSTHETIC VALVE: NO PACEMAKER: NO MEASUREMENTS (cm) DIASTOLIC (NORMALS) SYSTOLIC (NORMALS) IVSd 1.1 (0.6-1.2) LA Diam 3.1 (1.9-4.0) LVEF 68% LVIDd 3.8 (3.5-5.7) LVIDs 2.4 (2.0-3.5) %FS 37% LVPWd 1.2 (0.6-1.2) Ao Diam 1.9 (2.0-3.7) 2 DIMENSIONAL ASSESSMENT: RIGHT ATRIUM: NORMAL LEFT ATRIUM: NORMAL RIGHT VENTRICLE: NORMAL LEFT VENTRICLE: NORMAL TRICUSPID VALVE: MITRAL VALVE: NORMAL PULMONIC VALVE: NORMAL AORTIC VALVE: NORMAL PERICARDIAL EFFUSION: NONE AORTIC ROOT: NORMAL LEFT VENTRICULAR WALL MOTION: NORMAL DOPPLER/COLOR FLOW: MILD TRICUSPID REGURGITATION. COMMENTS: NORMAL LEFT VENTRICULAR EJECTION FRACTION 60-65%. NORMAL WALL MOTION. MILD TRICUSPID REGURGITATION. TECHNOLOGIST: Norberto RODRÍGUEZ
[2021-08-15] MEDS ORDERED: Levofloxacin500mg IV 500 MG/100 ML BAG IV SCH (09:00)
== END 2021-08-14 16:22 | DRG 603 ==
LOC: ER 08:36 → ERHOLD 11:42 → 2ND 12:26
PROVIDERS: ADMIT Family Medicine; ATTEND Family Medicine
DX: L03.116 Cellulitis of left lower limb (principal); I82.431 Acute embolism and thrombosis of right popliteal vein; N18.4 Chronic kidney disease, stage 4 (severe); N17.9 Acute kidney failure, unspecified; L03.115 Cellulitis of right lower limb; I12.9 Hypertensive chronic kidney disease with stage 1 through stage 4 chronic kidney disease, or unspecified chronic kidney disease; K21.9 Gastro-esophageal reflux disease without esophagitis; E78.5 Hyperlipidemia, unspecified; L27.0 Generalized skin eruption due to drugs and medicaments taken internally; T50.B95A Adverse effect of other viral vaccines, initial encounter; E03.9 Hypothyroidism, unspecified; T36.8X5A Adverse effect of other systemic antibiotics, initial encounter; D50.9 Iron deficiency anemia, unspecified; F41.8 Other specified anxiety disorders; I89.0 Lymphedema, not elsewhere classified; E86.0 Dehydration; I95.9 Hypotension, unspecified; E66.01 Morbid (severe) obesity due to excess calories; J30.2 Other seasonal allergic rhinitis; G89.29 Other chronic pain; Z68.38 Body mass index [BMI] 38.0-38.9, adult; Z79.01 Long term (current) use of anticoagulants; Z88.0 Allergy status to penicillin; Z79.899 Other long term (current) drug therapy; Z79.890 Hormone replacement therapy; Z79.52 Long term (current) use of systemic steroids; Z20.822 Contact with and (suspected) exposure to COVID-19
CPT/HCPCS: 36415; 71045; 76770; 80048; 80076; 80202; 82150; 82550; 82553; 82947; 83605; 83690; 83735; 84145; 84439; 84443; 84484; 85025; 85610; 85730; 87040; 93005; 93306; 93970; 96365; 96366; 96367; 99285; J1650; J2405; J3370; J7030; J7040; J7050; J7512; U0003

== ENCOUNTER 2021-09-27 10:14 | Inpatient (IN) | payer OTHER ==
--- OUTSIDE RECORDS SUMMARY | 2021-09-27 10:39 | XMS REPORT | Continuity of Care Document ---
:1955 Author Organization [facility] t Address [address] [place] [address] Care Team Providers Name Role Phone Rony Debra Primary Care Physician Marlyn MILLER Attending Clinician Unavailable Laly Ordaz PTA Attending Clinician Unavailable Marlyn Miller MD Attending Clinician Taiwo Foote PT Attending Clinician Unavailable Doctor Unassigned, Name Attending Clinician Unavailable Payers Payer Name Policy Type Policy Number Effective Date Expiration Date Christa wild MEDICARE PART A [id number] 2007 \T\ B 00:00:00 Problems This patient has no known problems. Allergies, Adverse Reactions, Alerts Allergy Allergy Status Severity Reaction(s) Onset Inactive Treating Comm ents Source Name Type Date Date Clinician NO KNOWN Drug Active Univers ALLERGIE Class [facility] Social History Social Habit Start Date Stop Date Quantity Comments Source Exposure to Not sure [facility] SARS-CoV-2 (event) Medica l Branch Sex Assigned At [birth year] [facility] 00:00:00 00:00:00 [facility] Smoking Status Start Date Stop Date Source Unknown if ever smoked [facility] Medications This patient has no known medications. Procedures Procedure Date / Time Performed Performing Clinician [facility] e REFERRAL- 2021-05-27 05:01:00 Doctor Unassigned, No Univer [facility] REQUEST/RESPONSE Name [facility] Encounters Start End Encounter Admission Attending Care Care Encounter Source Date/Time Date/Time Type Type Clinicians Facility Department ID 2021-08-19 2021-08-19 [facility] [id number] Univers 08:40:00 08:40:00 [id number] [facility] 2021-08-16 2021-08-16 Outpatient [facility] [id number] Univers 08:40:00 08:40:00 [id number] [facility] 2021-08-09 2021-08-09 Outpatient R JASON, [facility] [id number] Univers 08:40:00 08:40:00 SHERIDAN [facility] 2021-08-09 2021-08-09 Outpatient R [facility] [id number] Univers 08:40:00 08:40:00 [id number] [facility] 2021-08-05 2021-08-05 [facility] [id number] Univers 08:40:00 08:40:00 [id number] [facility] 2021-08-02 2021-08-02 [facility] [id number] Univers 08:40:00 08:40:00 [id number] [facility] 2021-07-29 2021-07-29 [facility] [id number] Univers 08:40:00 08:40:00 [id number] [facility] 2021-07-26 2021-07-26 [facility] [id number] Univers 08:40:00 08:40:00 [id number] [facility] 2021-07-22 2021-07-22 [facility]patient [facility] [id number] Univers 08:40:00 08:40:00 [id number] [facility] 2021-07-19 2021-07-19 Outpatient [facility] [id number] Univers 08:40:00 08:40:00 [id number] [facility] 2021-07-12 2021-07-12 [facility] [id number] Univers 08:40:00 08:40:00 [id number] [facility] 2021-07-08 2021-07-08 Outpatient [facility] [id number] Univers 08:40:00 08:40:00 [id number] [facility] 2021-07-05 2021-07-05 Outpatient R [facility] [id number] Univers 10:00:00 10:00:00 [id number] ity [facility] 2021-07-01 2021-07-01 Outpatient R JASON [facility] [id number] Univers 10:00:00 10:55:43 SHERIDAN [facility] 2021-07-01 2021-07-01 Ancillary Sindhu Ordaz Laly [facility] 1.2.840 .114 [id number] Univers 09:54:55 10:55:43 Visit Sheridan Miller [place] [id number] [id number] [phone] [place] [address] [facility] 2021-07-01 2021-07-01 Outpatient R [facility] [id number] Univers 10:00:00 10:00:00 [id number] [facility] 2021-06-28 2021-06-28 Ancillary Meseret Ordazjaden Ruffin [facility] 1.2.840 .114 [id number] Univers 10:17:51 13:29:57 Visit Sehridan Miller [place] [id number] [id number] [id number] [place] [address] [facility] 2021-06-28 2021-06-28 Outpatient R [facility] [id number] Univers 10:20:00 10:20:00 [id number] [facility] 2021-06-24 2021-06-24 Ancillary Sindhu Ordaz Laly [facility] 1.2.840 .114 [id number] Univers 08:45:37 09:45:37 Visit Sheridan Miller [place] [id number] [id number] [phone] [place] [address] [facility] 2021-06-24 2021-06-24 [facility]patient [facility] [id number] Univers 08:40:00 08:40:00 [id number] ity [facility] 2021-06-21 2021-06-21 Ancillary Meseret Ordazjaden Ruffin [facility] 1.2.840 .114 [id number] Univers 08:45:51 09:45:51 Visit Sheridan Miller ISAACPAIGE [id number] [id number] [phone] [place] [address] [facility] 2021-06-21 2021-06-21 [facility]patient [facility] [id number] Univers 08:40:00 08:40:00 [id number] ity [facility] 2021-06-17 2021-06-17 Ancillary Sindhu Ordaz [facility] 1.2.840 .114 [id number] Univers 08:58:32 09:58:32 Visit Sheridan Miller ISAACPAIGE [id number] [facility] [id number] [phone] [place] [address] [facility] 2021-06-17 2021-06-17 [facility] [id number] Univers 08:40:00 08:40:00 SHERIDAN ity [facility] 2021-06-17 2021-06-17 [facility]patient [facility] [id number] Univers 08:40:00 08:40:00 [id number] ity [facility] 2021-06-14 2021-06-14 Ancillary Sindhu Ordaz [facility] 1.2.840 .114 [id number] Univers 08:38:30 09:38:30 Visit Sheridan Miller [place] [id number] [id number] [phone] [place] [address] [facility] 2021-06-14 2021-06-14 [facility]patient [facility] [id number] Univers 08:40:00 08:40:00 [id number] ity [facility] 2021-06-10 2021-06-10 Ancillary Sindhu Ordaz [facility] 1.2.840 .114 [id number] Univers 08:43:45 09:43:45 Visit Sheridan Miller [place] [id number] [id number] [phone] Me dical nal [address] [facility] 2021-06-10 2021-06-10 [facility] [id number] Univers 08:40:00 08:40:00 [id number] [facility] 2021-06-07 2021-06-07 Ancillary Melanie Mendoza [facility] 1 .2.840.114 [id number] Univers 08:38:48 12:01:11 Visit Sheridan Miller [id number] ity [facility] [id number] [phone] Me dical nal [address] [facility] 2021-06-07 2021-06-07 Outpatient R [facility] [id number] Univers 08:40:00 08:40:00 [id number] ity [facility] 2021-06-02 2021-06-02 [facility] 1 .2.840.114 [id number] Univers 08:54:33 11:19:40 Visit Sheridan Miller [id number] ity [facility] [id number] [phone] [place] [address] [place] [address] 2021-06-02 2021-06-02 Outpatient R [facility] [id number] Univers 09:00:00 09:00:00 [id number] ity [facility] 2021-05-27 2021-05-27 Orders Doctor PEDRAZA 1.2.840.114 [id number] Univers 00:00:00 00:00:00 Only Unassigned, LANCE [id number] ity of [facility] [id number] [place] [phone] [address] 2021-04-21 2021-04-21 Outpatient R [facility] [id number] Univers 10:40:00 10:40:00 [id number] ity [facility] 2021-04-21 2021-04-21 [facility] [id number] Univers 10:40:00 10:40:00 [facility] 2019-09-25 Ancillary [facility] [id number] 08:39:47 09:11:43 Visit Sindhu Garay [id number] [place] [id number] Nahid [phone] [facility] [address] Results This patient has no known results.
[2021-09-27] MEDS ORDERED: AZITHROMYCIN 500 MG INJ IVPB ONE (10:58)
[2021-09-27] MEDS ORDERED: ACETAMINOPHEN 500 MG TAB ONE (10:58)
[2021-09-27] MEDS ORDERED: NA CHLORIDE 0.9% 250 ML ONE (10:58)
[2021-09-27] MEDS ORDERED: CEFTRIAXONE 1000 MG/VIAL ONE (10:58)
[2021-09-27] MEDS ORDERED: ONDANSETRON 4 MG/2 ML VIAL ONE (10:58)
[2021-09-27] MEDS ORDERED: NA CHLORIDE 0.9% 2,000 ML ONE (10:58)
[2021-09-27 11:21] LABS: Absolute Lymphocytes (CBC) 0.8 K/uL (0.7-4.9); Hematocrit 40.9 % (36.0-45.0); Lymphocytes % 11.2 % (15.3-44.8); MPV 7.1 fL (7.6-11.3); RBC Red Blood Cell Count 4.44 M/uL (3.86-4.86)
[2021-09-27 11:23] LABS: Protime INR 1.25
[2021-09-27 11:39] LABS: ALT/SGPT 24 U/L (12-78); AST/SGOT 28 U/L (15-37); Albumin 3.4 g/dL (3.4-5.0); Alkaline Phosphatase 96 U/L (45-117); Amylase 34 U/L (25-115); BUN Blood Urea Nitrogen 11 mg/dL (7-18); Bicarbonate 23 mmol/L (21-32); Bilirubin Direct 0.1 mg/dL (0-0.2); Bilirubin Total 0.3 mg/dL (0.2-1.0); Creatine Phosphokinase 51 U/L (26-192); Glucose Level 98 mg/dL (74-106); Lipase 125 U/L (73-393); Potassium 3.8 mmol/L (3.5-5.1); Protein, Total 7.6 g/dL (6.4-8.2); Sodium Level 140 mmol/L (136-145)
--- NOTE | 2021-09-27 11:42 | RAD REPORT ---
EXAM DESCRIPTION: Jeniffer Single View09/27/2021 10:45 am CLINICAL HISTORY: Congestion COMPARISON: July 2021 FINDINGS: Opacification the right lung base unchanged. Left lung appears clear. Heart is normal size IMPRESSION: The opacification of the right lung base unchanged. This could represent atelectasis, pn eumonia or mass
[2021-09-27 11:45] LABS: CKMB Creatine Kinase MB < 1.0 ng/mL (1.0-3.6)
--- NOTE | 2021-09-27 12:36 | RAD REPORT ---
EXAM DESCRIPTION: CT - Chest For Pe Angio - 09/27/2021 12:22 pm CLINICAL HISTORY: Chest pain COMPARISON: 2019 TECHNIQUE: Dynamically enhanced axial 3 mm thick images of the chest were obtained during administra tion of <100> mL Isovue 370 IV contrast. Coronal and oblique reconstruction images were generated and reviewed. Exam utilizes a protocol for optimal evaluation of pulmonary arterial tree. Maximum intensity projections 3D imaging was utilized All CT scans are performed using dose optimization technique as appropriate and may include automated exposure control or mA/KV adjustment according to patient size. FINDINGS: A pulmonary embolus is not seen. A thoracic aortic aneurysm is not noted. A pleural effusion is not seen. A pericardial effusion is not seen. Elevation of the right hemidiaphragm. Right lower lobe atelectasis. IMPRESSION: Negative for a pulmonary embolism. Right lower lobe atelectasis. This should be followed with x-ray until it is clear to help exclude a post obstructive process/underlying mass
--- NOTE | 2021-09-27 15:50 | EDPHYS ---
Physician Documentation [facility] Name: Nilam Rivero Age: 66 yrs Sex: Female : 1955 Arrival Date: 09/27/2021 Time: 10:16 Bed 27 Private MD: ED Physician Radha Turner HPI: 09/27 10:29 This 66 yrs old Unknown Female presents to ER via EMS with complaints of Vomiting. ma2 10:29 The patient presents to the emergency department with nausea, vomiting, diarrhea. ma2 Onset: The symptoms/episode began/occurred gradually, 1 day(s) ago. 66-year-old female, history of hypertension hypothyroidism, GERD, here with nausea vomiting low-grade fever, chills, she tested positive for Covid rapid test. Patient states she does not have abdominal pain or any abdominal discomfort.. Historical: - Allergies: 10:21 PENICILLINS; ab2 - Home Meds: 10:21 levothyroxine oral [Active]; ab2 - PMHx: 10:21 GERD; Hypertension; Hypothyroidism; lymph edema bilateral legs; ab2 - Immunization history:: Adult Immunizations up to date, Client reports receiving the 2nd dose of the Covid vaccine. - Social history:: Smoking status: unknown Patient/guardian denies using alcohol, street drugs, The patient lives with family. - Family history:: not pertinent. ROS: 10:29 Constitutional: Negative for fever, chills, and weight loss. ma2 10:29 All other systems are negative. Exam: 10:29 Constitutional: This is a well developed, well nourished patient who is awake, alert, ma2 and in no acute distress. Head/Face: Normocephalic, atraumatic. Eyes: Pupils equal round and reactive to light, extra-ocular motions intact. Lids and lashes normal. Conjunctiva and sclera are non-icteric and not injected. Cornea within normal limits. Periorbital areas with no swelling, redness, or edema. ENT: Nares patent. No nasal discharge, no septal abnormalities noted. Tympanic membranes are normal and external auditory canals are clear. Oropharynx with no redness, swelling, or masses, exudates, or evidence of obstruction, uvula midline. Mucous membranes moist. Neck: Trachea midline, no thyromegaly or masses palpated, and no cervical lymphadenopathy. Supple, full range of motion without nuchal rigidity, or vertebral point tenderness. No Meningismus. Chest/axilla: Normal chest wall appearance and motion. Nontender with no deformity. No lesions are appreciated. Cardiovascular: Regular rate and rhythm with a normal S1 and S2. No gallops, murmurs, or rubs. Normal PMI, no JVD. No pulse deficits. Respiratory: Lungs have equal breath sounds bilaterally, clear to auscultation and percussion. No rales, rhonchi or wheezes noted. No increased work of breathing, no retractions or nasal flaring. Abdomen/GI: Soft, non-tender, with normal bowel sounds. No distension or tympany. No guarding or rebound. No evidence of tenderness throughout. Skin: Warm, dry with normal turgor. Normal color with no rashes, no lesions, and no evidence of cellulitis. MS/ Extremity: Pulses equal, no cyanosis. Neurovascular intact. Full, normal range of motion. Neuro: Awake and alert, GCS 15, oriented to person, place, time, and situation. Cranial nerves II-XII grossly intact. Motor strength 5/5 in all extremities. Sensory grossly intact. Cerebellar exam normal. Normal gait. Vital Signs: 10:16 BP 144 / 73; Pulse 118; Resp 20; Temp 100.9(O); Pulse Ox 94% on R/A; Weight 100.24 kg; ab2 Height 5 ft. 1 in. (154.94 cm); Pain 0/10; 11:15 BP 132 / 58; Pulse 106; Resp 20; Pulse Ox 100% on R/A; ab2 11:45 BP 116 / 60; Pulse 96; Resp 18; Temp 100.3(O); Pulse Ox 97% on R/A; ab2 12:59 BP 96 / 64; Pulse 98; Resp 17; Pulse Ox 96% on R/A; ab2 13:06 Temp 99.0(O); ab2 13:39 BP 112 / 56; Pulse 82; Resp 16; Pulse Ox 98% ; ab2 14:40 BP 114 / 69; Pulse 79; Resp 16; Pulse Ox 96% on R/A; ab2 16:06 BP 99 / 58; Pulse 87; Resp 16; Pulse Ox 97% on R/A; ab2 17:05 BP 109 / 53; Pulse 81; Resp 16; Pulse Ox 97% on R/A; ab2 18:12 BP 101 / 73; Pulse 79; Resp 16; Temp 98.7(O); Pulse Ox 98% on R/A; ab2 19:19 BP 106 / 57; Pulse 81; Resp 16; Pulse Ox 97% on R/A; ab2 20:03 BP 105 / 54; Pulse 76; Resp 16; Pulse Ox 98% on R/A; Pain 0/10; ab2 10:16 Body Mass Index 41.76 (100.24 kg, 154.94 cm) ab2 MDM: 10:20 Patient medically screened. ma2 10:29 Differential diagnosis: Nonspecific abd pain, gastritis, viral gastroenteritis, ma2 gastroenteritis. 15:48 Data reviewed: vital signs, nurses notes, EMS record. Counseling: I had a detailed [facility] discussion with the patient and/or guardian regarding: the historical points, exam findings, and any diagnostic results supporting the discharge/admit diagnosis, the presence of at least one elevated blood pressure reading (>120/80) during this emergency department visit, the need for outpatient follow up. Response to treatment: the patient's symptoms have markedly improved after treatment. ED course: Patient has sepsis, with lactate 2.9 also has pneumonia, received antibiotics, patient still not feeling well, has intractable vomiting, discussed with Dr. blevins. 09/27 10:20 Order name: Amylase, Serum; Complete Time: 11:53 co09/27 10:20 Order name: Basic Metabolic Panel; Complete Time: 11:53 co09/27 10:20 Order name: Blood Culture Adult (2) co2 09/27 10:20 Order name: CBC with Diff; Complete Time: 11:53 09/27 10:20 Order name: CPK; Complete Time: 11:53 co09/27 10:20 Order name: Ckmb; Complete Time: 11:53 09/27 10:20 Order name: D-Dimer; Complete Time: 11:53 09/27 10:20 Order name: LFT's; Complete Time: 11:53 co09/27 10:20 Order name: Lactate; Complete Time: 11:53 co09/27 10:20 Order name: Lipase; Complete Time: 11:53 09/27 10:20 Order name: Procalcitonin; Complete Time: 11:53 09/27 10:20 Order name: Protime (+inr); Complete Time: 11:53 co09/27 10:20 Order name: Ptt, Activated; Complete Time: 11:53 09/27 10:20 Order name: Troponin HS; Complete Time: 11:53 co09/27 10:20 Order name: Urine Microscopic Only [facility] 09/27 10:20 Order name: Chest Single View XRAY; Complete Time: 11:53 09/27 10:20 Order name: Accucheck; Complete Time: 11:14 09/27 10:20 Order name: Cardiac monitoring; Complete Time: 11:14 09/27 10:20 Order name: EKG - Nurse/Tech; Complete Time: 11:14 09/27 10:20 Order name: IV Saline Lock - Large Bore; Complete Time: 11:14 09/27 10:20 Order name: Labs collected and sent; Complete Time: 11:15 co09/27 10:20 Order name: SARS-COV-2 RT PCR (Document "Date of Onset" if Symptomatic); Complete Time: ma 12:41 09/27 11:34 Order name: CT Chest For PE Angio; Complete Time: 12:41 09/27 15:56 Order name: Lactate Sepsis 2 HR Follow-up [facility] 09/27 10:20 Order name: O2 Per Protocol; Complete Time: 11:15 co09/27 10:20 Order name: O2 Sat Monitoring; Complete Time: 11:15 co09/27 10:20 Order name: Urine Dipstick-Ancillary (obtain specimen); Complete Time: 16:06 ma2 Administered Medications: 11:13 Drug: NS 0.9% 1000 ml Route: IV; Rate: 1 bolus; Site: right antecubital; ab2 17:09 Follow up: Response: No adverse reaction; IV Status: Completed infusion ab2 11:13 Drug: AZITHromycin 500 mg Route: IVPB; Infused Over: 1 hrs; Site: right antecubital; ab2 17:09 Follow up: Response: No adverse reaction; IV Status: Completed infusion ab2 11:14 Drug: Acetaminophen 1000 mg Route: PO; ab2 11:14 Drug: Zofran (Ondansetron) 4 mg Route: IVP; Site: right antecubital; ab2 17:09 Follow up: Response: No adverse reaction ab2 11:14 Drug: Rocephin (cefTRIAXone) 1 grams Route: IV; Rate: calculated rate; Site: right ab2 antecubital; 11:14 Drug: NS 0.9% 1000 ml Route: IV; Rate: 1 bolus; Site: right antecubital; ab2 17:09 Follow up: Response: No adverse reaction; IV Status: Completed infusion ab2 Disposition Summary: 09/27/21 15:49 Hospitalization Ordered Hospitalization Status: Observation ma2 Provider: Arturo Blevins ma2 Location: Telemetry/MedSurg (Inpatient) ma2 Condition: Stable ma2 Problem: new ma2 Symptoms: are unchanged ma2 Bed/Room Type: Standard co2 Room Assignment: 408(09/27/21 18:56) bd Diagnosis - Other pneumonia, unspecified organism ma2 - Coronavirus infection, unspecified ma2 Forms: - Medication Reconciliation Form ma2 - SBAR form ma2 Signatures: Dispatcher [employer] Olga Fernandez bd Radha Turner MD MD ma2 Declan Lopez ab2 Corrections: (The following items were deleted from the chart) 18:56 15:49 ma2 bd
--- NOTE | 2021-09-27 15:50 | ER ---
Nurse's Notes [facility] Name: Nilam Rivero Age: 66 yrs Sex: Female : 1955 Arrival Date: 09/27/2021 Time: 10:16 Bed 27 Private MD: Diagnosis: Other pneumonia, unspecified organism;Coronavirus infection, unspecified Presentation: 09/27 10:16 Chief complaint: Patient states: Pt arrives via EMS from [facility] for c/o ab2 n/v and chills. Pt tested positive this morning for covid in the facility. Coronavirus screen: Vaccine status: Patient reports receiving the 2nd dose of the covid vaccine. Client denies travel out of the [place] in the last 14 days. Client presents with at least one sign or symptom that may indicate coronavirus-19. Standard/surgical mask placed on the client. Provider contacted for isolation considerations. Client reports previous positive COVID test result. Date of collection: September 27, 2021. Ebola Screen: Patient negative for fever greater than or equal to 101.5 degrees Fahrenheit, and additional compatible Ebola Virus Disease symptoms Patient denies exposure to infectious person. Patient denies travel to an Ebola-affected area in the 21 days before illness onset. No symptoms or risks identified at this time. Initial Sepsis Screen: Does the patient meet any 2 criteria? Temp <36.0*C (96.8*F)) or > 38.3*C (100.9*F). HR > 90 bpm. Yes Does the patient have a suspected source of infection? No. Patient's initial sepsis screen is negative. Risk Assessment: Do you want to hurt yourself or someone else? Patient reports no desire to harm self or others. Onset of symptoms is unknown. 10:16 Method Of Arrival: EMS: [facility] ab2 10:16 Acuity: [facility] 3 ab2 Historical: - Allergies: 10:21 PENICILLINS; ab2 - Home Meds: 10:21 levothyroxine oral [Active]; ab2 - PMHx: 10:21 GERD; Hypertension; Hypothyroidism; lymph edema bilateral legs; ab2 - Immunization history:: Adult Immunizations up to date, Client reports receiving the 2nd dose of the Covid vaccine. - Social history:: Smoking status: unknown Patient/guardian denies using alcohol, street drugs, The patient lives with family. - Family history:: not pertinent. Screenin:24 Abuse screen: Denies threats or abuse. Denies injuries from another. Nutritional ab2 screening: No deficits noted. Tuberculosis screening: No symptoms or risk factors identified. Fall Risk Fall in past 12 months (25 points). Secondary diagnosis (15 points) IV access (20 points). Ambulatory Aid- None/Bed Rest/Nurse Assist (0 pts). Gait- Weak (10 pts.). Mental Status- Oriented to own ability (0 pts). Total Smith Fall Scale indicates High Risk Score (45 or more points). Fall prevention measures have been instituted. Side Rails Up X 2 Frequent Obs/Assessments Occuring As available patient and family educated on Fall Prevention Program and Strategies. Assessment: 10:21 General: Appears in no apparent distress. comfortable. Pain: Denies pain. Neuro: Level ab2 of Consciousness is awake, alert, obeys commands, Oriented to person, place, time, situation, Appropriate for age Alligator Trapper are equal bilaterally Moves all extremities. Cardiovascular: Denies chest pain, shortness of breath, Heart tones S1 S2 present Patient's skin is warm and dry. Respiratory: No deficits noted. Airway is patent Breath sounds are diminished. GI: Abdomen is round non-distended, obese, Reports nausea, vomiting. : No deficits noted. No signs and/or symptoms were reported regarding the genitourinary system. EENT: No deficits noted. No signs and/or symptoms were reported regarding the EENT system. Derm: Skin is clammy, Skin is flushed, Skin temperature is warm. 13:10 Reassessment: Patient appears in no apparent distress at this time. Pt resting ab2 comfortably. Fever coming down with fluids and tylenol. Pt given pillow per request. Awaiting results for disposition. 17:07 Reassessment: Patient appears in no apparent distress at this time. Pt resting ab2 comfortably. Awaiting a room for admission. denies any needs at this time. Water provided per patient request. 20:03 Reassessment: Patient appears in no apparent distress at this time. Pt stable at time ab2 of admission. Vital Signs: 10:16 BP 144 / 73; Pulse 118; Resp 20; Temp 100.9(O); Pulse Ox 94% on R/A; Weight 100.24 kg; ab2 Height 5 ft. 1 in. (154.94 cm); Pain 0/10; 11:15 BP 132 / 58; Pulse 106; Resp 20; Pulse Ox 100% on R/A; ab2 11:45 BP 116 / 60; Pulse 96; Resp 18; Temp 100.3(O); Pulse Ox 97% on R/A; ab2 12:59 BP 96 / 64; Pulse 98; Resp 17; Pulse Ox 96% on R/A; ab2 13:06 Temp 99.0(O); ab2 13:39 BP 112 / 56; Pulse 82; Resp 16; Pulse Ox 98% ; ab2 14:40 BP 114 / 69; Pulse 79; Resp 16; Pulse Ox 96% on R/A; ab2 16:06 BP 99 / 58; Pulse 87; Resp 16; Pulse Ox 97% on R/A; ab2 17:05 BP 109 / 53; Pulse 81; Resp 16; Pulse Ox 97% on R/A; ab2 18:12 BP 101 / 73; Pulse 79; Resp 16; Temp 98.7(O); Pulse Ox 98% on R/A; ab2 19:19 BP 106 / 57; Pulse 81; Resp 16; Pulse Ox 97% on R/A; ab2 20:03 BP 105 / 54; Pulse 76; Resp 16; Pulse Ox 98% on R/A; Pain 0/10; ab2 10:16 Body Mass Index 41.76 (100.24 kg, 154.94 cm) ab2 ED Course: 10:16 Patient arrived in ED. ab2 10:16 Declan Lopez is Primary Nurse. ab2 10:18 Radha Turner MD is Attending Physician. ma2 10:21 Triage completed. ab2 10:25 Arm band placed on right wrist. ab2 10:25 Patient has correct armband on for positive identification. Bed in low position. Call ab2 light in reach. Side rails up X2. 10:25 No provider procedures requiring assistance completed. ab2 10:45 Chest Single View XRAY In Process Unspecified. EDMS 11:14 Warm blanket given. quality assurance monitor on. Pulse ox on. NIBP on. mh5 11:14 Missed attempt(s): 22 gauge in left wrist. mh5 11:14 EKG done, by ED staff, reviewed by Radha Turner MD COVID swab sent to lab. mh5 11:14 Inserted saline lock: 20 gauge in right antecubital area, using aseptic technique. ab2 Blood collected. 11:15 Amylase, Serum Sent. ab2 11:15 Basic Metabolic Panel Sent. ab2 11:15 Blood Culture Adult (2) Sent. ab2 11:15 CBC with Diff Sent. ab2 11:15 CPK Sent. ab2 11:15 Ckmb Sent. ab2 11:15 D-Dimer Sent. ab2 11:15 LFT's Sent. ab2 11:15 Lactate Sent. ab2 11:15 Lipase Sent. ab2 11:15 Procalcitonin Sent. ab2 11:15 Protime (+inr) Sent. ab2 11:15 Ptt, Activated Sent. ab2 11:15 Troponin HS Sent. ab2 12:25 CT Chest For PE Angio In Process Unspecified. EDMS 14:41 IV discontinued, intact, bleeding controlled, No redness/swelling at site. Pressure ab2 dressing applied, IV removed while in CT. New IV inserted by library technician. New 20 gauge to left AC noted. 15:49 Arturo Blevins is Hospitalizing Provider. ma2 19:39 Report given to Althea RENTERIA on covid unit. ab2 Administered Medications: 11:13 Drug: NS 0.9% 1000 ml Route: IV; Rate: 1 bolus; Site: right antecubital; ab2 17:09 Follow up: Response: No adverse reaction; IV Status: Completed infusion ab2 11:13 Drug: AZITHromycin 500 mg Route: IVPB; Infused Over: 1 hrs; Site: right antecubital; ab2 17:09 Follow up: Response: No adverse reaction; IV Status: Completed infusion ab2 11:14 Drug: Acetaminophen 1000 mg Route: PO; ab2 11:14 Drug: Zofran (Ondansetron) 4 mg Route: IVP; Site: right antecubital; ab2 17:09 Follow up: Response: No adverse reaction ab2 11:14 Drug: Rocephin (cefTRIAXone) 1 grams Route: IV; Rate: calculated rate; Site: right ab2 antecubital; 11:14 Drug: NS 0.9% 1000 ml Route: IV; Rate: 1 bolus; Site: right antecubital; ab2 17:09 Follow up: Response: No adverse reaction; IV Status: Completed infusion ab2 Outcome: 15:49 Decision to Hospitalize by Provider. genny 20:03 Admitted to Med/surg accompanied by tech, via stretcher, with chart, Report called to demi Oh 20:03 Condition: stable 20:04 Patient left the ED. 2 Signatures: Dispatcher [employer] Kyara Niño [facility] Radha Turner MD MD ma2 Bleininger, Alexis ab2
--- NOTE | 2021-09-27 18:30 | P.HP ---
Certification for Inpatient Patient admitted to: Inpatient With expected LOS: >2 Midnights Practitioner: I am a practitioner with admitting privileges, knowledge of patient current condition, hospital course, and medical plan of care. Services: Services provided to patient in accordance with Admission requirements found in Title 42 Section 412.3 of the Code of Federal Regulations Patient History Date of Service: 09/27/21 Reason for admission: Sepsis History of Present Illness: 66-year-old [facility] resident with a history of hypothyroidism, chronic lymphedema was brought from the [facility] to the emergency department due to episodes of nausea, vomiting, diarrhea, fever and chills, and generalized weakness. Patient tested positive for COVID-19 in the ED. she met criteria for sepsis with fever of 100.9, and tachycardia. No leukocytosis. Lactate elevated. Procalcitonin elevated. Sepsis protocol initiated in the ED. D-dimer elevated. CTA thorax showed no pulmonary embolism but demonstrated opacity in the left lower lobe suggestive of atelectasis, lung mass not ruled out. There is a concern for pneumonia with sepsis. Patient is hospitalized for further m anagement. Allergies Penicillins Allergy (Verified 07/07/20 07:56) Rash Home Medications: Acetaminophen [Acetaminophen Extra Strength] 2 tab PO Q8H PRN 08/11/21 Ascorbic Acid 1 tab PO DAILY 08/11/21 Buspirone HCl 1 tab PO BID 08/11/21 Cetirizine HCl 1 tab PO DAILY 08/11/21 Cholecalciferol (Vitamin D3) [Vitamin D3] 1 cap PO DAILY 08/11/21 Cyanocobalamin [Vitamin B-12*] 1 tab PO DAILY 08/11/21 Divalproex Sodium [Depakote ER] 1 tab PO BID 08/11/21 Famotidine [Pepcid] 1 tab PO DAILY 08/11/21 Ferrous Sulfate 1 tab PO BID 08/11/21 Gabapentin 1 cap PO TID 08/11/21 LORazepam [Lorazepam] 1 tab PO BID PRN 08/11/21 Levothyroxine Sodium 1 tab PO DAILY 08/11/21 Losartan Potassium 1 tab PO DAILY 08/11/21 Mag Hydrox/Al Hydrox/Simeth [Maalox Maximum Strength Susp] 30 ml PO Q6HP PRN 08/11/21 Magnesium Oxide 1 tab PO DAILY 08/11/21 Pravastatin Sodium 1 tab PO BEDTIME 08/11/21 Simethicone 1 cap PO Q8H 08/11/21 traMADol HCL [Ultram*] 1 tab PO Q12HP PRN 08/11/21 Apixaban [Eliquis] 5 mg PO SEECOM #72 tablet 08/14/21 Levofloxacin [Levaquin] 500 mg PO DAILY #4 tablet 08/14/21 predniSONE [Deltasone*] 10 mg PO SEECOM #21 tab 08/14/21 - Past Medical/Surgical History Diabetic: No -: Hypothyroidism -: Hyperlipidemia -: Chronic lymphedema -: Hypertension -: Anemia chronic disease -: Depression with anxiety -: Obesity Psychosocial/ Personal History: Patient [facility] at [facility] - Family History Father -: Other (see notes) Notes: Glaucoma Mother -: Heart disease - Social History Alcohol use: No CD- Drugs: No Caffeine use: Yes Review of Systems Other: Patient denied any abdominal pain, she denied any chest pain or shortness of breath. She endorsed headache, neck pain and generalized bodily pains. Except as documented, all other systems reviewed and negative. Physical Examination - Physical Exam General: Alert, In no apparent distress, Oriented x3 HEENT: Normocephalic, PERRLA, Mucous membr. moist/pink, EOMI, Sclerae nonicteric Neck: Supple, JVD not distended Respiratory: Clear to auscultation bilaterally, Normal air movement Cardiovascular: No edema, Regular rate/rhythm, Normal S1 S2, No murmurs Gastrointestinal: Normal bowel sounds, Soft and benign, Non-distended, No tenderness Musculoskeletal: No swelling, No tenderness Integumentary: No rashes, No cyanosis Neurological: Normal speech, Normal strength at 5/5 x4 extr, Cranial nerves 3-12 intact Lymphatics: No axilla or inguinal lymphadenopathy - Studies Laboratory Data (last 24 hrs) 09/27/21 10:50: PT 14.4 H, INR 1.25, APTT 27.4 09/27/21 10:50: WBC 7.00, Hgb 13.2, Hct 40.9, Plt Count 228 09/27/21 10:50: Sodium 140, Potassium 3.8, BUN 11, Creatinine 1.10, Glucose 98, Total Bilirubin 0.3, AST 28, ALT 24, Alkaline Phosphatase 96, Amylase 34, Lipase 125 Assessment and Plan - Problems (Diagnosis) (1) Sepsis Current Visit: Yes Status: Acute (2) Pneumonia due to COVID-19 virus Current Visit: Yes Status: Acute (3) Hypertension Current Visit: No Status: Acute Qualifiers: Hypertension type: essential hypertension Qualified Code(s): I10 - Essential (primary) hypertension - Plan Admit the patient to the medical floor. Sepsis protocol initiated. Patient will be treated with broad-spectrum antibiotic-IV cefepime and vancomycin. Follow cultures. Start IV dexamethasone for possible Covid pneumonia. Slow IV hydration. Reconcile and continue other home medications.. - Advance Directives Does patient have a Living Will: No Does patient have a Durable POA for Healthcare: No
[2021-09-27 20:33] VITALS: BMI 41.7
[2021-09-27] MEDS ORDERED: VANCOMYCIN 1 GM in NA CHLORIDE 0.9% 250 ML IVPB ONE (21:00)
[2021-09-27] MEDS: NA CHLORIDE 0.9% 1,000 ML IV SCH (21:11)
[2021-09-27] MEDS: CEFEPIME 1 GM in NA CHLORIDE 0.9% 100 ML IV SCH (21:11)
[2021-09-27] MEDS: ACETAMINOPHEN 500 MG TAB PO PRN (21:12)
[2021-09-27] MEDS: dexAMETHasone 4 MG/ML VIAL IV SCH (22:32)
[2021-09-27] MEDS ORDERED: VANCOMYCIN 1.5 GM in NA CHLORIDE 0.9% 500 ML IVPB ONE (23:00)
[2021-09-28 05:54] LABS: Absolute Lymphocytes (CBC) 0.7 K/uL (0.7-4.9); Hematocrit 33.8 % (36.0-45.0); Lymphocytes % 4.7 % (15.3-44.8); MPV 7.1 fL (7.6-11.3); RBC Red Blood Cell Count 3.73 M/uL (3.86-4.86)
[2021-09-28 06:13] LABS: Blood Morphology Comment NOT SEEN (NOT SEEN); Platelet Estimate ADEQ
[2021-09-28 06:56] LABS: Albumin 2.5 g/dL (3.4-5.0); Bilirubin Total 0.3 mg/dL (0.2-1.0); Potassium 3.8 mmol/L (3.5-5.1); Protein, Total 6.3 g/dL (6.4-8.2); Thyroid Stimulating Hormone 0.295 uIU/mL (0.360-3.740)
[2021-09-28] MEDS ORDERED: PNEUMOCOCCAL VACCINE 0.5 ML IMVAC ONE (08:00)
[2021-09-28] MEDS ORDERED: POTASSIUM CL SA 10 MEQ TAB PO ONE (09:00)
[2021-09-28] MEDS: CEFEPIME 1 GM in NA CHLORIDE 0.9% 100 ML IV SCH ×2 (09:05→20:52)
[2021-09-28] MEDS: ENOXAPARIN 40 MG/0.4 ML SQ SCH (09:06)
[2021-09-28] MEDS: dexAMETHasone 4 MG/ML VIAL IV SCH (09:07)
--- NOTE | 2021-09-28 12:50 | EKG ---
Test Date: 2021-09-27 Test Time: 10:31:12 Chief Resource Officer: MEASUREMENT RESULTS: Intervals: Rate: 117 WI: 114 QRSD: 82 QT: 366 QTc: 510 [place]: P: 44 WI: 114 QRS: 9 T: 19 INTERPRETIVE STATEMENTS: Sinus tachycardia Nonspecific ST abnormality Abnormal ECG Compared to ECG 08/11/2021 08:49:57 Left ventricular hypertrophy no longer present ST (T wave) deviation still present Electronically Signed On 09-28-21 12:46:47 ROCK [employer]OL INSULATOR by Anthony Rios
[2021-09-28 14:09] LABS: Magnesium 1.7
--- NOTE | 2021-09-28 16:28 | P.PN ---
Subjective Date of Service: 09/28/21 Chief Complaint: Sepsis Patient states he feels much better. She has been afebrile. 2 blood culture bottles growing strep. She is bedridden at baseline. Physical Examination - Vital Signs Temperature: 98.5 F Blood Pressure: 137/62 Pulse: 57 Respirations: 18 Pulse Ox (%): 98 - Physical Exam General: Alert, In no apparent distress, Oriented x3 HEENT: Mucous membr. moist/pink Neck: Supple, JVD not distended Respiratory: Clear to auscultation bilaterally, Normal air movement Cardiovascular: Regular rate/rhythm, Normal S1 S2, Edema (Bilateral legs) Gastrointestinal: Normal bowel sounds, Soft and benign, Non-distended, No tenderness Musculoskeletal: No tenderness Integumentary: Other (Bilateral lower extremity venous stasis dermatitis.) Neurological: Other (Paraplegic.) Assessment And Plan - Current Problems (Diagnosis) (1) Sepsis Current Visit: Yes Status: Acute (2) Pneumonia due to COVID-19 virus Current Visit: Yes Status: Acute (3) Hypertension Current Visit: No Status: Acute Qualifiers: Hypertension type: essential hypertension (4) Functional quadriplegia Current Visit: Yes Status: Acute (5) Streptococcal bacteremia Current Visit: Yes Status: Acute - Plan Patient with all blood culture bottles growing strep. Continue antibiotics. Follow cultures. Continue IV dexamethasone for possible Covid pneumonia. Slow IV hydration. Continue other home medications. Supportive measures-antipyretics as needed.
[2021-09-28] MEDS: NA CHLORIDE 0.9% 1,000 ML IV SCH (16:31)
[2021-09-28] MEDS: PANTOPRAZOLE 40MG TABLET PO SCH (20:52)
[2021-09-28] MEDS: ACETAMINOPHEN 500 MG TAB PO PRN (21:45)
[2021-09-28] MEDS ORDERED: VANCOMYCIN 1.75 GM in NA CHLORIDE 0.9% 500 ML IVPB SCH ×2 (22:00→23:00)
[2021-09-29] MEDS: BENZONATATE 100 MG CAP PO PRN (03:11)
[2021-09-29] MEDS: ONDANSETRON 4 MG/2 ML VIAL IV PRN (06:36)
[2021-09-29] MEDS: PANTOPRAZOLE 40MG TABLET PO SCH ×2 (06:36→16:30)
[2021-09-29] MEDS ORDERED: MAGNES/ALUMIN/SIMET 30ML UCUP PO PRN (08:19)
[2021-09-29] MEDS: LEVOTHYROXINE SOD 0.088 MG TAB PO SCH (08:30)
[2021-09-29] MEDS: CITALOPRAM 10 MG TABLET PO SCH (09:00)
[2021-09-29] MEDS: CETIRIZINE HCL 5 MG TABLET PO SCH (09:24)
[2021-09-29] MEDS: ENOXAPARIN 40 MG/0.4 ML SQ SCH (09:24)
[2021-09-29] MEDS: CEFEPIME 1 GM in NA CHLORIDE 0.9% 100 ML IV SCH (09:24)
[2021-09-29] MEDS: GABAPENTIN 100 MG CAP PO SCH ×3 (09:24→20:49)
[2021-09-29] MEDS: FERROUS SULFATE 325 MG TAB PO SCH ×2 (09:24→20:49)
[2021-09-29] MEDS: dexAMETHasone 4 MG/ML VIAL IV SCH (09:24)
[2021-09-29] MEDS: DIVALPROEX NA 125 MG CAP PO SCH ×2 (09:39→20:49)
[2021-09-29] MEDS: BUSPIRONE HCL 15 MG TABLET PO SCH ×3 (09:39→20:49)
[2021-09-29] MEDS: FAMOTIDINE 20 MG TAB PO SCH (09:39)
[2021-09-29] MEDS: CYANOCOBALAMIN 1,000 MCG TAB PO SCH (09:39)
[2021-09-29] MEDS: NA CHLORIDE 0.9% 1,000 ML IV SCH (11:51)
--- NOTE | 2021-09-29 15:41 | P.PN ---
Subjective Date of Service: 09/29/21 Chief Complaint: Sepsis Patient has no new complain. She has been afebrile. She has good oral intake. Physical Examination - Vital Signs Temperature: 98.5 F Blood Pressure: 137/62 Pulse: 57 Respirations: 18 Pulse Ox (%): 98 - Physical Exam General: Alert, In no apparent distress, Oriented x3 HEENT: Mucous membr. moist/pink Neck: JVD not distended Respiratory: Clear to auscultation bilaterally, Normal air movement Cardiovascular: Regular rate/rhythm, Normal S1 S2, Edema Gastrointestinal: Soft and benign, Non-distended Musculoskeletal: Swelling (Bilateral legs) Neurological: Other (Paraplegic) - Studies Microbiology Data (last 24 hrs): 09/27/21 10:50 Blood - Blood Blood Culture Gram Stain - Final 09/27/21 10:50 Blood - Blood Gram Stain - Final 09/27/21 10:30 Blood - Blood Blood Culture Gram Stain - Final 09/27/21 10:30 Blood - Blood Gram Stain - Final Assessment And Plan - Current Problems (Diagnosis) (1) Sepsis Current Visit: Yes Status: Acute (2) Pneumonia due to COVID-19 virus Current Visit: Yes Status: Acute (3) Hypertension Current Visit: No Status: Acute Qualifiers: Hypertension type: essential hypertension (4) Functional quadriplegia Current Visit: Yes Status: Acute (5) Streptococcal bacteremia Current Visit: Yes Status: Acute - Plan All blood culture bottles growing nonbeta hemolytic strep Antibiotics changed to IV Rocephin Repeat blood culture. Infectious disease consult. Patient may need to complete about 1 week of IV antibiotics. Patient is stable on room air. Discontinue dexamethasone Discontinue IV fluid. Continue other home medications.
[2021-09-29] MEDS: CEFTRIAXONE 2,000 MG in NA CHLORIDE 0.9% 100 ML IV SCH (17:00)
[2021-09-29] MEDS: ACETAMINOPHEN 500 MG TAB PO PRN (20:51)
[2021-09-29] MEDS ORDERED: CEFTRIAXONE 1,000 MG in NA CHLORIDE 0.9% 100 ML IVPB SCH (21:00)
[2021-09-30 03:59] LABS: Absolute Lymphocytes (CBC) 0.9 K/uL (0.7-4.9); Lymphocytes % 7.3 % (15.3-44.8); RBC Red Blood Cell Count 3.73 M/uL (3.86-4.86)
[2021-09-30] MEDS: LEVOTHYROXINE SOD 0.088 MG TAB PO SCH (06:33)
[2021-09-30] MEDS: ACETAMINOPHEN 500 MG TAB PO PRN ×2 (06:33→16:28)
[2021-09-30] MEDS: FAMOTIDINE 20 MG TAB PO SCH (08:39)
[2021-09-30] MEDS: CETIRIZINE HCL 5 MG TABLET PO SCH (08:39)
[2021-09-30] MEDS: GABAPENTIN 100 MG CAP PO SCH ×3 (08:39→20:30)
[2021-09-30] MEDS: CITALOPRAM 10 MG TABLET PO SCH (08:39)
[2021-09-30] MEDS: FERROUS SULFATE 325 MG TAB PO SCH ×2 (08:40→20:30)
[2021-09-30] MEDS: CYANOCOBALAMIN 1,000 MCG TAB PO SCH (08:40)
[2021-09-30] MEDS: PANTOPRAZOLE 40MG TABLET PO SCH ×2 (08:40→16:29)
[2021-09-30] MEDS: DIVALPROEX NA 125 MG CAP PO SCH ×2 (08:40→20:30)
[2021-09-30] MEDS: BUSPIRONE HCL 15 MG TABLET PO SCH ×3 (08:40→20:30)
[2021-09-30] MEDS: ENOXAPARIN 40 MG/0.4 ML SQ SCH (08:40)
--- NOTE | 2021-09-30 12:02 | P.CNS ---
Date of Consult: 09/30/21 Chief Complaint: Sepsis History of Present Illness: Patient is a 66-year-old female with a past medical history of hypothyroidism and chronic lymphedema who presented to the emergency department from her long-term secondary to vomiting nausea diarrhea fever and chills. Patient te sted positive for COVID-19 in the ED. Patient presented with temperature and tachycardia meeting SIRS criteria. Suspected source of infection was pneumonia. Sepsis protocol was initiated. Blood cultures obtained on 09/27 grew GBS and 4 out of 4 bottles. Repeat blood cultures obtained on 09/29 are pending. Antibiotics deescalated from IV vancomycin and IV cefepime to monotherapy with IV Rocephin. Penicillins not used as patient is allergic. Echo pending to assess for acute vegetation. Chest x-ray showing right lower lobe ossification concerning for mass, consolidation, or atelectasis. Patient currently reports nausea, productive cough of yellow-tinged sputum, and vomiting. Patient denies shortness of breath, chest pain, or diarrhea. Infectious disease has been consulted to manage the patient's antibiotic regimen. Allergies Penicillins Allergy (Verified 07/07/20 07:56) Rash Home Medications: Acetaminophen [Acetaminophen Extra Strength] 2 tab PO Q8H PRN 08/11/21 Ascorbic Acid 1 tab PO DAILY 08/11/21 Buspirone HCl 1 tab PO TID 08/11/21 Cetirizine HCl 1 tab PO DAILY 08/11/21 Cholecalciferol (Vitamin D3) [Vitamin D3] 1 cap PO DAILY 08/11/21 Cyanocobalamin [Vitamin B-12*] 1 tab PO DAILY 08/11/21 Famotidine [Pepcid] 1 tab PO DAILY 08/11/21 Ferrous Sulfate 1 tab PO BID 08/11/21 Gabapentin 1 cap PO TID 08/11/21 Levothyroxine Sodium 1 tab PO DAILY 08/11/21 Losartan Potassium 1 tab PO DAILY 08/11/21 Mag Hydrox/Al Hydrox/Simeth [Maalox Maximum Strength Susp] 30 ml PO Q6HP PRN 08/11/21 Magnesium Oxide 1 tab PO DAILY 08/11/21 Pravastatin Sodium 1 tab PO BEDTIME 08/11/21 Simethicone 1 cap PO Q8H PRN 08/11/21 traMADol HCL [Ultram*] 1 tab PO Q8HP PRN 08/11/21 Citalopram Hydrobromide [Celexa] 10 mg PO DAILY 09/27/21 Divalproex Sodium [Depakote] 125 mg PO BID 09/27/21 Meclizine HCl 25 mg PO Q12H PRN 09/27/21 Sertraline [Zoloft] 50 mg PO DAILY 09/27/21 guaiFENesin [Guaifenesin] 400 mg PO BID PRN 09/27/21 - Past Medical/Surgical History Diabetic: No -: Hypothyroidism -: Hyperlipidemia -: Chronic lymphedema -: Hypertension -: Anemia chronic disease -: Depression with anxiety -: Obesity Psychosocial/ Personal History: Patient lives at [facility] - Family History Father Medical History: Other (see notes) Notes: Glaucoma Mother Medical History: Heart disease - Social History Smoking Status: Unknown if ever smoked Alcohol use: No CD- Drugs: No Caffeine use: Yes Place of Residence: [facility] Review of Systems 10-point ROS is otherwise unremarkable Physical Examination Temp Pulse Resp BP Pulse Ox 97.2 F 43 L 22 H 145/70 H 98 09/30/21 08:00 09/30/21 08:00 09/30/21 08:00 09/30/21 08:00 09/30/21 08:00 General: Alert, In no apparent distress HEENT: Atraumatic, Normocephalic Neck: Supple, 2+ carotid pulse no bruit Respiratory: Other (Bibasilar crackles ) Cardiovascular: Regular rate/rhythm, Normal S1 S2 Capillary refill: <2 Seconds Gastrointestinal: Normal bowel sounds, Soft and benign Integumentary: Other (Chronic lymphedema to bilateral lower extremities. No wounds, erythema, or warmth.) Neurological: Normal speech Conclusions/Impression: Antibiotics Rocephin: 09/29current Cefepime: Vancomycin Assessment/plan Gram-positive bacteremia Blood cultures obtained on 09/29 grew GBS in 4/4 bottles. Repeat blood cultures obtained on 09/29 ending. Source of infection likely right lower lobe pneumonia. Patient will need to be treated with antibiotics for 2 weeks following negative blood culture report. Continue monotherapy with IV Rocephin. Transthoracic echocardiogram pending to assess for acute vegetation. COVID-19 PNA Patient currently aerating well on room air. Continue to monitor closely. No clinical indication for remdesivir or dexamethasone therapy at this time. Chest x-ray showed right lower lobe opacification concerning for pneumonia/mass/atelectasis. Based on patient's clinical presentation is likely pneumonia. Sputum culture pending. Hypothyroidism Chronic bilateral lower extremity lymphedema -Medical management per primary team Plan of care discussed with Dr. Rolon Thank you for consultation.
--- NOTE | 2021-09-30 16:12 | P.PN ---
Subjective Date of Service: 09/30/21 Chief Complaint: Sepsis Patient has no new complain. No issues overnight. Physical Examination - Vital Signs Temperature: 98.3 F Blood Pressure: 143/63 Pulse: 44 Respirations: 21 Pulse Ox (%): 99 - Physical Exam General: Alert, In no apparent distress, Oriented x3 Neck: JVD not distended Respiratory: Clear to auscultation bilaterally, Normal air movement Cardiovascular: Regular rate/rhythm, Normal S1 S2, Edema (Bilateral legs) Gastrointestinal: Normal bowel sounds, Soft and benign, Non-distended, No tenderness Musculoskeletal: No swelling Integumentary: No cyanosis, Other (Bilateral lower extremity venous stasis dermatitis) Neurological: Other (Paraplegic) - Studies Microbiology Data (last 24 hrs): 09/27/21 10:50 Blood - Blood Aerobic Blood Culture - Final Streptococcus Agalactiae [facility] 09/27/21 10:50 Blood - Blood Blood Culture Gram Stain - Final 09/27/21 10:50 Blood - Blood Anaerobic Blood Culture - Final Streptococcus Agalactiae [facility] 09/27/21 10:50 Blood - Blood Gram Stain - Final 09/27/21 10:30 Blood - Blood Aerobic Blood Culture - Final Streptococcus Agalactiae [facility] 09/27/21 10:30 Blood - Blood Blood Culture Gram Stain - Final 09/27/21 10:30 Blood - Blood Anaerobic Blood Culture - Final Streptococcus Agalactiae [facility] 09/27/21 10:30 Blood - Blood Gram Stain - Final Assessment And Plan - Current Problems (Diagnosis) (1) Sepsis Current Visit: Yes Status: Acute (2) Pneumonia due to COVID-19 virus Current Visit: Yes Status: Acute (3) Hypertension Current Visit: No Status: Acute Qualifiers: Hypertension type: essential hypertension (4) Functional quadriplegia Current Visit: Yes Status: Acute (5) Streptococcal bacteremia Current Visit: Yes Status: Acute - Plan All blood culture bottles grew strep agalactiae Continue IV Rocephin. Infectious disease input appreciated. Echocardiogram requested. Follow repeat blood culture. Patient may need to complete about 2 week of IV antibiotics. Patient is stable on room air. Will place PICC line for prolonged IV antibiotics once repeat blood culture yield no growth Continue other home medications.
[2021-09-30] MEDS: CEFTRIAXONE 2,000 MG in NA CHLORIDE 0.9% 100 ML IV SCH (16:27)
[2021-10-01] MEDS: LEVOTHYROXINE SOD 0.088 MG TAB PO SCH (06:40)
[2021-10-01] MEDS: FAMOTIDINE 20 MG TAB PO SCH (08:29)
[2021-10-01] MEDS: CYANOCOBALAMIN 1,000 MCG TAB PO SCH (08:29)
[2021-10-01] MEDS: CETIRIZINE HCL 5 MG TABLET PO SCH (08:29)
[2021-10-01] MEDS: GABAPENTIN 100 MG CAP PO SCH ×3 (08:30→20:30)
[2021-10-01] MEDS: CITALOPRAM 10 MG TABLET PO SCH (08:30)
[2021-10-01] MEDS: PANTOPRAZOLE 40MG TABLET PO SCH ×2 (08:30→17:36)
[2021-10-01] MEDS: FERROUS SULFATE 325 MG TAB PO SCH ×2 (08:30→20:30)
[2021-10-01] MEDS: ENOXAPARIN 40 MG/0.4 ML SQ SCH (08:30)
[2021-10-01] MEDS: DIVALPROEX NA 125 MG CAP PO SCH ×2 (08:30→20:30)
[2021-10-01] MEDS: BUSPIRONE HCL 15 MG TABLET PO SCH ×3 (08:30→20:30)
--- NOTE | 2021-10-01 12:39 | P.PN ---
Subjective Date of Service: 10/01/21 Chief Complaint: Sepsis Patient has complain. She states that she is eating well. Also had good sleep last night. Physical Examination - Vital Signs Temperature: 97.1 F Blood Pressure: 151/61 Pulse: 44 Respirations: 16 Pulse Ox (%): 99 - Physical Exam General: Alert, In no apparent distress, Oriented x3 HEENT: Mucous membr. moist/pink Neck: JVD not distended Respiratory: Clear to auscultation bilaterally, Normal air movement Cardiovascular: Regular rate/rhythm, Normal S1 S2, Edema (Bilateral legs) Gastrointestinal: Soft and benign, Non-distended, No tenderness Musculoskeletal: No tenderness Integumentary: No rashes, No cyanosis Neurological: Other (Paraplegia) - Studies Microbiology Data (last 24 hrs): 09/27/21 10:50 Blood - Blood Aerobic Blood Culture - Final Streptococcus Agalactiae [facility] 09/27/21 10:50 Blood - Blood Blood Culture Gram Stain - Final 09/27/21 10:50 Blood - Blood Anaerobic Blood Culture - Final Streptococcus Agalactiae [facility] 09/27/21 10:50 Blood - Blood Gram Stain - Final 09/27/21 10:30 Blood - Blood Aerobic Blood Culture - Final Streptococcus Agalactiae [facility] 09/27/21 10:30 Blood - Blood Blood Culture Gram Stain - Final 09/27/21 10:30 Blood - Blood Anaerobic Blood Culture - Final Streptococcus Agalactiae [facility] 09/27/21 10:30 Blood - Blood Gram Stain - Final Assessment And Plan - Current Problems (Diagnosis) (1) Sepsis Current Visit: Yes Status: Acute (2) Pneumonia due to COVID-19 virus Current Visit: Yes Status: Acute (3) Hypertension Current Visit: No Status: Acute Qualifiers: Hypertension type: essential hypertension (4) Functional quadriplegia Current Visit: Yes Status: Acute (5) Streptococcal bacteremia Current Visit: Yes Status: Acute - Plan All blood culture bottles grew strep agalactiae Continue IV Rocephin. Infectious disease is following. Echocardiogram requested. Repeat blood culture shows no growth. Place PICC line for outpatient IV antibiotics. Patient is stable on room air. Continue other home medications. Diet as tolerated.
[2021-10-01] MEDS: ACETAMINOPHEN 500 MG TAB PO PRN (14:02)
[2021-10-01] MEDS ORDERED: NA CHLORIDE 0.9% 100 ML ONE (17:28)
[2021-10-01] MEDS: CEFTRIAXONE 2,000 MG in NA CHLORIDE 0.9% 100 ML IV SCH (17:36)
[2021-10-02 04:17] LABS: Absolute Lymphocytes (CBC) 2.5 K/uL (0.7-4.9); Hematocrit 35.9 % (36.0-45.0); Lymphocytes % 34.5 % (15.3-44.8); MPV 7.3 fL (7.6-11.3); RBC Red Blood Cell Count 3.98 M/uL (3.86-4.86)
[2021-10-02 04:55] LABS: Potassium 3.8 mmol/L (3.5-5.1)
[2021-10-02] MEDS: LEVOTHYROXINE SOD 0.088 MG TAB PO SCH (05:44)
[2021-10-02] MEDS ORDERED: POTASSIUM CL SA 10 MEQ TAB PO ONE (06:50)
[2021-10-02] MEDS ORDERED: MAGNESIUM SULFATE 1 gm IVPB 1 GM/100 ML BAG IV ONE (06:54)
[2021-10-02] MEDS: CYANOCOBALAMIN 1,000 MCG TAB PO SCH (08:16)
[2021-10-02] MEDS: DIVALPROEX NA 125 MG CAP PO SCH ×2 (08:16→20:26)
[2021-10-02] MEDS: CETIRIZINE HCL 5 MG TABLET PO SCH (08:16)
[2021-10-02] MEDS: PANTOPRAZOLE 40MG TABLET PO SCH ×2 (08:16→16:07)
[2021-10-02] MEDS: FAMOTIDINE 20 MG TAB PO SCH (08:16)
[2021-10-02] MEDS: CITALOPRAM 10 MG TABLET PO SCH (08:17)
[2021-10-02] MEDS: ENOXAPARIN 40 MG/0.4 ML SQ SCH (08:17)
[2021-10-02] MEDS: BUSPIRONE HCL 15 MG TABLET PO SCH ×3 (08:17→20:26)
[2021-10-02] MEDS: FERROUS SULFATE 325 MG TAB PO SCH ×2 (08:17→20:26)
[2021-10-02] MEDS: GABAPENTIN 100 MG CAP PO SCH ×3 (08:17→20:26)
--- NOTE | 2021-10-02 15:09 | P.PN ---
Subjective Date of Service: 10/02/21 Chief Complaint: Sepsis Patient has no complaint Physical Examination - Vital Signs Temperature: 97.5 F Blood Pressure: 130/61 Pulse: 50 Respirations: 18 Pulse Ox (%): 98 - Physical Exam General: Alert, In no apparent distress Neck: JVD not distended Respiratory: Clear to auscultation bilaterally, Normal air movement Cardiovascular: Regular rate/rhythm, Edema (Bilateral legs) Gastrointestinal: Soft and benign, Non-distended, No tenderness Musculoskeletal: No tenderness Integumentary: No cyanosis Assessment And Plan - Current Problems (Diagnosis) (1) Sepsis Current Visit: Yes Status: Acute (2) Pneumonia due to COVID-19 virus Current Visit: Yes Status: Acute (3) Hypertension Current Visit: No Status: Acute Qualifiers: Hypertension type: essential hypertension (4) Functional quadriplegia Current Visit: Yes Status: Acute (5) Streptococcal bacteremia Current Visit: Yes Status: Acute - Plan All blood culture bottles grew strep agalactiae. Repeat culture shows no growth. Continue IV Rocephin. Infectious disease is following. Patient may need 10 to 14 days of IV antibiotics Echocardiogram requested. PICC line for outpatient IV antibiotics. Continue other home medications. Diet as tolerated.
[2021-10-02] MEDS: ACETAMINOPHEN 500 MG TAB PO PRN (16:07)
[2021-10-02] MEDS: CEFTRIAXONE 2,000 MG in NA CHLORIDE 0.9% 100 ML IV SCH (17:21)
[2021-10-03] MEDS: LEVOTHYROXINE SOD 0.075 MG TAB PO SCH (05:04)
[2021-10-03] MEDS: ACETAMINOPHEN 500 MG TAB PO PRN ×3 (05:04→22:28)
[2021-10-03] MEDS: DIVALPROEX NA 125 MG CAP PO SCH ×2 (09:09→21:23)
[2021-10-03] MEDS: FERROUS SULFATE 325 MG TAB PO SCH ×2 (09:09→21:23)
[2021-10-03] MEDS: BUSPIRONE HCL 15 MG TABLET PO SCH ×3 (09:09→21:24)
[2021-10-03] MEDS: PANTOPRAZOLE 40MG TABLET PO SCH ×2 (09:10→17:19)
[2021-10-03] MEDS: CETIRIZINE HCL 5 MG TABLET PO SCH (09:10)
[2021-10-03] MEDS: CITALOPRAM 10 MG TABLET PO SCH (09:10)
[2021-10-03] MEDS: FAMOTIDINE 20 MG TAB PO SCH (09:11)
[2021-10-03] MEDS: ENOXAPARIN 40 MG/0.4 ML SQ SCH (09:11)
[2021-10-03] MEDS: CYANOCOBALAMIN 1,000 MCG TAB PO SCH (09:11)
[2021-10-03] MEDS: BENZONATATE 100 MG CAP PO PRN (09:18)
[2021-10-03] MEDS: GABAPENTIN 100 MG CAP PO SCH ×3 (09:18→21:23)
[2021-10-03] MEDS ORDERED: NYSTATIN PWDR 100000 UNIT/GM TOP PRN (11:56)
--- NOTE | 2021-10-03 12:21 | P.PN ---
Subjective Date of Service: 10/03/21 Chief Complaint: Sepsis Patient seen and examined at bedside, states she is feeling well. Denies nausea/vomiting/diarrhea. Review of Systems 10-point ROS is otherwise unremarkable Physical Examination - Vital Signs Temperature: 97.0 F Blood Pressure: 145/59 Pulse: 54 Respirations: 16 Pulse Ox (%): 99 - Studies Laboratory Last Values WBC 7.00 K/uL (4.3-10.9) 09/27/21 10:50 RBC 4.44 M/uL (3.86-4.86) 09/27/21 10:50 Hgb 13.2 g/dL (12.0-15.0) 09/27/21 10:50 Hct 40.9 % (36.0-45.0) 09/27/21 10:50 MCV 92.0 fL (80-100) 09/27/21 10:50 MCH 29.8 pg (27.0-35.0) 09/27/21 10:50 MCHC 32.4 g/dL (32.0-36.0) 09/27/21 10:50 RDW 13.8 % (12.1-15.2) 09/27/21 10:50 Plt Count 228 K/uL (152-406) 09/27/21 10:50 MPV 7.1 fL (7.6-11.3) L 09/27/21 10:50 Neutrophils % 84.4 % (41.7-73.7) H 09/27/21 10:50 Lymphocytes % 11.2 % (15.3-44.8) L 09/27/21 10:50 Monocytes % 3.7 % (3.3-12.3) 09/27/21 10:50 Eosinophils % 0.4 % (0-4.4) 09/27/21 10:50 Basophils % 0.3 % (0-1.3) 09/27/21 10:50 Absolute Neutrophils 5.9 K/uL (1.8-8.0) 09/27/21 10:50 Absolute Lymphocytes 0.8 K/uL (0.7-4.9) 09/27/21 10:50 Absolute Monocytes 0.3 K/uL (0.1-1.3) 09/27/21 10:50 Absolute Eosinophils 0.0 K/uL (0-0.5) 09/27/21 10:50 Absolute Basophils 0.0 K/uL (0-0.5) 09/27/21 10:50 PT 14.4 SECONDS (9.5-12.5) H 09/27/21 10:50 INR 1.25 09/27/21 10:50 APTT 27.4 SECONDS (24.3-36.9) 09/27/21 10:50 D-Dimer 736 FEUng/mL (<500) H* 09/27/21 10:50 Sodium 140 mmol/L (136-145) 09/27/21 10:50 Potassium 3.8 mmol/L (3.5-5.1) 09/27/21 10:50 Chloride 107 mmol/L (98-107) 09/27/21 10:50 Carbon Dioxide 23 mmol/L (21-32) 09/27/21 10:50 BUN 11 mg/dL (7-18) 09/27/21 10:50 Creatinine 1.10 mg/dL (0.55-1.3) 09/27/21 10:50 Estimated GFR 50 mL/min (=/>90) L 09/27/21 10:50 Glucose 98 mg/dL (74-106) 09/27/21 10:50 Lactic Acid 2.7 mmol/L (0.4-2.0) H 09/27/21 15:23 Calcium 8.7 mg/dL (8.5-10.1) 09/27/21 10:50 Total Bilirubin 0.3 mg/dL (0.2-1.0) 09/27/21 10:50 Direct Bilirubin 0.1 mg/dL (0-0.2) 09/27/21 10:50 AST 28 U/L (15-37) 09/27/21 10:50 ALT 24 U/L (12-78) 09/27/21 10:50 Alkaline Phosphatase 96 U/L (45-117) 09/27/21 10:50 Creatine Kinase 51 U/L (26-192) 09/27/21 10:50 CK-MB (CK-2) < 1.0 ng/mL (1.0-3.6) L 09/27/21 10:50 Troponin I High Sens 33.90 pg/mL (<58.9) 09/27/21 10:50 Serum Total Protein 7.6 g/dL (6.4-8.2) 09/27/21 10:50 Albumin 3.4 g/dL (3.4-5.0) 09/27/21 10:50 Globulin 4.2 g/dL (2.3-3.5) H 09/27/21 10:50 Albumin/Globulin Ratio 0.8 (1.1-1.8) L 09/27/21 10:50 Amylase 34 U/L (25-115) 09/27/21 10:50 Lipase 125 U/L (73-393) 09/27/21 10:50 Procalcitonin 0.20 ng/mL (<0.050) H 09/27/21 10:50 Urine RBC Cancelled 09/27/21 10:20 Urine WBC Cancelled 09/27/21 10:20 Ur Squamous Epith Cells Cancelled 09/27/21 10:20 Ur Urothelial Cells Cancelled 09/27/21 10:20 Calcium Oxalate Crystal Cancelled 09/27/21 10:20 Uric Acid Crystals Cancelled 09/27/21 10:20 Triple Phos Crystals Cancelled 09/27/21 10:20 Other Crystals Cancelled 09/27/21 10:20 Amorphous Sediment Cancelled 09/27/21 10:20 Glitter Cells Cancelled 09/27/21 10:20 Urine Bacteria Cancelled 09/27/21 10:20 Hyaline Casts Cancelled 09/27/21 10:20 Fine Granular Casts Cancelled 09/27/21 10:20 Coarse Granular Casts Cancelled 09/27/21 10:20 Waxy Casts Cancelled 09/27/21 10:20 RBC Casts Cancelled 09/27/21 10:20 WBC Casts Cancelled 09/27/21 10:20 Urine Mucus Cancelled 09/27/21 10:20 Urine Other Cancelled 09/27/21 10:20 Urine Trichomonas Cancelled 09/27/21 10:20 Urine Yeast Cancelled 09/27/21 10:20 Ur Yeast w Hyphae Cancelled 09/27/21 10:20 Urine Yeast (Budding) Cancelled 09/27/21 10:20 Urine Sperm Cancelled 09/27/21 10:20 Urine Culture Reflexed Cancelled 09/27/21 10:20 Urine Total Volume Cancelled 09/27/21 10:20 SARS-CoV-2 Rap RNA(RT-PCR) Positive (NEGATIVE) A 09/27/21 10:45 Assessment And Plan - Plan Physical Exam: General: Alert, In no apparent distress HEENT: Atraumatic, Normocephalic Neck: Supple, 2+ carotid pulse no bruit Respiratory: Other (Bibasilar crackles ) Cardiovascular: Regular rate/rhythm, Normal S1 S2 Capillary refill: <2 Seconds Gastrointestinal: Normal bowel sounds, Soft and benign Integumentary: Other (Chronic lymphedema to bilateral lower extremities. Skin tears to medial bilateral thighs. Cutaneous candidiasis to left breast skin fold and lower abdominal skin fold. Neurological: Normal speech Conclusions/Impression: Antibiotics Rocephin: 09/29current Cefepime: Vancomycin Assessment/plan Gram-positive bacteremia Blood cultures obtained on 09/28grew GBS in 4/4 bottles. Repeat blood cultures obtained on 09/29 showed no growth. Source of infection likely right lower lobe pneumonia. Patient will need to be treated with antibiotics for 2 weeks following negative blood culture report. Continue monotherapy with IV Rocephin. Transthoracic echocardiogram pending to assess for acute vegetation. Recommend PICC line placement. Cutaneous candidiasis Cutaneous candidiasis noted in several areas and skin folds. Apply nystatin powder daily. COVID-19 PNA Patient currently aerating well on room air. Continue to monitor closely. No clinical indication for remdesivir or dexamethasone therapy at this time. Chest x-ray showed right lower lobe opacification concerning for pneumonia/mass/atelectasis. Based on patient's clinical presentation is likely pneumonia. Sputum culture growing yeast and normal respiratory jelly. Hypothyroidism Chronic bilateral lower extremity lymphedema -Medical management per primary team Plan of care discussed with Dr. Rolon Thank you for consultation.
--- NOTE | 2021-10-03 14:19 | ECHO ---
HEIGHT: 5 ft 1 in WEIGHT: 221 lb 0 oz DATE OF STUDY: 10/03/[address]: washington wharton 2-DIMENSIONAL: YES M.MODE: YES DOPPLER: YES COLOR FLOW: YES TDS: NO PORTABLE: NO DEFINITY: NO BUBBLE STUDY: NO DIAGNOSIS: ENDOCARDITIS CARDIAC HISTORY: CATHERIZATION: SURGERY: PROSTHETIC VALVE: PACEMAKER: MEASUREMENTS (cm) DIASTOLIC (NORMALS) SYSTOLIC (NORMALS) IVSd 0.9 (0.6-1.2) LA Diam 2.8 (1.9-4.0) LVEF 60-65% LVIDd 4.6 (3.5-5.7) LVIDs 2.6 (2.0-3.5) %FS 44% LVPWd 1.0 (0.6-1.2) Ao Diam 2.5 (2.0-3.7) 2 DIMENSIONAL ASSESSMENT: RIGHT ATRIUM: NORMAL LEFT ATRIUM: NORMAL RIGHT VENTRICLE: NORMAL LEFT VENTRICLE: NORMAL TRICUSPID VALVE: MILD TRICUSPID REGURGITATION MITRAL VALVE: NORMAL PULMONIC VALVE: NORMAL AORTIC VALVE: NORMAL PERICARDIAL EFFUSION: NONE AORTIC ROOT: NORMAL LEFT VENTRICULAR WALL MOTION: NORMAL. DOPPLER/COLOR FLOW: MILD TRICUSPID REGURGITATION. COMMENTS: NORMAL LEFT VENTRICULAR EJECTION FRACTION 50-65% WITH NORMAL WALL MOTION. MILD TRICUSPID REGURGITATION. TECHNOLOGIST: LATASHA GALLARDO
--- NOTE | 2021-10-03 16:16 | P.PN ---
Subjective Date of Service: 10/03/21 Chief Complaint: Sepsis Patient has no complaint. Waiting for PICC line placement. Physical Examination - Vital Signs Temperature: 97.0 F Blood Pressure: 145/59 Pulse: 54 Respirations: 16 Pulse Ox (%): 99 - Physical Exam General: Alert, Oriented x3 HEENT: Mucous membr. moist/pink Neck: JVD not distended Respiratory: Clear to auscultation bilaterally, Normal air movement Cardiovascular: Regular rate/rhythm, Normal S1 S2 Gastrointestinal: Soft and benign, Non-distended Musculoskeletal: No tenderness Integumentary: No cyanosis Assessment And Plan - Current Problems (Diagnosis) (1) Sepsis Current Visit: Yes Status: Acute (2) Pneumonia due to COVID-19 virus Current Visit: Yes Status: Acute (3) Hypertension Current Visit: No Status: Acute Qualifiers: Hypertension type: essential hypertension (4) Functional quadriplegia Current Visit: Yes Status: Acute (5) Streptococcal bacteremia Current Visit: Yes Status: Acute - Plan All blood culture bottles grew strep agalactiae. Repeat culture shows no growth. Continue IV Rocephin. Infectious disease is following. ID recommend 14 days of IV antibiotics from negative blood culture Echocardiogram is unremarkable PICC line for outpatient IV antibiotics requested. Continue other home medications. Diet as tolerated.
[2021-10-03] MEDS: CEFTRIAXONE 2,000 MG in NA CHLORIDE 0.9% 100 ML IV SCH (17:18)
[2021-10-03] MEDS: ONDANSETRON 4 MG/2 ML VIAL IV PRN (22:27)
[2021-10-04] MEDS: LEVOTHYROXINE SOD 0.075 MG TAB PO SCH (05:30)
[2021-10-04] MEDS ORDERED: POTASSIUM CL SA 10 MEQ TAB PO ONE (05:48)
[2021-10-04] MEDS: BUSPIRONE HCL 15 MG TABLET PO SCH ×2 (08:29→13:53)
[2021-10-04] MEDS: CYANOCOBALAMIN 1,000 MCG TAB PO SCH (08:29)
[2021-10-04] MEDS: FAMOTIDINE 20 MG TAB PO SCH (08:29)
[2021-10-04] MEDS: CETIRIZINE HCL 5 MG TABLET PO SCH (08:29)
[2021-10-04] MEDS: PANTOPRAZOLE 40MG TABLET PO SCH (08:29)
[2021-10-04] MEDS: DIVALPROEX NA 125 MG CAP PO SCH (08:29)
[2021-10-04] MEDS: FERROUS SULFATE 325 MG TAB PO SCH (08:29)
[2021-10-04] MEDS: GABAPENTIN 100 MG CAP PO SCH ×2 (08:30→13:53)
[2021-10-04] MEDS: ENOXAPARIN 40 MG/0.4 ML SQ SCH (08:30)
[2021-10-04] MEDS: CITALOPRAM 10 MG TABLET PO SCH (08:30)
[2021-10-04 11:12] VITALS: O2SAT 98
[2021-10-04] MEDS: BENZONATATE 100 MG CAP PO PRN (11:20)
--- NOTE | 2021-10-04 11:35 | P.PN ---
Subjective Date of Service: 10/04/21 Chief Complaint: Sepsis Patient seen and examined at bedside, getting right arm PICC line placed today. Review of Systems 10-point ROS is otherwise unremarkable Physical Examination - Vital Signs Temperature: 96.5 F Blood Pressure: 132/60 Pulse: 53 Respirations: 18 Pulse Ox (%): 98 - Studies Laboratory Last Values WBC 7.00 K/uL (4.3-10.9) 09/27/21 10:50 RBC 4.44 M/uL (3.86-4.86) 09/27/21 10:50 Hgb 13.2 g/dL (12.0-15.0) 09/27/21 10:50 Hct 40.9 % (36.0-45.0) 09/27/21 10:50 MCV 92.0 fL (80-100) 09/27/21 10:50 MCH 29.8 pg (27.0-35.0) 09/27/21 10:50 MCHC 32.4 g/dL (32.0-36.0) 09/27/21 10:50 RDW 13.8 % (12.1-15.2) 09/27/21 10:50 Plt Count 228 K/uL (152-406) 09/27/21 10:50 MPV 7.1 fL (7.6-11.3) L 09/27/21 10:50 Neutrophils % 84.4 % (41.7-73.7) H 09/27/21 10:50 Lymphocytes % 11.2 % (15.3-44.8) L 09/27/21 10:50 Monocytes % 3.7 % (3.3-12.3) 09/27/21 10:50 Eosinophils % 0.4 % (0-4.4) 09/27/21 10:50 Basophils % 0.3 % (0-1.3) 09/27/21 10:50 Absolute Neutrophils 5.9 K/uL (1.8-8.0) 09/27/21 10:50 Absolute Lymphocytes 0.8 K/uL (0.7-4.9) 09/27/21 10:50 Absolute Monocytes 0.3 K/uL (0.1-1.3) 09/27/21 10:50 Absolute Eosinophils 0.0 K/uL (0-0.5) 09/27/21 10:50 Absolute Basophils 0.0 K/uL (0-0.5) 09/27/21 10:50 PT 14.4 SECONDS (9.5-12.5) H 09/27/21 10:50 INR 1.25 09/27/21 10:50 APTT 27.4 SECONDS (24.3-36.9) 09/27/21 10:50 D-Dimer 736 FEUng/mL (<500) H* 09/27/21 10:50 Sodium 140 mmol/L (136-145) 09/27/21 10:50 Potassium 3.8 mmol/L (3.5-5.1) 09/27/21 10:50 Chloride 107 mmol/L (98-107) 09/27/21 10:50 Carbon Dioxide 23 mmol/L (21-32) 09/27/21 10:50 BUN 11 mg/dL (7-18) 09/27/21 10:50 Creatinine 1.10 mg/dL (0.55-1.3) 09/27/21 10:50 Estimated GFR 50 mL/min (=/>90) L 09/27/21 10:50 Glucose 98 mg/dL (74-106) 09/27/21 10:50 Lactic Acid 2.7 mmol/L (0.4-2.0) H 09/27/21 15:23 Calcium 8.7 mg/dL (8.5-10.1) 09/27/21 10:50 Total Bilirubin 0.3 mg/dL (0.2-1.0) 09/27/21 10:50 Direct Bilirubin 0.1 mg/dL (0-0.2) 09/27/21 10:50 AST 28 U/L (15-37) 09/27/21 10:50 ALT 24 U/L (12-78) 09/27/21 10:50 Alkaline Phosphatase 96 U/L (45-117) 09/27/21 10:50 Creatine Kinase 51 U/L (26-192) 09/27/21 10:50 CK-MB (CK-2) < 1.0 ng/mL (1.0-3.6) L 09/27/21 10:50 Troponin I High Sens 33.90 pg/mL (<58.9) 09/27/21 10:50 Serum Total Protein 7.6 g/dL (6.4-8.2) 09/27/21 10:50 Albumin 3.4 g/dL (3.4-5.0) 09/27/21 10:50 Globulin 4.2 g/dL (2.3-3.5) H 09/27/21 10:50 Albumin/Globulin Ratio 0.8 (1.1-1.8) L 09/27/21 10:50 Amylase 34 U/L (25-115) 09/27/21 10:50 Lipase 125 U/L (73-393) 09/27/21 10:50 Procalcitonin 0.20 ng/mL (<0.050) H 09/27/21 10:50 Urine RBC Cancelled 09/27/21 10:20 Urine WBC Cancelled 09/27/21 10:20 Ur Squamous Epith Cells Cancelled 09/27/21 10:20 Ur Urothelial Cells Cancelled 09/27/21 10:20 Calcium Oxalate Crystal Cancelled 09/27/21 10:20 Uric Acid Crystals Cancelled 09/27/21 10:20 Triple Phos Crystals Cancelled 09/27/21 10:20 Other Crystals Cancelled 09/27/21 10:20 Amorphous Sediment Cancelled 09/27/21 10:20 Glitter Cells Cancelled 09/27/21 10:20 Urine Bacteria Cancelled 09/27/21 10:20 Hyaline Casts Cancelled 09/27/21 10:20 Fine Granular Casts Cancelled 09/27/21 10:20 Coarse Granular Casts Cancelled 09/27/21 10:20 Waxy Casts Cancelled 09/27/21 10:20 RBC Casts Cancelled 09/27/21 10:20 WBC Casts Cancelled 09/27/21 10:20 Urine Mucus Cancelled 09/27/21 10:20 Urine Other Cancelled 09/27/21 10:20 Urine Trichomonas Cancelled 09/27/21 10:20 Urine Yeast Cancelled 09/27/21 10:20 Ur Yeast w Hyphae Cancelled 09/27/21 10:20 Urine Yeast (Budding) Cancelled 09/27/21 10:20 Urine Sperm Cancelled 09/27/21 10:20 Urine Culture Reflexed Cancelled 09/27/21 10:20 Urine Total Volume Cancelled 09/27/21 10:20 SARS-CoV-2 Rap RNA(RT-PCR) Positive (NEGATIVE) A 09/27/21 10:45 Assessment And Plan - Plan Physical Exam: General: Alert, In no apparent distress HEENT: Atraumatic, Normocephalic Neck: Supple, 2+ carotid pulse no bruit Respiratory: Other (Bibasilar crackles ) Cardiovascular: Regular rate/rhythm, Normal S1 S2 Capillary refill: <2 Seconds Gastrointestinal: Normal bowel sounds, Soft and benign Integumentary: Other (Chronic lymphedema to bilateral lower extremities. Skin tears to medial bilateral thighs. Cutaneous candidiasis to left breast skin fold and lower abdominal skin fold. Neurological: Normal speech Conclusions/Impression: Antibiotics Rocephin: 09/29current Cefepime: Vancomycin Assessment/plan Gram-positive bacteremia Blood cultures obtained on 09/28grew GBS in 4/4 bottles. Repeat blood cultures obtained on 09/29 showed no growth. Source of infection likely right lower lobe pneumonia. Patient will need to be treated with antibiotics for 2 weeks following negative blood culture report. Continue monotherapy with IV Rocephin. Transthoracic echocardiogram negative for acute vegetation. Recommend PICC line placement. Cutaneous candidiasis Cutaneous candidiasis noted in several areas and skin folds. Apply nystatin powder daily. COVID-19 PNA Patient currently aerating well on room air. Continue to monitor closely. No clinical indication for remdesivir or dexamethasone therapy at this time. Chest x-ray showed right lower lobe opacification concerning for pneumoni a/mass/atelectasis. Based on patient's clinical presentation is likely pneumonia. Sputum culture growing yeast and normal respiratory jelly. Hypothyroidism Chronic bilateral lower extremity lymphedema -Medical management per primary team Plan of care discussed with Dr. Rolon Thank you for consultation.
--- NOTE | 2021-10-04 11:59 | RAD REPORT ---
EXAM DESCRIPTION: RAD - Chest Single View - 10/04/2021 11:48 am CLINICAL HISTORY: PICC line placement COMPARISON: September 27 FINDINGS: Portable chest was obtained following placement of a right upper extremity PICC line. The catheter tip is in the proximal SVC.
--- NOTE | 2021-10-04 13:08 | P.DS ---
Admission Date: 09/27/21 Discharge Date: 10/04/21 Disposition: TRANSFER TO [facility] Discharge Condition: [facility]IR Reason for Admission: Sepsis - Problems (1) Sepsis Current Visit: Yes Status: Acute (2) Pneumonia due to COVID-19 virus Current Visit: Yes Status: Acute (3) Hypertension Current Visit: No Status: Acute Qualifiers: Hypertension type: essential hypertension (4) Functional quadriplegia Current Visit: Yes Status: Acute (5) Streptococcal bacteremia Current Visit: Yes Status: Acute Brief History of Present Illness: 66-year-old long term resident with a history of hypothyroidism, chronic lymphedema was brought from the long term to the emergency department due to episodes of nausea, vomiting, diarrhea, fever and chills, and generalized weakness. Patient tested positive for COVID-19 in the ED. she met criteria for sepsis with fever of 100.9, and tachycardia. No leukocytosis. Lactate elevated. Procalcitonin elevated. Sepsis protocol initiated in the ED. D-dimer elevated. CTA thorax showed no pulmonary embolism but demonstrated opacity in the left lower lobe suggestive of atelectasis, lung mass not ruled out. There is a concern for pneumonia with sepsis. Patient is hospitalized for further management. Hospital Course: Patient admitted to the medical floor and treated with broad-spectrum antibiotics. Also treated with supportive measures for Covid 19 viral infection. His CTA thorax did not suggest pneumonia,, no PE. All blood culture bottles grew strep agalactiae. Antibiotics scaled down to IV Rocephin. Repeat culture shows no growth. Patient seen by Infectious disease who recommended 14 days of IV antibiotics from negative blood culture. Patient has 9 more days of antibiotics as an outpatient. Echocardiogram is unremarkable PICC line for outpatient IV antibiotics requested. Patient is discharged to long term to continue IV Rocephin. Her upper respiratory symptoms and febrile symptoms resolved during the hospital stay. Continue other home medications. Diet as tolerated. Patient may need repeat CT chest/chest x-ra to follow-up atelectasis versus mass in the right lower lobe. Vital Signs/Physical Exam: Temp Pulse Resp BP Pulse Ox 96.5 F L 53 18 132/60 98 10/04/21 11:34 10/04/21 11:34 10/04/21 11:34 10/04/21 11:34 10/04/21 11:34 General: Alert, In no apparent distress, Oriented x3 HEENT: Atraumatic, PERRLA, Mucous membr. moist/pink Neck: Supple, JVD not distended Respiratory: Clear to auscultation bilaterally, Normal air movement Cardiovascular: Regular rate/rhythm, Normal S1 S2, Edema (Bilateral legs) Gastrointestinal: Soft and benign, Non-distended, No tenderness Musculoskeletal: No swelling Neurological: Other (Paraplegia) Laboratory Data at Discharge: WBC 7.30 K/uL (4.3-10.9) D 10/02/21 03:35 Hgb 11.9 g/dL (12.0-15.0) L 10/02/21 03:35 Hct 35.9 % (36.0-45.0) L 10/02/21 03:35 Plt Count 233 K/uL (152-406) D 10/02/21 03:35 PT 14.4 SECONDS (9.5-12.5) H 09/27/21 10:50 INR 1.25 09/27/21 10:50 APTT 27.4 SECONDS (24.3-36.9) 09/27/21 10:50 Sodium 143 mmol/L (136-145) 10/02/21 03:35 Potassium 3.8 mmol/L (3.5-5.1) 10/02/21 03:35 BUN 20 mg/dL (7-18) H 10/02/21 03:35 Creatinine 0.84 mg/dL (0.55-1.3) 10/02/21 03:35 Glucose 74 mg/dL (74-106) 10/02/21 03:35 Phosphorus 3.0 mg/dL (2.5-4.9) 09/28/21 03:15 Magnesium 1.7 09/28/21 03:15 Total Bilirubin 0.3 mg/dL (0.2-1.0) 09/28/21 03:15 AST 19 U/L (15-37) 09/28/21 03:15 ALT 17 U/L (12-78) 09/28/21 03:15 Alkaline Phosphatase 64 U/L (45-117) 09/28/21 03:15 Amylase 34 U/L (25-115) 09/27/21 10:50 Lipase 125 U/L (73-393) 09/27/21 10:50 Home Medications: Acetaminophen [Acetaminophen Extra Strength] 2 tab PO Q8H PRN 08/11/21 Ascorbic Acid 1 tab PO DAILY 08/11/21 Buspirone HCl 1 tab PO TID 08/11/21 Cetirizine HCl 1 tab PO DAILY 08/11/21 Cholecalciferol (Vitamin D3) [Vitamin D3] 1 cap PO DAILY 08/11/21 Cyanocobalamin [Vitamin B-12*] 1 tab PO DAILY 08/11/21 Famotidine [Pepcid] 1 tab PO DAILY 08/11/21 Ferrous Sulfate 1 tab PO BID 08/11/21 Gabapentin 1 cap PO TID 08/11/21 Levothyroxine Sodium 1 tab PO DAILY 08/11/21 Losartan Potassium 1 tab PO DAILY 08/11/21 Mag Hydrox/Al Hydrox/Simeth [Maalox Maximum Strength Susp] 30 ml PO Q6HP PRN 08/11/21 Magnesium Oxide 1 tab PO DAILY 08/11/21 Pravastatin Sodium 1 tab PO BEDTIME 08/11/21 Simethicone 1 cap PO Q8H PRN 08/11/21 traMADol HCL [Ultram*] 1 tab PO Q8HP PRN 08/11/21 Citalopram Hydrobromide [Celexa] 10 mg PO DAILY 09/27/21 Divalproex Sodium [Depakote] 125 mg PO BID 09/27/21 Meclizine HCl 25 mg PO Q12H PRN 09/27/21 Sertraline [Zoloft*] 50 mg PO DAILY 09/27/21 guaiFENesin [Guaifenesin] 400 mg PO BID PRN 09/27/21 Benzonatate [Tessalon Perle*] 100 mg PO TID PRN #0 cap 10/04/21 Ceftriaxone [Rocephin] 1,000 mg IV DAILY #9 vial 10/04/21 Nystatin Powder [Mycostatin (Powder)*] 1 appl TOP DAILY PRN btl 10/04/21 Pantoprazole [Protonix Tab*] 40 mg PO BIDAC tab 10/04/21 New Medications: Ceftriaxone [Rocephin] 1,000 mg IV DAILY #9 vial Diet: AHA Activity: Fall precautions Followup: OOT,OOT [Primary Care Provider] - Time spent managing pt's care (in minutes): 40
[2021-10-04] MEDS: ACETAMINOPHEN 500 MG TAB PO PRN (15:11)
[2021-10-04 16:32] VITALS: BP 127/61; TEMP 97.6
== END 2021-10-04 15:55 | DRG 871 ==
LOC: ER 10:14 → ERHOLD 18:03 → 4TH 19:41
PROVIDERS: ADMIT Internal Medicine; ATTEND Internal Medicine
PROC: 02HV33Z Insertion of Infusion Device into Superior Vena Cava, Percutaneous Approach (ICD-10-PCS; principal; 2021-10-04)
DX: A40.1 Sepsis due to streptococcus, group B (principal); U07.1 COVID-19; J12.82 Pneumonia due to coronavirus disease 2019; R53.2 Functional quadriplegia; J15.9 Unspecified bacterial pneumonia; J98.11 Atelectasis; I10 Essential (primary) hypertension; E03.9 Hypothyroidism, unspecified; I89.0 Lymphedema, not elsewhere classified; R91.8 Other nonspecific abnormal finding of lung field; B37.2 Candidiasis of skin and nail; Z23 Encounter for immunization
CPT/HCPCS: 36415; 36569; 71045; 71275; 80048; 80053; 80076; 82150; 82550; 82553; 83605; 83690; 83735; 84100; 84145; 84443; 84484; 85025; 85379; 85610; 85730; 87040; 87070; 87077; 87186; 87205; 90471; 90732; 93005; 93306; 96365; 96366; 96375; 97110; 97161; 97530; 99285; J0456; J0692; J0696; J1100; J1650; J2405; J3370; J7030; J7040; J7050; Q9967; U0003

== ENCOUNTER 2023-02-01 06:10 | Inpatient (IN) | payer OTHER ==
--- OUTSIDE RECORDS SUMMARY | 2023-02-01 06:12 | XMS REPORT | Continuity of Care Document ---
:1955 Author Organization [facility] t Address [address] [facility] [address] [place] [address] Care Team Providers Name Role Phone NATALIOJOSE RAFAEL Primary Care Physician Unavailable SHERIDAN MILLER Attending Clinician Unavailable Sindhu Ordaz PTA Attending Clinician Unavailable Sheridan Miller MD Attending Clinician Kathy Lazo PT Attending Clinician Unavailable Doctor Unassigned, [place] Attending Clinician Unavailable Melanie Mendoza PT Attending Clinician Unavailable Payers Payer Name Policy Type Policy Number Effective Date Expiration Date Christa wild MEDICARE PART A [id number] 2007 \T\ B 00:00:00 Problems This patient has no known problems. Allergies, Adverse Reactions, Alerts Allergy Allergy Status Severity Reaction(s) Onset Inactive Treating Comm ents Source Name Type Date Date Clinician NO KNOWN Drug Active [facility] ALLERGIE Class [facility] [place] [facility] Social History Social Habit Start Date Stop Date Quantity Comments Source Exposure to 2022-11-26 2022-12-06 Not sure [facility] SARS-CoV-2 (event) 00:00:00 14:10:00 Medica l Branch Sex Ass[birth year] [facility] [place] 00:00:00 00:00:00 Medical Branch Smoking Status Start Date Stop Date Source Tobacco smoking consumption [facility] unknown Branch Medications This patient has no known medications. Procedures Procedure Date / Time Performed Performing Clinician [facility] e REFERRAL- 2022-10-31 05:01:00 [facility] REFERRAL- 2021-05-27 05:01:00 Doctor Unassigned, No [facility] [place] REQUEST/RESPONSE Name Medical Branch Encounters Start End Encounter Admission Attending Care Care Encounter Source Date/Time Date/Time Type Type Clinicians Facility Department ID 2023-02-06 2023-02-06 Outpatient R JASON [facility] [id number] Univers 13:00:00 13:00:00 SHERIDAN sharrikaitlin [facility] 2023-01-12 2023-01-12 Outpatient Chaitanya MILLER [facility] [id number] Univers 08:00:00 08:00:00 SHERIDAN sharrikaitlin [facility] 2023-01-04 2023-01-04 [facility].114 [id number] Univers 00:00:00 00:00:00 Management Sindhu GARAY [id number] [place] [phone] [place] dical NAL [address] [facility] 2022-12-27 2022-12-27 Ancillary OrlinSindhu [facility] 1.2.840 .114 [id number] [facility] 13:45:00 14:43:21 Visit MillerSheridan [id number] [id number] [phone] Az dical NAL 179 [facility] 2022-12-20 2022-12-20 Ancillary OrlinSindhu [facility] 1.2.840 .114 [id number] [facility] 14:30:00 15:20:28 Visit Sheridan Miller [id number] [id number] [phone] Az dical NAL 179 [facility] 2022-12-14 2022-12-14 Ancillary Meseret Ordazjaden Ruffin [facility] 1.2.840 .114 [id number] Univers 09:30:00 10:30:00 Visit Miller Sheridan GARAY [id number] [id number] [phone] Az dical NAL 179 [facility] 2022-12-12 2022-12-12 Ancillary Sindhu Ordaz [facility] 1.2.840 .114 [id number] Univers 13:00:00 13:55:48 Visit Sheridan Miller ISAACPAIGE [id number] [place] [phone] Az dical NAL 179 Branch BUILDING 2022-12-06 2022-12-06 Ancillary Sindhu Ordaz [facility] 1.2.840 .114 [id number] Univers 14:30:00 15:30:43 Visit Sheridan Miller [id number] [id number] [phone] Az dical NAL 179 Branch BUILDING 2022-12-01 2022-12-01 Ancillary Sindhu Ordaz [facility] 1.2.840 .114 [id number] Univers 13:45:00 14:56:48 Visit Sheridan Miller Marlyn GARAY [id number] [place] [phone] Az dical NAL 179 Branch BUILDING 2022-11-22 2022-11-22 Ancillary Sindhu Ordaz [facility] 1.2.840 .114 [id number] Univers 13:00:00 14:00:00 Visit Sheridan Miller [id number] [place] [phone] Az dical NAL 179 Branch BUILDING 2022-11-21 2022-11-21 Outpatient R JASON [facility] [id number] Univers 16:00:00 17:18:07 SHERIDAN ity of [facility] 2022-11-21 2022-11-21 Ancillary Sindhu Ordaz [facility] 1.2.840 .114 [id number] Univers 16:00:00 16:45:00 Visit Sheridan Miller Marlyn GARAY [id number] [place] [phone] Az dical NAL 179 Branch BUILDING 2022-11-16 2022-11-16 Ancillary Orlin Sindhu Ruffin [facility] 1.2.840 .114 [id number] Univers 15:15:00 16:18:54 Visit Sheridan Miller [id number] [place] [phone] Az dical NAL 179 [facility] 2022-11-14 2022-11-14 Ancillary Orlin Sindhu Ruffin [facility] 1.2.840 .114 [id number] Univers 13:00:00 14:20:28 Visit Sheridan Miller 350.1.13.10 [place] [phone] Az dical NAL 179 [facility] 2022-11-07 2022-11-07 Outpatient R JASON [facility] [id number] Univers 09:15:00 11:11:28 SHERIDAN aguilar [facility] 2022-11-07 2022-11-07 Ancillary Kathy Lazo [facility] 1.2.840. 114 [id number] Univers 09:15:00 11:11:28 Visit Sheridan Miller ISAACPAIGE 350.1.13.10 [place] [phone] Az dical NAL 179 [facility] 2022-10-31 2022-10-31 Orders Doctor PEDRAZA 1.2.840.114 [id number] Univers 00:00:00 00:00:00 Only Unassigned, [place] 350.1.13.10 [facility] 4[facility] [place] [phone] [address] 2021-08-09 2021-08-09 Outpatient R JASON [facility] [id number] Univers 08:40:00 08:40:00 SHERIDAN aguilar [facility] 2021-07-01 2021-07-01 Outpatient R JASON [facility] [id number] Univers 10:00:00 10:55:43 SHERIDAN aguilar [facility] 2021-07-01 2021-07-01 Ancillary Sindhu Ordaz [facility] 1.2.840 .114 [id number] Univers 09:54:55 10:55:43 Visit Sheridan Miller Marlyn GRAYPAIGE 350.1.13.10 [place] [phone] Az dical NAL 179 Branch BUILDING 2021-06-28 2021-06-28 Ancillary Sindhu Ordaz [facility] 1.2.840 .114 [id number] Univers 10:17:51 13:29:57 Visit Sheridan Miller 350.1.13.10 [place] [phone] Az dical NAL 179 Branch BUILDING 2021-06-24 2021-06-24 Ancillary Sindhu Ordaz [facility] 1.2.840 .114 [id number] Univers 08:45:37 09:45:37 Visit Sheridan Miller Marlyn GARAY 350.1.13.10 [place] [phone] Az dical NAL 179 Branch BUILDING 2021-06-21 2021-06-21 Ancillary Sindhu Ordaz Laly [facility] 1.2.840 .114 [id number] Univers 08:45:51 09:45:51 Visit Sheridan Miller Marlyn GARAY 350.1.13.10 [place] [phone] Az dical NAL 179 Branch BUILDING 2021-06-17 2021-06-17 Ancillary Sindhu Ordaz [facility] 1.2.840 .114 [id number] Univers 08:58:32 09:58:32 Visit Sheridan Miller Marlyn GARAY 350.1.13.10 [place] [phone] Az dical NAL 179 Branch BUILDING 2021-06-17 2021-06-17 Outpatient R ROSS MILLER [facility] [id number] Univers 08:40:00 08:40:00 SHERIDAN itkaitlin of [facility] 2021-06-14 2021-06-14 Ancillary Sindhu Ordaz Laly [facility] 1.2.840 .114 [id number] Univers 08:38:30 09:38:30 Visit Sheridan Miller [place] 350.1.13.10 [place] [phone] Az dical nal 179 [facility] 2021-06-10 2021-06-10 Ancillary Sindhu Ordaz [facility] 1.2.840 .114 [id number] Univers 08:43:45 09:43:45 Visit Sheridan Miller 350.1.13.10 [place] [phone] Az dical nal 179 [facility] 2021-06-07 2021-06-07 Ancillary Melanie Mendoza [facility] 1 .2.840.114 [id number] Univers 08:38:48 12:01:11 Visit Jason Sheridan Marlyn GrayHernando 350.1.13.10 [id number] [phone] Az dical nal 179 [facility] 2021-06-02 2021-06-02 Ancillary Melanie Mendoza [facility] 1 .2.840.114 [id number] Univers 08:54:33 11:19:40 Visit Sheridan Miller [place] 350.1.13.10 [place] [phone] Az dical nal 179 [facility] 2021-05-27 2021-05-27 Orders Doctor MILO 1.2.840.114 [id number] Univers 00:00:00 00:00:00 Only Unassigned, LANCE 350.1.13.10 [place]y of [place] [facility] 4.2.7.2.686 [place] [phone] [place] [address] Branch 2021-04-21 2021-04-21 Outpatient R JASON [facility] [id number] Univers 10:40:00 10:40:00 SHERIDAN aguilar [facility] 2019-09-15 2019-09-25 Ancillary Orlin [facility] 1.2.126.004 [id number] 08:39:47 09:11:43 Visit Sindhu Garay 350.1.13.10 [place] 4.2.7.2.686 Profnyu [facility] [phone] [facility] 179 Building Results This patient has no known results.
[2023-02-01] MEDS ORDERED: NA CHLORIDE 0.9% 1,000 ML ONE ×2 (06:53→14:18)
[2023-02-01] MEDS ORDERED: NA CHLORIDE 0.9% 250 ML ONE (06:53)
[2023-02-01] MEDS ORDERED: CEFEPIME 2 GM VIAL ONE (06:53)
[2023-02-01] MEDS ORDERED: VANCOMYCIN 1 GM/VIAL ONE (06:53)
[2023-02-01] MEDS ORDERED: NA CHLORIDE 0.9% 100 ML ONE (06:54)
[2023-02-01] MEDS ORDERED: ACETAMINOPHEN 500 MG TAB ONE (06:56)
[2023-02-01 07:01] LABS: Absolute Lymphocytes (CBC) 0.6 K/uL (0.7-4.9); Hematocrit 36.5 % (36.0-45.0); MCV 90.4 fL (80-100); MPV 6.6 fL (7.6-11.3); RBC Red Blood Cell Count 4.03 M/uL (3.86-4.86)
[2023-02-01 07:20] LABS: Protime INR 1.28
--- NOTE | 2023-02-01 07:20 | EKG ---
Test Date: 2023-02-01 Test Time: 06:26:52 Manager Of Planning: RONAL MEASUREMENT RESULTS: Intervals: Rate: 111 CT: 134 QRSD: 80 QT: 312 QTc: 424 [place]: P: 54 CT: 134 QRS: 9 T: 35 INTERPRETIVE STATEMENTS: Sinus tachycardia Nonspecific ST abnormality Abnormal ECG Compared to ECG 09/27/2021 10:31:12 No significant changes Electronically Signed On 02-01-23 07:19:44 CDT by Anthony Rios
[2023-02-01 07:21] LABS: Albumin 3.2 g/dL (3.4-5.0); Bilirubin Total 0.5 mg/dL (0.2-1.0); Potassium 4.5 mEq/L (3.5-5.1); Protein, Total 7.7 g/dL (6.4-8.2)
--- NOTE | 2023-02-01 07:46 | RAD REPORT ---
EXAM DESCRIPTION: CT - Head Brain Wo Cont - 02/01/2023 7:34 am CLINICAL HISTORY: ams COMPARISON: Head Brain Wo Cont dated 07/17/2020 TECHNIQUE: Noncontrast head CT images ad were obtained without IV contrast. Multiplanar reformats we re generated and reviewed. All CT scans are performed using dose optimization technique as appropriate and may include automated exposure control or mA/KV adjustment according to patient size. FINDINGS: Beam hardening artifact along the right hemisphere somewhat limits evaluation. No intracranial hemorrhage, mass, or edema. Midline structures are unremarkable. Normal ventricular caliber for age. Kumar-white matter differentiation is preserved, without evidence of acute infarct. No abnormal extra- axial fluid collections. Stable pattern of mild periventricular and deep white matter hypodensities, nonspecific but may suggest chronic small vessel ischemic changes. Mastoid air cells and visualized portions of the paranasal sinuses are clear. No acute bony findings. IMPRESSION: No evidence of an acute intracranial process.
--- NOTE | 2023-02-01 07:55 | RAD REPORT ---
EXAM DESCRIPTION: CT - Low Extremity Wo Cont - 02/01/2023 7:34 am CLINICAL HISTORY: swelling, r/o abcess COMPARISON: Chest Single View dated 02/01/2023; Head Brain Wo Cont dated 02/01/2023 TECHNIQUE: Thin cut axial CT imaging of the right lower extremity was performed without IV contrast. Multiplanar reformats were generated and reviewed. All CT scans are performed using dose optimization technique as appropriate and may include automated exposure control or mA/KV adjustment according to patient size. FINDINGS: No abnormalities of the solid organs in the pelvis. Suboptimal filling of the urinary blad connie limits evaluation. No evidence of abnormal fluid collection, inflammatory changes, or edema, within the pelvic or thigh a muscle compartments. Moderate subcutaneous soft tissue swelling and overlying skin thickening along the medial and lateral aspects of the thigh, less pronounced along the medial proximal aspect and gluteal region, without e vidence of abnormal fluid collections within limits of noncontrast evaluation. Similar changes along the included upper aspect of the lower leg, more pronounced laterally. No osseous destructive changes or suspicious focal lesion. Advanced degenerative changes of the right knee. Bilateral hip joint end-stage arthritis, with ankylo sis across the joint space. IMPRESSION: Subcutaneous soft tissue swelling and overlying skin thickening along the thigh and incl uded aspect of the lower leg proximally as above, may relate to diffuse edema versus cellulitis. No e vidence of abnormal fluid collections. There was a suspicious abnormalities.
--- NOTE | 2023-02-01 07:57 | RAD REPORT ---
EXAM DESCRIPTION: RADChest Single View02/01/2023 6:49 am CLINICAL HISTORY: FEVER COMPARISON: Chest Single View dated 10/04/2021; Chest Single View dated 09/27/2021; Chest Single View d ated 08/11/2021; Chest Single View dated 07/17/2020 TECHNIQUE: Portable AP view of the chest. FINDINGS: Patient rotation limits evaluation. Stable right lower hemithorax opacification, suggestiv e of a moderate sized diffusion with underlying airspace opacification. Appearance is stable compared to the prior radiograph. Mild left basilar atelectasis. No pneumothorax. The cardiomediastinal conto urs are unremarkable. IMPRESSION: Stable opacification at the right lower hemithorax, suggestive of concomitant effusion a nd airspace opacification.
--- NOTE | 2023-02-01 08:51 | EDPHYS ---
Physician Documentation [facility] Name: Nilam Rivero Age: 68 yrs Sex: Female : 1955 Arrival Date: 02/01/2023 Time: 06:10 Bed 4 Private MD: ED Physician Aly Crystal HPI: 02/01 06:31 This 68 yrs old Unknown Female presents to ER via EMS with complaints of Altered mental rt status, fever. 06:31 Patient presents to the ED from [facility] with concerns for sepsis. Patient was rt reportedly altered, confused off of her baseline. She stated that she was not feeling well yesterday but nothing specific. The patient had a temp up to 103 today, was given Tylenol with some modest improvement. Is noted to be tachycardic. No other reported symptoms. Symptoms are moderate in severity, no other aggravating or alleviating factors.. Historical: - Allergies: 06:17 PENICILLINS; vc1 - Home Meds: 06:17 levothyroxine 88 mcg oral capsule [Active]; Depakote ER 500 mg Oral Tablet, Extended vc1 Release 24 hr 2 times per day [Active]; docusate sodium 100 mg Oral capsule 2 times per day [Active]; ferrous sulfate 325 mg (65 mg iron) Oral tablet 2 times per day [Active]; gabapentin 300 mg oral capsule 2 times per day [Active]; Gemtesa 75 mg oral tablet daily [Active]; losartan 50 mg oral tablet daily [Active]; Zyrtec 10 mg Oral capsule daily [Active]; omeprazole 20 mg Oral Tablet,disintegrating,delayed release daily [Active]; pravastatin 40 mg oral tablet every day at bedtime [Active]; Protonix 40 mg Oral tablet, delayed release (enteric coated) every morning [Active]; Singulair 10 mg Oral tablet every day at bedtime [Active]; venlafaxine 150 mg oral Capsule, ER 24 hr daily [Active]; - PMHx: 06:17 GERD; Hypothyroidism; lymph edema bilateral legs; Cognitive Communication deficit; CKD vc1 Stage 4; Hyperlipidemia; Osteoarthritis; Bilateral Shoulders; Anemia; b12 defiency; Hypotension; Hypertension; Intermittent Explosive Disorder; Thrombus of Iliac vein; Bilateral; Anxiety; - PSHx: 06:17 None; vc1 - Immunization history:: Client reports receiving the 2nd dose of the Covid vaccine. - Social history:: Smoking status: unknown. - Family history:: not pertinent. ROS: 06:31 Cardiovascular: Negative for chest pain, palpitations, and edema, Respiratory: Negative rt for shortness of breath, cough, wheezing, and pleuritic chest pain, Abdomen/GI: Negative for abdominal pain, nausea, vomiting, diarrhea, and constipation, MS/Extremity: Negative for injury and deformity, Skin: Negative for injury, rash, and discoloration. 06:31 Constitutional: Positive for fever, malaise. 06:31 Neuro: Positive for altered mental status, Negative for loss of consciousness. Exam: 06:31 Constitutional: This is a well developed, well nourished patient who is awake, alert, rt and in no acute distress. Head/Face: Normocephalic, atraumatic. Chest/axilla: Normal chest wall appearance and motion. Nontender with no deformity. No lesions are appreciated. Cardiovascular: Regular rate and rhythm with a normal S1 and S2. No gallops, murmurs, or rubs. Normal PMI, no JVD. No pulse deficits. Respiratory: Lungs have equal breath sounds bilaterally, clear to auscultation and percussion. No rales, rhonchi or wheezes noted. No increased work of breathing, no retractions or nasal flaring. Abdomen/GI: Soft, non-tender, with normal bowel sounds. No distension or tympany. No guarding or rebound. No evidence of tenderness throughout. MS/ Extremity: Pulses equal, no cyanosis. Neurovascular intact. Full, normal range of motion. Neuro: Somewhat confused, answers inconsistently, moves all 4 extremities equally, no slurred speech 06:31 ECG was reviewed by the Attending Physician. 06:55 Skin: Large area of apparent cellulitis on the right anterior thigh. rt Vital Signs: 06:11 BP 127 / 93; Pulse 116; Resp 24; Temp 101.2; Pulse Ox 96% on R/A; vc1 07:00 BP 130 / 100; Pulse 108; Resp 28; Pulse Ox 96% on R/A; db 07:36 BP 133 / 111; Pulse 110; Resp 26 S; Pulse Ox 97% on R/A; db 08:00 BP 128 / 72; Pulse 115; Resp 28; Pulse Ox 95% on R/A; db 08:30 BP 113 / 63; Pulse 114; Resp 25; Temp 99.8; Pulse Ox 95% on R/A; db 09:00 BP 118 / 51; Pulse 116; Resp 18; Pulse Ox 95% on R/A; db 10:00 BP 120 / 63; Pulse 113; Resp 18; Pulse Ox 98% on R/A; db 11:00 BP 126 / 72; Pulse 111; Resp 18; Pulse Ox 100% on R/A; db MDM: 06:12 Patient medically screened. rt 07:17 Data reviewed: vital signs, nurses notes. ED course: pt signed out pending labs, bs3 admission, here febrile, tachy, right leg cellulitis, will do ct non con to eval for obvious abscess given induration, will hydrate and reassess. 08:21 ED course: Work-up consistent with sepsis secondary to cellulitis possible pneumonia bs3 although no significant symptoms will admit. 02/01 06:17 Order name: Blood Culture Adult (2) rt 02/01 06:17 Order name: CBC with Diff; Complete Time: 08:01 rt 02/01 06:17 Order name: CMP; Complete Time: 08:01 rt 02/01 06:17 Order name: Lactate w/ 2H reflex if indic.; Complete Time: 08:01 rt 02/01 06:17 Order name: Protime (+inr); Complete Time: 08:01 rt 02/01 06:17 Order name: Ptt, Activated; Complete Time: 08:01 rt 02/01 06:17 Order name: Urinalysis w/ reflexes rt 02/01 06:53 Order name: Glucose, Ancillary Testing; Complete Time: 08:01 EDMS 02/01 11:56 Order name: Lactate Sepsis 2 HR Follow-up EDMS 02/01 06:17 Order name: Chest Single View XRAY; Complete Time: 08:01 rt 02/01 06:17 Order name: CT Head Brain wo Cont; Complete Time: 08:01 rt 02/01 07:23 Order name: Low Extremity Wo Cont; Complete Time: 08:01 EDMS 02/01 06:17 Order name: EKG; Complete Time: 06:18 rt 02/01 06:17 Order name: Accucheck; Complete Time: 06:42 rt 02/01 06:17 Order name: Cardiac monitoring; Complete Time: 06:29 rt 02/01 06:17 Order name: EKG - Nurse/Tech; Complete Time: 06:29 rt 02/01 06:17 Order name: IV Saline Lock - Large Bore; Complete Time: 06:43 rt 02/01 06:17 Order name: Labs collected and sent; Complete Time: 06:43 rt 02/01 06:17 Order name: O2 Per Protocol; Complete Time: 06:29 rt 02/01 06:17 Order name: O2 Sat Monitoring; Complete Time: 06:29 rt 02/01 06:17 Order name: Vital Signs; Complete Time: 06:29 rt EC:31 Rate is 111 beats/min. Rhythm is regular, Sinus tachycardia with No ectopy. QRS [place] is rt Normal. FL interval is normal. QRS interval is normal. QT interval is normal. No Q waves. Administered Medications: 07:12 Drug: Acetaminophen PO 1000 mg Route: PO; [facility] 07:30 Follow up: Response: No adverse reaction db 07:12 Drug: NS 0.9% IV 1000 ml {Note: Left breast.} Route: IV; Rate: 1 bolus; Site: Other; 1 08:05 Follow up: Response: No adverse reaction; IV Status: Completed infusion; IV Intake: db 1000ml 07:45 Drug: Cefepime IVPB 2 grams Route: IVPB; Rate: 200 ml/hr; Infused Over: 30 mins; Site: left hand; 08:18 Follow up: Response: No adverse reaction; IV Status: Completed infusion; IV Intake: db 100ml 08:17 Drug: vancoMYCIN IVPB 1 grams Route: IVPB; Infused Over: 2 hrs; Site: left hand; db 10:15 Follow up: Response: No adverse reaction; IV Status: Completed infusion; IV Intake: db 250ml Disposition Summary: 02/01/23 08:50 Hospitalization Ordered Hospitalization Status: Inpatient Admission bs3 Provider: Arturo Blevins bs3 Location: Telemetry/MedSurg (Inpatient) bs3 Condition: Fair bs3 Problem: new bs3 Symptoms: have improved bs3 Bed/Room Type: Standard bs3 Room Assignment: 216(02/01/23 12:40) dw Diagnosis - Cellulitis of groin bs3 - Other specified sepsis bs3 Forms: - Medication Reconciliation Form bs3 - SBAR form bs3 Signatures: Dispatcher [employer] Muriel Finch RN RN dw [place] Holcomb RN RN ll1 Juhi Phillips RN RN vc1 Aly Crystal MD MD bs3 Rosina Sibley RN RN db Miguel Saxena MD MD rt Corrections: (The following items were deleted from the chart) 06:17 PMHx: Hypertension; vc1 vc1 06:17 PMHx: Chronic kidney diseas stage 3; vc1 vc1 12:40 08:50 bs3 dw
--- NOTE | 2023-02-01 08:51 | ER ---
Nurse's Notes [facility] [place] Name: Nilam Rivero Age: 68 yrs Sex: Female : 1955 Arrival Date: 02/01/2023 Time: 06:10 Bed 4 Private MD: Diagnosis: Cellulitis of groin;Other specified sepsis Presentation: 02/01 06:11 Chief complaint: EMS states: We were toned out for a fever and altered mentation/ She vc1 started feeling bad last night and around midnight started running a fever. Coronavirus screen: Client denies travel out of the [place] in the last 14 days. fever, Client presents with at least one sign or symptom that may indicate coronavirus-19. Standard/surgical mask placed on the client. Provider contacted for isolation considerations. Ebola Screen: Patient negative for fever greater than or equal to 101.5 degrees Fahrenheit, and additional compatible Ebola Virus Disease symptoms Patient denies exposure to infectious person. Patient denies travel to an Ebola-affected area in the 21 days before illness onset. No symptoms or risks identified at this time. Initial Sepsis Screen: Does the patient meet any 2 criteria? RR > 20 per min. Temp <36.0*C (96.8*F)) or > 38.3*C (100.9*F). Altered Mental Status. HR > 90 bpm. Yes Does the patient have a suspected source of infection? Yes: Skin breakdown/wound. Risk Assessment: Do you want to hurt yourself or someone else? Patient reports no desire to harm self or others. Onset of symptoms was January 31, 2023 at 19:00. Care prior to arrival: Medication(s) given: Tylenol, IV initiated. 20 GA, in the left hand, VS BP 127/93, HR 125, SpO2 96% room air, oral temp 103.1. Transition of care: patient was received from another setting of care (long-term care facility), [facility]. 06:11 Method Of Arrival: EMS: [facility] vc1 06:11 Acuity: ESME 3 vc1 Triage Assessment: 06:31 General: Appears uncomfortable, ill, obese, Behavior is cooperative. Pain: Complains of vc1 pain in right ear Unable to use pain scale. Does not appear to understand pain scale. EENT: Reports pain in right ear. Neuro: Level of Consciousness is awake, obeys commands, confused, Oriented to person. Cardiovascular: No deficits noted. Cardiovascular: Edema pt with hx of lymphadema. Respiratory: Airway is patent Respiratory effort is even, unlabored, Respiratory pattern is symmetrical, tachypnea. GI: No deficits noted. No signs and/or symptoms were reported involving the gastrointestinal system. : No deficits noted. No signs and/or symptoms were reported regarding the genitourinary system. Derm: Musculoskeletal: No deficits noted. No signs and/or symptoms reported regarding the musculoskeletal system. Historical: - Allergies: 06:17 PENICILLINS; vc1 - Home Meds: 06:17 levothyroxine 88 mcg oral capsule [Active]; Depakote ER 500 mg Oral Tablet, Extended vc1 Release 24 hr 2 times per day [Active]; docusate sodium 100 mg Oral capsule 2 times per day [Active]; ferrous sulfate 325 mg (65 mg iron) Oral tablet 2 times per day [Active]; gabapentin 300 mg oral capsule 2 times per day [Active]; Gemtesa 75 mg oral tablet daily [Active]; losartan 50 mg oral tablet daily [Active]; Zyrtec 10 mg Oral capsule daily [Active]; omeprazole 20 mg Oral Tablet,disintegrating,delayed release daily [Active]; pravastatin 40 mg oral tablet every day at bedtime [Active]; Protonix 40 mg Oral tablet, delayed release (enteric coated) every morning [Active]; Singulair 10 mg Oral tablet every day at bedtime [Active]; venlafaxine 150 mg oral Capsule, ER 24 hr daily [Active]; - PMHx: 06:17 GERD; Hypothyroidism; lymph edema bilateral legs; Cognitive Communication deficit; CKD vc1 Stage 4; Hyperlipidemia; Osteoarthritis; Bilateral Shoulders; Anemia; b12 defiency; Hypotension; Hypertension; Intermittent Explosive Disorder; Thrombus of Iliac vein; Bilateral; Anxiety; - PSHx: 06:17 None; vc1 - Immunization history:: Client reports receiving the 2nd dose of the Covid vaccine. - Social history:: Smoking status: unknown. - Family history:: not pertinent. Screenin:33 [facility] ED Fall Risk Assessment (Adult) History of falling in the last 3 months, vc1 including since admission No falls in past 3 months (0 pts) Confusion or Disorientation Yes (5 pts) Intoxicated or Sedated No (0 pts) Impaired Gait Yes (1 pt) Mobility Assist Device Used Yes (1 pt) Altered Elimination Yes (1 pt) Score/Fall Risk Level 3 or more points = High Risk Oriented to surroundings, Maintained a safe environment, Educated pt \T\ family on fall prevention, incl call for assistance when getting out of bed. Abuse screen: Denies threats or abuse. Nutritional screening: No deficits noted. Tuberculosis screening: No symptoms or risk factors identified. Assessment: 06:33 Reassessment: Pt does not ambulate. vc1 07:00 Reassessment: Unable to place sanders, pt legs constricted, sample would be contaminated, ll1 provider notified. 07:02 Reassessment: Previous shift attempted a Sanders catheter. Unable to obtain specimen due db to patient legs stiff and unable to open legs. Patient states has too much pain moving legs out. Per report patient is bed bound and unable to walk. physician notified. 07:02 Reassessment: pt to CT. db 07:13 Reassessment:. db 07:13 Reassessment: Patient appears in no apparent distress at this time. Patient and/or db family updated on plan of care and expected duration. Pain level reassessed. General: Appears in no apparent distress. uncomfortable, Behavior is calm, cooperative. Pain:. Neuro: Level of Consciousness is awake, alert, obeys commands, Oriented to person, place. Respiratory: Airway is patent Respiratory effort is even, unlabored, Respiratory pattern is regular, symmetrical. 08:12 Reassessment: Patient appears in no apparent distress at this time. Patient and/or db family updated on plan of care and expected duration. Pain level reassessed. Patient states symptoms have improved. 08:53 Reassessment: Patient appears in no apparent distress at this time. Patient and/or db family updated on plan of care and expected duration. Pain level reassessed. General: Appears in no apparent distress. comfortable, Behavior is calm, cooperative. 09:00 Reassessment: Patient appears in no apparent distress at this time. Patient and/or db family updated on plan of care and expected duration. Pain level reassessed. 10:45 Reassessment: patient placed on puriwick. db 11:03 Reassessment: lab at bedside for lab draw. db 11:23 Reassessment: Patient appears in no apparent distress at this time. Patient and/or db family updated on plan of care and expected duration. Pain level reassessed. Patient is alert, oriented x 3, equal unlabored respirations, skin warm/dry/pink. patient states feels better. 12:00 Reassessment: Patient appears in no apparent distress at this time. Patient and/or db family updated on plan of care and expected duration. Pain level reassessed. Patient is alert, oriented x 3, equal unlabored respirations, skin warm/dry/pink. 13:00 Reassessment: See [employer] for continued charting. db Vital Signs: 06:11 BP 127 / 93; Pulse 116; Resp 24; Temp 101.2; Pulse Ox 96% on R/A; vc1 07:00 BP 130 / 100; Pulse 108; Resp 28; Pulse Ox 96% on R/A; db 07:36 BP 133 / 111; Pulse 110; Resp 26 S; Pulse Ox 97% on R/A; db 08:00 BP 128 / 72; Pulse 115; Resp 28; Pulse Ox 95% on R/A; db 08:30 BP 113 / 63; Pulse 114; Resp 25; Temp 99.8; Pulse Ox 95% on R/A; db 09:00 BP 118 / 51; Pulse 116; Resp 18; Pulse Ox 95% on R/A; db 10:00 BP 120 / 63; Pulse 113; Resp 18; Pulse Ox 98% on R/A; db 11:00 BP 126 / 72; Pulse 111; Resp 18; Pulse Ox 100% on R/A; db ED Course: 06:11 Patient arrived in ED. vc1 06:12 Miguel Saxena MD is Attending Physician. rt 06:17 Triage completed. vc1 06:32 Arm band placed on left wrist. vc1 06:33 Patient has correct armband on for positive identification. Bed in low position. Side vc1 rails up X2. Client placed on continuous cardiac and pulse oximetry monitoring. NIBP monitoring applied. 06:48 Inserted saline lock: 20 gauge in right antecubital area, using aseptic technique. oe Blood collected. 06:51 Chest Single View XRAY In Process Unspecified. EDMS 07:09 Rosina Sibley, DEXTER is Primary Nurse. db 07:16 Attending Physician role handed off by Miguel Saxena MD bs3 07:16 Aly Crystal MD is Attending Physician. bs3 07:36 CT Head Brain wo Cont In Process Unspecified. EDMS 07:36 Low Extremity Wo Cont In Process Unspecified. EDMS 08:50 Arturo Blevins is Hospitalizing Provider. bs3 08:53 patient repositioned. db 11:16 Urinalysis w/ reflexes Sent. iw 12:59 No provider procedures requiring assistance completed. Patient admitted, IV remains in db place. Administered Medications: 07:12 Drug: Acetaminophen PO 1000 mg Route: PO; ll1 07:30 Follow up: Response: No adverse reaction db 07:12 Drug: NS 0.9% IV 1000 ml {Note: Left breast.} Route: IV; Rate: 1 bolus; Site: Other; ll1 08:05 Follow up: Response: No adverse reaction; IV Status: Completed infusion; IV Intake: db 1000ml 07:45 Drug: Cefepime IVPB 2 grams Route: IVPB; Rate: 200 ml/hr; Infused Over: 30 mins; Site: db left hand; 08:18 Follow up: Response: No adverse reaction; IV Status: Completed infusion; IV Intake: db 100ml 08:17 Drug: vancoMYCIN IVPB 1 grams Route: IVPB; Infused Over: 2 hrs; Site: left hand; db 10:15 Follow up: Response: No adverse reaction; IV Status: Completed infusion; IV Intake: db 250ml Medication: 06:33 VIS not applicable for this client. vc1 Intake: 08:05 IV: 1000ml; Total: 1000ml. db 08:18 IV: 100ml; Total: 1100ml. db 10:15 IV: 250ml; Total: 1350ml. db Outcome: 08:50 Decision to Hospitalize by Provider. bs3 13:00 Admitted to ER Hold. Please see [facility] for further documentation. db 13:00 Condition: stable 13:00 Instructed on the need for admit. 14:18 Patient left the ED. db Signatures: Dispatcher [employer] Marsha Mckinney, DEXTER RENTERIA iw Lopez Downing Lynsay, RN RN ll1 Juhi Phillips RN RN vc1 Aly rCystal MD MD bs3 Rosina Sibley RN RN db Miguel Saxena MD MD rt Corrections: (The following items were deleted from the chart) 06:31 06:17 PMHx: Hypertension; vc1 vc1 06:31 06:17 PMHx: Chronic kidney diseas stage 3; vc1 vc1 07:15 07:02 Reassessment: Previous shift attempted a Sanders catheter. Unable to obtain db specimen due to patient legs stiff and unable to open legs. Patient states has too much pain moving legs out. Per report patient is bed bound and unable to walk. db 07:46 07:36 BP 133 / 111; Pulse 110bpm; Resp 18bpm; Pulse Ox 97% RA; db db
--- NOTE | 2023-02-01 10:28 | P.HP ---
Certification for Inpatient Patient admitted to: Inpatient With expected LOS: >2 Midnights Practitioner: I am a practitioner with admitting privileges, knowledge of patient current condition, hospital course, and medical plan of care. Services: Services provided to patient in accordance with Admission requirements found in Title 42 Section 412.3 of the Code of Federal Regulations Patient History Date of Service: 02/01/23 Reason for admission: Fever and chills History of Present Illness: 68-year-old woman with a history of lower extremity lymphedema, hypertension hypothyroidism who was transported to the emergency department due to altered mental status and fever. Patient was alert and oriented during my examination and states that she has been sick with chills, and generalized weakness and nausea for 2 days. She denied any dysuria. She denied any cough, she denied any diarrhea or abdominal pain. Patient noted to have fever up to 101 in the ED. She met criteria for sepsis with tachycardia, fever and leukocytosis. Sepsis protocol initiated in the ED. Source of sepsis is unknown, bilateral lower extremity CT shows subcutaneous edema which is consistent with her history of lymphedema, cellulitis not ruled out. Urine analysis is pending. Patient is hospitalized for further management. Allergies Penicillins Allergy (Verified 07/07/20 07:56) Rash Home Medications: Acetaminophen [Acetaminophen Extra Strength] 2 tab PO Q8H PRN 08/11/21 Ascorbic Acid 1 tab PO DAILY 08/11/21 Buspirone HCl 1 tab PO TID 08/11/21 Cetirizine HCl 1 tab PO DAILY 08/11/21 Cholecalciferol (Vitamin D3) [Vitamin D3] 1 cap PO DAILY 08/11/21 Cyanocobalamin [Vitamin B-12*] 1 tab PO DAILY 08/11/21 Famotidine [Pepcid] 1 tab PO DAILY 08/11/21 Ferrous Sulfate 1 tab PO BID 08/11/21 Gabapentin 1 cap PO TID 08/11/21 Levothyroxine Sodium 1 tab PO DAILY 08/11/21 Losartan Potassium 1 tab PO DAILY 08/11/21 Mag Hydrox/Al Hydrox/Simeth [Maalox Maximum Strength Susp] 30 ml PO Q6HP PRN 08/11/21 Magnesium Oxide 1 tab PO DAILY 08/11/21 Pravastatin Sodium 1 tab PO BEDTIME 08/11/21 Simethicone 1 cap PO Q8H PRN 12/23/21 Citalopram Hydrobromide [Celexa] 10 mg PO DAILY 09/27/21 Divalproex Sodium [Depakote] 125 mg PO BID 09/27/21 Meclizine HCl 25 mg PO Q12H PRN 09/27/21 Sertraline [Zoloft*] 50 mg PO DAILY 09/27/21 Benzonatate [Tessalon Perle*] 100 mg PO TID PRN #0 cap 10/04/21 Pantoprazole [Protonix Tab*] 40 mg PO BIDAC tab 10/04/21 - Past Medical/Surgical History Diabetic: No -: Hypothyroidism -: Hyperlipidemia -: Chronic lymphedema -: Hypertension -: Anemia chronic disease -: Depression with anxiety -: Obesity Psychosocial/ Personal History: Patient lives at [facility] - Family History Father -: Other (see notes) Notes: Glaucoma Mother -: Heart disease - Social History Alcohol use: No CD- Drugs: No Caffeine use: Yes Review of Systems Other: Patient denied any headache. She denied any altered mental status or confusion. Except as documented, all other systems reviewed and negative. Physical Examination - Physical Exam General: Alert, In no apparent distress, Oriented x3, Obese HEENT: Atraumatic, PERRLA, Mucous membr. moist/pink, EOMI, Sclerae nonicteric Neck: Supple, JVD not distended Respiratory: Clear to auscultation bilaterally, Normal air movement Cardiovascular: Normal S1 S2 (Tachycardia), No murmurs, Edema (Bilateral lower extremities) Capillary refill: <2 Seconds Gastrointestinal: Normal bowel sounds, Soft and benign, Non-distended, No tenderness Musculoskeletal: No clubbing, Warmth (Bilateral legs) Integumentary: No cyanosis, Erythema (Mild erythema-bilateral kaur) Neurological: Normal strength at 5/5 x4 extr, Cranial nerves 3-12 intact Lymphatics: No axilla or inguinal lymphadenopathy - Studies Laboratory Data (last 24 hrs) 02/01/23 06:42: PT 14.1 H, INR 1.28, APTT 26.7 02/01/23 06:42: Sodium 135 L, Potassium 4.5, BUN 20 H, Creatinine 1.20 H, Glucose 107 H, Total Bilirubin 0.5, AST 15, ALT 17, Alkaline Phosphatase 90 02/01/23 06:42: WBC 14.30 H, Hgb 11.9 L, Hct 36.5, Plt Count 141 L Assessment and Plan - Problems (Diagnosis) (1) Sepsis Current Visit: No Status: Acute (2) Morbid obesity Current Visit: Yes Status: Acute (3) Hypothyroidism Current Visit: No Status: Acute (4) Lymphedema Current Visit: No Status: Chronic - Plan Admit patient to the medical floor. Urinalysis is pending. Patient with lymphedema. Cellulitis not ruled out. Source of sepsis is unknown. Could be secondary to UTI. Sepsis protocol initiated in the ED. Cautions IV hydration IV Levaquin and vancomycin. Follow blood cultures. Supportive measures. Reconcile and continue other home medications. Hold antihypertensives for now. - Advance Directives Does patient have a Living Will: No Does patient have a Durable POA for Healthcare: No
[2023-02-01 11:40] LABS: Specific Gravity > 1.030 (1.005-1.030); Urine Bacteria None Seen /HPF (<20); Urine Bilirubin NEGATIVE (Negative); Urine Blood Negative (Negative); Urine Clarity Clear (Clear); Urine Color Yellow (Yellow); Urine Glucose NEGATIVE (Negative); Urine Protein 1+ (Negative); Urine RBC 21-50 /HPF (None Seen); Urine Urobilinogen Normal (Normal)
[2023-02-01] MEDS ORDERED: NA CHLORIDE 0.9% 1,000 ML IV ONE (12:23)
[2023-02-01] MEDS ORDERED: ONDANSETRON 4 MG/2 ML VIAL IV PRN (14:18)
[2023-02-01] MEDS ORDERED: VANCOMYCIN 1 GM in NA CHLORIDE 0.9% 250 ML IVPB SCH (14:18)
[2023-02-01 14:49] VITALS: BMI 49.1
[2023-02-01] MEDS ORDERED: Levofloxacin 750mg IV 750 MG/150 ML BAG IV SCH (15:00)
[2023-02-01] MEDS: NA CHLORIDE 0.9% 1,000 ML IV SCH (15:04)
[2023-02-01] MEDS: ACETAMINOPHEN 500 MG TAB PO PRN (15:05)
[2023-02-01] MEDS ORDERED: VANCOMYCIN 2 GM in NA CHLORIDE 0.9% 500 ML IVPB SCH (17:00)
[2023-02-02 03:15] LABS: Absolute Lymphocytes (CBC) 0.6 K/uL (0.7-4.9); Hematocrit 30.6 % (36.0-45.0); Lymphocytes % 4.9 % (15.3-44.8); MCV 91.3 fL (80-100); MPV 6.6 fL (7.6-11.3); RBC Red Blood Cell Count 3.36 M/uL (3.86-4.86)
[2023-02-02 03:33] LABS: Magnesium 1.9 mg/dL (1.6-2.4); Phosphorus 2.3 mg/dL (2.5-4.9); Potassium 3.8 mEq/L (3.5-5.1)
[2023-02-02] MEDS: NA CHLORIDE 0.9% 1,000 ML IV SCH ×2 (03:48→10:18)
[2023-02-02] MEDS: ACETAMINOPHEN 500 MG TAB PO PRN ×3 (04:22→21:18)
[2023-02-02] MEDS: POTASS/SODIUM PHOSPHATE 1 PKT POWD.PACK PO SCH ×2 (08:49→09:03)
[2023-02-02] MEDS: ENOXAPARIN 40 MG/0.4 ML SQ SCH (08:49)
--- NOTE | 2023-02-02 10:55 | P.PN ---
Subjective Date of Service: 02/02/23 Chief Complaint: Fever and chills Patient states she feels better today compared to yesterday. She is more interactive. No fever overnight and this morning. She reports poor appetite. Physical Examination - Vital Signs Temperature: 97.4 F Blood Pressure: 138/69 Pulse: 86 Respirations: 16 Pulse Ox (%): 95 - Physical Exam General: Alert, In no apparent distress, Obese HEENT: Mucous membr. moist/pink Neck: JVD not distended Respiratory: Clear to auscultation bilaterally, Normal air movement Cardiovascular: Regular rate/rhythm, Normal S1 S2, No murmurs, Edema (Bilateral lower extremities) Gastrointestinal: Normal bowel sounds, Soft and benign, Non-distended, No tenderness Musculoskeletal: No tenderness, Swelling (Bilateral legs), Erythema (Mild erythema-bilateral kaur) Integumentary: No cyanosis Neurological: Normal speech, Other (No focal motor deficit) Lymphatics: Other (Bilateral lower extremity lymphedema) Assessment And Plan - Current Problems (Diagnosis) (1) Sepsis Current Visit: No Status: Acute (2) Morbid obesity Current Visit: Yes Status: Acute (3) Hypothyroidism Current Visit: No Status: Acute (4) Lymphedema Current Visit: No Status: Chronic - Plan Blood culture grew beta-hemolytic strep/gram-positive cocci in 2 sets blood culture bottles. Urinalysis-no significant evidence of UTI. Patient with lymphedema. Cellulitis not ruled out. Source of sepsis is unknown. Cautions IV hydration. I will cut down on IV fluid oxygen as patient tolerates po. Continue IV Levaquin and vancomycin. Follow blood cultures. Infectious disease consult. Supportive measures. Continue other home medications. Hold antihypertensives for now.
[2023-02-02] MEDS: GABAPENTIN 100 MG CAP PO SCH ×2 (14:49→21:06)
[2023-02-02] MEDS: BUSPIRONE HCL 15 MG TABLET PO SCH ×2 (14:49→21:06)
[2023-02-02] MEDS ORDERED: VANCOMYCIN 2 GM in NA CHLORIDE 0.9% 500 ML IVPB SCH (17:00)
[2023-02-02] MEDS: PANTOPRAZOLE 40MG TABLET PO SCH (17:18)
[2023-02-02] MEDS ORDERED: HOME MED 1 EA UNK (Pravastatin Sodium [Pravastatin Sodium] 40 MG Tablet) PO SCH (21:00)
[2023-02-02] MEDS: DIVALPROEX NA 125 MG CAP PO SCH (21:05)
[2023-02-02] MEDS: ATORVASTATIN 10 MG TAB PO SCH (21:06)
[2023-02-03] MEDS: NA CHLORIDE 0.9% 1,000 ML IV SCH ×2 (02:11→05:52)
[2023-02-03 03:11] LABS: Potassium 3.8 mEq/L (3.5-5.1)
[2023-02-03] MEDS: LEVOTHYROXINE SOD 0.088 MG TAB PO SCH (06:31)
[2023-02-03] MEDS: ENOXAPARIN 40 MG/0.4 ML SQ SCH (08:04)
[2023-02-03] MEDS: MAGNESIUM OXIDE 400 MG TAB PO SCH (08:05)
[2023-02-03] MEDS: DIVALPROEX NA 125 MG CAP PO SCH ×2 (08:05→20:31)
[2023-02-03] MEDS: GABAPENTIN 100 MG CAP PO SCH ×3 (08:05→20:32)
[2023-02-03] MEDS: FAMOTIDINE 20 MG TAB PO SCH (08:06)
[2023-02-03] MEDS: VITAMIN D 1000 UNIT TAB PO SCH (08:06)
[2023-02-03] MEDS: CITALOPRAM 10 MG TABLET PO SCH (08:06)
[2023-02-03] MEDS: CETIRIZINE HCL 5 MG TABLET PO SCH (08:06)
[2023-02-03] MEDS: SERTRALINE HCL 50 MG TAB PO SCH (08:06)
[2023-02-03] MEDS: BUSPIRONE HCL 15 MG TABLET PO SCH ×3 (08:06→20:32)
[2023-02-03] MEDS: CYANOCOBALAMIN 1,000 MCG TAB PO SCH (08:07)
[2023-02-03] MEDS: ASCORBIC ACID 500 MG TABLET PO SCH (08:07)
[2023-02-03] MEDS: PANTOPRAZOLE 40MG TABLET PO SCH ×2 (08:07→16:40)
[2023-02-03] MEDS ORDERED: Levofloxacin 750mg IV 750 MG/150 ML BAG IV SCH (09:00)
[2023-02-03] MEDS ORDERED: POTASSIUM CL SA 10 MEQ TAB PO ONE (09:00)
[2023-02-03] MEDS: SIMETHICONE 125 MG TAB PO PRN ×2 (09:11→20:33)
[2023-02-03] MEDS: CEFTRIAXONE 2,000 MG in NA CHLORIDE 0.9% 100 ML IV SCH (11:18)
[2023-02-03] MEDS ORDERED: SIMETHICONE 125 MG PO PRN (12:34)
--- NOTE | 2023-02-03 12:34 | P.PN ---
Subjective Date of Service: 02/03/23 Chief Complaint: Fever and chills Patient reports no new complaint today. She states her appetite is better today No recorded fever. Physical Examination - Vital Signs Temperature: 98.8 F Blood Pressure: 162/72 Pulse: 68 Respirations: 72 Pulse Ox (%): 97 - Studies Microbiology Data (last 24 hrs): 02/01/23 06:42 Blood - Blood Aerobic Blood Culture - Final Streptococcus Agalactiae Grp B 02/01/23 06:42 Blood - Blood Blood Culture Gram Stain - Final 02/01/23 06:42 Blood - Blood Anaerobic Blood Culture - Final Streptococcus Agalactiae [facility] B 02/01/23 06:42 Blood - Blood Gram Stain - Final 02/01/23 06:34 Blood - Blood Aerobic Blood Culture - Final Streptococcus Agalactiae [facility] 02/01/23 06:34 Blood - Blood Blood Culture Gram Stain - Final 02/01/23 06:34 Blood - Blood Anaerobic Blood Culture - Final Streptococcus Agalactiae [facility] 02/01/23 06:34 Blood - Blood Gram Stain - Final Assessment And Plan - Current Problems (Diagnosis) (1) Sepsis Current Visit: No Status: Acute (2) Morbid obesity Current Visit: Yes Status: Acute (3) Hypothyroidism Current Visit: No Status: Acute (4) Lymphedema Current Visit: No Status: Chronic - Plan Physical Exam General: Alert, In no apparent distress. HEENT: Mucous membr. moist/pink Neck: JVD not distended Respiratory: Clear to auscultation bilaterally, Normal air movement Cardiovascular: Regular rate/rhythm, Normal S1 S2, No murmurs, Bilateral lower extremities edema Gastrointestinal: Normal bowel sounds, Soft and benign, Non-distended, No tenderness Musculoskeletal: No tenderness, Swelling-Bilateral legs, Mild erythema-bilateral kaur) Integumentary: No cyanosis Neurological: Normal speech, No focal motor deficit Lymphatics: Bilateral lower extremity lymphedema Plan: Blood culture grew beta-hemolytic strep/gram-positive cocci in 2 sets blood culture bottles. Urinalysis-no significant evidence of UTI. Patient with lymphedema. Cellulitis not ruled out. Source of sepsis is unknown. 4/4 blood culture bottles growing strep agalactiae sensitive to penicillin. Change antibiotics to IV Rocephin Discontinue IV fluid due to edema. Follow repeat blood culture results. Infectious disease consulted. Supportive measures. Continue other home medications. Patient is currently hypertensive. Resume home antihypertensives.
[2023-02-03] MEDS ORDERED: MAGNES/ALUMIN/SIMET 30ML UCUP PO PRN (12:56)
[2023-02-03] MEDS: FERROUS SULFATE 325 MG TAB PO SCH (20:31)
[2023-02-03] MEDS: ATORVASTATIN 10 MG TAB PO SCH (20:32)
[2023-02-04 03:38] LABS: Potassium 3.9 mEq/L (3.5-5.1)
[2023-02-04] MEDS: LEVOTHYROXINE SOD 0.088 MG TAB PO SCH (06:33)
[2023-02-04] MEDS: ENOXAPARIN 40 MG/0.4 ML SQ SCH (08:24)
[2023-02-04] MEDS: VITAMIN D 1000 UNIT TAB PO SCH (08:25)
[2023-02-04] MEDS: CETIRIZINE HCL 5 MG TABLET PO SCH (08:25)
[2023-02-04] MEDS: BUSPIRONE HCL 15 MG TABLET PO SCH ×3 (08:26→20:55)
[2023-02-04] MEDS: MAGNESIUM OXIDE 400 MG TAB PO SCH (08:27)
[2023-02-04] MEDS: FERROUS SULFATE 325 MG TAB PO SCH ×2 (08:28→20:56)
[2023-02-04] MEDS: ASCORBIC ACID 500 MG TABLET PO SCH (08:29)
[2023-02-04] MEDS: DIVALPROEX NA 125 MG CAP PO SCH ×2 (08:29→20:56)
[2023-02-04] MEDS: GABAPENTIN 100 MG CAP PO SCH ×3 (08:29→20:56)
[2023-02-04] MEDS: CITALOPRAM 10 MG TABLET PO SCH (08:30)
[2023-02-04] MEDS: PANTOPRAZOLE 40MG TABLET PO SCH ×2 (08:30→17:08)
[2023-02-04] MEDS: CYANOCOBALAMIN 1,000 MCG TAB PO SCH (08:31)
[2023-02-04] MEDS: SERTRALINE HCL 50 MG TAB PO SCH (08:31)
[2023-02-04] MEDS: LOSARTAN POTASSIUM 50 MG TABLET PO SCH (08:31)
[2023-02-04] MEDS: FAMOTIDINE 20 MG TAB PO SCH (08:32)
[2023-02-04] MEDS ORDERED: POTASSIUM CL SA 10 MEQ TAB PO ONE (09:00)
[2023-02-04 10:24] VITALS: O2SAT 97
[2023-02-04] MEDS: SIMETHICONE 125 MG TAB PO PRN (11:20)
[2023-02-04] MEDS: CEFTRIAXONE 2,000 MG in NA CHLORIDE 0.9% 100 ML IV SCH (11:20)
[2023-02-04] MEDS: ACETAMINOPHEN 500 MG TAB PO PRN (11:43)
--- NOTE | 2023-02-04 11:43 | P.PN ---
Subjective Date of Service: 02/04/23 Chief Complaint: Fever and chills Patient reports feeling much better today. She states that she is eating more. Last BM was last night. No recorded fever. Physical Examination - Vital Signs Temperature: 98.6 F Blood Pressure: 179/80 Pulse: 78 Respirations: 16 Pulse Ox (%): 97 - Studies Microbiology Data (last 24 hrs): 02/01/23 06:42 Blood - Blood Aerobic Blood Culture - Final Streptococcus Agalactiae [facility] 02/01/23 06:42 Blood - Blood Blood Culture Gram Stain - Final 02/01/23 06:42 Blood - Blood Anaerobic Blood Culture - Final Streptococcus Agalactiae [facility] 02/01/23 06:42 Blood - Blood Gram Stain - Final 02/01/23 06:34 Blood - Blood Aerobic Blood Culture - Final Streptococcus Agalactiae [facility] 02/01/23 06:34 Blood - Blood Blood Culture Gram Stain - Final 02/01/23 06:34 Blood - Blood Anaerobic Blood Culture - Final Streptococcus Agalactiae [facility] 02/01/23 06:34 Blood - Blood Gram Stain - Final Assessment And Plan - Current Problems (Diagnosis) (1) Sepsis Current Visit: No Status: Acute (2) Morbid obesity Current Visit: Yes Status: Acute (3) Hypothyroidism Current Visit: No Status: Acute (4) Lymphedema Current Visit: No Status: Chronic - Plan Physical Exam General: Alert, In no apparent distress. HEENT: Mucous membr. moist/pink Neck: JVD not distended Respiratory: Clear to auscultation bilaterally, Normal air movement Cardiovascular: Regular rate/rhythm, Normal S1 S2, No murmurs, Bilateral lower extremities edema Gastrointestinal: Normal bowel sounds, Soft and benign, Non-distended, No tenderness Musculoskeletal: No tenderness, Swelling-Bilateral legs, Mild erythema-bilateral kaur) Integumentary: No cyanosis Neurological: Normal speech, No focal motor deficit Lymphatics: Bilateral lower extremity lymphedema Plan: Blood culture grew beta-hemolytic strep/gram-positive cocci in 2 sets blood culture bottles. Urinalysis-no significant evidence of UTI. Patient with lymphedema. Cellulitis not ruled out. Source of sepsis is unknown. 4/4 blood culture bottles growing strep agalactiae sensitive to penicillin. Continue IV Rocephin Repeat blood culture shows no growth to date. Infectious disease consulted. Supportive measures. Continue other home medications. Continue home antihypertensives.
[2023-02-04] MEDS: FUROSEMIDE 40 MG TABLET PO SCH (12:18)
[2023-02-04] MEDS: ATORVASTATIN 10 MG TAB PO SCH (20:56)
[2023-02-05] MEDS ORDERED: HYDRALAZINE HCL 20 MG/ML VIAL IV PRN (00:21)
[2023-02-05 03:54] LABS: Potassium 3.6 mEq/L (3.5-5.1)
[2023-02-05] MEDS: LEVOTHYROXINE SOD 0.088 MG TAB PO SCH (06:36)
--- NOTE | 2023-02-05 08:50 | P.CNS ---
Date of Consult: 02/05/23 Reason for Consult: Bacteremia Chief Complaint: Fever and chills History of Present Illness: Patient is a 68 yo female with a history of chronic lower extremity lymphedema, hypertension and hypothyroidism who presented to the ED with altered mental status and fever. She reports she had been experiencing chills, nausea and generalized weakness for 2 days prior to admission. In the ED she was found to be febrile with temp of 101, tachycardic and leukocytosis. Sepsis protocol was initiatied and patient was admitted for futher managament. ID consulted for bacteremia, sepsis. Allergies Penicillins Allergy (Verified 07/07/20 07:56) Rash Home medications list reviewed: Yes Home Medications: Acetaminophen [Acetaminophen Extra Strength] 2 tab PO Q8H PRN 08/11/21 Ascorbic Acid 1 tab PO DAILY 08/11/21 Buspirone HCl 1 tab PO TID 08/11/21 Cetirizine HCl 1 tab PO DAILY 08/11/21 Cholecalciferol (Vitamin D3) [Vitamin D3] 1 cap PO DAILY 08/11/21 Cyanocobalamin [Vitamin B-12*] 1 tab PO DAILY 08/11/21 Famotidine [Pepcid] 1 tab PO DAILY 08/11/21 Ferrous Sulfate 1 tab PO BID 08/11/21 Gabapentin 1 cap PO TID 08/11/21 Levothyroxine Sodium 1 tab PO DAILY 08/11/21 Losartan Potassium 1 tab PO DAILY 08/11/21 Mag Hydrox/Al Hydrox/Simeth [Maalox Maximum Strength Susp] 30 ml PO Q6HP PRN 08/11/21 Magnesium Oxide 1 tab PO DAILY 08/11/21 Pravastatin Sodium 1 tab PO BEDTIME 08/11/21 Simethicone 1 cap PO Q8H PRN 08/11/21 Citalopram Hydrobromide [Celexa] 10 mg PO DAILY 09/27/21 Divalproex Sodium [Depakote] 125 mg PO BID 09/27/21 Meclizine HCl 25 mg PO Q12H PRN 09/27/21 Sertraline [Zoloft*] 50 mg PO DAILY 09/27/21 Benzonatate [Tessalon Perle*] 100 mg PO TID PRN #0 cap 10/04/21 Pantoprazole [Protonix Tab*] 40 mg PO BIDAC tab 10/04/21 Furosemide [Lasix*] 40 mg PO DAILY tab 02/05/23 levoFLOXacin [Levaquin] 750 mg PO DAILY #14 tab 02/05/23 - Past Medical/Surgical History Diabetic: No -: Hypothyroidism -: Hyperlipidemia -: Chronic lymphedema -: Hypertension -: Anemia chronic disease -: Depression with anxiety -: Obesity Psychosocial/ Personal History: Patient lives at [facility] - Family History Father Medical History: Other (see notes) Notes: Glaucoma Mother Medical History: Heart disease - Social History Smoking Status: Unknown if ever smoked Alcohol use: No CD- Drugs: No Caffeine use: Yes Place of Residence: [facility] Review of Systems 10-point ROS is otherwise unremarkable Physical Examination Temp Pulse Resp BP Pulse Ox 97.4 F 74 15 169/68 H 98 02/05/23 04:00 02/05/23 04:00 02/05/23 04:00 02/05/23 04:00 02/05/23 04:00 General: Alert, In no apparent distress, Oriented x3 HEENT: Atraumatic, Normocephalic Neck: Supple, JVD not distended Respiratory: Clear to auscultation bilaterally, Normal air movement Cardiovascular: Normal pulses, Regular rate/rhythm Gastrointestinal: Normal bowel sounds, No tenderness, No rebound, No guarding Musculoskeletal: No clubbing, No contractures Integumentary: Erythema (Left lower leg), Warmth (left lower leg) Neurological: Normal speech, Normal tone, Normal affect Urinary: Other (PureWick with yellow colored urine) Laboratory Data - Reviewed Microbiology Data - Urinalysis 02/01: No WBC, bacteria or nitrite seen - Blood cultures 02/01: Streptococcus agalactiae group B - Repeat blood culture 02/03: no growth to date Imagings Data: - Reviewed Conclusions/Impression: Problem List Sepsis Bacteremia Morbid Obesity Hypothyroidism Chronic Lymphedema Hypertension Depression Anemia Sepsis Bacteremia - Blood cultures 02/01: Streptococcus agalactiae group B, sensitive to Levofloxacin and Penicillin - Allergy to penicillin - Repeat blood culture 02/03: No growth to date - Currently on Rocephin (started 02/03) - Leukocytosis improving (WBC 11.5 on 02/02) - Afebrile QTc 424 Recommendations - Bacteremia: Switch patient to Levaquin PO - Continue antibioitc therapy for 2 weeks. - Start on probiotic - Follow up with PCP in 2 weeks. ID will follow up with patient as needed. Case discussed with Chary Sanches. Thank you Dr. Blevins for consult.
[2023-02-05] MEDS: FUROSEMIDE 40 MG TABLET PO SCH (08:58)
[2023-02-05] MEDS: ENOXAPARIN 40 MG/0.4 ML SQ SCH (08:58)
[2023-02-05] MEDS: FERROUS SULFATE 325 MG TAB PO SCH (08:59)
[2023-02-05] MEDS: VITAMIN D 1000 UNIT TAB PO SCH (08:59)
[2023-02-05] MEDS: MAGNESIUM OXIDE 400 MG TAB PO SCH (08:59)
[2023-02-05] MEDS: CITALOPRAM 10 MG TABLET PO SCH (08:59)
[2023-02-05] MEDS: ASCORBIC ACID 500 MG TABLET PO SCH (08:59)
[2023-02-05] MEDS: BUSPIRONE HCL 15 MG TABLET PO SCH ×2 (08:59→14:22)
[2023-02-05] MEDS: CETIRIZINE HCL 5 MG TABLET PO SCH (08:59)
[2023-02-05] MEDS: GABAPENTIN 100 MG CAP PO SCH ×2 (09:00→14:22)
[2023-02-05] MEDS: FAMOTIDINE 20 MG TAB PO SCH (09:00)
[2023-02-05] MEDS: LOSARTAN POTASSIUM 50 MG TABLET PO SCH (09:00)
[2023-02-05] MEDS: CYANOCOBALAMIN 1,000 MCG TAB PO SCH (09:00)
[2023-02-05] MEDS ORDERED: POTASSIUM CL SA 10 MEQ TAB PO ONE (09:00)
[2023-02-05] MEDS: SERTRALINE HCL 50 MG TAB PO SCH (09:00)
[2023-02-05] MEDS: PANTOPRAZOLE 40MG TABLET PO SCH (09:00)
[2023-02-05] MEDS: DIVALPROEX NA 125 MG CAP PO SCH (09:00)
[2023-02-05] MEDS: SIMETHICONE 125 MG TAB PO PRN (09:06)
[2023-02-05] MEDS: CEFTRIAXONE 2,000 MG in NA CHLORIDE 0.9% 100 ML IV SCH (12:20)
[2023-02-05 12:46] VITALS: BP 165/71; TEMP 98.3
--- NOTE | 2023-02-05 14:41 | P.DS ---
Admission Date: 02/01/23 Discharge Date: 02/05/23 Disposition: TRANSFER TO CORRECTION Discharge Condition: FAIR Reason for Admission: Fever and chills - Problems (1) Sepsis Current Visit: No Status: Acute (2) Morbid obesity Current Visit: Yes Status: Acute (3) Hypothyroidism Current Visit: No Status: Acute (4) Lymphedema Current Visit: No Status: Chronic Brief History of Present Illness: 68-year-old woman with a history of lower extremity lymphedema, hypertension hypothyroidism who was transported to the emergency department due to altered mental status and fever. Patient was alert and oriented during my examination and states that she has been sick with chills, and generalized weakness and nausea for 2 days. She denied any dysuria. She denied any cough, she denied any diarrhea or abdominal pain. Patient noted to have fever up to 101 in the ED. She met criteria for sepsis with tachycardia, fever and leukocytosis. Sepsis protocol initiated in the ED. Source of sepsis is unknown, bilateral lower extremity CT shows subcutaneous edema which is consistent with her history of lymphedema, cellulitis not ruled out. Urine analysis is pending. Patient was hospitalized for further management. Hospital Course: Patient admitted to the medical floor and treated with aggressive antibiotics-IV cefepime and vancomycin. Blood culture grew beta-hemolytic strep/gram-positive cocci in 4 sets blood culture bottles. Urinalysis-no significant evidence of UTI. Patient with lymphedema. Cellulitis not ruled out. Source of sepsis is unknown. 4/4 blood culture bottles growing strep agalactiae sensitive to penicillin. Antibiotics switched to IV Rocephin. Patient received 5 days of IV antibiotics. Repeat blood culture shows no growth to date. Infectious disease evaluated patient and assisted with antibiotics management. Patient has clinically improved with stable vitals. Infectious disease-Dr. Rolon recommended 2 weeks of oral Levaquin. Patient was given Lasix for bilateral lower extremity lymphedema. She is discharged with 2 weeks of oral Levaquin. She is also prescribed oral Lasix for lower extremity edema/lymphedema. Vital Signs/Physical Exam: Temp Pulse Resp BP Pulse Ox 98.3 F 73 16 165/71 H 99 02/05/23 12:00 02/05/23 12:00 02/05/23 12:00 02/05/23 12:00 02/05/23 12:00 General: Alert, In no apparent distress, Oriented x3 HEENT: Mucous membr. moist/pink Neck: Supple, JVD not distended Respiratory: Clear to auscultation bilaterally, Normal air movement Cardiovascular: Regular rate/rhythm, Normal S1 S2, No murmurs, Edema (Bilateral legs-improving) Gastrointestinal: Soft and benign, Non-distended, No tenderness Musculoskeletal: No swelling, No tenderness Integumentary: No cyanosis Neurological: Other (No focal motor deficit) Laboratory Data at Discharge: WBC 11.50 thou/uL (4.3-10.9) H 02/02/23 02:42 Hgb 10.2 g/dL (12.0-15.0) L D 02/02/23 02:42 Hct 30.6 % (36.0-45.0) L 02/02/23 02:42 Plt Count 108 thou/uL (152-406) L 02/02/23 02:42 PT 14.1 SECONDS (9.5-12.5) H 02/01/23 06:42 INR 1.28 02/01/23 06:42 APTT 26.7 SECONDS (24.3-36.9) 02/01/23 06:42 Sodium 143 mEq/L (136-145) 02/05/23 02:30 Potassium 3.6 mEq/L (3.5-5.1) 02/05/23 02:30 BUN 12 mg/dL (7-18) 02/05/23 02:30 Creatinine 0.91 mg/dL (0.55-1.02) 02/05/23 02:30 Glucose 103 mg/dL (74-106) 02/05/23 02:30 Phosphorus 3.0 mg/dL (2.5-4.9) 02/03/23 02:47 Magnesium 1.9 mg/dL (1.6-2.4) 02/02/23 02:42 Total Bilirubin 0.5 mg/dL (0.2-1.0) 02/01/23 06:42 AST 15 U/L (15-37) 02/01/23 06:42 ALT 17 U/L (13-56) 02/01/23 06:42 Alkaline Phosphatase 90 U/L (45-117) 02/01/23 06:42 Home Medications: Acetaminophen [Acetaminophen Extra Strength] 2 tab PO Q8H PRN 08/11/21 Ascorbic Acid 1 tab PO DAILY 08/11/21 Buspirone HCl 1 tab PO TID 08/11/21 Cetirizine HCl 1 tab PO DAILY 08/11/21 Cholecalciferol (Vitamin D3) [Vitamin D3] 1 cap PO DAILY 08/11/21 Cyanocobalamin [Vitamin B-12*] 1 tab PO DAILY 08/11/21 Famotidine [Pepcid] 1 tab PO DAILY 08/11/21 Ferrous Sulfate 1 tab PO BID 08/11/21 Gabapentin 1 cap PO TID 08/11/21 Levothyroxine Sodium 1 tab PO DAILY 08/11/21 Losartan Potassium 1 tab PO DAILY 08/11/21 Mag Hydrox/Al Hydrox/Simeth [Maalox Maximum Strength Susp] 30 ml PO Q6HP PRN 08/11/21 Magnesium Oxide 1 tab PO DAILY 08/11/21 Pravastatin Sodium 1 tab PO BEDTIME 08/11/21 Simethicone 1 cap PO Q8H PRN 08/11/21 Citalopram Hydrobromide [Celexa] 10 mg PO DAILY 09/27/21 Divalproex Sodium [Depakote] 125 mg PO BID 09/27/21 Meclizine HCl 25 mg PO Q12H PRN 09/27/21 Sertraline [Zoloft*] 50 mg PO DAILY 09/27/21 Benzonatate [Tessalon Perle*] 100 mg PO TID PRN #0 cap 10/04/21 Pantoprazole [Protonix Tab*] 40 mg PO BIDAC tab 10/04/21 Furosemide [Lasix*] 40 mg PO DAILY tab 02/05/23 levoFLOXacin [Levaquin] 750 mg PO DAILY #14 tab 02/05/23 New Medications: levoFLOXacin [Levaquin] 750 mg PO DAILY #14 tab Diet: AHA Activity: Fall precautions Followup: Tierra Kelly MD [Primary Care Provider] - 1-2 Weeks Time spent managing pt's care (in minutes): 38
[2023-02-05 15:32] LABS: SARS-CoV-2 Antigen Rapid Res Negative (Negative)
== END 2023-02-05 16:45 | DRG 872 ==
LOC: ER 06:10 → ERHOLD 10:14 → 2ND 14:10
PROVIDERS: ADMIT Internal Medicine; ATTEND Internal Medicine
DX: A40.1 Sepsis due to streptococcus, group B (principal); L03.115 Cellulitis of right lower limb; Z68.42 Body mass index [BMI] 45.0-49.9, adult; E66.01 Morbid (severe) obesity due to excess calories; E03.9 Hypothyroidism, unspecified; I89.0 Lymphedema, not elsewhere classified; I10 Essential (primary) hypertension; E78.5 Hyperlipidemia, unspecified; M19.90 Unspecified osteoarthritis, unspecified site; K21.9 Gastro-esophageal reflux disease without esophagitis; Z88.0 Allergy status to penicillin; Z79.890 Hormone replacement therapy; Z79.899 Other long term (current) drug therapy; Z20.822 Contact with and (suspected) exposure to COVID-19
CPT/HCPCS: 36415; 70450; 71045; 73700; 80048; 80053; 81001; 82947; 83605; 83735; 84100; 85025; 85610; 85730; 87040; 87077; 87186; 87205; 87811; 93005; 96361; 96365; 99285; J0360; J0692; J0696; J1650; J2405; J7030; J7040; J7050